=== PATIENT | male | born 1960 | race African-American/Black ===

== ENCOUNTER 2016-08-29 05:52 | Emergency (ER) | payer SELFPAY ==
[2016-08-29] MEDS ORDERED: DUONEB 0.5 MG-3 MG/3 ML SOLN IH ONE ×2 (06:09→06:32)
[2016-08-29] MEDS ORDERED: DELTASONE PO ONE (07:04)
--- NOTE | 2016-08-29 07:49 | Emergency Department Report ---
HPI - General Chief Complaint: Adult Asthma Time Seen by Provider: 08/29/16 07:49 - HPI HPI: Patient here reported that he had wheezing and coughing for one day. He said he took [id number] Primatene that did not work. Denies any chest pain or shortness of breath. Denies any upper respiratory tract infection. Patient does not have a primary care physician. Pain scale is 0 out of 10. ED Past Medical Hx - Past Medical History Previous Medical History?: Yes Hx Heart Attack/AMI: No Hx Congestive Heart Failure: No Hx Diabetes: No Hx Sickle Cell Disease: No Hx Asthma: Yes Hx COPD: No Hx HIV: No - Surgical History Past Surgical History?: No - Family History Family history: no significant - Social History Smoking Status: Current Every Day Smoker Substance Use Type: None - Medications Home Medications: Home Medications Medication Instructions Recorded Confirmed Last Taken Type Albuterol *Only Ed* [Proventil 2.5 mg IH Q3H PRN #30 nebu 09/27/14 Unknown Rx 0.5% NEBS] Azithromycin [Zithromax TAB] 500 mg PO QDAY 5 Days 09/27/14 Unknown Rx Ipratropium/Albuterol Sulfate 1 ampul IH Q6HRT #16 ampul.neb 09/27/14 Unknown Rx [Duoneb 0.5 mg-3 mg/3 ml Soln] Montelukast [Singulair] 10 mg PO QHS #30 tablet 09/27/14 Unknown Rx Prednisone [Prednisone 10 mg 10 mg PO .TAPER #1 tab.ds.pk 09/27/14 Unknown Rx (6-Day Pack, 21 Tabs)] guaiFENesin ER [Mucinex ER] 600 mg PO BID #20 tablet 09/27/14 Unknown Rx Albuterol Sulfate [Ventolin HFA] 2 puff IH Q4H PRN #1 hfa.aer.ad 08/29/16 Unknown Rx predniSONE [Deltasone] 20 mg PO QDAY #5 tab 08/29/16 Unknown Rx ED Review of Systems ROS: Stated complaint: VERENA Other details as noted in HPI Comment: All other systems reviewed and negative Constitutional: denies: chills, fever ENT: denies: ear pain, throat pain, congestion Respiratory: cough, wheezing. denies: shortness of breath, SOB with exertion, SOB at rest, stridor Cardiovascular: denies: chest pain, palpitations, edema, syncope Gastrointestinal: denies: abdominal pain, nausea, vomiting Musculoskeletal: denies: back pain, joint swelling, arthralgia Skin: denies: rash Neurological: denies: headache, weakness, numbness, paresthesias, confusion, abnormal gait, vertigo Physical Exam - Physical Exam Vital Signs: Vital Signs 08/29/16 06:22 Temperature 98.7 F Pulse Rate 93 H Respiratory 24 Rate Blood Pressure 151/94 Blood Pressure 151/94 [Left] O2 Sat by Pulse 97 Oximetry General: 56-year-old male well-nourished well-developed in no acute distress. Physical Exam: Head: Normocephalic atraumatic Mouth: Moist, no pharyngeal exudate or erythema. Uvula is midline and oral airway is patent. No facial swelling. No peritonsillar abscesses. Nose: Normal mucosa. . Maxillary and frontal sinuses nontender to palpate Neck: Supple, no C-spine tenderness, no tracheal deviation. Nontender to palpate. no adenopathy Ears: Bilateral TMs congested without erythema. Bilateral EAC without any redness swelling or drainage. Bilateral otitis nontender to palpate Abdomen: Soft, nontender to palpate in all quadrants, normal bowel sounds in all quadrant and negative CVA tenderness bilaterally. Eyes: Bilateral pupils equal and reactive to light, bilateral EOM intact. Bilateral sclera and conjunctiva without injection. Normal accommodation. No Lungs: Clear to auscultate bilaterally no rhonchi wheezes or rales. Normal work of breathing extremity; No CCE. +2 pulses. No neurovascular compromise Cardiovascular: S1-S2, regular rate rhythm. No murmurs. Skin: clean Dry and intact no rash no lesions Psych: Normal mood and behavior ED Course Vital Signs 08/29/16 06:22 Temperature 98.7 F Pulse Rate 93 H Respiratory 24 Rate Blood Pressure 151/94 Blood Pressure 151/94 [Left] O2 Sat by Pulse 97 Oximetry - Reevaluation(s) Reevaluation #1: 08/29/16 08:52 She received DuoNeb nebulizer and Deltasone in triage area. Up evaluating patient, his lung sounds is clear after treatment. ED Medical Decision Making - Medical Decision Making ED course: Acute asthma exacerbation, minor. He is taking [id number] Advil his medication because he does not have a primary care physician. Patient discharged home in stable condition with prescription for Ventolin HFA and prednisone. Smoking cessation encouraged. Critical care attestation.: If time is entered above; I have spent that time in minutes in the direct care of this critically ill patient, excluding procedure time. ED Disposition Clinical Impression: Encounter for smoking cessation counseling Acute asthma exacerbation Qualifiers: Asthma severity: mild intermittent Qualified Code(s): J45.21 - Mild intermittent asthma with (acute) exacerbation Disposition: DISCHARGED TO HOME OR SELFCARE Is pt being admited?: No Does the pt Need Aspirin: No Condition: Stable Instructions: Asthma (ED), How to Stop Smoking (ED) Additional Instructions: Please stop smoking Take medication as prescribed Followup [facility]. Please call tomorrow to schedule an appointment Prescriptions: Albuterol Sulfate [Ventolin HFA] 2 puff IH Q4H PRN #1 hfa.aer.ad PRN Reason: COUGH AND WHEEZING predniSONE [Deltasone] 20 mg PO QDAY #5 tab Referrals: [facility] [Outside] - 3-5 Days Forms: Accompanied Note, Work/School Release Form(ED)
[2016-08-29 07:59] VITALS: BP 138/78
== END 2016-08-29 09:02 | disposition home or self-care (01) ==
LOC: ED 05:52
DX: J45.21 Mild intermittent asthma with (acute) exacerbation (principal); F17.200 Nicotine dependence, unspecified, uncomplicated
CPT/HCPCS: 99283; J7512

== ENCOUNTER 2016-10-19 06:47 | Inpatient (IN) | payer SELFPAY ==
[2016-10-19] MEDS ORDERED: PROVENTIL IH ONE (07:31)
[2016-10-19] MEDS ORDERED: MAGNESIUM SULFATE 2GM/50ML 2 GM/50 ML BAG IV ONE (07:50)
--- NOTE | 2016-10-19 07:57 | Emergency Department Report ---
HPI - General Chief Complaint: Dyspnea/Respdistress Time Seen by Provider: 10/19/16 07:45 - HPI HPI: This is a 56-year-old male who presents to the emergency department by EMS from home with complaint of shortness of breath, wheezing and some chest tightness. He says it has been going on for the past month but worsened this morning. He is a tobacco smoker. He has a history of asthma. He says he has been out of his albuterol inhaler and other asthma medications. He denies any history of MN, CVA, PE/DVT. He does not have a primary care doctor. No recent travel or sick contacts at home. He has not oxygen dependent but was placed on 2 L nasal cannula through triage. ED Past Medical Hx - Past Medical History Previous Medical History?: Yes Hx Heart Attack/AMI: No Hx Congestive Heart Failure: No Hx Diabetes: No Hx Sickle Cell Disease: No Hx Asthma: Yes Hx COPD: No Hx HIV: No - Surgical History Past Surgical History?: No - Social History Smoking Status: Current Every Day Smoker Substance Use Type: None - Medications Home Medications: Home Medications Medication Instructions Recorded Confirmed Last Taken Type Albuterol *Only Ed* [Proventil 2.5 mg IH Q3H PRN #30 nebu 09/27/14 Unknown Rx 0.5% NEBS] Azithromycin [Zithromax TAB] 500 mg PO QDAY 5 Days 09/27/14 Unknown Rx Ipratropium/Albuterol Sulfate 1 ampul IH Q6HRT #16 ampul.neb 09/27/14 Unknown Rx [Duoneb 0.5 mg-3 mg/3 ml Soln] Montelukast [Singulair] 10 mg PO QHS #30 tablet 09/27/14 Unknown Rx Prednisone [Prednisone 10 mg 10 mg PO .TAPER #1 tab.ds.pk 09/27/14 Unknown Rx (6-Day Pack, 21 Tabs)] guaiFENesin ER [Mucinex ER] 600 mg PO BID #20 tablet 09/27/14 Unknown Rx Albuterol Sulfate [Ventolin HFA] 2 puff IH Q4H PRN #1 hfa.aer.ad 08/29/16 Unknown Rx predniSONE [Deltasone] 20 mg PO QDAY #5 tab 08/29/16 Unknown Rx ED Review of Systems ROS: Stated complaint: SOB/CHEST PAIN Other details as noted in HPI Comment: All other systems reviewed and negative Constitutional: denies: chills, fever Eyes: denies: eye pain, eye discharge, vision change ENT: denies: ear pain, throat pain Respiratory: cough, shortness of breath, wheezing Cardiovascular: chest pain. denies: palpitations Gastrointestinal: denies: abdominal pain, nausea, diarrhea Genitourinary: denies: urgency, dysuria Musculoskeletal: denies: back pain, joint swelling, arthralgia Skin: denies: rash, lesions Neurological: denies: headache, weakness, paresthesias Physical Exam - Physical Exam Vital Signs: Vital Signs 10/19/16 07:03 Temperature 97.7 F Pulse Rate 86 Respiratory 26 H Rate Blood Pressure 160/106 O2 Sat by Pulse 88 Oximetry Physical Exam: GENERAL: The patient is well-developed well-nourished. HEENT: Normocephalic. Atraumatic. Extraocular motions are intact. Patient has moist mucous membranes. Pupils equal reactive to light bilaterally. NECK: Supple. Trachea is midline. CHEST/LUNGS: Moderate wheezing throughout the chest. A dry cough heard during examination. There is some tachypnea but no accessory muscle use. There is no respiratory distress noted. HEART/CARDIOVASCULAR: Regular. There is no tachycardia. There is no gallop rub or murmur. ABDOMEN: Abdomen is soft, nontender. Patient has normal bowel sounds. There is no abdominal distention. SKIN: Skin is warm and dry. NEURO: The patient is awake, alert, and oriented. The patient is cooperative. The patient has no focal neurologic deficits. The patient has normal speech. MUSCULOSKELETAL: There is no tenderness or deformity. There is no limitation range of motion. There is no evidence of acute injury. ED Course Vital Signs 10/19/16 07:03 Temperature 97.7 F Pulse Rate 86 Respiratory 26 H Rate Blood Pressure 160/106 O2 Sat by Pulse 88 Oximetry ED Medical Decision Making - Lab Data Result diagrams: 10/19/16 07:57 10/19/16 07:57 - EKG Data -: EKG Interpreted by Me EKG shows normal: sinus rhythm, axis (right axis deviation), intervals, QRS complexes, ST-T waves Rate: normal - EKG Data When compared to previous EKG there are: previous EKG unavailable Interpretation: normal EKG (with right axis deviation) - Radiology Data Radiology results: image reviewed interpreted by me: Chest x-ray did not show any acute process. Heart is normal shape and size. No effusions. No pneumothorax. No signs of pneumonia seen. - Medical Decision Making 56-year-old male presents with shortness of breath, wheezing, cough and a history of asthma. He also has a history of diabetes presents with hyperglycemia. He does not appear to be in diabetic acidosis as there is no elevated anion gap or venous acidosis seen. He was given 8 units of IV insulin. He was given repeated treatments, magnesium and Solu-Medrol. Upon reevaluation he is slightly improved but he is still having moderate bronchospasm and had some hypoxia upon first presentation. For this reason he' ll be admitted to the hospital further evaluation and has been accepted by the hospitalist doctor Frannie. - Differential Diagnosis asthma, CHF, pneumonia, MN Critical Care Time: No Critical care attestation.: If time is entered above; I have spent that time in minutes in the direct care of this critically ill patient, excluding procedure time. ED Disposition Clinical Impression: Tobacco abuse, Shortness of breath, Bronchospasm, Hyperglycemia Acute asthma exacerbation Qualifiers: Asthma severity: unspecified severity Qualified Code(s): J45.901 - Unspecified asthma with (acute) exacerbation Disposition: 09 OP ADMIT IP TO THIS HOSP Is pt being admited?: Yes Condition: Stable Time of Disposition: 12:40
[2016-10-19 08:09] LABS: Basophils % (Auto) 1.4 % (0.0-1.8); Eosinophils % (Auto) 11.6 % (0.0-4.3); Hemoglobin 15.8 gm/dl (11.8-15.2); Mean Corpuscular HGB Conc 33 % (32-34); Mean Corpuscular Hemoglobin 29 pg (28-32); Mean Corpuscular Volume 88 fl (84-94); Platelet Count 176 K/mm3 (140-440); Red Blood Count 5.48 M/mm3 (3.65-5.03); Red Cell Distribution Width 13.8 % (13.2-15.2); White Blood Count 7.3 K/mm3 (4.5-11.0)
[2016-10-19 08:32] LABS: Creatine Kinase MB 3.2 ng/mL (0.0-4.0)
[2016-10-19 08:35] LABS: Alanine Aminotransferase 17 units/L (7-56); Albumin 3.8 g/dL (3.9-5); Albumin/Globulin Ratio 1.6 %; Alkaline Phosphatase 158 units/L (35-129); Anion Gap 16 mmol/L; BUN/Creatinine Ratio 21.42; Blood Urea Nitrogen 15 mg/dL (9-20); Calcium 8.8 mg/dL (8.4-10.2); Carbon Dioxide 25 mmol/L (22-30); Chloride 100.7 mmol/L (98-107); Creatine Kinase 85 units/L (55-170); Glucose 461 mg/dL (75-100); Potassium 4.7 mmol/L (3.6-5.0); Sodium 137 mmol/L (137-145); Total Protein 6.2 g/dL (6.3-8.2)
--- NOTE | 2016-10-19 08:57 | Admit Criteria Form ---
Admission Criteria Documentation: ASTHMA Clinical Indications for Admission to Inpatient Care (Place 'X' for any and all applicable criteria): Admission is indicated for ANY ONE of the following (1)(2)(3)(4)(5): [ ]I. Absent or markedly diminished breath sounds (silent chest) [ ]II. Oxygen saturation < 92% [ ]III. PaCO2 = / > 42 mm Hg (5.6 kPa) [ ]IV. Peak expiratory flow rate < 40% of predicted or personal best after treatment. [ ]V. Peak expiratory flow rate < 33% of predicted or personal before after treatment [ ]. Change in mental status [ ]VII. Ventilatory support required [ ]VIII. PaO2 < 60 mm Hg (8.0 kPa) [ ]IX. Cyanosis [ ]X. Cardiac dysrhythmia (e.g., bradycardia) [ ]XI. Hemodynamic instability [ ]XII. Radiographic evidence of complication requiring inpatient treatment (e.g., pneumonia, pneumothorax) [X]XIII. Inpatient admission required rather than observation care (also use Asthma: Observation Care guideline as appropriate) because of ANY ONE of the following: [ ]a) Respiratory finding that is severe or persistent (eg, dyspnea, tachypnea, accessory muscle use) [ ]b) Airflow measurements less than 60% of predicted or personal best that persist (e.g., over 24 hours) or worsen despite treatments [X ]c) Supplemental oxygen or respiratory treatments for over 24 hours that are performable only in acute inpatient setting [ ]d) Other condition, treatment or monitoring requiring inpatient admission. Extended stay beyond goal length of stay may be needed for (26)(27)(28): [ ]a) Severe respiratory failure (23) (29) (30) [ ]b) Secondary causes and complications (25) [ ]c) Status asthmaticus [ ]d) Chronic obstructive asthma [ ]e) Older patients (29) [ ]f) Slow resolution [ ]g) Clinically significant exacerbation of comorbidities (eg, all. heart failure, atrial fibrillation) The original [employer] content created by [employer] has been revised. The portions of the content which have been revised are identified through the use of italic text or in bold, and [employer] has neither reviewed nor approved the modified material. All other unmodified content is copyright [employer] Please see references footnoted in the original [facility] edition 2016 Admission Criteria Met: Yes
--- NOTE | 2016-10-19 10:06 | XRay Report ---
Single view chest: Compared to 09/24/14. History: Chest pain. Findings: Normal cardiomediastinal silhouette. Trachea is midline. No consolidation, pneumothorax or pleural effusion. Impression: No acute cardiopulmonary findings.
[2016-10-19] MEDS ORDERED: ZOFRAN IV PRN (10:18)
[2016-10-19] MEDS ORDERED: MILK OF MAGNESIA PO PRN (10:18)
[2016-10-19] MEDS ORDERED: TYLENOL PO PRN (10:18)
[2016-10-19] MEDS ORDERED: DULCOLAX PR PRN (10:18)
[2016-10-19] MEDS ORDERED: D50W (25GM) IV PRN (10:27)
--- NOTE | 2016-10-19 10:43 | History and Physical Report ---
History of Present Illness Date of examination: 10/19/16 Date of admission: 10/19/2016 Chief complaint: shortness of breath cough History of present illness: Patient is a 56 year old male with a history of mild COPD who complains of cough , shortness of breath, fatigue.The patient believes the fatigue and dry cough began just over two month ago.Shortly thereafter the cough became productive of yellowish/green sputum and he denies fever and chills. He has been using his albuterol inhaler two to three times daily but it is helping only minimally.significant shortness of breath with minor exertion from simply walking around the house he decided it was time to come to the hospital. In ED, blood glucse was 461, was given Insulin 8 Units subcut. he is diagnosed with new onset diabetes and acute resp failure due to asthma excerbation Past History Past Medical History: COPD Past Surgical History: No surgical history Social history: no significant social history, , smoking Family history: no significant family history Medications and Allergies Allergies Allergy/AdvReac Type Severity Reaction Status Date / Time No Known Allergies Allergy Verified 10/19/16 07:06 Home Medications Medication Instructions Recorded Confirmed Last Taken Type Albuterol *Only Ed* [Proventil 2.5 mg IH Q3H PRN #30 nebu 09/27/14 Unknown Rx 0.5% NEBS] Azithromycin [Zithromax TAB] 500 mg PO QDAY 5 Days 09/27/14 Unknown Rx Ipratropium/Albuterol Sulfate 1 ampul IH Q6HRT #16 ampul.neb 09/27/14 Unknown Rx [Duoneb 0.5 mg-3 mg/3 ml Soln] Montelukast [Singulair] 10 mg PO QHS #30 tablet 09/27/14 Unknown Rx Prednisone [Prednisone 10 mg 10 mg PO .TAPER #1 tab.ds.pk 09/27/14 Unknown Rx (6-Day Pack, 21 Tabs)] guaiFENesin ER [Mucinex ER] 600 mg PO BID #20 tablet 09/27/14 Unknown Rx Albuterol Sulfate [Ventolin HFA] 2 puff IH Q4H PRN #1 hfa.aer.ad 08/29/16 Unknown Rx predniSONE [Deltasone] 20 mg PO QDAY #5 tab 08/29/16 Unknown Rx Active Meds: Active Medications Acetaminophen (Tylenol) 650 mg PO Q4H PRN PRN Reason: Pain MILD(1-3)/Fever >100.5/WAGNER Albuterol/Ipratropium (Duoneb 0.5 Mg-3 Mg/3 Ml Soln) 1 ampul IH Q6HRT RUBI Bisacodyl (Dulcolax) 10 mg MT QDAY PRN PRN Reason: Constipation unrelieved by [facility] [place] Dextrose (D50w (25gm)) 50 ml IV PRN PRN PRN Reason: Hypoglycemia Enoxaparin Sodium (Lovenox) 40 mg SUB-Q QDAY RUBI Insulin Aspart (Novolog) 0 units SUB-Q AC RUBI PRN Reason: Protocol Insulin Aspart (Novolog) 0 units SUB-Q QHS RUBI PRN Reason: Protocol Magnesium Hydroxide (Milk Of Magnesia) 30 ml PO Q4H PRN PRN Reason: Constipation Methylprednisolone Sodium Succinate (Solu-Medrol) 40 mg IV QDAY RUBI Ondansetron HCl (Zofran) 4 mg IV Q8H PRN PRN Reason: N/V unrelieved by Reglan Review of Systems Constitutional: no weight loss, no weight gain, no fever, no chills, no sweats Ears, nose, mouth and throat: no deferred, no ear pain, no ear discharge, no tinnitis Cardiovascular: no chest pain, no orthopnea, no palpitations Respiratory: cough, cough with sputum (yellow ), shortness of breath, dyspnea on exertion, wheezing Gastrointestinal: no nausea, no vomiting, no diarrhea Genitourinary Male: no dysuria, no hematuria, no flank pain Musculoskeletal: no neck pain, no shooting arm pain Integumentary: no rash, no pruritis, no redness, no sores Neurological: no head injury, no transient paralysis, no paralysis, no weakness Psychiatric: no anxiety, no memory loss, no change in sleep habits Endocrine: no cold intolerance, no heat intolerance, no polyphagia Hematologic/Lymphatic: no easy bruising, no easy bleeding Allergic/Immunologic: no urticaria Exam - Constitutional Vitals: Temp Pulse Resp BP Pulse Ox 98 F 93 H 18 123/96 100 10/19/16 09:17 10/19/16 09:17 10/19/16 09:17 10/19/16 09:17 10/19/16 09:17 General appearance: Present: mild distress - EENT Eyes: Present: PERRL, EOM intact ENT: hearing intact, clear oral mucosa, dentition normal - Neck Neck: Present: supple, normal ROM - Respiratory Respiratory: bilateral: wheezing - Cardiovascular Heart Sounds: Present: S1 & S2 - Extremities Extremities: no ischemia Peripheral Pulses: within normal limits - Abdominal General gastrointestinal: Present: soft, non-tender Male genitourinary: Present: deferred - Rectal Rectal Exam: deferred - Integumentary Integumentary: Present: clear, warm, dry - Musculoskeletal Musculoskeletal: gait normal, strength equal bilaterally - Psychiatric Psychiatric: appropriate mood/affect, intact judgment & insight - Neurologic Neurologic: CNII-XII intact, moves all extremities Results - Labs CBC & Chem 7: 10/19/16 07:57 10/19/16 07:57 Labs: Laboratory Last Values WBC 7.3 K/mm3 (4.5-11.0) 10/19/16 07:57 RBC 5.48 M/mm3 (3.65-5.03) H 10/19/16 07:57 Hgb 15.8 gm/dl (11.8-15.2) H 10/19/16 07:57 Hct 48.0 % (35.5-45.6) H 10/19/16 07:57 MCV 88 fl (84-94) 10/19/16 07:57 MCH 29 pg (28-32) 10/19/16 07:57 MCHC 33 % (32-34) 10/19/16 07:57 RDW 13.8 % (13.2-15.2) 10/19/16 07:57 Plt Count 176 K/mm3 (140-440) 10/19/16 07:57 Lymph % (Auto) 28.7 % (13.4-35.0) 10/19/16 07:57 Motley % (Auto) 8.3 % (0.0-7.3) H 10/19/16 07:57 Eos % (Auto) 11.6 % (0.0-4.3) H 10/19/16 07:57 Baso % (Auto) 1.4 % (0.0-1.8) 10/19/16 07:57 Lymph # 2.1 K/mm3 (1.2-5.4) 10/19/16 07:57 Motley # 0.6 K/mm3 (0.0-0.8) 10/19/16 07:57 Eos # 0.9 K/mm3 (0.0-0.4) H 10/19/16 07:57 Baso # 0.1 K/mm3 (0.0-0.1) 10/19/16 07:57 Seg Neutrophils % 50.0 % (40.0-70.0) 10/19/16 07:57 Seg Neutrophils # 3.7 K/mm3 (1.8-7.7) 10/19/16 07:57 VBG pH 7.320 (7.320-7.420) 10/19/16 09:09 Sodium 137 mmol/L (137-145) 10/19/16 07:57 Potassium 4.7 mmol/L (3.6-5.0) 10/19/16 07:57 Chloride 100.7 mmol/L (98-107) 10/19/16 07:57 Carbon Dioxide 25 mmol/L (22-30) 10/19/16 07:57 Anion Gap 16 mmol/L 10/19/16 07:57 BUN 15 mg/dL (9-20) 10/19/16 07:57 Creatinine 0.7 mg/dL (0.8-1.5) L 10/19/16 07:57 Estimated GFR > 60 ml/min 10/19/16 07:57 BUN/Creatinine Ratio 21.42 % 10/19/16 07:57 Glucose 461 mg/dL (75-100) H 10/19/16 07:57 Calcium 8.8 mg/dL (8.4-10.2) 10/19/16 07:57 Total Bilirubin 0.50 mg/dL (0.1-1.2) 10/19/16 07:57 AST 14 units/L (5-40) 10/19/16 07:57 ALT 17 units/L (7-56) 10/19/16 07:57 Alkaline Phosphatase 158 units/L (35-129) H 10/19/16 07:57 Total Creatine Kinase 85 units/L (55-170) 10/19/16 07:57 CK-MB (CK-2) 3.2 ng/mL (0.0-4.0) 10/19/16 07:57 CK-MB (CK-2) Rel Index 3.7 (0-4) 10/19/16 07:57 Troponin T < 0.010 ng/mL (0.00-0.029) 10/19/16 07:57 NT-Pro-B Natriuret Pep 19.53 pg/mL (0-900) 10/19/16 07:57 Total Protein 6.2 g/dL (6.3-8.2) L 10/19/16 07:57 Albumin 3.8 g/dL (3.9-5) L 10/19/16 07:57 Albumin/Globulin Ratio 1.6 % 10/19/16 07:57 - Imaging and Cardiology Chest x-ray: pending (No acute Cardio Pulmonary) Assessment and Plan Assessment and plan: ASSESSMENT/PLAN 1. Acute Respiratory Failure due to asthma exacerbation Patient will admit to MED/SURG floor Close respiratory monitoring overnight. On 2 LNC Oxygen will obtain ABG as needed continuous pulse ox Frequent resp checks 2. Asthma Exacerbation worsening shortness of breath, fatigue,and wheezing. we will start Solumedrol TID 40mg IV we will start Ipratropium/Albuterol 3. New onset Diabetes Mellitus BG 461 Patient given 8 units of Regular insulin we will start on Sliding scale insulin/ Novolog Accu chek AC/HS we will obtain AC1 level start ivf with NS 4.Current Smoker Smoking cessation counseling given
[2016-10-19 13:03] LABS: Creatine Kinase MB 3.3 ng/mL (0.0-4.0)
[2016-10-19 13:04] LABS: Creatine Kinase 80 units/L (55-170)
[2016-10-19] MEDS: NOVOLOG SUB-Q SCH ×3 (13:19→22:42)
[2016-10-19] MEDS: NACL 0.9% 1000 ML 1,000 ML IV SCH (13:33)
[2016-10-19] MEDS: DUONEB 0.5 MG-3 MG/3 ML SOLN IH SCH ×3 (13:34→19:10)
[2016-10-19] MEDS ORDERED: NOVOLOG SUB-Q SCH (22:00)
[2016-10-20] MEDS: DUONEB 0.5 MG-3 MG/3 ML SOLN IH SCH ×3 (01:35→14:28)
[2016-10-20] MEDS: NACL 0.9% 1000 ML 1,000 ML IV SCH (03:34)
[2016-10-20 07:05] LABS: Hematocrit 44.1 % (35.5-45.6); Hemoglobin 14.7 gm/dl (11.8-15.2); Mean Corpuscular HGB Conc 33 % (32-34); Mean Corpuscular Hemoglobin 29 pg (28-32); Mean Corpuscular Volume 87 fl (84-94); Platelet Count 184 K/mm3 (140-440); Red Blood Count 5.08 M/mm3 (3.65-5.03); Red Cell Distribution Width 13.7 % (13.2-15.2); White Blood Count 19.7 K/mm3 (4.5-11.0)
[2016-10-20 07:27] LABS: Anion Gap 17 mmol/L; BUN/Creatinine Ratio 31.66; Blood Urea Nitrogen 19 mg/dL (9-20); Calcium 8.6 mg/dL (8.4-10.2); Carbon Dioxide 22 mmol/L (22-30); Chloride 103.5 mmol/L (98-107); Glucose 254 mg/dL (75-100); Potassium 4.2 mmol/L (3.6-5.0); Sodium 138 mmol/L (137-145)
[2016-10-20] MEDS: NOVOLOG SUB-Q SCH ×2 (07:56→13:07)
[2016-10-20 08:03] LABS: Blastocytes % (Manual) 0 %
[2016-10-20 08:04] LABS: Basophils % (Manual) 0 % (0.0-1.8); Diff Status Complete; Eosinophils % (Manual) 0 % (0.0-4.3); RBC Morphology Normal; Total Cells Counted Percent 0
[2016-10-20 08:18] VITALS: BP 114/63
--- NOTE | 2016-10-20 09:10 | Progress Note ---
Hospitalist Physical - Constitutional Vitals: Temp Pulse Resp BP Pulse Ox 97.9 F 108 H 18 114/63 95 10/20/16 08:00 10/20/16 09:06 10/20/16 09:06 10/20/16 08:00 10/20/16 08:53 General appearance: Present: mild distress Results - Labs CBC & Chem 7: 10/20/16 06:28 10/20/16 06:28 Labs: Laboratory Last Values WBC 19.7 K/mm3 (4.5-11.0) H 10/20/16 06:28 RBC 5.08 M/mm3 (3.65-5.03) H 10/20/16 06:28 Hgb 14.7 gm/dl (11.8-15.2) 10/20/16 06:28 Hct 44.1 % (35.5-45.6) 10/20/16 06:28 MCV 87 fl (84-94) 10/20/16 06:28 MCH 29 pg (28-32) 10/20/16 06:28 MCHC 33 % (32-34) 10/20/16 06:28 RDW 13.7 % (13.2-15.2) 10/20/16 06:28 Plt Count 184 K/mm3 (140-440) 10/20/16 06:28 Lymph % (Auto) 28.7 % (13.4-35.0) 10/19/16 07:57 Perkins % (Auto) 8.3 % (0.0-7.3) H 10/19/16 07:57 Eos % (Auto) 11.6 % (0.0-4.3) H 10/19/16 07:57 Baso % (Auto) 1.4 % (0.0-1.8) 10/19/16 07:57 Lymph # 2.1 K/mm3 (1.2-5.4) 10/19/16 07:57 Perkins # 0.6 K/mm3 (0.0-0.8) 10/19/16 07:57 Eos # 0.9 K/mm3 (0.0-0.4) H 10/19/16 07:57 Baso # 0.1 K/mm3 (0.0-0.1) 10/19/16 07:57 Add Manual Diff Complete 10/20/16 06:28 Total Counted 100 10/20/16 06:28 Seg Neutrophils % [employer] 10/20/16 06:28 Seg Neuts % (Manual) 92.0 % (40.0-70.0) H 10/20/16 06:28 Band Neutrophils % 1.0 % 10/20/16 06:28 Lymphocytes % (Manual) 7.0 % (13.4-35.0) L 10/20/16 06:28 Reactive Lymphs % (Man) 0 % 10/20/16 06:28 Monocytes % (Manual) 0 % (0.0-7.3) 10/20/16 06:28 Eosinophils % (Manual) 0 % (0.0-4.3) 10/20/16 06:28 Basophils % (Manual) 0 % (0.0-1.8) 10/20/16 06:28 Metamyelocytes % 0 % 10/20/16 06:28 Myelocytes % 0 % 10/20/16 06:28 Promyelocytes % 0 % 10/20/16 06:28 Blast Cells % 0 % 10/20/16 06:28 Nucleated RBC % Not Reportable 10/20/16 06:28 Seg Neutrophils # 3.7 K/mm3 (1.8-7.7) 10/19/16 07:57 Seg Neutrophils # Man 18.1 K/mm3 (1.8-7.7) H 10/20/16 06:28 Band Neutrophils # 0.2 K/mm3 10/20/16 06:28 Lymphocytes # (Manual) 1.4 K/mm3 (1.2-5.4) 10/20/16 06:28 Abs React Lymphs (Man) 0.0 K/mm3 10/20/16 06:28 Monocytes # (Manual) 0.0 K/mm3 (0.0-0.8) 10/20/16 06:28 Eosinophils # (Manual) 0.0 K/mm3 (0.0-0.4) 10/20/16 06:28 Basophils # (Manual) 0.0 K/mm3 (0.0-0.1) 10/20/16 06:28 Metamyelocytes # 0.0 K/mm3 10/20/16 06:28 Myelocytes # 0.0 K/mm3 10/20/16 06:28 Promyelocytes # 0.0 K/mm3 10/20/16 06:28 Blast Cells # 0.0 K/mm3 10/20/16 06:28 WBC Morphology Not Reportable 10/20/16 06:28 Hypersegmented Neuts Not Reportable 10/20/16 06:28 Hyposegmented Neuts Not Reportable 10/20/16 06:28 Hypogranular Neuts Not Reportable 10/20/16 06:28 Smudge Cells Not Reportable 10/20/16 06:28 Toxic Granulation Not Reportable 10/20/16 06:28 Toxic Vacuolation Not Reportable 10/20/16 06:28 Dohle Bodies Not Reportable 10/20/16 06:28 Pelger-Huet Anomaly Not Reportable 10/20/16 06:28 Beata Rods Not Reportable 10/20/16 06:28 Platelet Estimate Appears normal 10/20/16 06:28 Clumped Platelets Not Reportable 10/20/16 06:28 Plt Clumps, EDTA Not Reportable 10/20/16 06:28 Large Platelets Not Reportable 10/20/16 06:28 Giant Platelets Not Reportable 10/20/16 06:28 Platelet Satelliting Not Reportable 10/20/16 06:28 Plt Morphology Comment Not Reportable 10/20/16 06:28 RBC Morphology Normal 10/20/16 06:28 Dimorphic RBCs Not Reportable 10/20/16 06:28 Polychromasia Not Reportable 10/20/16 06:28 Hypochromasia Not Reportable 10/20/16 06:28 Poikilocytosis Not Reportable 10/20/16 06:28 Anisocytosis Not Reportable 10/20/16 06:28 Microcytosis Not Reportable 10/20/16 06:28 Macrocytosis Not Reportable 10/20/16 06:28 Spherocytes Not Reportable 10/20/16 06:28 Pappenheimer Bodies Not Reportable 10/20/16 06:28 Sickle Cells Not Reportable 10/20/16 06:28 Target Cells Not Reportable 10/20/16 06:28 Tear Drop Cells Not Reportable 10/20/16 06:28 Ovalocytes Not Reportable 10/20/16 06:28 Helmet Cells Not Reportable 10/20/16 06:28 Beaulieu-Schneider Bodies Not Reportable 10/20/16 06:28 [place] Rings Not Reportable 10/20/16 06:28 Porfirio Cells Not Reportable 10/20/16 06:28 Bite Cells Not Reportable 10/20/16 06:28 Crenated Cell Not Reportable 10/20/16 06:28 Elliptocytes Not Reportable 10/20/16 06:28 Acanthocytes (Spur) Not Reportable 10/20/16 06:28 Rouleaux Not Reportable 10/20/16 06:28 Hemoglobin C Crystals Not Reportable 10/20/16 06:28 Schistocytes Not Reportable 10/20/16 06:28 Malaria parasites Not Reportable 10/20/16 06:28 Alex Bodies Not Reportable 10/20/16 06:28 Hem Pathologist Commnt No 10/20/16 06:28 VBG pH 7.320 (7.320-7.420) 10/19/16 09:09 Sodium 138 mmol/L (137-145) 10/20/16 06:28 Potassium 4.2 mmol/L (3.6-5.0) 10/20/16 06:28 Chloride 103.5 mmol/L (98-107) 10/20/16 06:28 Carbon Dioxide 22 mmol/L (22-30) 10/20/16 06:28 Anion Gap 17 mmol/L 10/20/16 06:28 BUN 19 mg/dL (9-20) 10/20/16 06:28 Creatinine 0.6 mg/dL (0.8-1.5) L 10/20/16 06:28 Estimated GFR > 60 ml/min 10/20/16 06:28 BUN/Creatinine Ratio 31.66 % 10/20/16 06:28 Glucose 254 mg/dL (75-100) H 10/20/16 06:28 POC Glucose 236 (70-105) H 10/20/16 06:26 Hemoglobin A1c 13.0 % (4-6) H 10/19/16 11:00 Calcium 8.6 mg/dL (8.4-10.2) 10/20/16 06:28 Total Bilirubin 0.50 mg/dL (0.1-1.2) 10/19/16 07:57 AST 14 units/L (5-40) 10/19/16 07:57 ALT 17 units/L (7-56) 10/19/16 07:57 Alkaline Phosphatase 158 units/L (35-129) H 10/19/16 07:57 Total Creatine Kinase 80 units/L (55-170) 10/19/16 10:53 CK-MB (CK-2) 3.2 ng/mL (0.0-4.0) 10/19/16 07:57 CK-MB (CK-2) Rel Index 4.1 (0-4) H 10/19/16 10:53 Troponin T < 0.010 ng/mL (0.00-0.029) 10/19/16 10:53 NT-Pro-B Natriuret Pep 19.53 pg/mL (0-900) 10/19/16 07:57 Total Protein 6.2 g/dL (6.3-8.2) L 10/19/16 07:57 Albumin 3.8 g/dL (3.9-5) L 10/19/16 07:57 Albumin/Globulin Ratio 1.6 % 10/19/16 07:57
[2016-10-20] MEDS ORDERED: LOVENOX SUB-Q SCH (10:00)
--- NOTE | 2016-10-20 10:01 | Discharge Summary ---
Providers - Providers Date of Admission: 10/19/16 10:18 Date of discharge: 10/20/16 Attending physician: ADELA FRIEDMAN Primary care physician: SHEKHAR KAMARA MD Hospitalization Condition: Good Disposition: DC-01 TO HOME OR SELFCARE - Discharge Diagnoses (1) Acute respiratory failure with hypoxia Status: Acute (2) Diabetes mellitus type 2 in nonobese Status: Acute (3) Acute asthma exacerbation Status: Acute Qualifiers: Asthma severity: unspecified severity Qualified Code(s): J45.901 - Unspecified asthma with (acute) exacerbation Exam - Constitutional Vitals: Temp Pulse Resp BP Pulse Ox 97.9 F 108 H 18 114/63 95 10/20/16 08:00 10/20/16 09:06 10/20/16 09:06 10/20/16 08:00 10/20/16 08:53 Plan Activity: advance as tolerated Diet: low fat, low cholesterol, low salt, diabetic Additional Instructions: 1.Follow up with PCP in 1 week Follow up with: PRIMARY CARE, [Primary Care Provider] - 7 Days Prescriptions: Insulin NPH/Regular [NovoLIN 70/30] 10 unit SUB-Q BIDDIAB #1 vial Ipratropium/Albuterol Sulfate [Duoneb 0.5 mg-3 mg/3 ml Soln] 1 ampul IH Q6HRT PRN 30 Days PRN Reason: Shortness Of Breath Prednisone [predniSONE 5 mg (6-Day Pack, 21 Tabs)] 5 mg PO .TAPER #1 tab.ds.pk
[2016-10-20] MEDS ORDERED: FLUARIX QUAD 2016-2017(36 MOS+) IM ONE (12:00)
== END 2016-10-20 15:30 | disposition home or self-care (01) | DRG 189 ==
LOC: ED 06:47 → 3A 10:18
PROVIDERS: ADMIT Internal Medicine; ATTEND Internal Medicine
DX: J96.00 Acute respiratory failure, unspecified whether with hypoxia or hypercapnia (principal); J45.901 Unspecified asthma with (acute) exacerbation; J44.9 Chronic obstructive pulmonary disease, unspecified; E11.9 Type 2 diabetes mellitus without complications; F17.200 Nicotine dependence, unspecified, uncomplicated; Z71.6 Tobacco abuse counseling
CPT/HCPCS: 36415; 71010; 80048; 80053; 82550; 82553; 82805; 82962; 83036; 83880; 84484; 85007; 85025; 90686; 93005; 93010; 94640; 94760; 96365; 96375; 99285; 99406; J1650; J1815; J2920; J2930; J3475; J7030

== ENCOUNTER 2017-07-07 12:54 | Emergency (ER) | payer SELFPAY ==
[2017-07-07] MEDS ORDERED: DUONEB *Not for PRN Use IH ONE (13:02)
[2017-07-07] MEDS ORDERED: PROVENTIL IH ONE (13:47)
[2017-07-07] MEDS ORDERED: MAGNESIUM SULFATE 2GM/50ML 2 GM/50 ML BAG IV ONE (13:47)
[2017-07-07] MEDS ORDERED: ATROVENT IH ONE (13:47)
--- NOTE | 2017-07-07 13:47 | Emergency Department Report ---
Blank Doc - Documentation Documentation: Patient is a 57-year-old Urdu gentleman who is presenting with a week of cough, congestion and wheezing. Brief physical exam patient does have wheeze diffusely he'll be moved to a treatment area to undergo a breathing treatment as well as labs
--- NOTE | 2017-07-07 14:15 | XRay Report ---
ROUTINE CHEST, TWO VIEWS: HISTORY: Cough. The trachea, heart, mediastinal contour, lung villar and bony thorax are unremarkable. IMPRESSION: Unremarkable chest x-ray. No significant change since 10/19/16.
--- NOTE | 2017-07-07 14:33 | Emergency Department Report ---
HPI - General Chief Complaint: Dyspnea/Respdistress Time Seen by Provider: 07/07/17 13:29 - HPI HPI: Patient is a 57-year-old [place] gentleman who is presenting with a week of cough, congestion and wheezing. Patient has a history of asthma and he said he is out of his Proventil and albuterol nebulizers. Denies any chest pain. Denies any hemoptysis. Patient has a history of asthma and denies any medical or surgical history. Denies any fever or chills. Denies any recent long distance travel, use of hormone, history of cancer or recent convalescent. Denies any history of blood clots. Patient has a history of diabetes and is taking insulin ED Past Medical Hx - Past Medical History Previous Medical History?: Yes Hx Heart Attack/AMI: No Hx Congestive Heart Failure: No Hx Diabetes: No Hx Sickle Cell Disease: No Hx Asthma: Yes Hx COPD: No Hx HIV: No - Surgical History Past Surgical History?: No - Family History Family history: hypertension - Social History Smoking Status: Never Smoker Substance Use Type: None - Medications Home Medications: Home Medications Medication Instructions Recorded Confirmed Last Taken Type Montelukast [Singulair] 10 mg PO QHS #30 tablet 09/27/14 Unknown Rx guaiFENesin ER [Mucinex ER] 600 mg PO BID #20 tablet 09/27/14 Unknown Rx Insulin NPH/Regular [NovoLIN 70/30] 10 unit SUB-Q BIDDIAB #1 vial 10/20/16 Unknown Rx Ipratropium/Albuterol Sulfate 1 ampul IH Q6HRT PRN 30 Days 10/20/16 Unknown Rx [DUONEB *Not for PRN Use*] ampul.neb Prednisone [predniSONE 5 mg (6-Day 5 mg PO .TAPER #1 tab.ds.pk 10/20/16 Unknown Rx Pack, 21 Tabs)] ALBUTEROL NEB's [Proventil 0.083% 2.5 mg IH Q6H PRN #1 pack 07/07/17 Unknown Rx NEBS] Albuterol Sulfate [Ventolin HFA] 2 puff IH Q4-6H PRN #1 hfa.aer.ad 07/07/17 Unknown Rx Cetirizine HCl [ZyrTEC] 10 mg PO QAM 14 Days #14 capsule 07/07/17 Unknown Rx predniSONE [Deltasone] 40 mg PO QAM 10 Days #5 tab 07/07/17 Unknown Rx ED Review of Systems ROS: Stated complaint: VERENA Other details as noted in HPI Comment: All other systems reviewed and negative Constitutional: no symptoms reported ENT: congestion. denies: ear pain, throat pain Respiratory: cough, wheezing. denies: orthopnea, shortness of breath, SOB with exertion, SOB at rest, stridor, other Cardiovascular: denies: chest pain, palpitations, dyspnea on exertion, edema, syncope, paroxysmal nocturnal dyspnea Gastrointestinal: denies: abdominal pain, nausea, vomiting, diarrhea, constipation Genitourinary: denies: dysuria, hematuria Musculoskeletal: denies: back pain, joint swelling, arthralgia, myalgia Skin: denies: rash Neurological: denies: headache, weakness, numbness, paresthesias, abnormal gait , vertigo Physical Exam - Physical Exam Vital Signs: Vital Signs 07/07/17 13:00 Temperature 97.9 F Pulse Rate 85 Respiratory 16 Rate Blood Pressure 145/83 O2 Sat by Pulse 96 Oximetry Vital Signs 07/07/17 07/07/17 13:00 17:51 Temperature 97.9 F Pulse Rate 85 91 H Respiratory 16 18 Rate Blood Pressure 145/83 Blood Pressure 111/57 [Right] O2 Sat by Pulse 96 95 Oximetry General: This is a 57-year-old male well-nourished well-developed in no acute distress. Physical Exam: Head: Normocephalic atraumatic Ears:BIateral TM congested without erythema and loss of bony landmarks. Valentín EAC with normal exam. No mastoid bone tenderness. Mouth: Moist, no pharyngeal erythema or exudate . No tonsillar erythema or exudate. UVULA midline and oral airways patent. No peritonsillar abscess. Extremity: No clubbing, cyanosis or edema. +2 pulses to all extremities and no neurovascular compromise Abdomen: Soft, nontender to palpate in all quadrants, no guarding or rebound tenderness Neck: Nontender to palpate, supple, normal range of motion. No adenopathy. No c- spine tenderness. Nose: Bilateral nasal mucosa congested with clear drainage. Maxillary and frontal sinuses non-tender to palpate. Eyes: Valentín .Sclerae and conjunctiva without injection. Bilateral pupils equal and reactive to light. Bilateral lids are normal. Normal accommodation.BEOMI Lungs: Wheezing throughout lung villar. Positive cough. Mild increased work of breathing , no chest wall tenderness CV: S1, S2. Regular rate and rhythm negative murmur. Capillary refill is less than 3 seconds Skin: Clean dry and intact, no rashes or lesions Psych: Normal mood and behavior ED Course Vital Signs 07/07/17 13:00 Temperature 97.9 F Pulse Rate 85 Respiratory 16 Rate Blood Pressure 145/83 O2 Sat by Pulse 96 Oximetry Vital Signs 07/07/17 07/07/17 13:00 17:51 Temperature 97.9 F Pulse Rate 85 91 H Respiratory 16 18 Rate Blood Pressure 145/83 Blood Pressure 111/57 [Right] O2 Sat by Pulse 96 95 Oximetry - Reevaluation(s) Reevaluation #1: 07/07/17 13:00 Patient and receive DuoNeb treatment 1 without any clearing of wheezing Reevaluation #2: 07/07/17 17:56 Patient received additional 5 mg of albuterol, 1 mg of Atrovent and 2 mg of magnesium sulfate. Upon reevaluation, lungs sounds with scattered wheeze in the upper lung villar and patient reports he is feeling better. ED Medical Decision Making - Lab Data Result diagrams: 07/07/17 15:13 07/07/17 15:13 Lab Results 07/07/17 07/07/17 Range/Units 15:13 15:13 WBC 8.4 (4.5-11.0) K/mm3 RBC 5.44 H (3.65-5.03) M/mm3 Hgb 16.0 H (11.8-15.2) gm/dl Hct 46.2 H (35.5-45.6) % MCV 85 (84-94) fl MCH 29 (28-32) pg MCHC 35 H (32-34) % RDW 13.5 (13.2-15.2) % Plt Count 207 (140-440) K/mm3 Lymph % (Auto) 20.6 (13.4-35.0) % Coleman % (Auto) 8.0 H (0.0-7.3) % Eos % (Auto) 3.3 (0.0-4.3) % Baso % (Auto) 0.7 (0.0-1.8) % Lymph # 1.7 (1.2-5.4) K/mm3 Coleman # 0.7 (0.0-0.8) K/mm3 Eos # 0.3 (0.0-0.4) K/mm3 Baso # 0.1 (0.0-0.1) K/mm3 Seg Neutrophils % 67.4 (40.0-70.0) % Seg Neutrophils # 5.7 (1.8-7.7) K/mm3 Sodium 139 (137-145) mmol/L Potassium 4.4 (3.6-5.0) mmol/L Chloride 98.7 (98-107) mmol/L Carbon Dioxide 25 (22-30) mmol/L Anion Gap 20 mmol/L BUN 15 (9-20) mg/dL Creatinine 0.6 L (0.8-1.5) mg/dL Estimated GFR > 60 ml/min BUN/Creatinine Ratio 25 % Glucose 223 H (75-100) mg/dL Calcium 9.3 (8.4-10.2) mg/dL Calculated anion gap is 15 - EKG Data -: EKG Interpreted by Me (attending physician) EKG shows normal: sinus rhythm Rate: normal - EKG Data Interpretation: no acute changes (sinus rhythm at 81 bpm), normal EKG - Radiology Data Radiology results: report reviewed Chest x-ray revealed no acute cardiopulmonary processes - Medical Decision Making ED course: Patient here for asthma exacerbation he said he ran out of his asthma medication to include Proventil and albuterol nebulizer. Patient was treated with DuoNeb 1 without any relief he was then given albuterol 10 mg and aspirin 1 mg nebulizer, Solu-Medrol 125 mg IV and magnesium sulfate 2 g IV. Reevaluation of lungs, patient was scattered wheezing to upper lung villar and said that he feels better. Patient denies any shortness of breath or chest pain at present. I discussed diagnosis and treatment plan with him. His x-ray reveals no acute cardiopulmonary findings. Patient does have a primary care physician and they told him he needs to follow up with his primary care physician tomorrow. Discharged home in stable condition with prescription for Proventil inhaler, albuterol nebulizer and prednisone. I discussed patient that his blood glucose was elevated and he will need to take his diabetic medication as prescribed and increase his fluid intake. I discussed with him to keep a record of is blood pressure and blood sugar and take to primary care visit with him. Critical care attestation.: If time is entered above; I have spent that time in minutes in the direct care of this critically ill patient, excluding procedure time. ED Disposition Clinical Impression: Cough in adult, Hyperglycemia due to type 1 diabetes mellitus Asthma exacerbation attacks Qualifiers: Asthma severity: moderate Asthma persistence: unspecified Qualified Code(s): J45.901 - Unspecified asthma with (acute) exacerbation Disposition: DC-20 Is pt being admited?: No Does the pt Need Aspirin: No Condition: Stable Instructions: Asthma (ED), Diabetic Hyperglycemia (ED), Acute Cough (ED) Additional Instructions: Follow-up the primary care physician tomorrow Use your albuterol albuterol nebulizer for the next 2 days every 6 hours and then as needed Please have your primary care physician refer you to pulmonary doctor or you can call pulmonary physician that in your discharge instruction paperwork Take prednisone for asthma exacerbation but he'll need to monitor your blood glucose more frequently Take Blood sugar often than usual until prednisone is completed. This medication can increase your blood sugar Prescriptions: ALBUTEROL NEB's [Proventil 0.083% NEBS] 2.5 mg IH Q6H PRN #1 pack PRN Reason: Wheezing Albuterol Sulfate [Ventolin HFA] 2 puff IH Q4-6H PRN #1 hfa.aer.ad PRN Reason: COUGH AND WHEEZING Cetirizine HCl [ZyrTEC] 10 mg PO QAM 14 Days #14 capsule predniSONE [Deltasone] 40 mg PO QAM 10 Days #5 tab Referrals: BERNY MELGAR MD [Staff Physician] - 07/11/17 PRIMARY CAREMD [Primary Care Provider] - 07/08/17 [facility] [Outside] - 07/08/17 Forms: Work/School Release Form(ED)
[2017-07-07 15:30] LABS: Basophils # (Auto) 0.1 K/mm3 (0.0-0.1); Basophils % (Auto) 0.7 % (0.0-1.8); Eosinophils # (Auto) 0.3 K/mm3 (0.0-0.4); Eosinophils % (Auto) 3.3 % (0.0-4.3); Hematocrit 46.2 % (35.5-45.6); Lymphocytes # (Auto) 1.7 K/mm3 (1.2-5.4); Lymphocytes % (Auto) 20.6 % (13.4-35.0); Mean Corpuscular HGB Conc 35 % (32-34); Mean Corpuscular Hemoglobin 29 pg (28-32); Mean Corpuscular Volume 85 fl (84-94); Monocytes # (Auto) 0.7 K/mm3 (0.0-0.8); Platelet Count 207 K/mm3 (140-440); Red Blood Count 5.44 M/mm3 (3.65-5.03); Red Cell Distribution Width 13.5 % (13.2-15.2)
[2017-07-07 16:07] LABS: BUN/Creatinine Ratio 25; Blood Urea Nitrogen 15 mg/dL (9-20); Calcium 9.3 mg/dL (8.4-10.2); Hemolysis Index 4
[2017-07-07 17:52] VITALS: BP 111/57
== END 2017-07-07 18:39 | disposition home or self-care (01) ==
LOC: ED 12:54
DX: J45.901 Unspecified asthma with (acute) exacerbation (principal); E10.65 Type 1 diabetes mellitus with hyperglycemia; Z79.4 Long term (current) use of insulin
CPT/HCPCS: 36415; 71046; 80048; 85025; 93005; 93010; 94640; 96365; 96375; 99284; J2930; J3475

== ENCOUNTER 2019-04-27 09:33 | Emergency (ER) | payer OTHER ==
[2019-04-27 09:39] VITALS: BP 152/96
[2019-04-27] MEDS ORDERED: DOXYCYCLINE 100 MG CAPSULE PO ONE (10:09)
[2019-04-27] MEDS ORDERED: predniSONE 20 MG TAB PO ONE (10:09)
[2019-04-27] MEDS ORDERED: ALBUTEROL 2.5 MG/3 ML NEBU IH ONE (10:09)
[2019-04-27] MEDS ORDERED: IPRATROPIUM 0.02% NEBU 2.5 ML IH ONE (10:09)
--- NOTE | 2019-04-27 10:17 | Emergency Department Report ---
ED Asthma HPI - General Chief Complaint: Adult Asthma Stated Complaint: DIFFICULTY BREATHING Time Seen by Provider: 04/27/19 10:09 Source: patient Mode of arrival: Ambulatory Limitations: No Limitations - History of Present Illness Initial Comments: Mr. Quan is a very pleasant 59 yo male with hx of asthma and tobacco abuse who presents with productive cough, wheezing and shortness of breath for several days. No fever. Has run out of albuterol nebulizer solution at home. Does not have PCP. Has been admitted to our hospital on previous occasions for asthma exacerbation. During hospital admission in 2017, he was diagnosed with diabetes mellitus. However, he currently denies this diagnosis. MD Complaint: "asthma attack", shortness of breath, wheezing -: Gradual, days(s) (3) Asthma History: history of prior ED visit Severity: moderate Context: recent URI, ran out of meds Associated Symptoms: productive cough Treatments Prior to Arrival: other (none) - Related Data Previous Rx's Medication Instructions Recorded Last Taken Type Montelukast [Singulair] 10 mg PO QHS #30 tablet 09/27/14 Unknown Rx guaiFENesin ER [Mucinex ER] 600 mg PO BID #20 tablet 09/27/14 Unknown Rx Insulin NPH/Regular [NovoLIN 70/30] 10 unit SUB-Q BIDDIAB #1 vial 10/20/16 Unknown Rx Ipratropium/Albuterol Sulfate 1 ampul IH Q6HRT PRN 30 Days 10/20/16 Unknown Rx [DUONEB *Not for PRN Use*] ampul.neb Prednisone [predniSONE 5 mg (6-Day 5 mg PO .TAPER #1 tab.ds.pk 10/20/16 Unknown Rx Pack, 21 Tabs)] ALBUTEROL NEB's [Proventil 0.083% 2.5 mg IH Q6H PRN #1 pack 07/07/17 Unknown Rx NEBS] Albuterol Sulfate [Ventolin HFA] 2 puff IH Q4-6H PRN #1 hfa.aer.ad 07/07/17 Unknown Rx Cetirizine HCl [ZyrTEC] 10 mg PO QAM 14 Days #14 capsule 07/07/17 Unknown Rx predniSONE [Deltasone] 40 mg PO QAM 10 Days #5 tab 07/07/17 Unknown Rx ALBUTEROL Inhaler (OR & NICU) 2 puff IH QID PRN #8.5 gram 04/27/19 Unknown Rx [ProAir HFA Inhaler] ALBUTEROL NEB's [Proventil 0.083% 2.5 mg IH TID PRN #1 box 04/27/19 Unknown Rx NEBS] ALBUTEROL NEB's [Proventil 0.083% 2.5 mg IH TID PRN #2 box 04/27/19 Unknown Rx NEBS] DOXYCYCLINE Hyclate [Vibramycin 100 mg PO Q12HR 7 Days #14 capsule 04/27/19 Unknown Rx CAP] Prednisone [predniSONE 10 mg 10 mg PO .TAPER #1 tab.ds.pk 04/27/19 Unknown Rx (6-Day Pack, 21 Tabs)] Allergies Allergy/AdvReac Type Severity Reaction Status Date / Time No Known Allergies Allergy Verified 10/19/16 07:06 ED Review of Systems ROS: Stated complaint: DIFFICULTY BREATHING Other details as noted in HPI Comment: Unobtainable due to pts medical conditions Constitutional: denies: chills, fever, malaise ENT: congestion Respiratory: cough, shortness of breath, wheezing Cardiovascular: denies: chest pain Gastrointestinal: denies: abdominal pain, nausea, vomiting Genitourinary: denies: urgency, dysuria ED Past Medical Hx - Past Medical History Previous Medical History?: Yes Hx Heart Attack/AMI: No Hx Congestive Heart Failure: No Hx Diabetes: No Hx Sickle Cell Disease: No Hx Asthma: Yes Hx COPD: No Hx HIV: No - Surgical History Past Surgical History?: No - Social History Smoking Status: Current Every Day Smoker Substance Use Type: None - Medications Home Medications: Home Medications Medication Instructions Recorded Confirmed Last Taken Type Montelukast [Singulair] 10 mg PO QHS #30 tablet 09/27/14 Unknown Rx guaiFENesin ER [Mucinex ER] 600 mg PO BID #20 tablet 09/27/14 Unknown Rx Insulin NPH/Regular [NovoLIN 70/30] 10 unit SUB-Q BIDDIAB #1 vial 10/20/16 Unknown Rx Ipratropium/Albuterol Sulfate 1 ampul IH Q6HRT PRN 30 Days 10/20/16 Unknown Rx [DUONEB *Not for PRN Use*] ampul.neb Prednisone [predniSONE 5 mg (6-Day 5 mg PO .TAPER #1 tab.ds.pk 10/20/16 Unknown Rx Pack, 21 Tabs)] ALBUTEROL NEB's [Proventil 0.083% 2.5 mg IH Q6H PRN #1 pack 07/07/17 Unknown Rx NEBS] Albuterol Sulfate [Ventolin HFA] 2 puff IH Q4-6H PRN #1 hfa.aer.ad 07/07/17 Unknown Rx Cetirizine HCl [ZyrTEC] 10 mg PO QAM 14 Days #14 capsule 07/07/17 Unknown Rx predniSONE [Deltasone] 40 mg PO QAM 10 Days #5 tab 07/07/17 Unknown Rx ALBUTEROL Inhaler (OR & NICU) 2 puff IH QID PRN #8.5 gram 04/27/19 Unknown Rx [ProAir HFA Inhaler] ALBUTEROL NEB's [Proventil 0.083% 2.5 mg IH TID PRN #1 box 04/27/19 Unknown Rx NEBS] ALBUTEROL NEB's [Proventil 0.083% 2.5 mg IH TID PRN #2 box 04/27/19 Unknown Rx NEBS] DOXYCYCLINE Hyclate [Vibramycin 100 mg PO Q12HR 7 Days #14 capsule 04/27/19 Unknown Rx CAP] Prednisone [predniSONE 10 mg 10 mg PO .TAPER #1 tab.ds.pk 04/27/19 Unknown Rx (6-Day Pack, 21 Tabs)] ED Physical Exam - General Limitations: No Limitations General appearance: alert, in no apparent distress, other (frequent harsh cough) - Head Head exam: Present: atraumatic, normocephalic - Eye Eye exam: Present: normal appearance - ENT ENT exam: Present: mucous membranes moist - Neck Neck exam: Present: normal inspection, full ROM - Respiratory Respiratory exam: Present: wheezes, prolonged expiratory. Absent: respiratory distress, rales, rhonchi, chest wall tenderness, accessory muscle use, decreased breath sounds - Cardiovascular Cardiovascular Exam: Present: regular rate, normal rhythm, normal heart sounds. Absent: systolic murmur, diastolic murmur, rubs, gallop - GI/Abdominal GI/Abdominal exam: Present: soft, normal bowel sounds. Absent: distended, tenderness, guarding, rebound - Rectal Rectal exam: Present: deferred - Extremities Exam Extremities exam: Present: normal inspection - Neurological Exam Neurological exam: Present: alert, oriented X3 - Psychiatric Psychiatric exam: Present: normal affect, normal mood - Skin Skin exam: Present: warm, dry, intact, normal color. Absent: rash ED Course Vital Signs 04/27/19 04/27/19 09:38 10:44 Temperature 97.6 F Pulse Rate 119 H Pulse Rate [ 96 H Anterior Bilateral Throughout] Respiratory 24 Rate Respiratory 18 Rate [Anterior Bilateral Throughout] Blood Pressure 152/96 O2 Sat by Pulse 96 Oximetry ED Medical Decision Making - Medical Decision Making mild asthma exacerbation, treated with neb, steroids antibiotics in the ED, antibiotics are indicated with hx of tobacco use and likelihood of COPD rx: Albuterol nebulizer solution MDI, prednisone, doxycycline Mr. Quan felt much better after treatment provided here in the emergency department. Discharged home in improved stable condition. Vital Signs - 24 hr 04/27/19 04/27/19 09:38 10:44 Temperature 97.6 F Pulse Rate 119 H Pulse Rate [ 96 H Anterior Bilateral Throughout] Respiratory 24 Rate Respiratory 18 Rate [Anterior Bilateral Throughout] Blood Pressure 152/96 O2 Sat by Pulse 96 Oximetry Critical care attestation.: If time is entered above; I have spent that time in minutes in the direct care of this critically ill patient, excluding procedure time. ED Disposition Clinical Impression: Acute asthma exacerbation Disposition: DC-01 TO HOME OR SELFCARE Is pt being admited?: No Does the pt Need Aspirin: No Condition: Stable Instructions: How to Stop Smoking (ED) Prescriptions: Prednisone [predniSONE 10 mg (6-Day Pack, 21 Tabs)] 10 mg PO .TAPER #1 tab.ds.pk ALBUTEROL Inhaler (OR & NICU) [ProAir HFA Inhaler] 2 puff IH QID PRN #8.5 gram PRN Reason: Shortness Of Breath ALBUTEROL NEB's [Proventil 0.083% NEBS] 2.5 mg IH TID PRN #1 box PRN Reason: Wheezing ALBUTEROL NEB's [Proventil 0.083% NEBS] 2.5 mg IH TID PRN #2 box PRN Reason: Wheezing DOXYCYCLINE Hyclate [Vibramycin CAP] 100 mg PO Q12HR 7 Days #14 capsule Forms: Work/School Release Form(ED)
== END 2019-04-27 13:28 | disposition home or self-care (01) ==
LOC: ED 09:33
DX: J45.901 Unspecified asthma with (acute) exacerbation (principal); F17.200 Nicotine dependence, unspecified, uncomplicated; Z79.899 Other long term (current) drug therapy
CPT/HCPCS: 94640; 99282; J7512; 94644

== ENCOUNTER 2019-11-26 22:34 | Emergency (ER) | payer SELFPAY ==
[2019-11-27] MEDS ORDERED: IPRATROPIUM/ALBUTEROL SULFATE 3 ML AMPUL.NEB IH ONE (03:04)
[2019-11-27] MEDS ORDERED: dexAMETHasone 20 MG/5 ML VIAL IV ONE (03:04)
[2019-11-27] MEDS ORDERED: MAGNESIUM SULFATE 2 GM/50 ML BAG IV ONE (03:06)
[2019-11-27] MEDS ORDERED: LEVALBUTEROL 0.63 MG/3 ML NEBU IH ONE (03:06)
[2019-11-27 03:28] LABS: Basophils # (Auto) 0.1 K/mm3 (0.0-0.1); Basophils % (Auto) 0.8 % (0.0-1.8); Eosinophils # (Auto) 0.6 K/mm3 (0.0-0.4); Eosinophils % (Auto) 6.2 % (0.0-4.3); Hematocrit 50.8 % (35.5-45.6); Lymphocytes # (Auto) 2.4 K/mm3 (1.2-5.4); Mean Corpuscular HGB Conc 34 % (32-34); Mean Corpuscular Volume 87 fl (84-94); Monocytes # (Auto) 0.9 K/mm3 (0.0-0.8); Monocytes % (Auto) 9.5 % (0.0-7.3); Platelet Count 230 K/mm3 (140-440); Red Blood Count 5.84 M/mm3 (3.65-5.03); Red Cell Distribution Width 13.9 % (13.2-15.2)
[2019-11-27 03:56] LABS: Alanine Aminotransferase 12 units/L (7-56); Albumin 4.5 g/dL (3.9-5); BUN/Creatinine Ratio 16; Blood Urea Nitrogen 13 mg/dL (9-20); Calcium 9.3 mg/dL (8.4-10.2); Hemolysis Index 16
--- NOTE | 2019-11-27 04:08 | XRay Report ---
CHEST 1 VIEW 11/27/2019 3:47 AM INDICATION / CLINICAL INFORMATION: dyspnea, asthma. COMPARISON: None available. FINDINGS: SUPPORT DEVICES: None. HEART / MEDIASTINUM: No significant abnormality. LUNGS / PLEURA: No significant pulmonary or pleural abnormality. No pneumothorax. ADDITIONAL FINDINGS: No significant additional findings. IMPRESSION: 1. No acute findings. Signer Name: Dale Fuentes MD Signed: 11/27/2019 4:04 AM Workstation Name: [id number]
--- NOTE | 2019-11-27 05:20 | Emergency Department Report ---
ED Shortness of Breath HPI - General Chief Complaint: Dyspnea/Respdistress Stated Complaint: VERNEA Source: patient Mode of arrival: Ambulatory Limitations: No Limitations - History of Present Illness Initial Comments: Patient is a 59-year-old English male with a history of asthma and chronic heavy tobacco abuse who presents to the ED with complaint of acute onset persistent intermittent shortness of breath, wheezing, nasal and sinus congestion, persistent dry cough for the last 2 days. Patient states that in the last 12 hours the shortness of breath is worsened such that he is unable to take in a deep breath because of chest tightness and shortness of breath. Persi stent wheezing although he admits to continuing to smoke cigarettes heavily. Patient states that he ran out of his albuterol nebulizers 4 months ago. Patient also states that he ran out of his albuterol inhaler 1 week ago. Patient denies fever, chills, chest pain, dizziness, headache, abdominal pain nausea and vomiting, syncope and palpitations. MD Complaint: shortness of breath, cough, "asthma attack" -: Sudden, days(s) (2) Radiation: other (dyspnea; cough; wheezing) Severity: moderate Pain Scale: 6 Quality: dull Consistency: intermittent Improves With: nothing Worsens With: coughing Known History Of: asthma Context: recent URI Associated Symptoms: cough Treatments Prior to Arrival: none - Related Data Home Oxygen Therapy: No Previous Rx's Medication Instructions Recorded Last Taken Type guaiFENesin ER [Mucinex ER] 600 mg PO BID #20 tablet 09/27/14 Unknown Rx Insulin NPH/Regular [NovoLIN 70/30] 10 unit SUB-Q BIDDIAB #1 vial 10/20/16 Unknown Rx Ipratropium/Albuterol Sulfate 1 ampul IH Q6HRT PRN 30 Days 10/20/16 Unknown Rx [DUONEB *Not for PRN Use*] ampul.neb Prednisone [predniSONE 5 mg (6-Day 5 mg PO .TAPER #1 tab.ds.pk 10/20/16 Unknown Rx Pack, 21 Tabs)] ALBUTEROL NEB's [Proventil 0.083% 2.5 mg IH Q6H PRN #1 pack 07/07/17 Unknown Rx NEBS] Albuterol Sulfate [Ventolin HFA] 2 puff IH Q4-6H PRN #1 hfa.aer.ad 07/07/17 Unknown Rx Cetirizine HCl [ZyrTEC] 10 mg PO QAM 14 Days #14 capsule 07/07/17 Unknown Rx predniSONE [Deltasone] 40 mg PO QAM 10 Days #5 tab 07/07/17 Unknown Rx ALBUTEROL NEB's [Proventil 0.083% 2.5 mg IH TID PRN #1 box 04/27/19 Unknown Rx NEBS] DOXYCYCLINE Hyclate [Vibramycin 100 mg PO Q12HR 7 Days #14 capsule 04/27/19 Unknown Rx CAP] ALBUTEROL NEB's [Proventil 0.083% 3 ml IH Q6H PRN #75 ml 11/27/19 Unknown Rx NEBS] Albuterol Mdi (or & Nicu Only) 2 puff IH Q6H PRN #1 inh 11/27/19 Unknown Rx [ProAir HFA Inhaler] Azithromycin [Zithromax Z-ARIN] 250 mg PO DAILY #6 tablet 11/27/19 Unknown Rx Montelukast [Singulair] 10 mg PO QHS #30 tablet 11/27/19 Unknown Rx Prednisone [predniSONE 10 mg 10 mg PO .TAPER #21 tab.ds.pk 11/27/19 Unknown Rx (6-Day Pack, 21 Tabs)] Allergies Allergy/AdvReac Type Severity Reaction Status Date / Time No Known Allergies Allergy Verified 10/19/16 07:06 ED Review of Systems ROS: Stated complaint: VERENA Other details as noted in HPI Constitutional: denies: chills, fever Eyes: denies: eye pain, eye discharge, vision change ENT: congestion. denies: ear pain, throat pain Respiratory: cough, shortness of breath, wheezing Cardiovascular: denies: chest pain, palpitations Endocrine: no symptoms reported Gastrointestinal: denies: abdominal pain, nausea, diarrhea Genitourinary: denies: urgency, dysuria Musculoskeletal: denies: back pain, joint swelling, arthralgia Skin: denies: rash, lesions Neurological: denies: headache, weakness, paresthesias Psychiatric: denies: anxiety, depression Hematological/Lymphatic: denies: easy bleeding, easy bruising ED Past Medical Hx - Past Medical History Previous Medical History?: Yes Hx Heart Attack/AMI: No Hx Congestive Heart Failure: No Hx Diabetes: No Hx Sickle Cell Disease: No Hx Asthma: Yes Hx COPD: No Hx HIV: No - Surgical History Past Surgical History?: No - Social History Smoking Status: Current Every Day Smoker Substance Use Type: None - Medications Home Medications: Home Medications Medication Instructions Recorded Confirmed Last Taken Type guaiFENesin ER [Mucinex ER] 600 mg PO BID #20 tablet 09/27/14 Unknown Rx Insulin NPH/Regular [NovoLIN 70/30] 10 unit SUB-Q BIDDIAB #1 vial 10/20/16 Unknown Rx Ipratropium/Albuterol Sulfate 1 ampul IH Q6HRT PRN 30 Days 10/20/16 Unknown Rx [DUONEB *Not for PRN Use*] ampul.neb Prednisone [predniSONE 5 mg (6-Day 5 mg PO .TAPER #1 tab.ds.pk 10/20/16 Unknown Rx Pack, 21 Tabs)] ALBUTEROL NEB's [Proventil 0.083% 2.5 mg IH Q6H PRN #1 pack 07/07/17 Unknown Rx NEBS] Albuterol Sulfate [Ventolin HFA] 2 puff IH Q4-6H PRN #1 hfa.aer.ad 07/07/17 Un known Rx Cetirizine HCl [ZyrTEC] 10 mg PO QAM 14 Days #14 capsule 07/07/17 Unknown Rx predniSONE [Deltasone] 40 mg PO QAM 10 Days #5 tab 07/07/17 Unknown Rx ALBUTEROL NEB's [Proventil 0.083% 2.5 mg IH TID PRN #1 box 04/27/19 Unknown Rx NEBS] DOXYCYCLINE Hyclate [Vibramycin 100 mg PO Q12HR 7 Days #14 capsule 04/27/19 Unknown Rx CAP] ALBUTEROL NEB's [Proventil 0.083% 3 ml IH Q6H PRN #75 ml 11/27/19 Unknown Rx NEBS] Albuterol Mdi (or & Nicu Only) 2 puff IH Q6H PRN #1 inh 11/27/19 Unknown Rx [ProAir HFA Inhaler] Azithromycin [Zithromax Z-ARIN] 250 mg PO DAILY #6 tablet 11/27/19 Unknown Rx Montelukast [Singulair] 10 mg PO QHS #30 tablet 11/27/19 Unknown Rx Prednisone [predniSONE 10 mg 10 mg PO .TAPER #21 tab.ds.pk 11/27/19 Unknown Rx (6-Day Pack, 21 Tabs)] ED Physical Exam - General Limitations: No Limitations General appearance: alert, in no apparent distress - Head Head exam: Present: atraumatic, normocephalic, normal inspection - Eye Eye exam: Present: normal appearance, PERRL, EOMI Pupils: Present: normal accommodation - ENT ENT exam: Present: normal orophraynx, mucous membranes moist, TM's normal bilaterally, normal external ear exam, other (Grossly congested nasal passages) - Neck Neck exam: Present: normal inspection, full ROM. Absent: tenderness - Respiratory Respiratory exam: Present: wheezes (Diffuse coarse wheezes throughout). Absent: respiratory distress, rales, rhonchi, chest wall tenderness, accessory muscle use, prolonged expiratory - Cardiovascular Cardiovascular Exam: Present: normal rhythm, tachycardia, normal heart sounds. Absent: systolic murmur, diastolic murmur, rubs, gallop - GI/Abdominal GI/Abdominal exam: Present: soft, normal bowel sounds. Absent: tenderness, guarding, hyperactive bowel sounds, hypoactive bowel sounds - Extremities Exam Extremities exam: Present: normal inspection, full ROM, normal capillary refill - Back Exam Back exam: Present: normal inspection, full ROM. Absent: tenderness, CVA tenderness (R), muscle spasm, paraspinal tenderness - Neurological Exam Neurological exam: Present: alert, oriented X3, CN II-XII intact, normal gait, reflexes normal - Psychiatric Psychiatric exam: Present: normal affect, normal mood - Skin Skin exam: Present: warm, dry, intact, normal color. Absent: rash ED Course Vital Signs 11/26/19 11/27/19 23:25 02:53 Temperature 98.3 F Pulse Rate 108 H 86 Respiratory 20 20 Rate Blood Pressure 185/84 178/96 O2 Sat by Pulse 96 98 Oximetry ED Medical Decision Making - Lab Data Result diagrams: 11/27/19 03:17 11/27/19 03:17 - EKG Data EKG shows normal: sinus rhythm Rate: normal - EKG Data Interpretation: normal EKG 11/27/19 05:40 The EKG shows normal sinus rhythm with a ventricular rate of 65 bpm, and no ST or T wave abnormalities. - Radiology Data Radiology results: report reviewed, image reviewed Findings [facility] [address] [place] [address] XRay Report Signed Patient: DEVIN OROZCO MR#: [id number] : 1960 Acct:[id number] Age/Sex: 59 / M ADM Date: 11/26/19 Loc: ED Attending Dr: Ordering Physician: DIEUDONNE DUEÑAS Date of Service: 11/27/19 Procedure(s): XR chest 1V ap Accession Number(s): [id number] cc: DIEUDONNE DUEÑAS Fluoro Time In Minutes: CHEST 1 VIEW 11/27/2019 3:47 AM INDICATION / CLINICAL INFORMATION: dyspnea, asthma. COMPARISON: None available. FINDINGS: SUPPORT DEVICES: None. HEART / MEDIASTINUM: No significant abnormality. LUNGS / PLEURA: No significant pulmonary or pleural abnormality. No pneumothorax. ADDITIONAL FINDINGS: No significant additional findings. IMPRESSION: 1. No acute findings. Signer Name: Dale Fuentes MD Signed: 11/27/2019 4:04 AM Workstation Name: [id number] Transcribed By: TL Dictated By: Dale Fuentes MD Electronically Authenticated By: Dale Fuentes MD Signed Date/Time: 11/27/19403 DD/ 2 TD/TT: - Medical Decision Making This is a 59-year-old English male with a history of asthma and chronic heavy tobacco abuse who presents to the ED with complaint of acute onset persistent intermittent shortness of breath, wheezing, nasal and sinus congestion, persistent dry cough for the last 2 days. Patient states that in the last 12 hours the shortness of breath is worsened such that he is unable to take in a deep breath because of chest tightness and shortness of breath. Persistent wheezing although he admits to continuing to smoke cigarettes heavily. Patient states that he ran out of his albuterol nebulizers 4 months ago. Patient also states that he ran out of his albuterol inhaler 1 week ago. In the ED, patient is alert and oriented x3 and is not in distress but appears to be in distress, wheezing and coughing with each breath and speech. Patient was treated in the ED with DuoNeb and also received magnesium sulfate 2 g IV and steroid. Chest x-ray shows no acute cardiopulmonary abnormalities or pneumonitis. The EKG shows normal sinus rhythm with a ventricular rate of [address] or T wave abnormalities. Lab test results were reviewed and are all nonactionable. On reevaluation, patient's wheezing and shortness of breath resolved patient felt better and was discharged home on medications. Patient's final oxygen saturation level was 97% in room air. Patient was advised to fo llow-up with his primary care physician in 5 to 7 days for reevaluation or return to the ED immediately if symptoms get worse. - Differential Diagnosis Asthma; Pneumonia; Bronchitis; URI; Sinusitis Critical care attestation.: If time is entered above; I have spent that time in minutes in the direct care of this critically ill patient, excluding procedure time. ED Disposition Clinical Impression: Acute bronchitis with asthma with acute exacerbation, Acute upper respiratory infection, Shortness of breath Disposition: TO HOME OR SELFCARE Is pt being admited?: No Does the pt Need Aspirin: No Condition: Stable Instructions: Acute Bronchitis (ED), Asthma (ED), Dyspnea (ED) Additional Instructions: Take medication with food, drink plenty fluids and follow-up with your primary care physician in 3 to 5 days for reevaluation. Return to the ED immediately if symptoms get worse. Consider quitting tobacco abuse as this will worsen your asthma. Prescriptions: Montelukast [Singulair] 10 mg PO QHS #30 tablet Prednisone [predniSONE 10 mg (6-Day Pack, 21 Tabs)] 10 mg PO .TAPER #21 tab.ds.pk Albuterol Mdi (or & Nicu Only) [ProAir HFA Inhaler] 2 puff IH Q6H PRN #1 inh PRN Reason: Shortness Of Breath ALBUTEROL NEB's [Proventil 0.083% NEBS] 3 ml IH Q6H PRN #75 ml PRN Reason: Wheezing Azithromycin [Zithromax Z-ARIN] 250 mg PO DAILY #6 tablet Referrals: [facility] [Outside] - 3-5 Days [facility] [Provider Group] - 3-5 Days Time of Disposition: 05:26 Print Language: INDONESIAN
[2019-11-27 07:54] VITALS: BP 145/89
== END 2019-11-27 05:35 | disposition home or self-care (01) ==
LOC: ED 22:34
DX: J44.1 Chronic obstructive pulmonary disease with (acute) exacerbation (principal); J06.9 Acute upper respiratory infection, unspecified; F17.200 Nicotine dependence, unspecified, uncomplicated; Z79.899 Other long term (current) drug therapy
CPT/HCPCS: 36415; 71045; 80053; 83880; 84484; 85025; 93005; 94640; 96365; 96375; 99284; J1100; J3475

== ENCOUNTER 2020-01-11 05:52 | Emergency (ER) | payer SELFPAY ==
[2020-01-11 06:18] VITALS: BP 130/88
[2020-01-11] MEDS ORDERED: IBUPROFEN 600 MG TAB PO ONE (09:19)
--- NOTE | 2020-01-11 09:19 | Emergency Department Report ---
ED Rash HPI - HPI Chief Complaint: Skin Rash Stated Complaint: RASH STOMACH Time Seen by Provider: 01/11/20 09:13 Duration: 1 week Severity: severe Other History: 59-year-old Chinese male presents to the emergency room complaining of a rash on abdomen x1 week. Patient states rash is painful very irritated. Patient reports a past medical history of asthma not immune compromise. Currently takes no medications on a daily basis has no known drug allergies. ED Review of Systems ROS: Stated complaint: RASH STOMACH Other details as noted in HPI ED Past Medical Hx - Past Medical History Previous Medical History?: Yes Hx Heart Attack/AMI: No Hx Congestive Heart Failure: No Hx Diabetes: No Hx Sickle Cell Disease: No Hx Asthma: Yes Hx COPD: No Hx HIV: No - Social History Smoking Status: Current Every Day Smoker Substance Use Type: None - Medications Home Medications: Home Medications Medication Instructions Recorded Confirmed Last Taken Type guaiFENesin ER [Mucinex ER] 600 mg PO BID #20 tablet 09/27/14 Unknown Rx Insulin NPH/Regular [NovoLIN 70/30] 10 unit SUB-Q BIDDIAB #1 vial 10/20/16 Unknown Rx Ipratropium/Albuterol Sulfate 1 ampul IH Q6HRT PRN 30 Days 10/20/16 Unknown Rx [DUONEB *Not for PRN Use*] ampul.neb Prednisone [predniSONE 5 mg (6-Day 5 mg PO .TAPER #1 tab.ds.pk 10/20/16 Unknown Rx Pack, 21 Tabs)] ALBUTEROL NEB's [Proventil 0.083% 2.5 mg IH Q6H PRN #1 pack 07/07/17 Unknown Rx NEBS] Albuterol Sulfate [Ventolin HFA] 2 puff IH Q4-6H PRN #1 hfa.aer.ad 07/07/17 Unknown Rx Cetirizine HCl [ZyrTEC] 10 mg PO QAM 14 Days #14 capsule 07/07/17 Unknown Rx predniSONE [Deltasone] 40 mg PO QAM 10 Days #5 tab 07/07/17 Unknown Rx ALBUTEROL NEB's [Proventil 0.083% 2.5 mg IH TID PRN #1 box 04/27/19 Unknown Rx NEBS] DOXYCYCLINE Hyclate [Vibramycin 100 mg PO Q12HR 7 Days #14 capsule 04/27/19 Unknown Rx CAP] ALBUTEROL NEB's [Proventil 0.083% 3 ml IH Q6H PRN #75 ml 11/27/19 Unknown Rx NEBS] Albuterol Mdi (or & Nicu Only) 2 puff IH Q6H PRN #1 inh 11/27/19 Unknown Rx [ProAir HFA Inhaler] Azithromycin [Zithromax Z-ARIN] 250 mg PO DAILY #6 tablet 11/27/19 Unknown Rx Montelukast [Singulair] 10 mg PO QHS #30 tablet 11/27/19 Unknown Rx Prednisone [predniSONE 10 mg 10 mg PO .TAPER #21 tab.ds.pk 11/27/19 Unknown Rx (6-Day Pack, 21 Tabs)] Valacyclovir HCl [Valacyclovir] 1,000 mg PO TID 10 Days #30 tablet 01/11/20 Unknown Rx traMADoL [Ultram 50 MG tab] 50 mg PO Q6HR PRN #20 tablet 01/11/20 Unknown Rx Rash Exam - Exam General: Vital signs noted. No distress. Alert and acting appropriately. HEENT: No Periorbital Edema, No Conjuctival Injection, No Chemosis, No Perioral Edema, No Tongue Edema, No Uvular Edema, No Compromised Airway, No Drooling Lungs: Yes Good Air Exchange (Normal Breath Sounds), No Wheezes, No Ronchi, No Stridor, No Cough, No Labored Respirations, No Retractions, No Use of Accessory Muscles, No Other Abnormal Lung Sounds Heart: Yes Regular, No Murmur Skin: Yes Erythema, Yes Other (Blisters vesicular rash left chest to back not over midline) Other: Positive: Abdomen Normal, Neurologic Normal, Musculoskeletal Normal ED Course Vital Signs 01/11/20 06:15 Temperature 98.0 F Pulse Rate 104 H Respiratory 16 Rate Blood Pressure 130/88 O2 Sat by Pulse 97 Oximetry ED Medical Decision Making - Medical Decision Making 59-year-old Chinese male presents to the emergency room complaining of a rash on abdomen x1 week. Patient states rash is painful very irritated. Patient reports a past medical history of asthma not immune compromise. Currently takes no medications on a daily basis has no known drug allergies. Vital signs noted. No distress. Alert and acting appropriately. Patient has herpes zoster/shingles. Will place patient on valacyclovir 1 g p.o. 3 times a day for 10 days. Critical care attestation.: If time is entered above; I have spent that time in minutes in the direct care of this critically ill patient, excluding procedure time. ED Disposition Clinical Impression: Shingles outbreak Disposition: DC-01 TO HOME OR SELFCARE Is pt being admited?: No Does the pt Need Aspirin: No Condition: Stable Instructions: Herpes Zoster (ED) Additional Instructions: Complete antiviral medication as prescribed. Take pain medication as needed. Understand that you are contagious so I recommend keeping it covered when you are around family members. Follow-up with your primary care provider I have listed 1 below for your convenience. Prescriptions: traMADoL [Ultram 50 MG tab] 50 mg PO Q6HR PRN #20 tablet PRN Reason: Pain Valacyclovir HCl [Valacyclovir] 1,000 mg PO TID 10 Days #30 tablet Referrals: PRIMARY MD ANH [Primary Care Provider] - 3-5 Days JUNIE HUSAIN MD [Staff Physician] - 3-5 Days Forms: Work/School Release Form(ED)
== END 2020-01-11 09:27 | disposition home or self-care (01) ==
LOC: ED 05:52
DX: B02.9 Zoster without complications (principal); J45.909 Unspecified asthma, uncomplicated; F17.200 Nicotine dependence, unspecified, uncomplicated; Z79.899 Other long term (current) drug therapy
CPT/HCPCS: 99282

== ENCOUNTER 2020-02-09 04:51 | Emergency (ER) | payer SELFPAY ==
--- NOTE | 2020-02-09 06:05 | XRay Report ---
CHEST 2 VIEWS INDICATION / CLINICAL INFORMATION: left sided chest pain. COMPARISON: Chest x-ray on 11/27/2019 FINDINGS: SUPPORT DEVICES: None. HEART / MEDIASTINUM: No significant abnormality. LUNGS / PLEURA: No significant pulmonary or pleural abnormality. No pneumothorax. ADDITIONAL FINDINGS: No significant additional findings. IMPRESSION: 1. No acute findings. Signer Name: Janes Doty MD Signed: 02/09/2020 6:00 AM Workstation Name: [id number]
[2020-02-09 06:06] LABS: Basophils # (Auto) 0.1 K/mm3 (0.0-0.1); Basophils % (Auto) 0.9 % (0.0-1.8); Eosinophils # (Auto) 0.4 K/mm3 (0.0-0.4); Hemoglobin 15.8 gm/dl (11.8-15.2); Lymphocytes # (Auto) 1.9 K/mm3 (1.2-5.4); Lymphocytes % (Auto) 26.5 % (13.4-35.0); Mean Corpuscular HGB Conc 34 % (32-34); Mean Corpuscular Volume 90 fl (84-94); Monocytes # (Auto) 0.5 K/mm3 (0.0-0.8); Monocytes % (Auto) 7.5 % (0.0-7.3); Platelet Count 192 K/mm3 (140-440); Red Blood Count 5.12 M/mm3 (3.65-5.03); Red Cell Distribution Width 15.8 % (13.2-15.2)
[2020-02-09] MEDS ORDERED: ACETAMINOPHEN 500 MG TAB PO ONE (06:25)
[2020-02-09] MEDS ORDERED: IBUPROFEN 400 MG TAB PO ONE (06:25)
[2020-02-09] MEDS ORDERED: CAPSAICIN 0.075% CREAM 60 GM TP STA (06:25)
[2020-02-09 06:26] LABS: Alanine Aminotransferase 24 units/L (7-56); BUN/Creatinine Ratio 16; Blood Urea Nitrogen 13 mg/dL (9-20); Calcium 9.3 mg/dL (8.4-10.2); Hemolysis Index 13
[2020-02-09] MEDS ORDERED: ALBUTEROL 2.5 MG/3 ML NEBU IH ONE (06:26)
--- NOTE | 2020-02-09 06:26 | Emergency Department Report ---
ED General Adult HPI - General Chief complaint: Pain General Stated complaint: LEFT SIDE PAIN PUI?: No Time Seen by Provider: 02/09/20 06:06 Source: patient, RN notes reviewed, old records reviewed Mode of arrival: Ambulatory Limitations: No Limitations - History of Present Illness Initial comments: The patient was evaluated in the emergency department for symptoms described in the history of present illness. He/she was evaluated in the context of the global COVID-19 pandemic, which necessitated consideration that the patient might be at risk for infection with the virus that causes COVID-19. Institutional protocols and algorithms that pertain to the evaluation of patients at risk for COVID-19 are in a state of rapid change based on information released by regulatory bodies including the CDC and federal and state organizations. These policies and algorithms were followed during the patient's care in the emergency department. Please note that these policies, procedures and recommendations changed on a rapid basis. The patient is a 59-year-old gentleman. He is not known to myself previously. Past medical history includes diabetes, in 2017, had a hemoglobin A1c of 13, was presumptively diagnosed with type 2 diabetes, also reportedly has a history of COPD. Around 6 to 8 weeks ago, he was reportedly diagnosed with zoster in his left hemithorax region. He has been taking Tylenol intermittently for this pain. He complains of persistent burning left-sided thoracic wall pain, in the distribution of his z rashad. He denies headache, neck pain, chest pain, vomiting, diaphoresis, exertional shortness of breath. He has a positive chronic cough. He denies testicular pain, but endorses urinary frequency. His burning thoracic pain is constant, does not radiate anywhere, and he does not endorse exacerbating or relieving factors. He unfortunately does not have a primary care doctor at this time. -: month(s) Consistency: constant Improves with: none Worsens with: none - Related Data Previous Rx's Medication Instructions Recorded Last Taken Type Insulin NPH/Regular [NovoLIN 70/30] 10 unit SUB-Q BIDDIAB #1 vial 10/20/16 Unknown Rx Ipratropium/Albuterol Sulfate 1 ampul IH Q6HRT PRN 30 Days 10/20/16 Unknown Rx [DUONEB *Not for PRN Use*] ampul.neb Prednisone [predniSONE 5 mg (6-Day 5 mg PO .TAPER #1 tab.ds.pk 10/20/16 Unknown Rx Pack, 21 Tabs)] ALBUTEROL NEB's [Proventil 0.083% 2.5 mg IH Q6H PRN #1 pack 07/07/17 Unknown Rx NEBS] Albuterol Sulfate [Ventolin HFA] 2 puff IH Q4-6H PRN #1 hfa.aer.ad 07/07/17 Unknown Rx Cetirizine HCl [ZyrTEC] 10 mg PO QAM 14 Days #14 capsule 07/07/17 Unknown Rx ALBUTEROL NEB's [Proventil 0.083% 2.5 mg IH TID PRN #1 box 04/27/19 Unknown Rx NEBS] ALBUTEROL NEB's [Proventil 0.083% 3 ml IH Q6H PRN #75 ml 11/27/19 Unknown Rx NEBS] Albuterol Mdi (or & Nicu Only) 2 puff IH Q6H PRN #1 inh 11/27/19 Unknown Rx [ProAir HFA Inhaler] Montelukast [Singulair] 10 mg PO QHS #30 tablet 11/27/19 Unknown Rx Prednisone [predniSONE 10 mg 10 mg PO .TAPER #21 tab.ds.pk 11/27/19 Unknown Rx (6-Day Pack, 21 Tabs)] Valacyclovir HCl [Valacyclovir] 1,000 mg PO TID 10 Days #30 tablet 01/11/20 Unknown Rx Acetaminophen [Non-Aspirin Extra 500 mg PO Q6HR PRN #30 tablet 02/09/20 Unknown Rx Strength] Albuterol Sulfate [Proair 90 mcg IH Q4HR PRN #2 aer.pow.ba 02/09/20 Unknown Rx Respiclick] Amlodipine Besylate [Norvasc] 5 mg PO QDAY #30 tablet 02/09/20 Unknown Rx Capsaicin 0.075% [Zostrix Hp 1 applicatio TP TID #1 tube 02/09/20 Unknown Rx 0.075%] Ibuprofen [Motrin] 600 mg PO Q8H PRN #30 tablet 02/09/20 Unknown Rx metFORMIN [Glucophage] 500 mg PO QDAY #30 tab 02/09/20 Unknown Rx Allergies Allergy/AdvReac Type Severity Reaction Status Date / Time No Known Allergies Allergy Verified 10/19/16 07:06 ED Review of Systems ROS: Stated complaint: LEFT SIDE PAIN Other details as noted in HPI Constitutional: denies: fever Eyes: denies: eye discharge ENT: denies: congestion Respiratory: cough (Chronic cough) Cardiovascular: denies: chest pain Gastrointestinal: denies: abdominal pain, nausea, vomiting, hematemesis, melena, hematochezia Genitourinary: frequency Musculoskeletal: denies: myalgia Skin: rash, lesions Neurological: denies: weakness ED Past Medical Hx - Past Medical History Previous Medical History?: Yes Hx Heart Attack/AMI: No Hx Congestive Heart Failure: No Hx Diabetes: No Hx Sickle Cell Disease: No Hx Asthma: Yes Hx COPD: No Hx HIV: No Additional medical history: Shingles - Surgical History Past Surgical History?: No - Social History Smoking Status: Current Every Day Smoker Substance Use Type: Alcohol - Medications Home Medications: Home Medications Medication Instructions Recorded Confirmed Last Taken Type Insulin NPH/Regular [NovoLIN 70/30] 10 unit SUB-Q BIDDIAB #1 vial 10/20/16 Unknown Rx Ipratropium/Albuterol Sulfate 1 ampul IH Q6HRT PRN 30 Days 10/20/16 Unknown Rx [DUONEB *Not for PRN Use*] ampul.neb Prednisone [predniSONE 5 mg (6-Day 5 mg PO .TAPER #1 tab.ds.pk 10/20/16 Unknown Rx Pack, 21 Tabs)] ALBUTEROL NEB's [Proventil 0.083% 2.5 mg IH Q6H PRN #1 pack 07/07/17 Unknown Rx NEBS] Albuterol Sulfate [Ventolin HFA] 2 puff IH Q4-6H PRN #1 hfa.aer.ad 07/07/17 Unknown Rx Cetirizine HCl [ZyrTEC] 10 mg PO QAM 14 Days #14 capsule 07/07/17 Unknown Rx ALBUTEROL NEB's [Proventil 0.083% 2.5 mg IH TID PRN #1 box 04/27/19 Unknown Rx NEBS] ALBUTEROL NEB's [Proventil 0.083% 3 ml IH Q6H PRN #75 ml 11/27/19 Unknown Rx NEBS] Albuterol Mdi (or & Nicu Only) 2 puff IH Q6H PRN #1 inh 11/27/19 Unknown Rx [ProAir HFA Inhaler] Montelukast [Singulair] 10 mg PO QHS #30 tablet 11/27/19 Unknown Rx Prednisone [predniSONE 10 mg 10 mg PO .TAPER #21 tab.ds.pk 11/27/19 Unknown Rx (6-Day Pack, 21 Tabs)] Valacyclovir HCl [Valacyclovir] 1,000 mg PO TID 10 Days #30 tablet 01/11/20 Unknown Rx Acetaminophen [Non-Aspirin Extra 500 mg PO Q6HR PRN #30 tablet 02/09/20 Unknown Rx Strength] Albuterol Sulfate [Proair 90 mcg IH Q4HR PRN #2 aer.pow.ba 02/09/20 Unknown Rx Respiclick] Amlodipine Besylate [Norvasc] 5 mg PO QDAY #30 tablet 02/09/20 Unknown Rx Capsaicin 0.075% [Zostrix Hp 1 applicatio TP TID #1 tube 02/09/20 Unknown Rx 0.075%] Ibuprofen [Motrin] 600 mg PO Q8H PRN #30 tablet 02/09/20 Unknown Rx metFORMIN [Glucophage] 500 mg PO QDAY #30 tab 02/09/20 Unknown Rx ED Physical Exam - General Limitations: No Limitations General appearance: alert, in no apparent distress - Head Head exam: Present: atraumatic, normocephalic - Eye Eye exam: Present: normal appearance, EOMI. Absent: nystagmus - ENT ENT exam: Present: normal exam, normal orophraynx, mucous membranes moist, normal external ear exam - Neck Neck exam: Present: normal inspection, full ROM. Absent: tenderness, meningismus - Respiratory Respiratory exam: Present: rhonchi (Very faint rhonchi noted), other (In the left hemithorax, there is an area of skin hyperpigmentation and discoloration, consistent with zoster distribution. However, there are no vesicles, redness, pus, streaking, and there is no tenderness). Absent: respiratory distress, wheezes, rales, chest wall tenderness, decreased breath sounds - Cardiovascular Cardiovascular Exam: Present: regular rate, normal rhythm, normal heart sounds. Absent: bradycardia, tachycardia, irregular rhythm, systolic murmur, diastolic murmur, rubs, gallop - GI/Abdominal GI/Abdominal exam: Present: soft. Absent: distended, tenderness, guarding, rebound, rigid, pulsatile mass - Rectal Rectal exam: Present: deferred - Extremities Exam Extremities exam: Present: normal inspection, full ROM, other (2+ pulses noted in the bilateral upper and lower extremities. There is no palpable cord. negative Homans sign. Muscular compartments are soft. The pelvis is stable.). Absent: pedal edema, calf tenderness - Back Exam Back exam: Present: normal inspection, full ROM. Absent: tenderness, CVA tenderness (R), CVA tenderness (L), paraspinal tenderness, vertebral tenderness - Neurological Exam Neurological exam: Present: alert, oriented X3, normal gait, other (No facial droop. Tongue midline. Extraocular movements intact bilaterally. Facial sensation intact to light touch in V1, V2, V3 distribution bilaterally. 5 and a 5 strength in 4 extremities. Sensation intact to light touch in 4 extremities.). Absent: motor sensory deficit - Psychiatric Psychiatric exam: Present: normal affect, normal mood, anxious - Skin Skin exam: Present: warm ED Course Vital Signs 02/09/20 02/09/20 04:56 07:01 Temperature 97.6 F Pulse Rate 89 Pulse Rate [ 91 H Bilateral Throughout] Respiratory 18 Rate Respiratory 18 Rate [Bilateral Throughout] Blood Pressure 171/93 O2 Sat by Pulse 99 Oximetry ED Medical Decision Making - Lab Data Result diagrams: 02/09/20 05:44 02/09/20 05:44 Vital Signs 02/09/20 02/09/20 04:56 07:01 Temperature 97.6 F Pulse Rate 89 Pulse Rate [ 91 H Bilateral Throughout] Respiratory 18 Rate Respiratory 18 Rate [Bilateral Throughout] Blood Pressure 171/93 O2 Sat by Pulse 99 Oximetry Lab Results 02/09/20 02/09/20 02/09/20 Range/Units 05:44 05:44 05:44 WBC 7.1 (4.5-11.0) K/mm3 RBC 5.12 H (3.65-5.03) M/mm3 Hgb 15.8 H (11.8-15.2) gm/dl Hct 46.0 H (35.5-45.6) % MCV 90 (84-94) fl MCH 31 (28-32) pg MCHC 34 (32-34) % RDW 15.8 H (13.2-15.2) % Plt Count 192 (140-440) K/mm3 Lymph % (Auto) 26.5 (13.4-35.0) % Bremer % (Auto) 7.5 H (0.0-7.3) % Eos % (Auto) 5.0 H (0.0-4.3) % Baso % (Auto) 0.9 (0.0-1.8) % Lymph # (Auto) 1.9 (1.2-5.4) K/mm3 Bremer # (Auto) 0.5 (0.0-0.8) K/mm3 Eos # (Auto) 0.4 (0.0-0.4) K/mm3 Baso # (Auto) 0.1 (0.0-0.1) K/mm3 Seg Neutrophils % 60.1 (40.0-70.0) % Seg Neutrophils # 4.3 (1.8-7.7) K/mm3 Sodium 135 L (137-145) mmol/L Potassium 3.8 (3.6-5.0) mmol/L Chloride 98.1 (98-107) mmol/L Carbon Dioxide 23 (22-30) mmol/L Anion Gap 18 mmol/L BUN 13 (9-20) mg/dL Creatinine 0.8 (0.8-1.3) mg/dL Estimated GFR > 60 ml/min BUN/Creatinine Ratio 16 % Glucose 463 H (75-100) mg/dL Calcium 9.3 (8.4-10.2) mg/dL Magnesium 2.30 (1.7-2.3) mg/dL Total Bilirubin 0.50 (0.1-1.2) mg/dL AST 12 (5-40) units/L ALT 24 (7-56) units/L Alkaline Phosphatase 160 H (35-129) units/L Total Creatine Kinase 39 L (55-170) units/L Troponin T < 0.010 (0.00-0.029) ng/mL Total Protein 6.6 (6.3-8.2) g/dL Albumin 4.0 (3.9-5) g/dL Albumin/Globulin Ratio 1.5 % Urine Color (Yellow) Urine Turbidity (Clear) Urine pH (5.0-7.0) Ur Specific Madison (1.003-1.030) Urine Protein (Negative) mg/dL Urine Glucose (UA) (Negative) mg/dL Urine Ketones (Negative) mg/dL Urine Blood (Negative) Urine Nitrite (Negative) Urine Bilirubin (Negative) Urine Urobilinogen (<2.0) mg/dL Ur Leukocyte Esterase (Negative) Urine WBC (Auto) (0.0-6.0) /HPF Urine RBC (Auto) (0.0-6.0) /HPF U Epithel Cells (Auto) (0-13.0) /HPF 02/09/20 Range/Units 06:37 WBC (4.5-11.0) K/mm3 RBC (3.65-5.03) M/mm3 Hgb (11.8-15.2) gm/dl Hct (35.5-45.6) % MCV (84-94) fl MCH (28-32) pg MCHC (32-34) % RDW (13.2-15.2) % Plt Count (140-440) K/mm3 Lymph % (Auto) (13.4-35.0) % Bremer % (Auto) (0.0-7.3) % Eos % (Auto) (0.0-4.3) % Baso % (Auto) (0.0-1.8) % Lymph # (Auto) (1.2-5.4) K/mm3 Bremer # (Auto) (0.0-0.8) K/mm3 Eos # (Auto) (0.0-0.4) K/mm3 Baso # (Auto) (0.0-0.1) K/mm3 Seg Neutrophils % (40.0-70.0) % Seg Neutrophils # (1.8-7.7) K/mm3 Sodium (137-145) mmol/L Potassium (3.6-5.0) mmol/L Chloride (98-107) mmol/L Carbon Dioxide (22-30) mmol/L Anion Gap mmol/L BUN (9-20) mg/dL Creatinine (0.8-1.3) mg/dL Estimated GFR ml/min BUN/Creatinine Ratio % Glucose (75-100) mg/dL Calcium (8.4-10.2) mg/dL Magnesium (1.7-2.3) mg/dL Total Bilirubin (0.1-1.2) mg/dL AST (5-40) units/L ALT (7-56) units/L Alkaline Phosphatase (35-129) units/L Total Creatine Kinase (55-170) units/L Troponin T (0.00-0.029) ng/mL Total Protein (6.3-8.2) g/dL Albumin (3.9-5) g/dL Albumin/Globulin Ratio % Urine Color Straw (Yellow) Urine Turbidity Clear (Clear) Urine pH 6.0 (5.0-7.0) Ur Specific [place] 1.024 (1.003-1.030) Urine Protein <15 mg/dl (Negative) mg/dL Urine Glucose (UA) >=500 (Negative) mg/dL Urine Ketones Neg (Negative) mg/dL Urine Blood Neg (Negative) Urine Nitrite Neg (Negative) Urine Bilirubin Neg (Negative) Urine Urobilinogen < 2.0 (<2.0) mg/dL Ur Leukocyte Esterase Neg (Negative) Urine WBC (Auto) 1.0 (0.0-6.0) /HPF Urine RBC (Auto) 2.0 (0.0-6.0) /HPF U Epithel Cells (Auto) < 1.0 (0-13.0) /HPF - EKG Data -: EKG Interpreted by Ut EKG shows normal: sinus rhythm Rate: normal - EKG Data 02/09/20 07:18 The EKG today shows a sinus rhythm, 74 bpm, normal axis, normal intervals, T wave inversions V2, the EKG is abnormal, the EKG is not a STEMI, with the exception of T wave inversions in V2, the EKG appears to be unchanged from prior EKG from November 2019 - Radiology Data Radiology results: report reviewed, image reviewed X-ray of the chest is negative for acute finding - Medical Decision Making Differential diagnosis, including not limited to: Postherpetic neuralgia, urin madalyn tract infection, hyperglycemia, noncompliance Assessment and plan: 59-year-old gentleman with left hemithorax pain over prior zoster distribution, likely experiencing postherpetic neuralgia. He is afebrile with reassuring vital signs, with the exception of chronic hypertension, without DVT, pulmonary embolism risk factors, and low risk by Wells criteria. Pain present for weeks and months, troponin negative x1, EKG not consistent with a STEMI, cardiovascular risk factor profile is reviewed and appreciated, however, given duration of symptoms, and objective testing, patient would not benefit from accelerated cardiac risk ratification. Furthermore, laboratory studies were sent prior to my personal evaluation of this patient. It appears that the patient needs a primary care doctor, and he will need to be compliant with diet and lifestyle. He will be discharged with topical capsaicin, Tylenol, Motrin, as needed albuterol, low-dose metformin, Norvasc, and he will need to follow-up with a primary care doctor for his multiple poorly managed chronic medical conditions which do not appear to be acutely decompensated. Hyperglycemia is reviewed and appreciated, there is no anion gap, this is likely a chronic finding secondary to noncompliance, he will need to closely follow-up for this as an outpatient. Critical care attestation.: If time is entered above; I have spent that time in minutes in the direct care of this critically ill patient, excluding procedure time. ED Disposition Clinical Impression: Hyperglycemia, Elevated blood pressure reading, Bronchospasm, Post herpetic neuralgia Disposition: DC-01 TO HOME OR SELFCARE Is pt being admited?: No Does the pt Need Aspirin: No Condition: Stable Instructions: Herpes Zoster (ED), Hypertension (ED), Diabetic Hyperglycemia (ED) Additional Instructions: As we discussed, patient's left-sided thorax and chest wall pain likely coming from postherpetic neuralgia, inflammation of the nerves in the chest wall. Patient may alternate the ibuprofen and acetaminophen as needed for pain, and use the topical capsaicin as needed for pain. Patient found to have a number of incidental abnormalities today in the emergency room, including hyperglycemia, glucose in the urine, and high blood pressure. We strongly recommend that the patient follows up with an outpatient primary care doctor within the next month. The patient likely has chronic high blood pressure/hypertension, and chronic diabetes/high blood sugar. Patient needs to lose weight, exercise, eat plenty of fiber, vegetables and lean protein, avoid consumption of caffeine, energy drinks and stimulants, and avoid consumption of simple carbohydrates, and foods that are high in sugar. Long-term complications of hypertension and high blood sugar include stroke, heart attack, disability, paralysis, permanent loss of quality of life. Patient will be given albuterol for as needed cough, and presumed COPD/bronchitis. Patient will be given prescription for high blood sugar called metformin, metformin is very effective, but it may cause cramping, nausea, vomiting, and diarrhea. In addition, patient will be given a prescription for high blood pressure with a medication called Norvasc, which is typically well tolerated. Patient will be given an affordable Rx card. Please return to the emergency room right away with new pain, worsened pain, migration of pain, projectile vomiting, change in mental status, confusion, inability to tolerate liquid feeds, new, worsened or different symptoms not present on the initial emergency room evaluation. Dr. Surinder Cardoso is a local primary care doctor. The [facility] is a local medical clinic available for the patient's convenience. Referrals: SURINDER CARDOSO MD [Staff Physician] - 3-5 Days [facility] [Provider Group] - 3-5 Days
[2020-02-09 06:53] LABS: Bilirubin,Urine NEG (Negative); Blood,Urine NEG (Negative); Color,Urine Straw (Yellow); Protein,Urine <15 mg/dL mg/dL (Negative); Urobilinogen,Urine < 2.0 mg/dL (<2.0)
[2020-02-09] MEDS ORDERED: INSULIN REGULAR, HUMAN 100 UNIT/ML 3ML VIAL SUB-Q ONE (07:14)
[2020-02-09 08:10] VITALS: BP 164/90
[2020-02-10] MEDS ORDERED: INSULIN REGULAR, HUMAN 100 UNITS/1 ML ONE (15:30)
== END 2020-02-09 08:10 | disposition home or self-care (01) ==
LOC: ED 04:51
DX: E11.65 Type 2 diabetes mellitus with hyperglycemia (principal); R03.0 Elevated blood-pressure reading, without diagnosis of hypertension; J98.01 Acute bronchospasm; B02.23 Postherpetic polyneuropathy; J44.9 Chronic obstructive pulmonary disease, unspecified; F17.200 Nicotine dependence, unspecified, uncomplicated; Z79.899 Other long term (current) drug therapy
CPT/HCPCS: 36415; 71046; 80053; 81001; 82550; 83735; 84484; 85025; 93005; 94640; 94644; 96372; J1815

== ENCOUNTER 2020-07-09 13:09 | Observation (INO) | payer SELFPAY ==
--- NOTE | 2020-07-09 13:26 | Emergency Department Report ---
Blank Doc - Documentation Documentation: 6-year-old male that presents with weakness, dizziness, left lower leg weakness and abnormal gait. Patient denies any history of stroke. Patient stated symptoms is going on for the past month. Exam: Neuro exam remarkable. No facial drooping. No slurred speech. EOMI. normal strength bilaterally upper and lower extremities. Normal gait. 1- This initial assessment/diagnostic orders/clinical plan/ treatment(s) is/are subject to change based on pt's health status, clinical progression and re- assessment by fellow clinical providers in the ED. Further treatment and workup at subsequent clinical provers discretion. Patient/guardians urged not to elope from ED as their condition may be serious if not clinically assessed and managed. 2-labs/CT/EKG r/o TIA
[2020-07-09 13:52] LABS: Basophils # (Auto) 0.1 K/mm3 (0.0-0.1); Basophils % (Auto) 0.9 % (0.0-1.8); Eosinophils # (Auto) 0.5 K/mm3 (0.0-0.4); Eosinophils % (Auto) 5.6 % (0.0-4.3); Hematocrit 46.4 % (35.5-45.6); Hemoglobin 16.5 gm/dl (11.8-15.2); Lymphocytes # (Auto) 1.7 K/mm3 (1.2-5.4); Lymphocytes % (Auto) 20.4 % (13.4-35.0); Mean Corpuscular HGB Conc 35 % (32-34); Mean Corpuscular Volume 85 fl (84-94); Monocytes # (Auto) 0.6 K/mm3 (0.0-0.8); Monocytes % (Auto) 7.1 % (0.0-7.3); Platelet Count 209 K/mm3 (140-440); Red Blood Count 5.45 M/mm3 (3.65-5.03); Red Cell Distribution Width 13.7 % (13.2-15.2)
[2020-07-09 14:05] LABS: INR 0.91 (0.87-1.13); Partial Thromboplastin Time 33.9 Sec. (24.2-36.6); Thrombin Time 15.7 Sec. (15.1-19.6)
--- NOTE | 2020-07-09 14:32 | Cat Scan Report ---
CT head/brain wo con INDICATION / CLINICAL INFORMATION: 60 years Male; dizziness. TECHNIQUE: Routine CT head without contrast. All CT scans at this location are performed using CT dos e reduction for ALARA by means of automated exposure control. COMPARISON: None. 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 There otherwise appears be mild cerebral white m atter disease indicative of microvascular angiopathy. There are scattered foci of calcification within the cerebral hemispheres bilaterally, particularly a long the subcortical regions which are nonspecific. Scattered calcification may be related to chronic inflammatory process or exposure to previous infection such as cysticercosis if the patient patient has traveled to endemic regions. However, there no clear evidence of surrounding edema or mass effect to indicate acute process. There is no clear CT evidence of acute intracranial hemorrhage. ORBITS: No significant abnormality of visualized orbits. SINUSES / MASTOIDS: No significant abnormality in the visualized paranasal sinuses or mastoid air urvashi ls. CRANIOCERVICAL JUNCTION: No significant abnormality. ADDITIONAL FINDINGS: None. IMPRESSION: 1. There is encephalomalacia involving the posterior cerebral hemispheres as detailed above indicativ e of old infarcts. 2. There are scattered foci of calcification involving the cerebral hemispheres, also described above . 3. There is no clear CT evidence of acute intracranial hemorrhage. Signer Name: Kody Nixon MD Signed: 07/09/2020 2:28 PM Workstation Name: [id number]
[2020-07-09 14:53] LABS: Creatine Kinase MB 1.7 ng/mL (0.0-4.0)
[2020-07-09 14:54] LABS: Alanine Aminotransferase 14 units/L (7-56); Albumin 4.4 g/dL (3.9-5); BUN/Creatinine Ratio 19; Blood Urea Nitrogen 17 mg/dL (9-20); Calcium 9.2 mg/dL (8.4-10.2); Hemolysis Index 10
--- NOTE | 2020-07-09 16:50 | Emergency Department Report ---
ED General Adult HPI - General Chief complaint: High BP Stated complaint: HIGH BLOOD PRESSURE PUI?: No Time Seen by Provider: 07/09/20 13:23 Source: patient, RN notes reviewed, old records reviewed Mode of arrival: Stretcher Limitations: Language Barrier, Physical Limitation - History of Present Illness Initial comments: The patient was evaluated in the emergency department for symptoms described in the history of present illness. He/she was evaluated in the context of the global COVID-19 pandemic, which necessitated consideration that the patient might be at risk for infection with the virus that causes COVID-19. Instit utional protocols and algorithms that pertain to the evaluation of patients at risk for COVID-19 are in a state of rapid change based on information released by regulatory bodies including the CDC and federal and state organizations. These policies and algorithms were followed during the patient's care in the emergency department. Please note that these policies, procedures and recommendations changed on a rapid basis. 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 I have evaluated him in the past. He has a history of diabetes and hypertension. He does not have a local primary care doctor. The patient presents to the ER with a complaint of feeling unsteady and off-balance, feeling like he is having "memory issues", and generalized weakness. His symptoms have been present for 2 months. He denies headache. He endorses nonspecific binocular blurry vision for 2 months. He is not having chest pain. He denies cough and shortness of breath. He denies abdominal pain. He denies urinary symptoms. He endorsed nonspecific bilateral upper extremity weakness and numbness for about 2 months. He also endorsed nonspecific left lower extremity numbness, for 2 months. He denies bladder or bowel retention/incontinence Symptoms basically constant for the past 2 months, he does not describe exacerbating or relieving factors. The patient states he is not had loss of taste or smell. Patient states he does not have a primary care doctor. Patient states he is not taking his diabetic medication, or blood pressure medication. -: Gradual, week(s), month(s) Location: left, lower extremity Consistency: intermittent Improves with: rest Worsens with: movement - Related Data Previous Rx's Medication Instructions Recorded Last Taken Type Insulin NPH/Regular [NovoLIN 70/30] 10 unit SUB-Q BIDDIAB #1 vial 10/20/16 Unknown Rx Ipratropium/Albuterol Sulfate 1 ampul IH Q6HRT PRN 30 Days 10/20/16 Unknown Rx [DUONEB *Not for PRN Use*] ampul.neb Prednisone [predniSONE 5 mg (6-Day 5 mg PO .TAPER #1 tab.ds.pk 10/20/16 Unknown Rx Pack, 21 Tabs)] ALBUTEROL NEB's [Proventil 0.083% 2.5 mg IH Q6H PRN #1 pack 07/07/17 Unknown Rx NEBS] Albuterol Sulfate [Ventolin HFA] 2 puff IH Q4-6H PRN #1 hfa.aer.ad 07/07/17 Unknown Rx Cetirizine HCl [ZyrTEC] 10 mg PO QAM 14 Days #14 capsule 07/07/17 Unknown Rx ALBUTEROL NEB's [Proventil 0.083% 2.5 mg IH TID PRN #1 box 04/27/19 Unknown Rx NEBS] ALBUTEROL NEB's [Proventil 0.083% 3 ml IH Q6H PRN #75 ml 11/27/19 Unknown Rx NEBS] Albuterol Mdi (or & Nicu Only) 2 puff IH Q6H PRN #1 inh 11/27/19 Unknown Rx [ProAir HFA Inhaler] Montelukast [Singulair] 10 mg PO QHS #30 tablet 11/27/19 Unknown Rx Prednisone [predniSONE 10 mg 10 mg PO .TAPER #21 tab.ds.pk 11/27/19 Unknown Rx (6-Day Pack, 21 Tabs)] Valacyclovir HCl [Valacyclovir] 1,000 mg PO TID 10 Days #30 tablet 01/11/20 Unknown Rx Acetaminophen [Non-Aspirin Extra 500 mg PO Q6HR PRN #30 tablet 02/09/20 Unknown Rx Strength] Albuterol Sulfate [Proair 90 mcg IH Q4HR PRN #2 aer.pow.ba 02/09/20 Unknown Rx Respiclick] Amlodipine Besylate [Norvasc] 5 mg PO QDAY #30 tablet 02/09/20 Unknown Rx Capsaicin 0.075% [Zostrix Hp 1 applicatio TP TID #1 tube 02/09/20 Unknown Rx 0.075%] Ibuprofen [Motrin] 600 mg PO Q8H PRN #30 tablet 02/09/20 Unknown Rx metFORMIN [Glucophage] 500 mg PO QDAY #30 tab 02/09/20 Unknown Rx Allergies Allergy/AdvReac Type Severity Reaction Status Date / Time No Known Allergies Allergy Verified 07/09/20 13:23 ED Review of Systems ROS: Stated complaint: HIGH BLOOD PRESSURE Other details as noted in HPI Constitutional: denies: fever Eyes: other (Blurry vision for 2 months). denies: eye pain, eye discharge ENT: denies: congestion Respiratory: denies: see HPI Cardiovascular: denies: chest pain Gastrointestinal: denies: abdominal pain Genitourinary: denies: dysuria Musculoskeletal: myalgia Neurological: weakness, abnormal gait Hematological/Lymphatic: denies: easy bleeding ED Past Medical Hx - Past Medical History Hx Heart Attack/AMI: No Hx Congestive Heart Failure: No Hx Diabetes: No Hx Sickle Cell Disease: No Hx Asthma: Yes Hx COPD: No Hx HIV: No Additional medical history: Shingles - Social History Smoking Status: Current Every Day Smoker Substance Use Type: None - Medications Home Medications: Home Medications Medication Instructions Recorded Confirmed Last Taken Type Insulin NPH/Regular [NovoLIN 70/30] 10 unit SUB-Q BIDDIAB #1 vial 10/20/16 Unknown Rx Ipratropium/Albuterol Sulfate 1 ampul IH Q6HRT PRN 30 Days 10/20/16 Unknown Rx [DUONEB *Not for PRN Use*] ampul.neb Prednisone [predniSONE 5 mg (6-Day 5 mg PO .TAPER #1 tab.ds.pk 10/20/16 Unknown Rx Pack, 21 Tabs)] ALBUTEROL NEB's [Proventil 0.083% 2.5 mg IH Q6H PRN #1 pack 07/07/17 Unknown Rx NEBS] Albuterol Sulfate [Ventolin HFA] 2 puff IH Q4-6H PRN #1 hfa.aer.ad 07/07/17 Unknown Rx Cetirizine HCl [ZyrTEC] 10 mg PO QAM 14 Days #14 capsule 07/07/17 Unknown Rx ALBUTEROL NEB's [Proventil 0.083% 2.5 mg IH TID PRN #1 box 04/27/19 Unknown Rx NEBS] ALBUTEROL NEB's [Proventil 0.083% 3 ml IH Q6H PRN #75 ml 11/27/19 Unknown Rx NEBS] Albuterol Mdi (or & Nicu Only) 2 puff IH Q6H PRN #1 inh 11/27/19 Unknown Rx [ProAir HFA Inhaler] Montelukast [Singulair] 10 mg PO QHS #30 tablet 11/27/19 Unknown Rx Prednisone [predniSONE 10 mg 10 mg PO .TAPER #21 tab.ds.pk 11/27/19 Unknown Rx (6-Day Pack, 21 Tabs)] Valacyclovir HCl [Valacyclovir] 1,000 mg PO TID 10 Days #30 tablet 01/11/20 Unknown Rx Acetaminophen [Non-Aspirin Extra 500 mg PO Q6HR PRN #30 tablet 02/09/20 Unknown Rx Strength] Albuterol Sulfate [Proair 90 mcg IH Q4HR PRN #2 aer.pow.ba 02/09/20 Unknown Rx Respiclick] Amlodipine Besylate [Norvasc] 5 mg PO QDAY #30 tablet 02/09/20 Unknown Rx Capsaicin 0.075% [Zostrix Hp 1 applicatio TP TID #1 tube 02/09/20 Unknown Rx 0.075%] Ibuprofen [Motrin] 600 mg PO Q8H PRN #30 tablet 02/09/20 Unknown Rx metFORMIN [Glucophage] 500 mg PO QDAY #30 tab 02/09/20 Unknown Rx ED Physical Exam - General Limitations: Physical Limitation General appearance: alert, in no apparent distress - Head Head exam: Present: atraumatic, normocephalic - Eye Eye exam: Present: normal appearance, PERRL, EOMI, other (Visual acuity intact to finger counting, color perception, reading at a close distance). Absent: nystagmus - ENT ENT exam: Present: normal exam, normal orophraynx, mucous membranes moist, normal external ear exam - Neck Neck exam: Present: normal inspection, full ROM. Absent: tenderness, meningismus - Respiratory Respiratory exam: Present: normal lung sounds bilaterally. Absent: respiratory distress, wheezes, rales, rhonchi, stridor, decreased breath sounds - Cardiovascular Cardiovascular Exam: Present: regular rate, normal rhythm, normal heart sounds. Absent: bradycardia, tachycardia, irregular rhythm, systolic murmur, diastolic murmur, rubs, gallop - GI/Abdominal GI/Abdominal exam: Present: soft. Absent: distended, tenderness, guarding, rebound, rigid, pulsatile mass - Rectal Rectal exam: Present: deferred - Extremities Exam Extremities exam: Present: normal inspection, full ROM, other (2+ pulses noted in the bilateral upper and lower extremities. There is no palpable cord. negative Homans sign. Muscular compartments are soft. The pelvis is stable.). Absent: pedal edema, calf tenderness - Back Exam Back exam: Present: normal inspection, full ROM. Absent: tenderness, CVA tenderness (R), CVA tenderness (L), paraspinal tenderness, vertebral tenderness - Neurological Exam Neurological exam: Present: alert, abnormal gait (The patient is very unsteady unassisted. He is also on study with a two-person assist. He has a positive Romberg examination. He is not able to perform tandem gait), reflexes normal (2+ biceps, triceps, quadriceps reflexes bilaterally. Downgoing plantar reflexes bilaterally), other (No facial droop. Tongue midline. Extraocular movements intact bilaterally. Facial sensation intact to light touch in V1, V2, V3 distribution bilaterally. 5 and a 5 strength in 4 extremities. Sensation intact to light touch in 4 extremities.). Absent: motor sensory deficit (There is no past-pointing. There is normal [id number]. There is no pronator drift.) - Psychiatric Psychiatric exam: Present: flat affect - Skin Skin exam: Present: warm, dry, intact, normal color. Absent: rash ED Course Vital Signs 07/09/20 07/09/20 16:55 17:53 Temperature 98.3 F Pulse Rate 78 9 L Respiratory 18 Rate Blood Pressure 171/78 Blood Pressure 186/81 [Left] O2 Sat by Pulse 98 Oximetry - Reevaluation(s) Reevaluation #1: 07/09/20 18:05 Differential diagnosis, including but not limited to: Subacute stroke, diabetic neuropathy, diabetic retinopathy, hypertensive retinopathy, noncompliance, pos terior column abnormality Assessment and plan: 60-year-old gentleman, with a complaint of unsteady gait and memory issues for about 2 months. Symptoms present for greater than 4.5 hours, therefore, he is not a TPA candidate. His examination is nonlateralizing, not suggestive of a large vessel occlusion. In addition, his symptoms have been present for greater than 24 hours, so emergent CT angiogram head and neck not indicated. Suspect that patient is experiencing natural history of poorly controlled chronic medical comorbidities, including diabetes and hypertension. He has appropriate reflexes, strength and sensation, with no obvious visual field cuts on direct confrontation, and visual acuity is intact to finger counting, color perception, and reading at a close distance. However, this patient is not safe for discharge as he is very unsteady, not able to ambulate. He therefore re quires further work-up and evaluation. Neurology consultation is requested, we are currently awaiting their recommendations. We anticipate admission to the medical service for further diagnostic work-up, treatment and evaluation. I discussed this plan of care with the patient, who verbalized understanding, and is amenable to this plan of care. We will administer aspirin, Norvasc, insulin, and we await neurology's recommendations at this time. Reevaluation #2: 07/09/20 19:05 Patient seen and evaluated by stroke neurologist, Dr. Jono Mcdowell. He agrees with plan for admission, and stroke work-up. He is also in agreement that patient is not a TPA candidate, and presentation history are not suggestive of large vessel occlusion, therefore, emergent CT angiographic imaging not indicated. Is in agreement with aspirin, glycemic control, and antihypertensive therapy. Please note that at this time, Dr. Mcdowell does not have access to this medical record system. He informed me that he sent his note and recommendations via fax, which as of now, I do not have access to. I have escalated this to my administrative team, and I am waiting for the administrative team to provide him with Dr. Mcdowell is a written recommendation in note. Nevertheless, hospital ph ysician, Dr. Kelton Cleveland to admit ED Medical Decision Making - Lab Data Result diagrams: 07/09/20 13:30 07/09/20 13:30 Lab Results 07/09/20 07/09/20 07/09/20 Range/Units 13:30 13:30 13:30 WBC 8.3 (4.5-11.0) K/mm3 RBC 5.45 H (3.65-5.03) M/mm3 Hgb 16.5 H (11.8-15.2) gm/dl Hct 46.4 H (35.5-45.6) % MCV 85 (84-94) fl MCH 30 (28-32) pg MCHC 35 H (32-34) % RDW 13.7 (13.2-15.2) % Plt Count 209 (140-440) K/mm3 Lymph % (Auto) 20.4 (13.4-35.0) % Creek % (Auto) 7.1 (0.0-7.3) % Eos % (Auto) 5.6 H (0.0-4.3) % Baso % (Auto) 0.9 (0.0-1.8) % Lymph # (Auto) 1.7 (1.2-5.4) K/mm3 Creek # (Auto) 0.6 (0.0-0.8) K/mm3 Eos # (Auto) 0.5 H (0.0-0.4) K/mm3 Baso # (Auto) 0.1 (0.0-0.1) K/mm3 Seg Neutrophils % 66.0 (40.0-70.0) % Seg Neutrophils # 5.5 (1.8-7.7) K/mm3 PT 12.1 L (12.2-14.9) Sec. INR 0.91 (0.87-1.13) APTT 33.9 (24.2-36.6) Sec. Thrombin Time 15.7 (15.1-19.6) Sec. Sodium 143 (137-145) mmol/L Potassium 4.4 (3.6-5.0) mmol/L Chloride 105.4 (98-107) mmol/L Carbon Dioxide 23 (22-30) mmol/L Anion Gap 19 mmol/L BUN 17 (9-20) mg/dL Creatinine 0.9 (0.8-1.3) mg/dL Estimated GFR > 60 ml/min BUN/Creatinine Ratio 19 % Glucose 350 H (75-100) mg/dL Calcium 9.2 (8.4-10.2) mg/dL Total Bilirubin 0.50 (0.1-1.2) mg/dL AST 12 (5-40) units/L ALT 14 (7-56) units/L Alkaline Phosphatase 128 (35-129) units/L Total Creatine Kinase 46 L (55-170) units/L CK-MB (CK-2) 1.7 (0.0-4.0) ng/mL CK-MB (CK-2) Rel Index 3.6 (0-4) Troponin T < 0.010 (0.00-0.029) ng/mL Total Protein 6.7 (6.3-8.2) g/dL Albumin 4.4 (3.9-5) g/dL Albumin/Globulin Ratio 1.9 % Plasma/Serum Alcohol (0-0.07) % 07/09/20 Range/Units 13:30 WBC (4.5-11.0) K/mm3 RBC (3.65-5.03) M/mm3 Hgb (11.8-15.2) gm/dl Hct (35.5-45.6) % MCV (84-94) fl MCH (28-32) pg MCHC (32-34) % RDW (13.2-15.2) % Plt Count (140-440) K/mm3 Lymph % (Auto) (13.4-35.0) % Creek % (Auto) (0.0-7.3) % Eos % (Auto) (0.0-4.3) % Baso % (Auto) (0.0-1.8) % Lymph # (Auto) (1.2-5.4) K/mm3 Creek # (Auto) (0.0-0.8) K/mm3 Eos # (Auto) (0.0-0.4) K/mm3 Baso # (Auto) (0.0-0.1) K/mm3 Seg Neutrophils % (40.0-70.0) % Seg Neutrophils # (1.8-7.7) K/mm3 PT (12.2-14.9) Sec. INR (0.87-1.13) APTT (24.2-36.6) Sec. Thrombin Time (15.1-19.6) Sec. Sodium (137-145) mmol/L Potassium (3.6-5.0) mmol/L Chloride (98-107) mmol/L Carbon Dioxide (22-30) mmol/L Anion Gap mmol/L BUN (9-20) mg/dL Creatinine (0.8-1.3) mg/dL Estimated GFR ml/min BUN/Creatinine Ratio % Glucose (75-100) mg/dL Calcium (8.4-10.2) mg/dL Total Bilirubin (0.1-1.2) mg/dL AST (5-40) units/L ALT (7-56) units/L Alkaline Phosphatase (35-129) units/L Total Creatine Kinase (55-170) units/L CK-MB (CK-2) (0.0-4.0) ng/mL CK-MB (CK-2) Rel Index (0-4) Troponin T (0.00-0.029) ng/mL Total Protein (6.3-8.2) g/dL Albumin (3.9-5) g/dL Albumin/Globulin Ratio % Plasma/Serum Alcohol < 0.01 (0-0.07) % - EKG Data -: EKG Interpreted by [place] EKG shows normal: sinus rhythm Rate: normal - EKG Data 07/09/20 18:04 This EKG is unchanged from prior EKG. Sinus rhythm, tachycardia, borderline ri ghtward axis deviation, Q waves in aVL, left ventricular hypertrophy, QTC within normal limits. This is an abnormal EKG. The patient denies chest pain. This EKG is not a STEMI the EKG is unchanged from prior EKG from January 2020 - Radiology Data Radiology results: report reviewed, image reviewed CT head/brain wo con INDICATION / CLINICAL INFORMATION: 60 years Male; dizziness. TECHNIQUE: Routine CT head without contrast. All CT scans at this location are performed using CT dose reduction for ALARA by means of automated exposure control. COMPARISON: None. 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 There otherwise appears be mild cerebral white matter disease indicative of microvascular angiopathy. There are scattered foci of calcification within the cerebral hemispheres bilaterally, particularly along the subcortical regions which are nonspecific. Scattered calcification may be related to chronic inflammatory process or exposure to previous infection such as cysticercosis if the patient patient has traveled to endemic regions. However, there no clear evidence of surrounding edema or mass effect to indicate acute process. There is no clear CT evidence of acute intracranial hemorrhage. ORBITS: No significant abnormality of visualized orbits. SINUSES / MASTOIDS: No significant abnormality in the visualized par anasal sinuses or mastoid air cells. CRANIOCERVICAL JUNCTION: No significant abnormality. ADDITIONAL FINDINGS: None. IMPRESSION: 1. There is encephalomalacia involving the posterior cerebral hemispheres as detailed above indicative of old infarcts. 2. There are scattered foci of calcification invo lving the cerebral hemispheres, also described above. 3. There is no clear CT evidence of acute intracranial hemorrhage. Signer Name: Kody Nixon MD Signed: 07/09/2020 1:28 PM Workstation Name: [id number] Critical care attestation.: If time is entered above; I have spent that time in minutes in the direct care of this critically ill patient, excluding procedure time. ED Disposition Clinical Impression: Hyperglycemia, Unsteady gait, Noncompliance Hypertension Qualifiers: Hypertension type: unspecified Qualified Code(s): I10 - Essential (primary) hypertension Disposition: OP ADMIT IP TO THIS HOSP Is pt being admited?: Yes Does the pt Need Aspirin: No Condition: Good Instructions: Hypertension (ED) Referrals: PRIMARY CARE, [Primary Care Provider] - 3-5 Days - Assessment Assessment Interval: Baseline - Level of Consciousness 1a. Level of Consciousness: alert/keenly responsive - LOC Questions 1b. LOC Questions: answers both correctly - LOC Command 1c. LOC Commands: performs tasks correctly - Best Gaze 2. Best Gaze: normal - Visual 3. Visual: no visual loss - Facial Palsy 4. Facial Palsy: normal symmetrical movement - Motor Arm 5a. Motor Arm Left: no drift 5b. Motor Arm Right: no drift - Motor Leg 6a. Motor Leg Left: no drift 6b. Motor Leg Right: no drift - Limb Ataxia 7. Limb Ataxia: absent - Sensory 8. Sensory: normal - Best Language 9. Best Language: no aphasia - Dysarthria 10. Dysarthria: normal - Extinction and Inattention 11. Extinction/Inattention: no abnormality - Scoring Total Score: 0 Stroke Severity: No Stroke Symptoms
[2020-07-09] MEDS ORDERED: INSULIN REGULAR, HUMAN 100 UNITS/1 ML SUB-Q ONE (16:57)
[2020-07-09] MEDS ORDERED: amLODIPine 5 MG TAB PO ONE (17:17)
[2020-07-09] MEDS ORDERED: ASPIRIN 81 MG TAB CHEW PO ONE (17:17)
[2020-07-09 18:58] LABS: Bilirubin,Urine NEG (Negative); Blood,Urine NEG (Negative); Color,Urine Yellow (Yellow); Protein,Urine <15 mg/dL mg/dL (Negative); Urobilinogen,Urine < 2.0 mg/dL (<2.0); WBC,Urine < 1.0 /HPF (0.0-6.0)
[2020-07-09 19:30] LABS: RBC,Urine < 1.0 /HPF (0.0-6.0)
[2020-07-09] MEDS ORDERED: ALBUTEROL 8.5 GM MDI INHALATION IH PRN ×2 (20:52)
[2020-07-09] MEDS ORDERED: IPRATROPIUM/ALBUTEROL SULFATE 3 ML AMPUL.NEB IH PRN (20:52)
[2020-07-09] MEDS ORDERED: ACETAMINOPHEN 500 MG TAB PO PRN (20:52)
[2020-07-09] MEDS ORDERED: IBUPROFEN 600 MG TAB PO PRN (20:52)
[2020-07-09] MEDS ORDERED: ALBUTEROL 2.5 MG/3 ML NEBU IH PRN (20:52)
--- NOTE | 2020-07-09 20:59 | Event Note ---
Date: 07/09/20 Patient seen and evaluated Patient had a high blood pressure which was controlled in the emergency room Patient has a history of hypertension and diabetes Patient was presumed to have a subacute stroke On my physical exam patient had normal power in all 4 extremities and patient was walking around without any ataxia. No neurologic deficits. Discharge diagnosis uncontrolled hypertension Valsartan added to her medication regimen Patient to continue all other home medications including insulin and aspirin and antihypertensives. Talked with family.
[2020-07-09] MEDS ORDERED: metFORMIN 500 MG TAB PO SCH (21:00)
[2020-07-09] MEDS ORDERED: MONTELUKAST 10 MG TAB PO SCH (22:00)
[2020-07-09 22:02] VITALS: BP 121/55
[2020-07-10] MEDS ORDERED: INSULIN NPH/REGULAR 70/30 INJ SUB-Q SCH (08:00)
[2020-07-10] MEDS ORDERED: CAPSAICIN 0.075% CREAM 60 GM TP SCH (08:00)
[2020-07-10] MEDS ORDERED: amLODIPine 5 MG TAB PO SCH (10:00)
[2020-07-10] MEDS ORDERED: CETIRIZINE 10 MG TAB PO SCH (10:00)
[2020-07-10] MEDS ORDERED: NON-FORMULARY EACH (Cetirizine Hcl [Zyrtec 10mg Cap] 10 MG Capsule) PO SCH (10:00)
--- NOTE | 2020-07-10 10:32 | Consultation ---
History of Present Illness Consult date: 07/09/20 Medications and Allergies Allergies Allergy/AdvReac Type Severity Reaction Status Date / Time No Known Allergies Allergy Verified 07/09/20 13:23 Home Medications Medication Instructions Recorded Confirmed Last Taken Type Insulin NPH/Regular [NovoLIN 70/30] 10 unit SUB-Q BIDDIAB #1 vial 10/20/16 Unknown Rx Ipratropium/Albuterol Sulfate 1 ampul IH Q6HRT PRN 30 Days 10/20/16 Unknown Rx [DUONEB *Not for PRN Use*] ampul.neb Prednisone [predniSONE 5 mg (6-Day 5 mg PO .TAPER #1 tab.ds.pk 10/20/16 Unknown Rx Pack, 21 Tabs)] ALBUTEROL NEB's [Proventil 0.083% 2.5 mg IH Q6H PRN #1 pack 07/07/17 Unknown Rx NEBS] Albuterol Sulfate [Ventolin HFA] 2 puff IH Q4-6H PRN #1 hfa.aer.ad 07/07/17 Unknown Rx Cetirizine HCl [ZyrTEC] 10 mg PO QAM 14 Days #14 capsule 07/07/17 Unknown Rx ALBUTEROL NEB's [Proventil 0.083% 2.5 mg IH TID PRN #1 box 04/27/19 Unknown Rx NEBS] ALBUTEROL NEB's [Proventil 0.083% 3 ml IH Q6H PRN #75 ml 11/27/19 Unknown Rx NEBS] Albuterol Mdi (or & Nicu Only) 2 puff IH Q6H PRN #1 inh 11/27/19 Unknown Rx [ProAir HFA Inhaler] Montelukast [Singulair] 10 mg PO QHS #30 tablet 11/27/19 Unknown Rx Prednisone [predniSONE 10 mg 10 mg PO .TAPER #21 tab.ds.pk 11/27/19 Unknown Rx (6-Day Pack, 21 Tabs)] Valacyclovir HCl [Valacyclovir] 1,000 mg PO TID 10 Days #30 tablet 01/11/20 Unknown Rx Acetaminophen [Non-Aspirin Extra 500 mg PO Q6HR PRN #30 tablet 02/09/20 Unknown Rx Strength] Albuterol Sulfate [Proair 90 mcg IH Q4HR PRN #2 aer.pow.ba 02/09/20 Unknown Rx Respiclick] Amlodipine Besylate [Norvasc] 5 mg PO QDAY #30 tablet 02/09/20 Unknown Rx Capsaicin 0.075% [Zostrix Hp 1 applicatio TP TID #1 tube 02/09/20 Unknown Rx 0.075%] Ibuprofen [Motrin] 600 mg PO Q8H PRN #30 tablet 02/09/20 Unknown Rx metFORMIN [Glucophage] 500 mg PO QDAY #30 tab 02/09/20 Unknown Rx Valsartan 80 mg PO QDAY #30 tablet 07/09/20 Unknown Rx Physical Examination - Vital Signs Vital Signs: Vital Signs Temp Pulse Resp BP Pulse Ox 98.3 F 78 18 186/81 98 07/09/20 16:55 07/09/20 16:55 07/09/20 16:55 07/09/20 16:55 07/09/20 16:55 Results - Laboratory Findings CBC and BMP: 07/09/20 13:30 07/09/20 13:30 Abnormal Lab Findings: Abnormal Labs 07/09/20 07/09/20 07/09/20 13:30 13:30 13:30 RBC 5.45 H Hgb 16.5 H Hct 46.4 H MCHC 35 H Eos % (Auto) 5.6 H Eos # (Auto) 0.5 H PT 12.1 L Glucose 350 H Total Creatine Kinase 46 L Assessment and Plan [facility] Consult Note # Demographics Consult Type: ED Teleneuro First Name: Paul Last Name: Avelina Date of : 1960 Age: 60 Gender: female Time of initial page ([place] Time): 07-09-2020, 15:42 Time of return call ([place] Time): 07-09-2020, 15:42 # HPI Additional History: 60M reports 2 weeks of symptoms, balance trouble. Feels his memory is abnormal. No COVID. Recent hypertension, says it makes his vision poor and weak legs. # Scores Time of exam and NIHSS ([place] Time): 07-09-2020, 16:07 Level of Consciousness 1a: [0] = Alert; keenly responsive LOC Questions 1b: [0] = Answers both questions correctly LOC Commands 1c: [0] = Performs both tasks correctly Best Gaze 2: [0] = Normal Visual 3: [0] = No visual loss Facial Palsy 4: [0] = Normal symmetrical movements Motor Arm Left 5a: [0] = No drift Motor Arm Right 5b: [0] = No drift Motor Leg Left 6a: [0] = No drift Motor Leg Right 6b: [0] = No drift Limb Ataxia 7: [2] = Present in two limbs Sensory 8: [0] = Normal Best Language 9: [0] = No aphasia Dysarthria 10: [0] = Normal Extinction and Inattention 11: [0] = No abnormality NIHSS Total: 2 # PMH-FH-SH Past Medical History: hypertension # Data Head CT: per radiologist read, no bleed # Assessment Impression: Other, Diffuse neurologic symptoms, systemic illness including vitamin deficiency, hypertensive encephalopathy are considerations. Also co nsider demyelinating disease, other. # Plan Thrombolytic/Intervention: NOT IV Alteplase or IA Intervention Alteplase Exclusion (<3 hour window): time of onset unclear Alteplase Exclusion: > 4.5 hours Intraarterial Exclusion: clinically not consistent with stroke Blood Pressure Target: SBP < 160 Labs: B12, thiamine, TSH Imaging: (urgency: routine admission): MRI Brain with AND without contrast Therapy/Evaluation: PT/OT evaluation Other: I have discussed my recommendations with the referring provider Additional Recommendations: Empiric MVI, thiamine recommended pending above studies. Disposition: admit # Logistics Telemedicine: Interactive 2 way audio and visual telecommunication technology was utilized during this visit Electronically signed at 07/09/2020 - 16:12 [place] time by Hosea Mcdowell MD
== END 2020-07-09 22:00 | disposition home or self-care (01) ==
LOC: ED 13:09 → 4A 19:07
PROVIDERS: ADMIT Internal Medicine; ATTEND Internal Medicine
DX: I10 Essential (primary) hypertension (principal); E11.65 Type 2 diabetes mellitus with hyperglycemia; J45.909 Unspecified asthma, uncomplicated; F17.210 Nicotine dependence, cigarettes, uncomplicated; R26.81 Unsteadiness on feet; Z91.19 Patient's noncompliance with other medical treatment and regimen; Z79.4 Long term (current) use of insulin; Z79.899 Other long term (current) drug therapy
CPT/HCPCS: 36415; 70450; 80053; 81001; 82550; 82553; 84484; 85025; 85610; 85670; 85730; 93005; 96372; 99285; G0378; 80320; G0480; J1815

== ENCOUNTER 2020-07-30 18:26 | Emergency (ER) | payer SELFPAY ==
[2020-07-30 18:35] VITALS: BP 132/75
--- NOTE | 2020-07-30 18:37 | Event Note ---
ED Screening Note Date of service: 07/30/20 Time: 18:36 ED Screening Note: Patient complains of shortness of breath and wheezing Has history of asthma and states this feels like his asthma Wet cough noted on exam + Wheezing Denies chest pain History of diabetes hypertension This initial assessment/diagnostic orders/clinical plan/treatment(s) is/are subject to change based on patients health status, clinical progression and re- assessment by fellow clinical providers in the ED. Further treatment and workup at subsequent clinical providers discretion. Patient/guardian urged not to elope from the ED as their condition may be serious if not clinically assessed and managed. Initial orders include: Labs Chest x-ray
[2020-07-30 18:47] LABS: Basophils # (Auto) 0.1 K/mm3 (0.0-0.1); Basophils % (Auto) 1.1 % (0.0-1.8); Eosinophils # (Auto) 0.6 K/mm3 (0.0-0.4); Eosinophils % (Auto) 8.3 % (0.0-4.3); Hematocrit 46.1 % (35.5-45.6); Hemoglobin 16.2 gm/dl (11.8-15.2); Lymphocytes % (Auto) 25.9 % (13.4-35.0); Mean Corpuscular HGB Conc 35 % (32-34); Mean Corpuscular Volume 86 fl (84-94); Monocytes # (Auto) 0.6 K/mm3 (0.0-0.8); Monocytes % (Auto) 8.1 % (0.0-7.3); Platelet Count 237 K/mm3 (140-440); Red Blood Count 5.37 M/mm3 (3.65-5.03); Red Cell Distribution Width 13.6 % (13.2-15.2)
[2020-07-30 19:13] LABS: Alanine Aminotransferase 16 units/L (7-56); Albumin 4.6 g/dL (3.9-5); BUN/Creatinine Ratio 23; Blood Urea Nitrogen 21 mg/dL (9-20); Calcium 9.8 mg/dL (8.4-10.2); Hemolysis Index 10
[2020-07-30] MEDS ORDERED: dexAMETHasone 4 MG/ML VIAL IM ONE (19:49)
[2020-07-30] MEDS ORDERED: ALBUTEROL 2.5 MG/3 ML NEBU IH ONE (19:49)
--- NOTE | 2020-07-30 20:11 | Emergency Department Report ---
ED Asthma HPI - General Chief Complaint: Adult Asthma Stated Complaint: ASTHMA Time Seen by Provider: 07/30/20 19:48 Source: patient Mode of arrival: Ambulatory Limitations: No Limitations - History of Present Illness Initial Comments: 60-year-old smoker chronic smoker presents emerged department complaining of a 1 day history of cough associated with wheezing and shortness of breath. Reports no palliative or provocative factors, no fever, chills, sweats. No hemoptysis, hematemesis hematochezia. MD Complaint: "asthma attack", shortness of breath, wheezing - Related Data Previous Rx's Medication Instructions Recorded Last Taken Type Insulin NPH/Regular [NovoLIN 70/30] 10 unit SUB-Q BIDDIAB #1 vial 10/20/16 Unknown Rx Ipratropium/Albuterol Sulfate 1 ampul IH Q6HRT PRN 30 Days 10/20/16 Unknown Rx [DUONEB *Not for PRN Use*] ampul.neb Prednisone [predniSONE 5 mg (6-Day 5 mg PO .TAPER #1 tab.ds.pk 10/20/16 Unknown Rx Pack, 21 Tabs)] ALBUTEROL NEB's [Proventil 0.083% 2.5 mg IH Q6H PRN #1 pack 07/07/17 Unknown Rx NEBS] Albuterol Sulfate [Ventolin HFA] 2 puff IH Q4-6H PRN #1 hfa.aer.ad 07/07/17 Unknown Rx Cetirizine HCl [ZyrTEC] 10 mg PO QAM 14 Days #14 capsule 07/07/17 Unknown Rx ALBUTEROL NEB's [Proventil 0.083% 2.5 mg IH TID PRN #1 box 04/27/19 Unknown Rx NEBS] ALBUTEROL NEB's [Proventil 0.083% 3 ml IH Q6H PRN #75 ml 11/27/19 Unknown Rx NEBS] Albuterol Mdi (or & Nicu Only) 2 puff IH Q6H PRN #1 inh 11/27/19 Unknown Rx [ProAir HFA Inhaler] Montelukast [Singulair] 10 mg PO QHS #30 tablet 11/27/19 Unknown Rx Prednisone [predniSONE 10 mg 10 mg PO .TAPER #21 tab.ds.pk 11/27/19 Unknown Rx (6-Day Pack, 21 Tabs)] Valacyclovir HCl [Valacyclovir] 1,000 mg PO TID 10 Days #30 tablet 01/11/20 Unknown Rx Acetaminophen [Non-Aspirin Extra 500 mg PO Q6HR PRN #30 tablet 02/09/20 Unknown Rx Strength] Albuterol Sulfate [Proair 90 mcg IH Q4HR PRN #2 aer.pow.ba 02/09/20 Unknown Rx Respiclick] Amlodipine Besylate [Norvasc] 5 mg PO QDAY #30 tablet 02/09/20 Unknown Rx Capsaicin 0.075% [Zostrix Hp 1 applicatio TP TID #1 tube 02/09/20 Unknown Rx 0.075%] Ibuprofen [Motrin] 600 mg PO Q8H PRN #30 tablet 02/09/20 Unknown Rx metFORMIN [Glucophage] 500 mg PO QDAY #30 tab 02/09/20 Unknown Rx Valsartan 80 mg PO QDAY #30 tablet 07/09/20 Unknown Rx Albuterol Mdi (or & Nicu Only) 2 puff IH QID PRN #1 inhalation 07/30/20 Unknown Rx [ProAir HFA Inhaler] Benzonatate [Tessalon Perles] 100 mg PO Q8HR #20 capsule 07/30/20 Unknown Rx predniSONE [Deltasone] 50 mg PO QDAY #5 tab 07/30/20 Unknown Rx Allergies Allergy/AdvReac Type Severity Reaction Status Date / Time No Known Allergies Allergy Verified 07/30/20 18:31 ED Review of Systems ROS: Stated complaint: ASTHMA Other details as noted in HPI Comment: All other systems reviewed and negative ED Past Medical Hx - Past Medical History Hx Hypertension: Yes Hx Heart Attack/AMI: No Hx Congestive Heart Failure: No Hx Diabetes: No Hx Sickle Cell Disease: No Hx Asthma: Yes Hx COPD: No Hx HIV: No Additional medical history: Shingles - Social History Smoking Status: Current Every Day Smoker Substance Use Type: None - Medications Home Medications: Home Medications Medication Instructions Recorded Confirmed Last Taken Type Insulin NPH/Regular [NovoLIN 70/30] 10 unit SUB-Q BIDDIAB #1 vial 10/20/16 Unknown Rx Ipratropium/Albuterol Sulfate 1 ampul IH Q6HRT PRN 30 Days 10/20/16 Unknown Rx [DUONEB *Not for PRN Use*] ampul.neb Prednisone [predniSONE 5 mg (6-Day 5 mg PO .TAPER #1 tab.ds.pk 10/20/16 Unknown Rx Pack, 21 Tabs)] ALBUTEROL NEB's [Proventil 0.083% 2.5 mg IH Q6H PRN #1 pack 07/07/17 Unknown Rx NEBS] Albuterol Sulfate [Ventolin HFA] 2 puff IH Q4-6H PRN #1 hfa.aer.ad 07/07/17 Unknown Rx Cetirizine HCl [ZyrTEC] 10 mg PO QAM 14 Days #14 capsule 07/07/17 Unknown Rx ALBUTEROL NEB's [Proventil 0.083% 2.5 mg IH TID PRN #1 box 04/27/19 Unknown Rx NEBS] ALBUTEROL NEB's [Proventil 0.083% 3 ml IH Q6H PRN #75 ml 11/27/19 Unknown Rx NEBS] Albuterol Mdi (or & Nicu Only) 2 puff IH Q6H PRN #1 inh 11/27/19 Unknown Rx [ProAir HFA Inhaler] Montelukast [Singulair] 10 mg PO QHS #30 tablet 11/27/19 Unknown Rx Prednisone [predniSONE 10 mg 10 mg PO .TAPER #21 tab.ds.pk 11/27/19 Unknown Rx (6-Day Pack, 21 Tabs)] Valacyclovir HCl [Valacyclovir] 1,000 mg PO TID 10 Days #30 tablet 01/11/20 Unknown Rx Acetaminophen [Non-Aspirin Extra 500 mg PO Q6HR PRN #30 tablet 02/09/20 Unknown Rx Strength] Albuterol Sulfate [Proair 90 mcg IH Q4HR PRN #2 aer.pow.ba 02/09/20 Unknown Rx Respiclick] Amlodipine Besylate [Norvasc] 5 mg PO QDAY #30 tablet 02/09/20 Unknown Rx Capsaicin 0.075% [Zostrix Hp 1 applicatio TP TID #1 tube 02/09/20 Unknown Rx 0.075%] Ibuprofen [Motrin] 600 mg PO Q8H PRN #30 tablet 02/09/20 Unknown Rx metFORMIN [Glucophage] 500 mg PO QDAY #30 tab 02/09/20 Unknown Rx Valsartan 80 mg PO QDAY #30 tablet 07/09/20 Unknown Rx Albuterol Mdi (or & Nicu Only) 2 puff IH QID PRN #1 inhalation 07/30/20 Unknown Rx [ProAir HFA Inhaler] Benzonatate [Tessalon Perles] 100 mg PO Q8HR #20 capsule 07/30/20 Unknown Rx predniSONE [Deltasone] 50 mg PO QDAY #5 tab 07/30/20 Unknown Rx ED Physical Exam - General Limitations: No Limitations General appearance: alert, in no apparent distress - Head Head exam: Present: atraumatic, normocephalic - Eye Eye exam: Present: normal appearance - ENT ENT exam: Present: mucous membranes moist - Neck Neck exam: Present: normal inspection, full ROM - Respiratory Respiratory exam: Present: normal lung sounds bilaterally, wheezes, rhonchi. Absent: respiratory distress - Cardiovascular Cardiovascular Exam: Present: regular rate, normal rhythm. Absent: systolic mu rmur, diastolic murmur, rubs, gallop - GI/Abdominal GI/Abdominal exam: Present: soft, normal bowel sounds - Rectal Rectal exam: Present: deferred - Extremities Exam Extremities exam: Present: normal inspection - Back Exam Back exam: Present: normal inspection - Neurological Exam Neurological exam: Present: alert, oriented X3 - Psychiatric Psychiatric exam: Present: normal affect, normal mood - Skin Skin exam: Present: warm, dry, intact, normal color. Absent: rash ED Course Vital Signs 07/30/20 18:31 Temperature 98.9 F Pulse Rate 90 Respiratory 24 Rate Blood Pressure 132/75 O2 Sat by Pulse 95 Oximetry ED Medical Decision Making - Lab Data Result diagrams: 07/30/20 18:38 07/30/20 18:38 - Radiology Data Radiology results: report reviewed [address] [place] [id number] XRay Report Signed Patient: DEVIN OROZCO MR#: [id number] : 1960 Acct:[id number] Age/Sex: 60 / M ADM Date: 07/30/20 Loc: ED Attending Dr: Ordering Physician: HALI LAW Date of Service: 07/30/20 Procedure(s): XR chest routine 2V Accession Number(s): [id number] cc: HALI LAW Fluoro Time In Minutes: CHEST 2 VIEWS INDICATION / CLINICAL INFORMATION: shortness of breath, wheezing. COMPARISON: Chest x-ray on 02/09/2020 FINDINGS: SUPPORT DEVICES: None. HEART / MEDIASTINUM: No significant abnormality. LUNGS / PLEURA: No significant pulmonary or pleural abnormality. No pneumothorax. ADDITIONAL FINDINGS: No significant additional findings. IMPRESSION: 1. No acute findings. Signer Name: Janes Doty MD Signed: 07/30/2020 8:13 PM Workstation Name: [id number] Transcribed By: TODD Dictated By: Janes Doty MD Electronically Authenticated By: Janes Doty MD Signed Date/Time: 07/30/202012 DD/ 12 TD/TT: - Medical Decision Making No altered mental status, saddle respirations, belly breathing or other signs of impending ventilatory failure. No intubations or recent admissions to the hospital for asthma. Unlikely pneumonia, CHF, COPD, GERD Workup Review include a chest x-ray which was normal she also received steroids and albuterol Therapies: Prednisone 50 mg PO. Albuterol nebulizer Reassessment: Patient improved with albuterol and ipratropium in less than 3 hours. Disposition: Discharge home with return precautions. Advised to follow up with primary care physician within next 24-48 hours. Aside from this acute exacerbation patient has been well controlled on baseline home regimen. Rx short steroid course, albuterol, Singulair, Flovent Critical care attestation.: If time is entered above; I have spent that time in minutes in the direct care of this critically ill patient, excluding procedure time. ED Disposition Clinical Impression: Asthma, Cough Disposition: -01 TO HOME OR SELFCARE Is pt being admited?: No Does the pt Need Aspirin: No Condition: Stable Instructions: Asthma (ED), Asthma, Adult, Cool Mist Vaporizer, Cough, Adult, [id number], Peak Flow Meter Referrals: DEANNA CALLES MD [Staff Physician] - 3-5 Days
--- NOTE | 2020-07-30 20:17 | XRay Report ---
CHEST 2 VIEWS INDICATION / CLINICAL INFORMATION: shortness of breath, wheezing. COMPARISON: Chest x-ray on 02/09/2020 FINDINGS: SUPPORT DEVICES: None. HEART / MEDIASTINUM: No significant abnormality. LUNGS / PLEURA: No significant pulmonary or pleural abnormality. No pneumothorax. ADDITIONAL FINDINGS: No significant additional findings. IMPRESSION: 1. No acute findings. Signer Name: Janes Doty MD Signed: 07/30/2020 8:13 PM Workstation Name: [id number]
== END 2020-07-30 21:35 | disposition home or self-care (01) ==
LOC: ED 18:26
DX: J45.909 Unspecified asthma, uncomplicated (principal); R05 Cough; F17.200 Nicotine dependence, unspecified, uncomplicated; I10 Essential (primary) hypertension; Z79.899 Other long term (current) drug therapy
CPT/HCPCS: 36415; 71046; 80053; 83880; 84484; 85025; 94640; 96372; 99284; J1100

== ENCOUNTER 2020-07-31 16:06 | Inpatient (IN) | payer OTHER ==
--- NOTE | 2020-07-31 16:53 | Cat Scan Report ---
CT BRAIN: 07/31/2020 INDICATION / CLINICAL INFORMATION: Leg weakness. COMPARISON: None available. FINDINGS: BRAIN/INTRACRANIAL STRUCTURES: Unenhanced CT images of the brain were obtained and compared to the re cent prior exam from 07/09/2020. CT images demonstrate no evidence of acute intracranial abnormality. Again seen are areas of cortical encephalomalacia in the high left frontoparietal cortex and right pa rietal occipital cortex. There is no CT evidence of acute ischemic injury, hemorrhage, or mass. There are no abnormal extra-ax ial fluid collections. EXTRACRANIAL STRUCTURES: Unremarkable. IMPRESSION: No acute abnormality. Chronic ischemic change, unchanged when compared to 07/09/2020. All CT scans at this location are performed using dose reduction to ALARA by means of automated expos ure control. Signer Name: Lasha Bhatt MD Signed: 07/31/2020 4:48 PM Workstation Name: [id number]
[2020-07-31 16:59] LABS: Basophils % (Auto) 0.2 % (0.0-1.8); Hemoglobin 14.1 gm/dl (11.8-15.2); Lymphocytes # (Auto) 1.3 K/mm3 (1.2-5.4); Lymphocytes % (Auto) 11.8 % (13.4-35.0); Mean Corpuscular HGB Conc 35 % (32-34); Mean Corpuscular Volume 88 fl (84-94); Monocytes # (Auto) 0.7 K/mm3 (0.0-0.8); Monocytes % (Auto) 6.7 % (0.0-7.3); Platelet Count 216 K/mm3 (140-440); Red Blood Count 4.65 M/mm3 (3.65-5.03); Red Cell Distribution Width 14.1 % (13.2-15.2)
[2020-07-31 17:09] LABS: INR 1.04 (0.87-1.13); Thrombin Time 17.7 Sec. (15.1-19.6)
[2020-07-31 17:10] LABS: Partial Thromboplastin Time 29.7 Sec. (24.2-36.6)
--- NOTE | 2020-07-31 17:12 | Cat Scan Report ---
CTA NECK WITH CONTRAST 07/31/2020 INDICATION / CLINICAL INFORMATION: Leg weakness. COMPARISON: None. TECHNIQUE: Routine CTA of the neck is performed. 3-D/MIP reformats were postprocessed. Percentage st enosis is determined by direct quantitative measurements of diseased internal carotid artery diameter compared with normal distal internal carotid artery reference segments or by criteria similar to AMBAR CET where applicable. All CT scans at this location are performed using CT dose reduction for ALARA b y means of automated exposure control. CONTRAST: 100 ml of Omnipaque 350 FINDINGS: Carotid bifurcations: No evidence of carotid bifurcation stenosis. Carotid arteries: No significant abnormality. Cervical vertebral arteries: No significant abnormality. Aortic arch: No significant abnormality. None. IMPRESSION: No significant abnormality. Signer Name: Lasha Bhatt MD Signed: 07/31/2020 5:08 PM Workstation Name: [id number]
[2020-07-31 17:15] LABS: Creatine Kinase MB 3.5 ng/mL (0.0-4.0)
--- NOTE | 2020-07-31 17:15 | Cat Scan Report ---
CTA HEAD WITH CONTRAST HISTORY: Leg weakness COMPARISON: None. TECHNIQUE: All CT scans at this location are performed using CT dose reduction for ALARA by means of automated exposure control.. 3-D/MIP reformats postprocessed. Percentage stenosis is determined by d irect quantitative measurements of diseased internal carotid artery diameter compared with normal dis jolene internal carotid artery reference segments or by criteria similar to NASCET where applicable. CONTRAST: 100 ml of Omnipaque 350 FINDINGS: CTA HEAD: Intracranial vertebral arteries: No significant abnormality. Basilar artery: No significant abnormality. Posterior cerebral arteries: No significant abnormality. Intracranial internal carotid arteries: No significant abnormality. Anterior cerebral arteries: No significant abnormality. Middle cerebral arteries: No significant abnormality. Dural venous sinuses:Not optimally opacified. No significant abnormality. Additional findings: None. IMPRESSION: 1. No significant abnormality. Signer Name: Lasha Bhatt MD Signed: 07/31/2020 5:11 PM Workstation Name: [id number]
--- NOTE | 2020-07-31 18:21 | XRay Report ---
CHEST 1 VIEW INDICATION: rales cough COMPARISON: 07/30/2020 FINDINGS: SUPPORT DEVICES: None. HEART / MEDIASTINUM: No significant abnormality. LUNGS / PLEURA: No significant pulmonary or pleural abnormality. No pneumothorax. ADDITIONAL FINDINGS: IMPRESSION: 1. No acute cardiopulmonary disease Signer Name: Toni Lee MD Signed: 07/31/2020 6:17 PM Workstation Name: [id number]
--- NOTE | 2020-07-31 18:52 | Emergency Department Report ---
ED Neuro Deficit HPI - General Chief Complaint: Neuro Symptoms/Deficit Stated Complaint: PATIENT STS POSS ATROKE Time Seen by Provider: 07/31/20 16:25 Source: patient Mode of arrival: Ambulatory Limitations: Physical Limitation - History of Present Illness Initial Comments: Chief complaint: "I think I may have had a stroke." HPI: This is a 60-year-old male with history of hypertension, diabetes mellitus, tobacco dependence, asthma/COPD who presents with left leg weakness which began suddenly at 5:30 PM on yesterday. Patient also for the past month has had memory loss and difficulty getting his thoughts out. He states that his mind does not work as fast as it used to. Patient walks with a limp due to the left leg weakness. He does have left-sided back pain. No history of injury. No history of previous back pain. He denies numbness. He does not have a primary care physician. He does not take medications for hypertension or diabetes m ellitus unless he receives them from the emergency department. According to electronic medical record, patient previously was admitted to this hospital for acute respiratory failure -: Sudden, days(s) (5:30 PM) Location: left leg History of same: No Place: home Severity: mild Quality: weak Improves With: none Worsens With: none On Anticoagulants: No Context: sudden onset Associated Symptoms: other (memory loss, ) - Related Data Home Medications: Previous Rx's Medication Instructions Recorded Last Taken Type Insulin NPH/Regular [NovoLIN 70/30] 10 unit SUB-Q BIDDIAB #1 vial 10/20/16 Unknown Rx Ipratropium/Albuterol Sulfate 1 ampul IH Q6HRT PRN 30 Days 10/20/16 Unknown Rx [DUONEB *Not for PRN Use*] ampul.neb Prednisone [predniSONE 5 mg (6-Day 5 mg PO .TAPER #1 tab.ds.pk 10/20/16 Unknown Rx Pack, 21 Tabs)] ALBUTEROL NEB's [Proventil 0.083% 2.5 mg IH Q6H PRN #1 pack 07/07/17 Unknown Rx NEBS] Albuterol Sulfate [Ventolin HFA] 2 puff IH Q4-6H PRN #1 hfa.aer.ad 07/07/17 Unknown Rx Cetirizine HCl [ZyrTEC] 10 mg PO QAM 14 Days #14 capsule 07/07/17 Unknown Rx ALBUTEROL NEB's [Proventil 0.083% 2.5 mg IH TID PRN #1 box 04/27/19 Unknown Rx NEBS] ALBUTEROL NEB's [Proventil 0.083% 3 ml IH Q6H PRN #75 ml 11/27/19 Unknown Rx NEBS] Albuterol Mdi (or & Nicu Only) 2 puff IH Q6H PRN #1 inh 11/27/19 Unknown Rx [ProAir HFA Inhaler] Montelukast [Singulair] 10 mg PO QHS #30 tablet 11/27/19 Unknown Rx Prednisone [predniSONE 10 mg 10 mg PO .TAPER #21 tab.ds.pk 11/27/19 Unknown Rx (6-Day Pack, 21 Tabs)] Valacyclovir HCl [Valacyclovir] 1,000 mg PO TID 10 Days #30 tablet 01/11/20 Unknown Rx Acetaminophen [Non-Aspirin Extra 500 mg PO Q6HR PRN #30 tablet 02/09/20 Unknown Rx Strength] Albuterol Sulfate [Proair 90 mcg IH Q4HR PRN #2 aer.pow.ba 02/09/20 Unknown Rx Respiclick] Amlodipine Besylate [Norvasc] 5 mg PO QDAY #30 tablet 02/09/20 Unknown Rx Capsaicin 0.075% [Zostrix Hp 1 applicatio TP TID #1 tube 02/09/20 Unknown Rx 0.075%] Ibuprofen [Motrin] 600 mg PO Q8H PRN #30 tablet 02/09/20 Unknown Rx metFORMIN [Glucophage] 500 mg PO QDAY #30 tab 02/09/20 Unknown Rx Valsartan 80 mg PO QDAY #30 tablet 07/09/20 Unknown Rx ALBUTEROL NEB's [Proventil 0.083% 2.5 mg IH TID PRN #30 neb 07/30/20 Unknown Rx NEBS] Albuterol Mdi (or & Nicu Only) 2 puff IH QID PRN #1 inhalation 07/30/20 Unknown Rx [ProAir HFA Inhaler] Benzonatate [Tessalon Perles] 100 mg PO Q8HR #20 capsule 07/30/20 Unknown Rx predniSONE [Deltasone] 50 mg PO QDAY #5 tab 07/30/20 Unknown Rx Allergies/Adverse Reactions: Allergies Allergy/AdvReac Type Severity Reaction Status Date / Time No Known Allergies Allergy Verified 07/31/20 16:10 ED Review of Systems ROS: Stated complaint: PATIENT STS POSS ATROKE Other details as noted in HPI Comment: All other systems reviewed and negative Constitutional: denies: fever, malaise Respiratory: denies: cough, shortness of breath Neurological: weakness, abnormal gait. denies: headache, numbness, confusion ED Past Medical Hx - Past Medical History Previous Medical History?: Yes Hx Hypertension: Yes Hx Heart Attack/AMI: No Hx Congestive Heart Failure: No Hx Diabetes: Yes Hx Sickle Cell Disease: No Hx Asthma: Yes Hx COPD: No Hx HIV: No Additional medical history: Shingles - Surgical History Past Surgical History?: No - Social History Smoking Status: Current Every Day Smoker Substance Use Type: None - Medications Home Medications: Home Medications Medication Instructions Recorded Confirmed Last Taken Type Insulin NPH/Regular [NovoLIN 70/30] 10 unit SUB-Q BIDDIAB #1 vial 10/20/16 Unknown Rx Ipratropium/Albuterol Sulfate 1 ampul IH Q6HRT PRN 30 Days 10/20/16 Unknown Rx [DUONEB *Not for PRN Use*] ampul.neb Prednisone [predniSONE 5 mg (6-Day 5 mg PO .TAPER #1 tab.ds.pk 10/20/16 Unknown Rx Pack, 21 Tabs)] ALBUTEROL NEB's [Proventil 0.083% 2.5 mg IH Q6H PRN #1 pack 07/07/17 Unknown Rx NEBS] Albuterol Sulfate [Ventolin HFA] 2 puff IH Q4-6H PRN #1 hfa.aer.ad 07/07/17 Unknown Rx Cetirizine HCl [ZyrTEC] 10 mg PO QAM 14 Days #14 capsule 07/07/17 Unknown Rx ALBUTEROL NEB's [Proventil 0.083% 2.5 mg IH TID PRN #1 box 04/27/19 Unknown Rx NEBS] ALBUTEROL NEB's [Proventil 0.083% 3 ml IH Q6H PRN #75 ml 11/27/19 Unknown Rx NEBS] Albuterol Mdi (or & Nicu Only) 2 puff IH Q6H PRN #1 inh 11/27/19 Unknown Rx [ProAir HFA Inhaler] Montelukast [Singulair] 10 mg PO QHS #30 tablet 11/27/19 Unknown Rx Prednisone [predniSONE 10 mg 10 mg PO .TAPER #21 tab.ds.pk 11/27/19 Unknown Rx (6-Day Pack, 21 Tabs)] Valacyclovir HCl [Valacyclovir] 1,000 mg PO TID 10 Days #30 tablet 01/11/20 Unknown Rx Acetaminophen [Non-Aspirin Extra 500 mg PO Q6HR PRN #30 tablet 02/09/20 Unknown Rx Strength] Albuterol Sulfate [Proair 90 mcg IH Q4HR PRN #2 aer.pow.ba 02/09/20 Unknown Rx Respiclick] Amlodipine Besylate [Norvasc] 5 mg PO QDAY #30 tablet 02/09/20 Unknown Rx Capsaicin 0.075% [Zostrix Hp 1 applicatio TP TID #1 tube 02/09/20 Unknown Rx 0.075%] Ibuprofen [Motrin] 600 mg PO Q8H PRN #30 tablet 02/09/20 Unknown Rx metFORMIN [Glucophage] 500 mg PO QDAY #30 tab 02/09/20 Unknown Rx Valsartan 80 mg PO QDAY #30 tablet 07/09/20 Unknown Rx ALBUTEROL NEB's [Proventil 0.083% 2.5 mg IH TID PRN #30 neb 07/30/20 Unknown Rx NEBS] Albuterol Mdi (or & Nicu Only) 2 puff IH QID PRN #1 inhalation 07/30/20 Unknown Rx [ProAir HFA Inhaler] Benzonatate [Tessalon Perles] 100 mg PO Q8HR #20 capsule 07/30/20 Unknown Rx predniSONE [Deltasone] 50 mg PO QDAY #5 tab 07/30/20 Unknown Rx ED Neuro Physical Exam - General Limitations: No Limitations General appearance: alert, in no apparent distress Suspected Stroke: Yes - Head Head exam: Present: atraumatic, normocephalic - Eye Eye exam: Present: normal appearance - ENT ENT exam: Present: mucous membranes moist - Neck Neck exam: Present: normal inspection - Respiratory Respiratory exam: Present: normal lung sounds bilaterally. Absent: respiratory distress, wheezes, rales, rhonchi - Cardiovascular Cardiovascular Exam: Present: regular rate, normal rhythm, normal heart sounds. Absent: systolic murmur, diastolic murmur, rubs, gallop - GI/Abdominal GI/Abdominal exam: Present: soft, normal bowel sounds. Absent: distended, tenderness, guarding, rebound - Rectal Rectal exam: Present: deferred - Extremities Exam Extremities exam: Present: normal inspection - Back Exam Back exam: Present: normal inspection - Neurological Exam Neurological exam: Present: alert, oriented X3 - NIHSS Assessment Interval: Baseline 1a. Level of Consciousness: alert/keenly responsive 1b. LOC Questions: answers both correctly 1c. LOC Commands: performs tasks correctly 2. Best Gaze: normal 3. Visual: no visual loss 4. Facial Palsy: normal symmetrical movement 5b. Motor Arm Right: no drift 5a. Motor Arm Left: no drift 6a. Motor Leg Left: some gravity effort 6b. Motor Leg Right: no drift 7. Limb Ataxia: absent 8. Sensory: normal 9. Best Language: mild/moderate aphasia 10. Dysarthria: normal 11. Extinction/Inattention: no abnormality Total Score: 3 Stroke Severity: Minor Stroke - Psychiatric Psychiatric exam: Present: normal affect, normal mood - Skin Skin exam: Present: warm, dry, intact, normal color. Absent: rash ED Course Vital Signs 07/31/20 07/31/20 07/31/20 16:13 16:56 17:01 Temperature 98.8 F Pulse Rate 108 H 109 H 103 H Respiratory 18 21 24 Rate Blood Pressure 114/70 151/89 O2 Sat by Pulse 96 99 99 Oximetry 07/31/20 17:31 Temperature Pulse Rate 101 H Respiratory 24 Rate Blood Pressure 129/70 O2 Sat by Pulse 98 Oximetry - Lab Data Result diagrams: 07/31/20 16:51 Lab Results 07/31/20 07/31/20 07/31/20 Range/Units 16:51 16:51 16:51 WBC 10.7 (4.5-11.0) K/mm3 RBC 4.65 (3.65-5.03) M/mm3 Hgb 14.1 (11.8-15.2) gm/dl Hct 41.0 (35.5-45.6) % MCV 88 (84-94) fl MCH 30 (28-32) pg MCHC 35 H (32-34) % RDW 14.1 (13.2-15.2) % Plt Count 216 (140-440) K/mm3 Lymph % (Auto) 11.8 L (13.4-35.0) % [place] % (Auto) 6.7 (0.0-7.3) % Eos % (Auto) 0.0 (0.0-4.3) % Baso % (Auto) 0.2 (0.0-1.8) % Lymph # (Auto) 1.3 (1.2-5.4) K/mm3 [place] # (Auto) 0.7 (0.0-0.8) K/mm3 Eos # (Auto) 0.0 (0.0-0.4) K/mm3 Baso # (Auto) 0.0 (0.0-0.1) K/mm3 Seg Neutrophils % 81.3 H (40.0-70.0) % Seg Neutrophils # 8.7 H (1.8-7.7) K/mm3 PT 13.4 (12.2-14.9) Sec. INR 1.04 (0.87-1.13) APTT 29.7 (24.2-36.6) Sec. Thrombin Time 17.7 (15.1-19.6) Sec. Total Creatine Kinase 112 (55-170) units/L CK-MB (CK-2) 3.5 (0.0-4.0) ng/mL CK-MB (CK-2) Rel Index 3.1 (0-4) Troponin T < 0.010 (0.00-0.029) ng/mL NT-Pro-B Natriuret Pep (0-900) pg/mL 07/31/20 Range/Units 16:51 WBC (4.5-11.0) K/mm3 RBC (3.65-5.03) M/mm3 Hgb (11.8-15.2) gm/dl Hct (35.5-45.6) % MCV (84-94) fl MCH (28-32) pg MCHC (32-34) % RDW (13.2-15.2) % Plt Count (140-440) K/mm3 Lymph % (Auto) (13.4-35.0) % [place] % (Auto) (0.0-7.3) % Eos % (Auto) (0.0-4.3) % Baso % (Auto) (0.0-1.8) % Lymph # (Auto) (1.2-5.4) K/mm3 [place] # (Auto) (0.0-0.8) K/mm3 Eos # (Auto) (0.0-0.4) K/mm3 Baso # (Auto) (0.0-0.1) K/mm3 Seg Neutrophils % (40.0-70.0) % Seg Neutrophils # (1.8-7.7) K/mm3 PT (12.2-14.9) Sec. INR (0.87-1.13) APTT (24.2-36.6) Sec. Thrombin Time (15.1-19.6) Sec. Total Creatine Kinase (55-170) units/L CK-MB (CK-2) (0.0-4.0) ng/mL CK-MB (CK-2) Rel Index (0-4) Troponin T (0.00-0.029) ng/mL NT-Pro-B Natriuret Pep 102.3 (0-900) pg/mL - Radiology Data Radiology results: report reviewed Findings Reporting MD: Lasha Bhatt Dictation Time: July 31, 2020 16:11 Lathe Operator Contact Lens: Not available Buccaro Date: CTA HEAD WITH CONTRAST HISTORY: Leg weakness COMPARISON: None. TECHNIQUE: All CT scans at this location are performed using CT dose reduction for ALARA by means of automated exposure control.. 3-D/MIP reformats postprocessed. Percentage stenosis is determined by direct quantitative measurements of diseased internal carotid artery diameter compared with normal distal internal carotid artery reference segments or by criteria similar to NASCET where applicable. CONTRAST: 100 ml of Omnipaque 350 FINDINGS: CTA HEAD: Intracranial vertebral arteries: No significant abnormality. Basilar artery: No significant abnormality. Posterior cerebral arteries: No significant abnormality. Intracranial internal carotid arteries: No significant abnormality. Anterior cerebral arteries: No significant abnormality. Middle cerebral arteries: No significant abnormality. Dural venous sinuses:Not optimally opacified. No significant abnormality. Additional findings: None. IMPRESSION: 1. No significant abnormality. Signer Name: Lasha Bhatt MD Signed: 07/31/2020 4:11 PM Workstation Name: [email or web address] Findings Reporting MD: Lasha Bhatt Dictation Time: July 31, 2020 16:08 Lathe Operator Contact Lens: Not available Buccaro Date: CTA NECK WITH CONTRAST 07/31/2020 INDICATION / CLINICAL INFORMATION: Leg weakness. COMPARISON: None. TECHNIQUE: Routine CTA of the neck is performed. 3-D/MIP reformats were pos tprocessed. Percentage stenosis is determined by direct quantitative measurements of diseased internal carotid artery diameter compared with normal distal internal carotid artery reference segments or by criteria similar to NASCET where applicable. All CT scans at this location are performed using CT dose reduction for ALARA by means of automated exposure control. CONTRAST: 100 ml of Omnipaque 350 FINDINGS: Carotid bifurcations: No evidence of carotid bifurcation stenosis. Carotid arteries: No significant abnormality. Cervical vertebral arteries: No significant abnormality. Aortic arch: No significant abnormality. None. IMPRESSION: No significant abnormality. Signer Name: Lasha Bhatt MD Signed: 07/31/2020 4:08 PM Workstation Name: [email or web address] Findings Reporting MD: Lasha Bhatt Dictation Time: July 31, 2020 15:48 Lathe Operator Contact Lens: Not available Buccaro Date: CT BRAIN: 07/31/2020 INDICATION / CLINICAL INFORMATION: Leg weakness. COMPARISON: None available. FINDINGS: BRAIN/INTRACRANIAL STRUCTURES: Unenhanced CT images of the brain were obtained and compared to the recent prior exam from 07/09/2020. CT images demonstrate no evidence of acute intracranial abnormality. Again seen are areas of cortical encephalomalacia in the high left frontoparietal cortex and right parietal occipital cortex. There is no CT evidence of acute ischemic injury, hemorrhage, or mass. There are no abnormal extra-axial fluid collections. EXTRACRANIAL STRUCTURES: Unremarkable. IMPRESSION: No acute abnormality. Chronic ischemic change, unchanged when compared to 07/09/2020. All CT scans at this location are performed using dose reduction to ALARA by means of automated exposure control. Findings Reporting MD: Toni Lee Dictation Time: July 31, 2020 17:17 Lathe Operator Contact Lens: Not available Buccaro Date: CHEST 1 VIEW INDICATION: rales cough COMPARISON: 07/30/2020 FINDINGS: SUPPORT DEVICES: None. HEART / MEDIASTINUM: No significant abnormality. LUNGS / PLEURA: No significant pulmonary or pleural abnormality. No pneumothorax. ADDITIONAL FINDINGS: IMPRESSION: 1. No acute cardiopulmonary disease Signer Name: Toni Lee MD Signed: 07/31/2020 5:17 PM Workstation Name: [email or web address] - Medical Decision Making Acute CVA with left leg weakness, mild expressive aphasia. Patient does have encephalomalacia on CT likely reflective of previous ischemic injury to the brain. Patient given aspirin admitted to the hospital service. Critical care attestation.: If time is entered above; I have spent that time in minutes in the direct care of this critically ill patient, excluding procedure time. ED Disposition Clinical Impression: Acute CVA (cerebrovascular accident) Disposition: DC09 OP ADMIT IP TO THIS HOSP Is pt being admited?: Yes Does the pt Need Aspirin: No Condition: Stable
[2020-07-31] MEDS ORDERED: ASPIRIN 81 MG TAB CHEW PO ONE (19:01)
--- NOTE | 2020-07-31 19:15 | History and Physical Report ---
History of Present Illness Chief complaint: My leg feels weak History of present illness: 60 YO Male with HTN, DM, Nicotine Dependence, Asthma, COPD presents to ED for evaluation. Patient reports "my leg feels weak". Patient states that he experienced sudden onset left leg weakness that began yesterday at 1730 hrs. patient awoke from sleep with persistent symptoms this a.m. Patient transported to [facility] via private vehicle for further care and evaluation of the aforementioned symptoms. The patient was seen and evaluated in the emergency department. All lab and imaging studies reviewed. A code stroke was called in the emergency department. Patient was found to have a neurologic deficit. Patient placed in observation status and initiated on stroke protocol. Patient denies fever, chills, chest pain, palpitation, productive cough, skin rash, recent ill contacts, known exposure to COVID-19. Prior admission on 07/09/2020 reviewed. All medication listed at time of admission has been reconciled. Advanced care planning conducted in ED. Past History Past Medical History: COPD, hypertension Past Surgical History: No surgical history, Other (Reviewed) Social history: single, smoking Family history: hypertension Medications and Allergies Allergies Allergy/AdvReac Type Severity Reaction Status Date / Time No Known Allergies Allergy Verified 07/31/20 16:10 Home Medications Medication Instructions Recorded Confirmed Last Taken Type Insulin NPH/Regular [NovoLIN 70/30] 10 unit SUB-Q BIDDIAB #1 vial 10/20/16 Unknown Rx Ipratropium/Albuterol Sulfate 1 ampul IH Q6HRT PRN 30 Days 10/20/16 Unknown Rx [DUONEB *Not for PRN Use*] ampul.neb Prednisone [predniSONE 5 mg (6-Day 5 mg PO .TAPER #1 tab.ds.pk 10/20/16 Unknown Rx Pack, 21 Tabs)] ALBUTEROL NEB's [Proventil 0.083% 2.5 mg IH Q6H PRN #1 pack 07/07/17 Unknown Rx NEBS] Albuterol Sulfate [Ventolin HFA] 2 puff IH Q4-6H PRN #1 hfa.aer.ad 07/07/17 Unknown Rx Cetirizine HCl [ZyrTEC] 10 mg PO QAM 14 Days #14 capsule 07/07/17 Unknown Rx ALBUTEROL NEB's [Proventil 0.083% 2.5 mg IH TID PRN #1 box 04/27/19 Unknown Rx NEBS] ALBUTEROL NEB's [Proventil 0.083% 3 ml IH Q6H PRN #75 ml 11/27/19 Unknown Rx NEBS] Albuterol Mdi (or & Nicu Only) 2 puff IH Q6H PRN #1 inh 11/27/19 Unknown Rx [ProAir HFA Inhaler] Montelukast [Singulair] 10 mg PO QHS #30 tablet 11/27/19 Unknown Rx Prednisone [predniSONE 10 mg 10 mg PO .TAPER #21 tab.ds.pk 11/27/19 Unknown Rx (6-Day Pack, 21 Tabs)] Valacyclovir HCl [Valacyclovir] 1,000 mg PO TID 10 Days #30 tablet 01/11/20 Unknown Rx Acetaminophen [Non-Aspirin Extra 500 mg PO Q6HR PRN #30 tablet 02/09/20 Unknown Rx Strength] Albuterol Sulfate [Proair 90 mcg IH Q4HR PRN #2 aer.pow.ba 02/09/20 Unknown Rx Respiclick] Amlodipine Besylate [Norvasc] 5 mg PO QDAY #30 tablet 02/09/20 Unknown Rx Capsaicin 0.075% [Zostrix Hp 1 applicatio TP TID #1 tube 02/09/20 Unknown Rx 0.075%] Ibuprofen [Motrin] 600 mg PO Q8H PRN #30 tablet 02/09/20 Unknown Rx metFORMIN [Glucophage] 500 mg PO QDAY #30 tab 02/09/20 Unknown Rx Valsartan 80 mg PO QDAY #30 tablet 07/09/20 Unknown Rx ALBUTEROL NEB's [Proventil 0.083% 2.5 mg IH TID PRN #30 neb 07/30/20 Unknown Rx NEBS] Albuterol Mdi (or & Nicu Only) 2 puff IH QID PRN #1 inhalation 07/30/20 Unknown Rx [ProAir HFA Inhaler] Benzonatate [Tessalon Perles] 100 mg PO Q8HR #20 capsule 07/30/20 Unknown Rx predniSONE [Deltasone] 50 mg PO QDAY #5 tab 07/30/20 Unknown Rx Review of Systems Constitutional: no weight loss, no weight gain, no fever, no chills Ears, nose, mouth and throat: no tinnitis, no nose pain, no nasal discharge, no sinus pressure Cardiovascular: no chest pain, no palpitations, no edema, no syncope, no shortness of breath Respiratory: no cough, no cough with sputum, no excessive sputum Gastrointestinal: no abdominal pain, no nausea, no vomiting, no constipation, no change in bowel habits Genitourinary Male: no hematuria, no flank pain, no discharge, no urinary hesitancy, no nocturia Rectal: no pain, no incontinence, no bleeding Musculoskeletal: no neck stiffness, no shooting arm pain, no low back pain Integumentary: no rash, no pruritis, no wounds, no jaundice Neurological: weakness, numbness, no transient paralysis, no paralysis, no tingling, no seizures, no lack of coordination Psychiatric: no anxiety, no memory loss, no change in sleep habits, no sleep disturbances, no insomnia, no hypersomnia, no change in libido, no suicidal ideation Endocrine: no cold intolerance, no heat intolerance, no polyphagia, no excessive thirst, no nocturia, no excessive sweating Hematologic/Lymphatic: no easy bruising, no easy bleeding Allergic/Immunologic: no urticaria, no allergic rhinitis, no wheezing Exam - Constitutional Vitals: Temp Pulse Resp BP Pulse Ox 98.8 F 101 H 21 120/68 97 07/31/20 16:13 07/31/20 18:45 07/31/20 18:45 07/31/20 18:45 07/31/20 18:45 General appearance: Present: mild distress - EENT Eyes: Present: PERRL ENT: hearing intact, clear oral mucosa - Neck Neck: Present: supple, normal ROM - Respiratory Respiratory effort: normal Respiratory: bilateral: CTA - Cardiovascular Heart Sounds: Present: S1 & S2. Absent: rub, click - Extremities Extremities: pulses symmetrical, No edema Peripheral Pulses: within normal limits - Abdominal General gastrointestinal: Present: soft, non-tender, non-distended, normal bowel sounds Male genitourinary: Present: normal - Integumentary Integumentary: Present: clear, warm, dry - Musculoskeletal Musculoskeletal: left sided weakness - Psychiatric Psychiatric: appropriate mood/affect, intact judgment & insight - Neurologic Neurologic: CNII-XII intact, moves all extremities, no gait normal HEART Score - HEART Score Troponin: Troponin T < 0.010 ng/mL (0.00-0.029) 07/31/20 16:51 Results - Labs CBC & Chem 7: 07/31/20 16:51 Labs: Abnormal lab results 07/31/20 Range/Units 16:51 MCHC 35 H (32-34) % Lymph % (Auto) 11.8 L (13.4-35.0) % Seg Neutrophils % 81.3 H (40.0-70.0) % Seg Neutrophils # 8.7 H (1.8-7.7) K/mm3 Assessment and Plan - Patient Problems (1) Acute CVA (cerebrovascular accident) Current Visit: No Status: Acute Plan to address problem: CVA protocol: CT head, seizure precautions, neuro check, echocardiogram, physical therapy consulted, Occupational Therapy consulted, speech therapy consulted, antiplatelet therapy, lipid panel, statin therapy, carotid Doppler, (2) Hypertension Current Visit: Yes Status: Acute Qualifiers: Hypertension type: essential hypertension Qualified Code(s): I10 - Essential (primary) hypertension Plan to address problem: monitor blood pressure every shift, from permissive hypertension overnight. (3) Diabetes Current Visit: Yes Status: Acute Plan to address problem: Consistent carbohydrate diet, sliding scale insulin therapy, Accu-Chek, hypoglycemia protocol (4) COPD (chronic obstructive pulmonary disease) Current Visit: Yes Status: Acute Plan to address problem: Continue bronchodilator therapy, continue medical management. (5) DVT prophylaxis Current Visit: No Status: Acute Plan to address problem: SCD to bilateral lower extremities while in bed, patient is ambulatory. (6) Advance care planning Current Visit: Yes Status: Acute Plan to address problem: Disease education conducted, care plan discussed, prognosis discussed, patient is full code, patient knowledges understanding and agreement with care plan, +30 minutes.
[2020-07-31] MEDS ORDERED: ONDANSETRON 4 MG/2 ML INJ IV PRN (19:16)
[2020-07-31] MEDS ORDERED: PROMETHAZINE 25 MG RECT SUPP PR PRN (19:16)
[2020-07-31] MEDS ORDERED: METOCLOPRAMIDE 10 MG TAB PO PRN (19:16)
[2020-07-31] MEDS ORDERED: ACETAMINOPHEN 325 MG TAB PO PRN (19:16)
[2020-07-31] MEDS ORDERED: MAGNESIUM HYDROXIDE (MOM) ORAL LIQD UDC PO PRN (19:16)
[2020-07-31] MEDS ORDERED: ACETAMINOPHEN 500 MG TAB PO PRN (19:18)
[2020-07-31] MEDS ORDERED: ALBUTEROL 2.5 MG/3 ML NEBU IH PRN (19:45)
[2020-07-31] MEDS: IPRATROPIUM/ALBUTEROL SULFATE 3 ML AMPUL.NEB IH SCH (20:57)
[2020-07-31] MEDS: MONTELUKAST 10 MG TAB PO SCH (22:58)
[2020-07-31] MEDS: BENZONATATE 100 MG CAP PO SCH (22:58)
[2020-08-01] MEDS: IPRATROPIUM/ALBUTEROL SULFATE 3 ML AMPUL.NEB IH SCH ×4 (03:00→20:12)
[2020-08-01] MEDS: BENZONATATE 100 MG CAP PO SCH ×3 (05:29→21:44)
[2020-08-01 06:02] LABS: Chol/HDL Ratio 3.12 %
[2020-08-01] MEDS: CETIRIZINE 10 MG TAB PO SCH (09:03)
[2020-08-01] MEDS: ASPIRIN 325 MG TAB PO SCH (09:03)
[2020-08-01] MEDS: amLODIPine 5 MG TAB PO SCH (09:03)
[2020-08-01] MEDS: VALSARTAN 40 MG TAB PO SCH (09:03)
[2020-08-01] MEDS: INSULIN LISPRO 100 UNIT/ML SUB-Q SCH ×4 (09:04→21:44)
[2020-08-01] MEDS: INSULIN NPH/REGULAR 70/30 INJ SUB-Q SCH ×2 (09:33→16:44)
--- NOTE | 2020-08-01 09:49 | Electrocardiograph Report ---
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
[2020-08-01] MEDS ORDERED: predniSONE 50 MG TAB PO SCH (10:00)
[2020-08-01] MEDS ORDERED: VALSARTAN 80 MG PO SCH (10:00)
[2020-08-01] MEDS ORDERED: NON-FORMULARY EACH (Cetirizine Hcl [Zyrtec 10mg Cap] 10 MG Capsule) PO SCH (10:00)
--- NOTE | 2020-08-01 12:15 | Consultation ---
History of Present Illness Consult date: 08/01/20 Reason for Consult: Left leg weakness Chief complaint: Left leg weakness History of present illness: 60 yo male with htn, dm, copd, asthma, tobacco abuse, who presents with left leg weakness x 1 month with sudden worsening of the left leg and noted difficult "making the right hand do what I want it to do". Notes that today he is better with the right hand but the let leg is still not back to the normal "weak" basel ine. Past History Past Medical History: COPD, hypertension Past Surgical History: No surgical history, Other (Reviewed) Social history: single, smoking Family history: hypertension Medications and Allergies Allergies Allergy/AdvReac Type Severity Reaction Status Date / Time No Known Allergies Allergy Verified 07/31/20 16:10 Home Medications Medication Instructions Recorded Confirmed Last Taken Type Insulin NPH/Regular [NovoLIN 70/30] 10 unit SUB-Q BIDDIAB #1 vial 10/20/16 Unknown Rx Ipratropium/Albuterol Sulfate 1 ampul IH Q6HRT PRN 30 Days 10/20/16 Unknown Rx [DUONEB *Not for PRN Use*] ampul.neb Prednisone [predniSONE 5 mg (6-Day 5 mg PO .TAPER #1 tab.ds.pk 10/20/16 Unknown Rx Pack, 21 Tabs)] ALBUTEROL NEB's [Proventil 0.083% 2.5 mg IH Q6H PRN #1 pack 07/07/17 Unknown Rx NEBS] Albuterol Sulfate [Ventolin HFA] 2 puff IH Q4-6H PRN #1 hfa.aer.ad 07/07/17 U nknown Rx Cetirizine HCl [ZyrTEC] 10 mg PO QAM 14 Days #14 capsule 07/07/17 Unknown Rx ALBUTEROL NEB's [Proventil 0.083% 2.5 mg IH TID PRN #1 box 04/27/19 Unknown Rx NEBS] ALBUTEROL NEB's [Proventil 0.083% 3 ml IH Q6H PRN #75 ml 11/27/19 Unknown Rx NEBS] Albuterol Mdi (or & Nicu Only) 2 puff IH Q6H PRN #1 inh 11/27/19 Unknown Rx [ProAir HFA Inhaler] Montelukast [Singulair] 10 mg PO QHS #30 tablet 11/27/19 Unknown Rx Prednisone [predniSONE 10 mg 10 mg PO .TAPER #21 tab.ds.pk 11/27/19 Unknown Rx (6-Day Pack, 21 Tabs)] Valacyclovir HCl [Valacyclovir] 1,000 mg PO TID 10 Days #30 tablet 01/11/20 Unknown Rx Acetaminophen [Non-Aspirin Extra 500 mg PO Q6HR PRN #30 tablet 02/09/20 Unknown Rx Strength] Albuterol Sulfate [Proair 90 mcg IH Q4HR PRN #2 aer.pow.ba 02/09/20 Unknown Rx Respiclick] Amlodipine Besylate [Norvasc] 5 mg PO QDAY #30 tablet 02/09/20 Unknown Rx Capsaicin 0.075% [Zostrix Hp 1 applicatio TP TID #1 tube 02/09/20 Unknown Rx 0.075%] Ibuprofen [Motrin] 600 mg PO Q8H PRN #30 tablet 02/09/20 Unknown Rx metFORMIN [Glucophage] 500 mg PO QDAY #30 tab 02/09/20 Unknown Rx Valsartan 80 mg PO QDAY #30 tablet 07/09/20 Unknown Rx ALBUTEROL NEB's [Proventil 0.083% 2.5 mg IH TID PRN #30 neb 07/30/20 Unknown Rx NEBS] Albuterol Mdi (or & Nicu Only) 2 puff IH QID PRN #1 inhalation 07/30/20 Unknown Rx [ProAir HFA Inhaler] Benzonatate [Tessalon Perles] 100 mg PO Q8HR #20 capsule 07/30/20 Unknown Rx predniSONE [Deltasone] 50 mg PO QDAY #5 tab 07/30/20 Unknown Rx Active Meds: Active Medications Acetaminophen (Acetaminophen 325 Mg Tab) 650 mg PO Q4H PRN PRN Reason: Pain, Mild (1-3) Albuterol (Albuterol 2.5 Mg/3 Ml Nebu) 2.5 mg IH Q4H PRN PRN Reason: Shortness Of Breath Albuterol/Ipratropium (Ipratropium/Albuterol Sulfate 3 Ml Ampul.Neb) 1 ampul IH Q6HRT RUBI Last Admin: 08/01/20 09:08 Dose: 1 ampul Documented by: Amlodipine Besylate (Amlodipine 5 Mg Tab) 5 mg PO QDAY [facility] Last Admin: 08/01/20 09:03 Dose: 5 mg Documented by: Aspirin (Aspirin 325 Mg Tab) 325 mg PO QDAY [facility] Last Admin: 08/01/20 09:03 Dose: 325 mg Documented by: Atorvastatin Calcium (Atorvastatin 40 Mg Tab) 40 mg PO QHS [facility] Last Admin: 07/31/20 22:58 Dose: 40 mg Documented by: Benzonatate (Benzonatate 100 Mg Cap) 100 mg PO Q8HR [facility] Last Admin: 08/01/20 05:29 Dose: 100 mg Documented by: Bisacodyl (Bisacodyl 10 Mg Rect Supp) 10 mg IN QDAY PRN PRN Reason: Constipation Capsaicin (Capsaicin 0.075% Cream 60 Gm) 1 applic TP TID [facility] Cetirizine HCl (Cetirizine 10 Mg Tab) 10 mg PO DAILY [facility] Last Admin: 08/01/20 09:03 Dose: 10 mg Documented by: Insulin Human Isoph/Insulin Regular (Insulin Nph/Regular 70/30 Inj) 10 unit SUB-Q BIDDIAB [facility] Last Admin: 08/01/20 09:33 Dose: 10 unit Documented by: Insulin Human Lispro (Insulin Lispro 100 Unit/Ml) 0 unit SUB-Q [facility]; Protocol Last Admin: 08/01/20 12:01 Dose: Not Given Documented by: Magnesium Hydroxide (Magnesium Hydroxide (Mom) Oral Liqd Udc) 30 ml PO Q4H PRN PRN Reason: Constipation Metoclopramide HCl (Metoclopramide 10 Mg Tab) 10 mg PO Q6H PRN PRN Reason: Nausea And Vomiting Montelukast Sodium (Montelukast 10 Mg Tab) 10 mg PO QHS [facility] Last Admin: 07/31/20 22:58 Dose: 10 mg Documented by: Ondansetron HCl (Ondansetron 4 Mg/2 Ml Inj) 4 mg IV Q8H PRN PRN Reason: Nausea And Vomiting Prednisone (Prednisone 50 Mg Tab) 50 mg PO QDAY [facility] Stop: 08/05/20 10:01 Promethazine HCl (Promethazine 25 Mg Rect Supp) 25 mg IN Q6H PRN PRN Reason: Nausea And Vomiting Sodium Chloride (Sodium Chloride 0.9% 10 Ml Flush Syringe) 10 ml IV PRN PRN PRN Reason: LINE FLUSH Valsartan (Valsartan 40 Mg Tab) 80 mg PO QDAY [facility] Last Admin: 08/01/20 09:03 Dose: 80 mg Documented by: Review of Systems All systems: negative (as per HPI;) Physical Examination - Vital Signs Vital Signs: Vital Signs Temp Pulse Resp BP Pulse Ox 98.8 F 108 H 18 114/70 96 07/31/20 16:13 07/31/20 16:13 07/31/20 16:13 07/31/20 16:13 07/31/20 16:13 - Physical Exam Narrative exam: Gen: nad, well-nourished; Head: normocephalic; Eyes: no gaze deviation; no ptosis; ENT: normal vocalization; CVS: warm and well-perfused; Pulm: no respiratory distress; GI: appears non-distended; Ext: no cyanosis at distal extremities; Skin: no acute rash at distal extremities; Heme: no pathologic bruising or ecchymosis at distal extremities; Neuro: alert, oriented to name, age, month, no dysarthria, no aphasia, CN 2 - PERRL, visual villar intact, CN 3, 4, 6 - EOMI, CN 5 - facial sensation symmetric to light touch, CN 7 - facial movement symmetric, CN 8 - hearing grossly intact, CN 9, 10 - uvula midline, CN 11 - shrug symmetric, CN 12 - tongue midline; Motor - at least 4/5 in all exts; Sensory - light touch symmetric, Cerebellar - fnf /hts intact, Gait - deferred secondary to fall risk; Results - Laboratory Findings CBC and BMP: 07/31/20 16:51 Abnormal Lab Findings: Abnormal Labs 07/31/20 08/01/20 08/01/20 16:51 01:44 07:53 MCHC 35 H Lymph % (Auto) 11.8 L Seg Neutrophils % 81.3 H Seg Neutrophils # 8.7 H POC Glucose 218 H 166 H Assessment and Plan 60 yo male with acute on chronic left leg weakness with a transient episode of difficulty controlling the right hand. 1. 1. Acute Ischemic Stroke: ASA 325 mg PO qday, MRI Brain w/ wo contrast, TTEcho, check LDL/HgbA1C/TSH, telemetry, SBP goal 160-200 mmHg and DBP 80-100 mmHg for now. Statin therapy for a goal LDL of 70, when patient passes swallow evaluation. PT/OT evaluation. Long-term risk-factor modification, including a strict diet/exercise regimen for secondary stroke prophylaxis. 2. Hypertension - goal SBP 160-200 mmHg and DBP 80-100 mmHg. 3. Myelitis / Myelopathy - recommend inpatient MRI T/L Spine w/ wo contrast and then outpatient [id number] in 4 weeks with general neurology. 4. Metabolic Weakness - workp per primary team. 5. Left Leg weakness - pt/ot evaluation/monitoring. Florian Thomason MD Neurology
--- NOTE | 2020-08-01 13:41 | Vascular Lab Report ---
. BILATERAL CAROTID DOPPLER ULTRASOUND INDICATION : stroke TECHNIQUE: Grayscale and color Doppler imaging performed through the neck. COMPARISON: None FINDINGS: Right: There is no significant atherosclerotic disease. Peak systolic velocity in the CCA is 66 cm/ s with end-diastolic velocity of 18 cm/s. Peak systolic velocity in the proximal ICA is 53 cm/s with end-diastolic velocity of 19 cm/s. ICA to CCA ratio is less than 2. There is antegrade flow in the E CA and the vertebral artery. Left: There is no significant atherosclerotic disease. Peak systolic velocity in the CCA is 76 cm/s w ith end-diastolic velocity of 22 cm/s. Peak systolic velocity in the proximal ICA is 75 cm/s with end -diastolic velocity of 32 cm/s. ICA to CCA ratio is less than 2. There is antegrade flow in the ECA and the vertebral artery. IMPRESSION: No hemodynamically significant stenosis by NASCET criteria. Doppler velocities indicate l ess than 50% luminal narrowing bilaterally. Signer Name: Mac Kaur Jr, MD Signed: 08/01/2020 1:36 PM Workstation Name: [id number]
--- NOTE | 2020-08-01 16:56 | Progress Note ---
Assessment and Plan - Patient Problems (1) Acute CVA (cerebrovascular accident) Current Visit: Yes Status: Acute Plan to address problem: Patient has ischemic stroke Statins Plavix and aspirin Neurology consult appreciated MRI pending Head CTA neck CTA head CT and carotid duplex scan and echocardiogram are normal (2) Hypertension Current Visit: No Status: Chronic Qualifiers: Hypertension type: essential hypertension Qualified Code(s): I10 - Essential (primary) hypertension Plan to address problem: Continue antihypertensives and adjust medications (3) IDDM (insulin dependent diabetes mellitus) Current Visit: Yes Status: Chronic Plan to address problem: Continue home insulin and coverage Check hemoglobin A1c (4) Hyperlipidemia Current Visit: Yes Status: Chronic Qualifiers: Hyperlipidemia type: mixed hyperlipidemia Qualified Code(s): E78.2 - Mixed hyperlipidemia Plan to address problem: Continue statins (5) DVT prophylaxis Current Visit: No Status: Acute Plan to address problem: On heparin and GI prophylaxis Subjective Date of service: 08/01/20 Principal diagnosis: Acute CVA with left lower extremity weakness Interval history: 60 YO Male with HTN, DM, Nicotine Dependence, Asthma, COPD presents to ED for evaluation. Patient reports "my leg feels weak". Patient states that he experienced sudden onset left leg weakness that began yesterday at 1730 hrs. patient awoke from sleep with persistent symptoms this a.m. Patient transported to [facility] via private vehicle for further care and evaluation of the aforementioned symptoms. The patient was seen and evaluated in the emergency department. All lab and imaging studies reviewed. A code stroke was called in the emergency department. Patient was found to have a neurologic deficit. Patient placed in observation status and initiated on stroke protocol. Patient denies fever, chills, chest pain, palpitation, productive cough, skin rash, recent ill contacts, known exposure to COVID-19. Prior admission on 07/09/2020 reviewed. All medication listed at time of admission has been reconciled. Advanced care planning conducted in ED. Day #2 08/01/2020 Continues to have left lower extremity weakness and unable to walk Objective - Constitutional Vitals: Vital Signs - 12hr 08/01/20 08/01/20 08/01/20 08:08 08:20 09:03 Temperature 97.7 F Pulse Rate 68 85 68 Pulse Rate [ Anterior] Respiratory 18 Rate Respiratory Rate [Anterior] Blood Pressure 127/69 127/69 O2 Sat by Pulse 96 Oximetry 08/01/20 08/01/20 08/01/20 09:36 09:37 11:37 Temperature 97.6 F Pulse Rate 74 Pulse Rate [ 86 Anterior] Respiratory 18 Rate Respiratory 18 Rate [Anterior] Blood Pressure 123/58 O2 Sat by Pulse 97 99 Oximetry 08/01/20 08/01/20 08/01/20 14:00 15:00 16:05 Temperature 98.4 F Pulse Rate 78 Pulse Rate [ 85 Anterior] Respiratory 18 18 Rate Respiratory 18 Rate [Anterior] Blood Pressure 104/59 O2 Sat by Pulse 98 95 Oximetry General appearance: Present: no acute distress, well-nourished - EENT Eyes: PERRL, EOM intact ENT: hearing intact, clear oral mucosa Ears: bilateral: normal - Neck Neck: supple, normal ROM - Respiratory Respiratory effort: normal Respiratory: bilateral: CTA - Breasts Breasts: normal - Cardiovascular Heart rate: 78 Rhythm: regular Heart Sounds: Present: S1 & S2. Absent: gallop, rub Extremities: pulses intact, No edema, normal color, Full ROM - Gastrointestinal General gastrointestinal: Present: soft, non-tender, non-distended, normal bowel sounds - Genitourinary Male genitourinary: normal - Integumentary Integumentary: clear, warm, dry - Musculoskeletal Musculoskeletal: strength equal bilaterally, left sided weakness - Neurologic Neurologic: focal deficits (Left lower extremity weakness power is 3 / 5), moves all extremities - Psychiatric Psychiatric: memory intact, appropriate mood/affect, intact judgment & insight - Labs CBC & Chem 7: 07/31/20 16:51 Labs: Abnormal lab results 07/31/20 08/01/20 08/01/20 Range/Units 16:51 01:44 07:53 MCHC 35 H (32-34) % Lymph % (Auto) 11.8 L (13.4-35.0) % Seg Neutrophils % 81.3 H (40.0-70.0) % Seg Neutrophils # 8.7 H (1.8-7.7) K/mm3 POC Glucose 218 H 166 H (70-105) mg/dL HEART Score - HEART Score Troponin: Troponin T < 0.010 ng/mL (0.00-0.029) 07/31/20 16:51
[2020-08-01] MEDS: MONTELUKAST 10 MG TAB PO SCH (21:43)
[2020-08-01] MEDS ORDERED: ALBUTEROL 2.5 MG/3 ML NEBU IH PRN (22:00)
[2020-08-01] MEDS: CAPSAICIN 0.075% CREAM 60 GM TP SCH (22:16)
[2020-08-02] MEDS: IPRATROPIUM/ALBUTEROL SULFATE 3 ML AMPUL.NEB IH SCH ×4 (04:11→20:52)
[2020-08-02] MEDS: BENZONATATE 100 MG CAP PO SCH ×3 (05:38→21:20)
[2020-08-02] MEDS: INSULIN LISPRO 100 UNIT/ML SUB-Q SCH ×4 (08:33→21:21)
[2020-08-02] MEDS: INSULIN NPH/REGULAR 70/30 INJ SUB-Q SCH ×2 (08:34→16:41)
[2020-08-02] MEDS: CAPSAICIN 0.075% CREAM 60 GM TP SCH ×4 (08:34→21:26)
[2020-08-02] MEDS: amLODIPine 5 MG TAB PO SCH (09:07)
[2020-08-02] MEDS: ASPIRIN 325 MG TAB PO SCH (09:07)
[2020-08-02] MEDS: predniSONE 50 MG TAB PO SCH (09:08)
[2020-08-02] MEDS: VALSARTAN 40 MG TAB PO SCH (09:08)
[2020-08-02] MEDS: CETIRIZINE 10 MG TAB PO SCH (09:08)
--- NOTE | 2020-08-02 19:08 | Progress Note ---
Assessment and Plan - Patient Problems (1) Acute CVA (cerebrovascular accident) Current Visit: Yes Status: Acute Plan to address problem: Patient has ischemic stroke Statins Plavix and aspirin Neurology consult appreciated MRI pending Head CTA neck CTA head CT and carotid duplex scan and echocardiogram are normal (2) COPD (chronic obstructive pulmonary disease) Current Visit: Yes Status: Chronic Qualifiers: Chronic bronchitis type: unspecified Plan to address problem: DuoNebs as needed (3) Hypertension Current Visit: Yes Status: Chronic Qualifiers: Hypertension type: essential hypertension Qualified Code(s): I10 - Essential (primary) hypertension Plan to address problem: Continue antihypertensives and adjust as necessary (4) Hyperlipidemia Current Visit: Yes Status: Chronic Qualifiers: Hyperlipidemia type: mixed hyperlipidemia Qualified Code(s): E78.2 - Mixed hyperlipidemia Plan to address problem: Continue statins (5) IDDM (insulin dependent diabetes mellitus) Current Visit: Yes Status: Chronic Plan to address problem: Continue home insulin and coverage Check hemoglobin A1c (6) DVT prophylaxis Current Visit: No Status: Acute Plan to address problem: On heparin and GI prophylaxis Subjective Date of service: 08/02/20 Principal diagnosis: Acute CVA with left-sided paralysis Interval history: 60 YO Male with HTN, DM, Nicotine Dependence, Asthma, COPD presents to ED for evaluation. Patient reports "my leg feels weak". Patient states that he experienced sudden onset left leg weakness that began yesterday at 1730 hrs. patient awoke from sleep with persistent symptoms this a.m. Patient transported to [facility] via private vehicle for further care and evaluation of the aforementioned symptoms. The patient was seen and evaluated in the emergency department. All lab and imaging studies reviewed. A code stroke was called in the emergency department. Patient was found to have a neurologic deficit. Patient placed in observation status and initiated on stroke protocol. Patient denies fever, chills, chest pain, palpitation, productive cough, skin rash, recent ill contacts, known exposure to COVID-19. Prior admission on 07/09/2020 reviewed. All medication listed at time of admission has been reconciled. Advanced care planning conducted in ED. Day #2 08/01/2020 Continues to have left lower extremity weakness and unable to walk Day #3 08/02/2020 Patient continues to have weakness in the left lower extremity and unable to walk Objective - Constitutional Vitals: Vital Signs - 12hr 08/02/20 08/02/20 08/02/20 07:15 07:42 08:50 Temperature 97.9 F Pulse Rate 83 66 Pulse Rate [ 84 Anterior] Pulse Rate [ From Monitor] Respiratory 16 Rate Respiratory 18 Rate [Anterior] Blood Pressure 121/68 O2 Sat by Pulse 95 Oximetry 08/02/20 08/02/20 08/02/20 09:07 09:08 11:38 Temperature 98.3 F Pulse Rate 66 66 Pulse Rate [ Anterior] Pulse Rate [ From Monitor] Respiratory 18 Rate Respiratory Rate [Anterior] Blood Pressure 121/68 121/68 119/64 O2 Sat by Pulse Oximetry 08/02/20 08/02/20 08/02/20 14:00 15:25 16:05 Temperature 98.7 F Pulse Rate 88 Pulse Rate [ 90 Anterior] Pulse Rate [ 83 From Monitor] Respiratory 18 18 Rate Respiratory 18 Rate [Anterior] Blood Pressure 122/67 O2 Sat by Pulse 98 96 Oximetry General appearance: Present: no acute distress, well-nourished - EENT Eyes: PERRL, EOM intact ENT: hearing intact, clear oral mucosa Ears: bilateral: normal - Neck Neck: supple, normal ROM - Respiratory Respiratory effort: normal Respiratory: bilateral: CTA - Breasts Breasts: normal - Cardiovascular Heart rate: 78 Rhythm: regular Heart Sounds: Present: S1 & S2. Absent: gallop, rub Extremities: pulses intact, No edema, normal color, Full ROM - Gastrointestinal General gastrointestinal: Present: soft, non-tender, non-distended, normal bowel sounds - Genitourinary Male genitourinary: normal - Integumentary Integumentary: clear, warm, dry - Musculoskeletal Musculoskeletal: strength equal bilaterally, left sided weakness - Neurologic Neurologic: focal deficits (Left lower extremity weakness) - Psychiatric Psychiatric: memory intact, appropriate mood/affect, intact judgment & insight - Labs CBC & Chem 7: 07/31/20 16:51 Labs: Abnormal lab results 08/01/20 08/02/20 08/02/20 Range/Units 20:56 07:56 10:58 POC Glucose 382 H 151 H 334 H (70-105) mg/dL Echocardiogram Left-ventricular systolic function is normal Left ventricular ejection fraction is within the normal range Gait is normal left ventricular wall thickness There is normal LV segmental wall motion Mild diastolic dysfunction is present Carotid duplex scan No hemodynamically significant stenosis by NASCET criteria Doppler velocities indicate less than 50% luminal narrowing bilaterally - Imaging and cardiology EKG: report reviewed HEART Score - HEART Score Troponin: Troponin T < 0.010 ng/mL (0.00-0.029) 07/31/20 16:51
[2020-08-02] MEDS ORDERED: ALBUTEROL 2.5 MG/3 ML NEBU IH PRN (19:24)
[2020-08-02] MEDS ORDERED: ALBUTEROL 8.5 GM MDI INHALATION IH PRN (19:24)
[2020-08-02] MEDS: MONTELUKAST 10 MG TAB PO SCH (21:20)
[2020-08-03] MEDS: BENZONATATE 100 MG CAP PO SCH ×3 (06:51→21:55)
[2020-08-03] MEDS: INSULIN LISPRO 100 UNIT/ML SUB-Q SCH ×4 (07:30→21:55)
[2020-08-03] MEDS: IPRATROPIUM/ALBUTEROL SULFATE 3 ML AMPUL.NEB IH SCH ×3 (08:45→20:23)
[2020-08-03] MEDS: amLODIPine 5 MG TAB PO SCH (11:49)
[2020-08-03] MEDS: ASPIRIN 325 MG TAB PO SCH (11:57)
[2020-08-03] MEDS: VALSARTAN 40 MG TAB PO SCH (11:57)
[2020-08-03] MEDS: CETIRIZINE 10 MG TAB PO SCH (11:59)
[2020-08-03] MEDS: metFORMIN 500 MG TAB PO SCH (12:00)
[2020-08-03] MEDS: CAPSAICIN 0.075% CREAM 60 GM TP SCH ×3 (12:01→15:38)
[2020-08-03] MEDS: INSULIN NPH/REGULAR 70/30 INJ SUB-Q SCH ×2 (12:02→19:34)
[2020-08-03] MEDS: predniSONE 50 MG TAB PO SCH (12:03)
--- NOTE | 2020-08-03 13:27 | Progress Note ---
Assessment and Plan - Patient Problems (1) Acute CVA (cerebrovascular accident) Current Visit: Yes Status: Acute Plan to address problem: Patient has ischemic stroke Statins Plavix and aspirin Neurology consult appreciated MRI pending Head CTA neck CTA head CT and carotid duplex scan and echocardiogram are normal Patient has left lower extremity weakness is improved Patient has 3/5 power Patient is able to walk with the help of minimal support Should improve to normal over the next 4 to 8 weeks We will arrange for home physical therapy (2) COPD (chronic obstructive pulmonary disease) Current Visit: Yes Status: Chronic Qualifiers: Chronic bronchitis type: unspecified Plan to address problem: DuoNebs as needed (3) Hypertension Current Visit: Yes Status: Chronic Qualifiers: Hypertension type: essential hypertension Qualified Code(s): I10 - Essential (primary) hypertension Plan to address problem: Continue antihypertensives and adjust as necessary (4) Hyperlipidemia Current Visit: Yes Status: Chronic Qualifiers: Hyperlipidemia type: mixed hyperlipidemia Qualified Code(s): E78.2 - Mixed hyperlipidemia Plan to address problem: Continue statins (5) IDDM (insulin dependent diabetes mellitus) Current Visit: Yes Status: Chronic Plan to address problem: Continue home insulin and coverage Check hemoglobin A1c (6) DVT prophylaxis Current Visit: No Status: Acute Plan to address problem: On heparin and GI prophylaxis Subjective Date of service: 08/03/20 Principal diagnosis: Acute CVA with left-sided paralysis Interval history: 60 YO Male with HTN, DM, Nicotine Dependence, Asthma, COPD presents to ED for evaluation. Patient reports "my leg feels weak". Patient states that he experienced sudden onset left leg weakness that began yesterday at 1730 hrs. patient awoke from sleep with persistent symptoms this a.m. Patient transported to [facility] via private vehicle for further care and evaluation of the aforementioned symptoms. The patient was seen and evaluated in the emergency department. All lab and imaging studies reviewed. A code stroke was called in the emergency department. Patient was found to have a neurologic deficit. Patient placed in observation status and initiated on stroke protocol. Patient denies fever, chills, chest pain, palpitation, productive cough, skin rash, recent ill contacts, known exposure to COVID-19. Prior admission on 07/09/2020 reviewed. All medication listed at time of admission has been reconciled. Advanced care planning conducted in ED. Day #2 08/01/2020 Continues to have left lower extremity weakness and unable to walk Day #3 08/02/2020 Patient continues to have weakness in the left lower extremity and unable to walk Day #4 08/03/2020 Improvements in the left lower extremity improved Patient is able to walk with support Possible discharge home with home physical therapy tomorrow We will discuss with case management Objective - Constitutional Vitals: Vital Signs - 12hr 08/03/20 08/03/20 08/03/20 03:53 04:00 08:01 Temperature 98.5 F 97.9 F Pulse Rate 82 82 82 Respiratory 18 16 Rate Blood Pressure 134/68 132/85 Blood Pressure [Right] O2 Sat by Pulse 97 96 Oximetry 08/03/20 08/03/20 08/03/20 11:49 11:57 12:11 Temperature 97.9 F Pulse Rate 89 89 68 Respiratory Rate Blood Pressure 116/47 Blood Pressure 110/76 [Right] O2 Sat by Pulse Oximetry General appearance: Present: no acute distress, well-nourished - EENT Eyes: PERRL, EOM intact ENT: hearing intact, clear oral mucosa Ears: bilateral: normal - Neck Neck: supple, normal ROM - Respiratory Respiratory effort: normal Respiratory: bilateral: CTA - Breasts Breasts: normal - Cardiovascular Heart rate: 78 Rhythm: regular Heart Sounds: Present: S1 & S2. Absent: gallop, rub Extremities: pulses intact, No edema, normal color, Full ROM - Gastrointestinal General gastrointestinal: Present: soft, non-tender, non-distended, normal bowel sounds - Genitourinary Male genitourinary: normal - Integumentary Integumentary: clear, warm, dry - Musculoskeletal Musculoskeletal: strength equal bilaterally, left sided weakness - Neurologic Neurologic: focal deficits - Psychiatric Psychiatric: memory intact, appropriate mood/affect, intact judgment & insight - Allied health notes Allied health notes reviewed: nursing, case management (Left lower extremity weakness 3/ 5 power) - Labs CBC & Chem 7: 07/31/20 16:51 Labs: Abnormal lab results 08/02/20 08/02/20 08/03/20 Range/Units 15:37 21:18 11:05 POC Glucose 312 H 226 H 259 H (70-105) mg/dL HEART Score - HEART Score Troponin: Troponin T < 0.010 ng/mL (0.00-0.029) 07/31/20 16:51
--- NOTE | 2020-08-03 17:57 | Magnetic Resonance Report ---
MRI BRAIN WITHOUT CONTRAST INDICATION / CLINICAL INFORMATION: Acute CVA. TECHNIQUE: Multiplanar, multisequence MR images of the brain were obtained. COMPARISON: Head CT 07/31/2020 and 07/09/2020 FINDINGS: BRAIN / INTRACRANIAL CONTENTS: Evaluation of diffusion-weighted scans is remarkable for the presence of multiple areas restricted di ffusion in a variety of vascular distributions. Evidence of acute infarction is seen near the left fr ontoparietal vertex, in the superior frontal gyrus of the left frontal lobe and in the precentral gyr us on the right frontal lobe. Presence of infarctions in multiple vascular distributions suggests the possibility of an embolic etiology. On gradient echo T2*weighted sequences findings suggest the pres ence of petechial hemorrhage in association with the new areas of left parietal infarction. There is no evidence of parenchymal hematoma. Areas of encephalomalacia seen along the posterior lateral aspect of the right occipital lobe and in the left parietal lobe secondary to remote infarction in the regions. These are stable findings. Punctate brain parenchymal calcifications are observed in a variety of locations. Possibility of cyst icercosis could be considered. Ventricles and cortical sulci are normal in size and configuration. There is no mass effect. No evide nce of intracranial hemorrhage or extra-axial fluid collection is seen. The brainstem and cerebellum have an unremarkable appearance. MIDLINE STRUCTURES:No abnormalities are seen to involve the pituitary gland. Pineal region has an unr emarkable appearance. CRANIOCERVICAL JUNCTION: No abnormalities are identified at the craniocervical junction. VASCULAR FLOW-VOIDS: Normal flow-voids are present within the major intracranial vessels. ORBITS: The orbits have an unremarkable appearance. SINUSES / MASTOIDS: There is no indication of inflammatory disease in the paranasal sinuses or mastoi d air cells. IMPRESSION: 1. Multiple regions of restricted diffusions in different vascular distributions suggests the possibi lity of embolic etiology for the patient's acute infarctions. Findings suggest possible petechial hem orrhage in areas of recent infarction in the left parietal cortex. 2. Septal malacia secondary to remote infarction posterior lateral aspect of the right occipital lobe and left parietal lobe. 3. Multifocal intercranial calcifications as described above. Similar findings were present on previo us CT examinations. Signer Name: Tate Mosher MD Signed: 08/03/2020 5:53 PM Workstation Name: [id number]
[2020-08-03] MEDS: MONTELUKAST 10 MG TAB PO SCH (21:55)
[2020-08-04] MEDS: BENZONATATE 100 MG CAP PO SCH ×2 (07:10→13:14)
[2020-08-04] MEDS: CAPSAICIN 0.075% CREAM 60 GM TP SCH ×3 (07:30→13:15)
[2020-08-04] MEDS: INSULIN LISPRO 100 UNIT/ML SUB-Q SCH ×2 (08:25→12:24)
[2020-08-04] MEDS: INSULIN NPH/REGULAR 70/30 INJ SUB-Q SCH (08:39)
[2020-08-04] MEDS: metFORMIN 500 MG TAB PO SCH (08:39)
[2020-08-04] MEDS: VALSARTAN 40 MG TAB PO SCH (09:00)
[2020-08-04] MEDS: amLODIPine 5 MG TAB PO SCH (09:00)
[2020-08-04] MEDS: ASPIRIN 325 MG TAB PO SCH (09:01)
[2020-08-04] MEDS: CETIRIZINE 10 MG TAB PO SCH (09:01)
[2020-08-04] MEDS: predniSONE 50 MG TAB PO SCH (09:01)
[2020-08-04] MEDS: IPRATROPIUM/ALBUTEROL SULFATE 3 ML AMPUL.NEB IH SCH ×2 (09:06→13:17)
[2020-08-04 12:56] VITALS: BP 128/65
--- NOTE | 2020-08-04 12:56 | Discharge Summary ---
Providers - Providers Date of Admission: 07/31/20 19:16 Date of discharge: 08/04/20 Attending physician: STARLA BISWAS 07/31/20 19:16 Occupational Therapy Evaluate and Treat [CONS] Routine Comment: Reason For Exam: Neuro deficits Physical Therapy Evaluation and Treat [CONS] Routine Comment: Reason For Exam: Neuro deficits 07/31/20 19:17 Speech Therapy Evaluation and Treat [CONS] Routine Reason For Exam: swallow eval 08/01/20 09:30 Consult to Physician [CONS] Routine Comment: Consulting Provider: MELODIE BEARDEN Physician Instructions: Reason For Exam: acute CVA Primary care physician: INVESTIGATION OFFICER Hospitalization Condition: Stable Hospital course: Subjective Date of service: 08/04/20 Principal diagnosis: Acute CVA with left-sided paralysis Interval history: 60 YO Male with HTN, DM, Nicotine Dependence, Asthma, COPD presents to ED for evaluation. Patient reports "my leg feels weak". Patient states that he experienced sudden onset left leg weakness that began yesterday at 1730 hrs. patient awoke from sleep with persistent symptoms this a.m. Patient transported to [facility] via private vehicle for further care and evaluation of the aforementioned symptoms. The patient was seen and evaluated in the emergency department. All lab and imaging studies reviewed. A code stroke was called in the emergency department. Patient was found to have a neurologic deficit. Patient placed in observation status and initiated on stroke protocol. Patient denies fever, chills, chest pain, palpitation, productive cough, skin rash, recent ill contacts, known exposure to COVID-19. Prior admission on 07/09/2020 reviewed. All medication listed at time of admission has been reconciled. Advanced care planning conducted in ED. Day #2 08/01/2020 Continues to have left lower extremity weakness and unable to walk Day #3 08/02/2020 Patient continues to have weakness in the left lower extremity and unable to walk Day #4 08/03/2020 Improvements in the left lower extremity improved Patient is able to walk with support Possible discharge home with home physical therapy tomorrow We will discuss with case management Day #5 08/04/2020 Patient much improved since yesterday Able to walk without support Walking with slight limp Prognosis will return to normal by 4 weeks time around September 03, 2020 Discussed with HR at [phone] Patient to be discharged on Plavix and aspirin with home health physical therapy and Occupational Therapy Assessment and Plan - Patient Problems (1) Acute CVA (cerebrovascular accident) Current Visit: Yes Status: Acute Plan to address problem: Patient has ischemic stroke Statins Plavix and aspirin Neurology consult appreciated MRI pending Head CTA neck CTA head CT and carotid duplex scan and echocardiogram are normal Patient has left lower extremity weakness is improved Patient has 4/5 power Patient is able to walk with the help of minimal support Should improve to normal over the next 4 4 weeks and return to work on 09/04/2020 We will arrange for home physical therapy and Occupational Therapy Discussed with HR at his work [employer] [phone] (2) COPD (chronic obstructive pulmonary disease) Current Visit: Yes Status: Chronic Qualifiers: Chronic bronchitis type: unspecified Plan to address problem: DuoNebs as needed (3) Hypertension Current Visit: Yes Status: Chronic Qualifiers: Hypertension type: essential hypertension Qualified Code(s): I10 - Essential (primary) hypertension Plan to address problem: Continue antihypertensives and adjust as necessary (4) Hyperlipidemia Current Visit: Yes Status: Chronic Qualifiers: Hyperlipidemia type: mixed hyperlipidemia Qualified Code(s): E78.2 - Mixed hyperlipidemia Plan to address problem: Continue statins (5) IDDM (insulin dependent diabetes mellitus) Current Visit: Yes Status: Chronic Plan to address problem: Continue home insulin and coverage Check hemoglobin A1c Return to work by 09/04/2020 Follow-up with PCP Follow-up with neurology Dr. MORGAN Damon MD Disposition: [id number] TO HOME OR SELFCARE Final Discharge Diagnosis (Prints w/discharge instructions): Acute CVA. Hypertension Time spent for discharge: 35 minutes - Discharge Diagnoses (1) Acute CVA (cerebrovascular accident) Status: Acute Comment: 35 minutes (2) COPD (chronic obstructive pulmonary disease) Status: Chronic Qualifiers: Chronic bronchitis type: unspecified (3) Hypertension Status: Chronic Qualifiers: Hypertension type: essential hypertension Qualified Code(s): I10 - Essential (primary) hypertension (4) Hyperlipidemia Status: Chronic Qualifiers: Hyperlipidemia type: mixed hyperlipidemia Qualified Code(s): E78.2 - Mixed hyperlipidemia (5) IDDM (insulin dependent diabetes mellitus) Status: Chronic (6) DVT prophylaxis Status: Acute Core Measure Documentation - Palliative Care Palliative Care/ Comfort Measures: Not Applicable - Core Measures Any of the following diagnoses?: stroke - Stroke Discharge Requirements Statin for LDL = or >70 mg/dl on DC: Yes Anticoag for atrial fib/atrial flutter: Not Applicable Antithrombotic for ischemic stroke: Yes Exam - Constitutional Vitals: Temp Pulse Resp BP Pulse Ox 97.9 F 77 20 118/76 99 08/04/20 07:57 08/04/20 09:06 08/04/20 09:06 08/04/20 09:00 08/04/20 08:00 General appearance: Present: no acute distress, well-nourished - EENT Eyes: Present: PERRL ENT: hearing intact, clear oral mucosa - Neck Neck: Present: supple, normal ROM - Respiratory Respiratory effort: normal Respiratory: bilateral: CTA - Cardiovascular Heart rate: 76 Rhythm: regular Heart Sounds: Present: S1 & S2. Absent: rub, click - Extremities Extremities: no ischemia, pulses symmetrical, No edema Peripheral Pulses: within normal limits - Abdominal General gastrointestinal: Present: soft, non-tender, non-distended, normal bowel sounds Male genitourinary: Present: normal - Rectal Rectal Exam: deferred - Integumentary Integumentary: Present: clear, warm, dry - Musculoskeletal Musculoskeletal: right sided weakness (Left lower extremity weakness 4/5 power) - Psychiatric Psychiatric: appropriate mood/affect, intact judgment & insight - Neurologic Neurologic: CNII-XII intact, moves all extremities - Allied Health Allied health notes reviewed: nursing, case management Plan Activity: no restrictions Diet: low salt Special Instructions: home health RN, other (Home health physical therapy and Occupational Therapy) Follow up with: SHEKHAR KAMARA MD [Primary Care Provider] - 7 Days CHATO MORA MD [Staff Physician] - 7 Days
== END 2020-08-04 14:00 | disposition home health service (06) | DRG 64 ==
LOC: ED 16:06 → 4A 19:16 → OBSVTOIN 19:16
PROVIDERS: ADMIT Internal Medicine; ATTEND Internal Medicine
DX: I63.9 Cerebral infarction, unspecified (principal); G04.91 Myelitis, unspecified; G81.94 Hemiplegia, unspecified affecting left nondominant side; G95.9 Disease of spinal cord, unspecified; I10 Essential (primary) hypertension; F17.200 Nicotine dependence, unspecified, uncomplicated; E78.2 Mixed hyperlipidemia; R29.703 NIHSS score 3; J44.9 Chronic obstructive pulmonary disease, unspecified; E11.9 Type 2 diabetes mellitus without complications; Z79.4 Long term (current) use of insulin; Z82.49 Family history of ischemic heart disease and other diseases of the circulatory system; Z79.899 Other long term (current) drug therapy
CPT/HCPCS: 36415; 70450; 70496; 70498; 70551; 71045; 80061; 82550; 82553; 82962; 83880; 84484; 85025; 85610; 85670; 85730; 93005; 93306; 93880; 94640; 94644; 96374; 96375; G0378; A9270-GY; J1815; J7512; Q9967

== ENCOUNTER 2020-10-19 14:21 | Emergency (ER) | payer BC, SELFPAY ==
[2020-10-19 18:00] LABS: Basophils % (Auto) 0.7 % (0.0-1.8); Eosinophils # (Auto) 0.3 K/mm3 (0.0-0.4); Eosinophils % (Auto) 5.6 % (0.0-4.3); Hematocrit 46.6 % (35.5-45.6); Hemoglobin 15.6 gm/dl (11.8-15.2); Lymphocytes # (Auto) 1.9 K/mm3 (1.2-5.4); Lymphocytes % (Auto) 31.4 % (13.4-35.0); Mean Corpuscular HGB Conc 34 % (32-34); Mean Corpuscular Volume 91 fl (84-94); Monocytes # (Auto) 0.6 K/mm3 (0.0-0.8); Platelet Count 192 K/mm3 (140-440); Red Blood Count 5.15 M/mm3 (3.65-5.03); Red Cell Distribution Width 14.3 % (13.2-15.2)
[2020-10-19 18:43] LABS: Alanine Aminotransferase 14 units/L (7-56); Albumin 4.1 g/dL (3.9-5); Blood Urea Nitrogen 15 mg/dL (9-20); Calcium 8.4 mg/dL (8.4-10.2); Hemolysis Index 38
[2020-10-19 18:54] LABS: BUN/Creatinine Ratio 25
[2020-10-19] MEDS ORDERED: SODIUM CHLORIDE 0.9% 1000 ML 1,000 ML IV ONE (20:11)
[2020-10-19 22:05] LABS: Bilirubin,Urine NEG (Negative); Blood,Urine NEG (Negative); Color,Urine Colorless (Yellow); Protein,Urine <15 mg/dL mg/dL (Negative); Urobilinogen,Urine < 2.0 mg/dL (<2.0)
[2020-10-19 22:09] LABS: RBC,Urine < 1.0 /HPF (0.0-6.0); WBC,Urine < 1.0 /HPF (0.0-6.0)
[2020-10-20 04:46] VITALS: BP 122/74
== END 2020-10-20 03:00 | disposition home or self-care (01) ==
LOC: ED 14:21
DX: E11.65 Type 2 diabetes mellitus with hyperglycemia (principal); E86.0 Dehydration; R42 Dizziness and giddiness; R53.1 Weakness; I10 Essential (primary) hypertension; J45.909 Unspecified asthma, uncomplicated; Z79.84 Long term (current) use of oral hypoglycemic drugs; Z79.1 Long term (current) use of non-steroidal anti-inflammatories (NSAID); Z79.899 Other long term (current) drug therapy
CPT/HCPCS: 36415; 70450; 80053; 81001; 82805; 83735; 85025; 96360; 96361; 99284; J7030

== ENCOUNTER 2020-11-20 03:27 | Observation (INO) | payer BC ==
[2020-11-20 05:51] LABS: Basophils # (Auto) 0.1 K/mm3 (0.0-0.1); Basophils % (Auto) 0.6 % (0.0-1.8); Eosinophils # (Auto) 0.3 K/mm3 (0.0-0.4); Eosinophils % (Auto) 2.8 % (0.0-4.3); Hematocrit 47.4 % (35.5-45.6); Hemoglobin 16.1 gm/dl (11.8-15.2); Lymphocytes % (Auto) 22.1 % (13.4-35.0); Mean Corpuscular HGB Conc 34 % (32-34); Mean Corpuscular Volume 90 fl (84-94); Monocytes # (Auto) 0.6 K/mm3 (0.0-0.8); Monocytes % (Auto) 6.9 % (0.0-7.3); Platelet Count 222 K/mm3 (140-440); Red Blood Count 5.27 M/mm3 (3.65-5.03); Red Cell Distribution Width 13.9 % (13.2-15.2)
[2020-11-20 06:05] LABS: Alanine Aminotransferase 14 units/L (7-56); Albumin 4.7 g/dL (3.9-5); BUN/Creatinine Ratio 28; Blood Urea Nitrogen 22 mg/dL (9-20); Calcium 9.6 mg/dL (8.4-10.2); Hemolysis Index 4
--- NOTE | 2020-11-20 07:44 | Emergency Department Report ---
HPI - General Chief Complaint: Weakness Time Seen by Provider: 11/20/20 07:34 - HPI HPI: This is a 60-year-old male presents to the emergency department with a complaint of having a fall yesterday and since that time having generalized weakness to the point where he is having difficulty standing or walking. However, the story appears different than the one provided by EMS. Per EMS, the patient was found on the street. He had told them that he was unable to eat for 2 days as he has had no money and that he has been walking a lot. He did tell them, however, that he has been falling a lot due to his legs feeling weak. Patient has a history of hypertension, diabetes, and the patient says that he has a history of CVA with residual dizziness. He has not taken anything, no received anything, for his symptoms prior to presentation today. He is a tobacco smoker. Patient was here about 1 month ago for similar symptoms and was just found to have some dehydration and hyperglycemia at that time. ED Past Medical Hx - Past Medical History Previous Medical History?: Yes Hx Hypertension: Yes Hx Heart Attack/AMI: No Hx Congestive Heart Failure: No Hx Diabetes: Yes Hx Sickle Cell Disease: No Hx Asthma: Yes Hx COPD: No Hx HIV: No Additional medical history: Shingles - Surgical History Past Surgical History?: No - Social History Smoking Status: Never Smoker Substance Use Type: None - Medications Home Medications: Home Medications Medication Instructions Recorded Confirmed Last Taken Type ALBUTEROL NEB's [Proventil 0.083% 2.5 mg IH Q6H PRN #1 pack 07/07/17 Unknown Rx NEBS] Albuterol Sulfate [Ventolin HFA] 2 puff IH Q4-6H PRN #1 hfa.aer.ad 07/07/17 Unknown Rx Cetirizine HCl [ZyrTEC 10mg cap] 10 mg PO QAM 14 Days #14 capsule 07/07/17 Unknown Rx ALBUTEROL NEB's [Proventil 0.083% 2.5 mg IH TID PRN #1 box 04/27/19 Unknown Rx NEBS] ALBUTEROL NEB's [Proventil 0.083% 3 ml IH Q6H PRN #75 ml 11/27/19 Unknown Rx NEBS] Albuterol Mdi (or & Nicu Only) 2 puff IH Q6H PRN #1 inh 11/27/19 Unknown Rx [ProAir HFA Inhaler] Acetaminophen [Non-Aspirin Extra 500 mg PO Q6HR PRN #30 tablet 02/09/20 Unknown Rx Strength] Albuterol Sulfate [Proair 90 mcg IH Q4HR PRN #2 aer.pow.ba 02/09/20 Unknown Rx Respiclick] Capsaicin 0.075% [Zostrix Hp 1 applicatio TP TID #1 tube 02/09/20 Unknown Rx 0.075%] Ibuprofen [Motrin] 600 mg PO Q8H PRN #30 tablet 02/09/20 Unknown Rx ALBUTEROL NEB's [Proventil 0.083% 2.5 mg IH TID PRN #30 neb 07/30/20 Unknown Rx NEBS] Albuterol Mdi (or & Nicu Only) 2 puff IH QID PRN #1 inhalation 07/30/20 Unknown Rx [ProAir HFA Inhaler] Benzonatate [Tessalon Perles] 100 mg PO Q8HR #20 capsule 07/30/20 Unknown Rx predniSONE [Deltasone] 50 mg PO QDAY #5 tab 07/30/20 Unknown Rx Aspirin 325 mg PO QDAY #30 tablet 08/04/20 Unknown Rx Aspirin EC [Halfprin EC] 81 mg PO QDAY #100 tablet. 08/04/20 Unknown Rx Clopidogrel [Plavix] 75 mg PO QDAY #30 tablet 08/04/20 Unknown Rx Insulin NPH/Regular [NovoLIN 70/30] 10 unit SUB-Q BIDDIAB #1 vial 08/04/20 Unknown Rx Ipratropium/Albuterol Sulfate 1 ampul IH TIDRT #50 ampul.neb 08/04/20 Unknown Rx [DUONEB *Not for PRN Use*] Montelukast [Singulair] 10 mg PO QHS #30 tablet 08/04/20 Unknown Rx Valsartan 80 mg PO QDAY #30 tablet 08/04/20 Unknown Rx amLODIPine 5 mg PO QDAY #30 tablet 08/04/20 Unknown Rx metFORMIN [Glucophage] 500 mg PO QDDIAB #30 tablet 08/04/20 Unknown Rx ED Review of Systems ROS: Stated complaint: WEAKNESS Other details as noted in HPI Comment: All other systems reviewed and negative Constitutional: weakness. denies: chills, fever Eyes: denies: eye pain, vision change ENT: denies: ear pain, throat pain Respiratory: denies: cough, shortness of breath Cardiovascular: denies: chest pain, palpitations Gastrointestinal: denies: abdominal pain, vomiting Genitourinary: denies: dysuria, discharge Musculoskeletal: myalgia. denies: joint swelling Skin: denies: rash, lesions Neurological: weakness. denies: headache, numbness Physical Exam - Physical Exam Vital Signs: Vital Signs 11/20/20 03:38 Temperature 98 F Pulse Rate 83 Respiratory 16 Rate Blood Pressure 145/79 [Left] O2 Sat by Pulse 99 Oximetry Physical Exam: GENERAL: The patient is well-developed well-nourished. HENT: Normocephalic. Atraumatic. Patient has moist mucous membranes. EYES: Extraocular motions are intact. No nystagmus. NECK: Supple. Trachea is midline. CHEST/LUNGS: Clear to auscultation. There is no respiratory distress noted. HEART/CARDIOVASCULAR: Regular. There is no tachycardia. There is no murmur. ABDOMEN: Abdomen is soft, nontender. Patient has normal bowel sounds. There is no abdominal distention. SKIN: Skin is warm and dry. NEURO: The patient is awake, alert, and oriented. The patient is cooperative. Cranial nerves II through XII grossly intact. There is a mild drift to all 4 extremities. Normal speech. No facial asymmetry. Patient has some gait instability. MUSCULOSKELETAL: There is tenderness to palpation along the left lower extremity, but no obvious deformity. ED Course Vital Signs 11/20/20 03:38 Temperature 98 F Pulse Rate 83 Respiratory 16 Rate Blood Pressure 145/79 [Left] O2 Sat by Pulse 99 Oximetry ED Medical Decision Making - Lab Data Result diagrams: 11/20/20 05:15 11/20/20 05:15 Lab Results 11/20/20 11/20/20 11/20/20 Range/Units 05:15 05:15 07:55 WBC 9.2 (4.5-11.0) K/mm3 RBC 5.27 H (3.65-5.03) M/mm3 Hgb 16.1 H (11.8-15.2) gm/dl Hct 47.4 H (35.5-45.6) % MCV 90 (84-94) fl MCH 30 (28-32) pg MCHC 34 (32-34) % RDW 13.9 (13.2-15.2) % Plt Count 222 (140-440) K/mm3 Lymph % (Auto) 22.1 (13.4-35.0) % [place] % (Auto) 6.9 (0.0-7.3) % Eos % (Auto) 2.8 (0.0-4.3) % Baso % (Auto) 0.6 (0.0-1.8) % Lymph # (Auto) 2.0 (1.2-5.4) K/mm3 [place] # (Auto) 0.6 (0.0-0.8) K/mm3 Eos # (Auto) 0.3 (0.0-0.4) K/mm3 Baso # (Auto) 0.1 (0.0-0.1) K/mm3 Seg Neutrophils % 67.6 (40.0-70.0) % Seg Neutrophils # 6.2 (1.8-7.7) K/mm3 Sodium 142 (137-145) mmol/L Potassium 4.0 (3.6-5.0) mmol/L Chloride 104.2 (98-107) mmol/L Carbon Dioxide 25 (22-30) mmol/L Anion Gap 17 mmol/L BUN 22 H (9-20) mg/dL Creatinine 0.8 (0.8-1.3) mg/dL Estimated GFR > 60 ml/min BUN/Creatinine Ratio 28 % Glucose 197 H (75-100) mg/dL Calcium 9.6 (8.4-10.2) mg/dL Total Bilirubin 0.90 (0.1-1.2) mg/dL AST 22 (5-40) units/L ALT 14 (7-56) units/L Alkaline Phosphatase 101 (35-129) units/L Total Creatine Kinase 198 H (55-170) units/L Troponin T < 0.010 (0.00-0.029) ng/mL Total Protein 6.6 (6.3-8.2) g/dL Albumin 4.7 (3.9-5) g/dL Albumin/Globulin Ratio 2.5 % TSH (0.270-4.200) mlU/mL Urine Color (Yellow) Urine Turbidity (Clear) Urine pH (5.0-7.0) Ur Specific [place] (1.003-1.030) Urine Protein (Negative) mg/dL Urine Glucose (UA) (Negative) mg/dL Urine Ketones (Negative) mg/dL Urine Blood (Negative) Urine Nitrite (Negative) Urine Bilirubin (Negative) Urine Urobilinogen (<2.0) mg/dL Ur Leukocyte Esterase (Negative) Urine WBC (Auto) (0.0-6.0) /HPF Urine RBC (Auto) (0.0-6.0) /HPF Urine Mucus /HPF Plasma/Serum Alcohol (0-0.07) % 11/20/20 11/20/20 11/20/20 Range/Units 07:55 07:55 11:24 WBC (4.5-11.0) K/mm3 RBC (3.65-5.03) M/mm3 Hgb (11.8-15.2) gm/dl Hct (35.5-45.6) % MCV (84-94) fl MCH (28-32) pg MCHC (32-34) % RDW (13.2-15.2) % Plt Count (140-440) K/mm3 Lymph % (Auto) (13.4-35.0) % [place] % (Auto) (0.0-7.3) % Eos % (Auto) (0.0-4.3) % Baso % (Auto) (0.0-1.8) % Lymph # (Auto) (1.2-5.4) K/mm3 [place] # (Auto) (0.0-0.8) K/mm3 Eos # (Auto) (0.0-0.4) K/mm3 Baso # (Auto) (0.0-0.1) K/mm3 Seg Neutrophils % (40.0-70.0) % Seg Neutrophils # (1.8-7.7) K/mm3 Sodium (137-145) mmol/L Potassium (3.6-5.0) mmol/L Chloride (98-107) mmol/L Carbon Dioxide (22-30) mmol/L Anion Gap mmol/L BUN (9-20) mg/dL Creatinine (0.8-1.3) mg/dL Estimated GFR ml/min BUN/Creatinine Ratio % Glucose (75-100) mg/dL Calcium (8.4-10.2) mg/dL Total Bilirubin (0.1-1.2) mg/dL AST (5-40) units/L ALT (7-56) units/L Alkaline Phosphatase (35-129) units/L Total Creatine Kinase (55-170) units/L Troponin T (0.00-0.029) ng/mL Total Protein (6.3-8.2) g/dL Albumin (3.9-5) g/dL Albumin/Globulin Ratio % TSH 1.430 (0.270-4.200) mlU/mL Urine Color Yellow (Yellow) Urine Turbidity Clear (Clear) Urine pH 5.0 (5.0-7.0) Ur Specific [place] 1.023 (1.003-1.030) Urine Protein <15 mg/dl (Negative) mg/dL Urine Glucose (UA) >=500 (Negative) mg/dL Urine Ketones Tr (Negative) mg/dL Urine Blood Neg (Negative) Urine Nitrite Neg (Negative) Urine Bilirubin Neg (Negative) Urine Urobilinogen 4.0 (<2.0) mg/dL Ur Leukocyte Esterase Neg (Negative) Urine WBC (Auto) 2.0 (0.0-6.0) /HPF Urine RBC (Auto) 2.0 (0.0-6.0) /HPF Urine Mucus 2+ /HPF Plasma/Serum Alcohol < 0.01 (0-0.07) % - EKG Data -: EKG Interpreted by Me EKG shows normal: sinus rhythm, axis, intervals, QRS complexes, ST-T waves (Nonspecific ST T waves) Rate: normal - EKG Data When compared to previous EKG there are: no significant change Interpretation: unchanged when compared t (07/31/20) - Radiology Data Radiology results: report reviewed, image reviewed interpreted by me: X-ray of the left femur and tib-fib do not show any fracture, dislocation, or any acute process. CT head/brain wo con INDICATION: Weakness. TECHNIQUE: All CT scans at this location are performed using CT dose reduction for ALARA by means of automated exposure control. COMPARISON: 10/19/[address] FINDINGS: There is no evidence of hemorrhage, hydrocephalus, brain edema, or mass effect/mass lesion. There are stable remote infarcts in the right frontal high convexity and bilateral parietal convexities. Multiple small foci of chronic calcification in the cerebral hemispheres are also stable. Overall ventricular size appears normal for age. The included paranasal sinuses and mastoid air cells are clear. The orbits appear unremarkable. IMPRESSION: 1. No acute findings or adverse change from prior exams. - Medical Decision Making This patient presents to the emergency department with a complaint of having 6 different falls yesterday and since that time having difficulty with ambulation. On examination the patient has a mild drift to all extremities. Cranial nerves are intact. No facial asymmetry. Heart and lung sounds are normal to auscultation. CT of the head without contrast does not show any hemorrhage, large vessel occlusion, or any other acute process. Patient's labs have been mostly unremarkable including CBC, metabolic panel, normal thyroid function, negative troponin. Patient was seen by the telemedicine neurologist to give the patient an NIH stroke scale of 4. He recommends admission for MRI and further evaluation. Vital signs have been reassuring throughout his ED course thus far including being afebrile. The patient was accepted for admission by the hospitalist, Dr. Robert. Critical Care Time: No Critical care attestation.: If time is entered above; I have spent that time in minutes in the direct care of this critically ill patient, excluding procedure time. ED Disposition Clinical Impression: Recurrent falls, Stroke-like symptoms, Gait instability Disposition: OP ADMIT IP TO THIS HOSP Is pt being admited?: Yes Condition: Fair Time of Disposition: 16:10
[2020-11-20] MEDS ORDERED: SODIUM CHLORIDE 0.9% 1000 ML 1,000 ML IV ONE (09:03)
--- NOTE | 2020-11-20 09:23 | Cat Scan Report ---
CT head/brain wo con INDICATION: Weakness. TECHNIQUE: All CT scans at this location are performed using CT dose reduction for ALARA by means of automated e xposure control. COMPARISON: 10/19/[address] FINDINGS: There is no evidence of hemorrhage, hydrocephalus, brain edema, or mass effect/mass lesion. There are stable remote infarcts in the right frontal high convexity and bilateral parietal convexities. Multi ple small foci of chronic calcification in the cerebral hemispheres are also stable. Overall ventricu lar size appears normal for age. The included paranasal sinuses and mastoid air cells are clear. The orbits appear unremarkable. IMPRESSION: 1. No acute findings or adverse change from prior exams. Signer Name: Janes Doty MD Signed: 11/20/2020 9:19 AM Workstation Name: [id number]
[2020-11-20 11:48] LABS: Bilirubin,Urine NEG (Negative); Blood,Urine NEG (Negative); Color,Urine Yellow (Yellow); Mucus,Urine 2+ /HPF; Protein,Urine <15 mg/dL mg/dL (Negative)
--- NOTE | 2020-11-20 12:30 | Consultation ---
Medications and Allergies Allergies Allergy/AdvReac Type Severity Reaction Status Date / Time No Known Allergies Allergy Verified 07/31/20 16:10 Home Medications Medication Instructions Recorded Confirmed Last Taken Type ALBUTEROL NEB's [Proventil 0.083% 2.5 mg IH Q6H PRN #1 pack 07/07/17 Unknown Rx NEBS] Albuterol Sulfate [Ventolin HFA] 2 puff IH Q4-6H PRN #1 hfa.aer.ad 07/07/17 Unknown Rx Cetirizine HCl [ZyrTEC 10mg cap] 10 mg PO QAM 14 Days #14 capsule 07/07/17 Unknown Rx ALBUTEROL NEB's [Proventil 0.083% 2.5 mg IH TID PRN #1 box 04/27/19 Unknown Rx NEBS] ALBUTEROL NEB's [Proventil 0.083% 3 ml IH Q6H PRN #75 ml 11/27/19 Unknown Rx NEBS] Albuterol Mdi (or & Nicu Only) 2 puff IH Q6H PRN #1 inh 11/27/19 Unknown Rx [ProAir HFA Inhaler] Acetaminophen [Non-Aspirin Extra 500 mg PO Q6HR PRN #30 tablet 02/09/20 Unknown Rx Strength] Albuterol Sulfate [Proair 90 mcg IH Q4HR PRN #2 aer.pow.ba 02/09/20 Unknown Rx Respiclick] Capsaicin 0.075% [Zostrix Hp 1 applicatio TP TID #1 tube 02/09/20 Unknown Rx 0.075%] Ibuprofen [Motrin] 600 mg PO Q8H PRN #30 tablet 02/09/20 Unknown Rx ALBUTEROL NEB's [Proventil 0.083% 2.5 mg IH TID PRN #30 neb 07/30/20 Unknown Rx NEBS] Albuterol Mdi (or & Nicu Only) 2 puff IH QID PRN #1 inhalation 07/30/20 Unknown Rx [ProAir HFA Inhaler] Benzonatate [Tessalon Perles] 100 mg PO Q8HR #20 capsule 07/30/20 Unknown Rx predniSONE [Deltasone] 50 mg PO QDAY #5 tab 07/30/20 Unknown Rx Aspirin 325 mg PO QDAY #30 tablet 08/04/20 Unknown Rx Aspirin EC [Halfprin EC] 81 mg PO QDAY #100 tablet. 08/04/20 Unknown Rx Clopidogrel [Plavix] 75 mg PO QDAY #30 tablet 08/04/20 Unknown Rx Insulin NPH/Regular [NovoLIN 70/30] 10 unit SUB-Q BIDDIAB #1 vial 08/04/20 Unknown Rx Ipratropium/Albuterol Sulfate 1 ampul IH TIDRT #50 ampul.neb 08/04/20 Unknown Rx [DUONEB *Not for PRN Use*] Montelukast [Singulair] 10 mg PO QHS #30 tablet 08/04/20 Unknown Rx Valsartan 80 mg PO QDAY #30 tablet 08/04/20 Unknown Rx amLODIPine 5 mg PO QDAY #30 tablet 08/04/20 Unknown Rx metFORMIN [Glucophage] 500 mg PO QDDIAB #30 tablet 08/04/20 Unknown Rx Physical Examination - Vital Signs Vital Signs: Vital Signs Temp Pulse Resp BP Pulse Ox 98 F 83 16 145/79 99 11/20/20 03:38 11/20/20 03:38 11/20/20 03:38 11/20/20 03:38 11/20/20 03:38 Results - Laboratory Findings CBC and BMP: 11/20/20 05:15 11/20/20 05:15 Abnormal Lab Findings: Abnormal Labs 11/20/20 11/20/20 11/20/20 05:15 05:15 07:55 RBC 5.27 H Hgb 16.1 H Hct 47.4 H BUN 22 H Glucose 197 H Total Creatine Kinase 198 H Assessment and Plan [facility] Consult Note # Demographics Consult Type: General Neurology Patient Location: Emergency Room First Name: Sasha Last Name: Avelina Date of : 1960 Age: 60 Gender: Male Time of Initial Page (Eastern Time): 11/20/2020, 11:42 Time of Return Call (Eastern Time): 11/20/2020, 11:42 # HPI History: 60 yo man with history of previous stroke in July. He had fall yesterday with subsequent weakness, unsteadiness. According to the patient he was walking and fell and couldn't get up. He feels his left leg has been chronically weak since his previous stroke. He was admitted 07/2020 with left leg weakness and found to have strokes in multiple different vascular distributions suggesting likely cardioembolic cause. CTA head and neck was unremarkable. Echocardiogram was unremarkable with no PFO. LDL 121. He was discharged on ASA, plavix, statin but he has not been able to take any medication due to not being able to afford ay medications. # Scores Time of exam and NIHSS (Eastern Time): 11/20/2020, 12:13 Level of Consciousness 1a: [0] = Alert; keenly responsive LOC Questions 1b: [0] = Answers both questions correctly LOC Commands 1c: [0] = Performs both tasks correctly Best Gaze 2: [0] = Normal Visual 3: [0] = No visual loss Facial Palsy 4: [0] = Normal symmetrical movements Motor Arm Left 5a: [1] = Drift Motor Arm Right 5b: [1] = Drift Motor Leg Left 6a: [1] = Drift Motor Leg Right 6b: [1] = Drift Limb Ataxia 7: [0] = Absent Sensory 8: [0] = Normal Best Language 9: [0] = No aphasia Dysarthria 10: [0] = Normal Extinction and Inattention 11: [0] = No abnormality NIHSS Total: 4 # PMH-FH-SH Past Medical History: COPD Diabetes hypertension Social History: smoker non-drinker Medications: denies Allergies: NKDA # Data Head CT: no bleed # Assessment Impression: Fall and weakness, differential includes new stroke. Due to lack of finances he has not been able to afford his medications. # Plan Imaging: (urgency: routine): MRI Brain without contrast Medication: aspirin 81 mg daily DVT Prophylaxis: SCD chemical DVT prophylaxis Other: telemetry monitoring I have discussed my recommendations with the referring provider Recommendations: MRI brain to evaluate for any new strokes Restart ASA 81 mg daily Statin for goal LDL < 70 BP goals normotensive Given prevous cardioembolic strokes would recommend outpatient 30 day event monitor to further investigate for underlying afib PT/OT evalutate and treat Quit smoking Disposition: admit
--- NOTE | 2020-11-20 12:40 | History and Physical Report ---
History of Present Illness Chief complaint: I feel weak and I cannot walk History of present illness: 60 YO Male with HTN, DM, Nicotine Dependence, Asthma, COPD, CVA presents to ED for evaluation. Patient reports "I feel weak". Pt states that he has experienced generalized weakness and multiple falls which result in the patient having difficulty standing and walking after a prolonged period of walking. EMS was notified and upon arrival the patient was found to be in distress and subsequently transported to [facility] for further care and evaluation of the aforementioned symptoms. The patient was seen and evaluated in the emergency department. All lab and imaging studies reviewed. The patient was found to have debility, as well as weakness out of proportion to exam and interview. Patient placed in observation status and treated with IV fluid resuscitation therapy and supportive care. Patient denies fever, chills, chest pain, palpitation, productive cough, skin rash, recent ill contacts, or known spoke to [facility]-. Prior admission on 07/31/2020 reviewed. All medication listed at time of admission has been reconciled. Advanced care planning conducted in ED. Case management consulted for discharge planning. Past History Past Medical History: COPD, diabetes, hypertension, stroke Past Surgical History: No surgical history, Other (Reviewed) Social history: smoking Family history: diabetes, hypertension Medications and Allergies Allergies Allergy/AdvReac Type Severity Reaction Status Date / Time No Known Allergies Allergy Verified 11/20/20 16:27 Home Medications Medication Instructions Recorded Confirmed Last Taken Type ALBUTEROL NEB's [Proventil 0.083% 2.5 mg IH Q6H PRN #1 pack 07/07/17 Unknown Rx NEBS] Albuterol Sulfate [Ventolin HFA] 2 puff IH Q4-6H PRN #1 hfa.aer.ad 07/07/17 Unknown Rx Cetirizine HCl [ZyrTEC 10mg cap] 10 mg PO QAM 14 Days #14 capsule 07/07/17 Unknown Rx ALBUTEROL NEB's [Proventil 0.083% 2.5 mg IH TID PRN #1 box 04/27/19 Unknown Rx NEBS] ALBUTEROL NEB's [Proventil 0.083% 3 ml IH Q6H PRN #75 ml 11/27/19 Unknown Rx NEBS] Albuterol Mdi (or & Nicu Only) 2 puff IH Q6H PRN #1 inh 11/27/19 Unknown Rx [ProAir HFA Inhaler] Acetaminophen [Non-Aspirin Extra 500 mg PO Q6HR PRN #30 tablet 02/09/20 Unknown Rx Strength] Albuterol Sulfate [Proair 90 mcg IH Q4HR PRN #2 aer.pow.ba 02/09/20 Unknown Rx Respiclick] Capsaicin 0.075% [Zostrix Hp 1 applicatio TP TID #1 tube 02/09/20 Unknown Rx 0.075%] Ibuprofen [Motrin] 600 mg PO Q8H PRN #30 tablet 02/09/20 Unknown Rx ALBUTEROL NEB's [Proventil 0.083% 2.5 mg IH TID PRN #30 neb 07/30/20 Unknown Rx NEBS] Albuterol Mdi (or & Nicu Only) 2 puff IH QID PRN #1 inhalation 07/30/20 Unknown Rx [ProAir HFA Inhaler] Benzonatate [Tessalon Perles] 100 mg PO Q8HR #20 capsule 07/30/20 Unknown Rx predniSONE [Deltasone] 50 mg PO QDAY #5 tab 07/30/20 Unknown Rx Aspirin 325 mg PO QDAY #30 tablet 08/04/20 Unknown Rx Aspirin EC [Halfprin EC] 81 mg PO QDAY #100 tablet. 08/04/20 Unknown Rx Clopidogrel [Plavix] 75 mg PO QDAY #30 tablet 08/04/20 Unknown Rx Insulin NPH/Regular [NovoLIN 70/30] 10 unit SUB-Q BIDDIAB #1 vial 08/04/20 Un known Rx Ipratropium/Albuterol Sulfate 1 ampul IH TIDRT #50 ampul.neb 08/04/20 Unknown Rx [DUONEB *Not for PRN Use*] Montelukast [Singulair] 10 mg PO QHS #30 tablet 08/04/20 Unknown Rx Valsartan 80 mg PO QDAY #30 tablet 08/04/20 Unknown Rx amLODIPine 5 mg PO QDAY #30 tablet 08/04/20 Unknown Rx metFORMIN [Glucophage] 500 mg PO QDDIAB #30 tablet 08/04/20 Unknown Rx Review of Systems Constitutional: weakness, poor appetite, no weight loss, no sweats Ears, nose, mouth and throat: no ear pain, no ear discharge, no tinnitis, no nasal discharge Cardiovascular: no chest pain, no orthopnea, no rapid/irregular heart beat, no edema, no syncope Respiratory: no cough, no cough with sputum, no hemoptysis Gastrointestinal: no abdominal pain, no nausea, no vomiting, no diarrhea, no hematemesis Genitourinary Male: no hematuria, no flank pain, no discharge, no urinary frequency, no urinary hesitancy, no nocturia Rectal: no pain, no incontinence, no bleeding Musculoskeletal: no shooting arm pain, no arm numbness/tingling, no shooting leg pain, no redness of joints Integumentary: no rash, no pruritis, no redness, no sores, no wounds, no j aundice, no blisters Neurological: no head injury, no transient paralysis, no paralysis, no weakness, no numbness, no tingling, no syncope, no tremors, no ataxia Psychiatric: no anxiety, no memory loss, no change in sleep habits, no sleep disturbances, no insomnia, no change in appetite, no suicidal ideation, no disorientation, no hallucinations Endocrine: no cold intolerance, no heat intolerance, no polyphagia, no excessive thirst, no polydipsia, no polyuria, no nocturia, no excessive sweating Hematologic/Lymphatic: no easy bruising, no easy bleeding Allergic/Immunologic: no urticaria, no allergic rhinitis, no wheezing Exam - Constitutional Vitals: Temp Pulse Resp BP Pulse Ox 97.9 F 66 18 134/74 97 11/20/20 09:03 11/20/20 11:16 11/20/20 11:16 11/20/20 11:16 11/20/20 11:16 General appearance: Present: mild distress - EENT Eyes: Present: PERRL ENT: hearing intact, clear oral mucosa - Neck Neck: Present: supple, normal ROM - Respiratory Respiratory effort: normal Respiratory: bilateral: CTA - Cardiovascular Heart Sounds: Present: S1 & S2. Absent: rub, click - Extremities Extremities: pulses symmetrical, No edema Peripheral Pulses: within normal limits - Abdominal General gastrointestinal: Present: soft, non-tender, non-distended, normal bowel sounds Male genitourinary: Present: normal - Integumentary Integumentary: Present: clear, warm, dry - Musculoskeletal Musculoskeletal: gait normal, strength equal bilaterally - Psychiatric Psychiatric: appropriate mood/affect, intact judgment & insight - Neurologic Neurologic: CNII-XII intact, moves all extremities HEART Score - HEART Score Troponin: Troponin T < 0.010 ng/mL (0.00-0.029) 11/20/20 07:55 Results - Labs CBC & Chem 7: 11/20/20 05:15 11/20/20 05:15 Labs: Abnormal lab results 11/20/20 11/20/20 11/20/20 Range/Units 05:15 05:15 07:55 RBC 5.27 H (3.65-5.03) M/mm3 Hgb 16.1 H (11.8-15.2) gm/dl Hct 47.4 H (35.5-45.6) % BUN 22 H (9-20) mg/dL Glucose 197 H (75-100) mg/dL Total Creatine Kinase 198 H (55-170) units/L Assessment and Plan - Patient Problems (1) Debility Current Visit: Yes Status: Acute Plan to address problem: Physical therapy consulted, Occupational Therapy consulted, supportive care. (2) DVT prophylaxis Current Visit: Yes Status: Acute Plan to address problem: SCD to bilateral lower extremities while in bed, patient is ambulatory (3) Advance care planning Current Visit: Yes Status: Acute Plan to address problem: Disease education conducted, care plan discussed, diagnosis discussed, prognosis discussed, patient knowledges homelessness, patient knowledges understanding agree with care plan, +30 minutes.
--- NOTE | 2020-11-20 12:41 | XRay Report ---
LEFT FEMUR 2 VIEWS INDICATION: left leg pain, fall. COMPARISON: None. IMPRESSION: No acute osseous or soft tissue abnormality. Mild osteoarthritic changes are noted at the left knee. LEFT TIBIA AND FIBULA 2 VIEWS INDICATION: left leg pain, fall. COMPARISON: None. IMPRESSION: No acute osseous or soft tissue abnormality. Signer Name: Mac Kaur Jr, MD Signed: 11/20/2020 12:37 PM Workstation Name: [id number]
[2020-11-20] MEDS ORDERED: HYDROmorphone 1 MG/1 ML INJ IV PRN (14:00)
[2020-11-20] MEDS ORDERED: ACETAMINOPHEN 325 MG TAB PO PRN (14:00)
[2020-11-20] MEDS ORDERED: ONDANSETRON 4 MG/2 ML INJ IV PRN (14:00)
[2020-11-20] MEDS ORDERED: oxyCODONE /ACETAMINOPHEN 5-325MG TAB PO PRN (14:00)
[2020-11-20] MEDS: ALBUTEROL 2.5 MG/3 ML NEBU IH PRN (20:12)
[2020-11-20] MEDS: SODIUM CHLORIDE 0.9% 1000 ML 1,000 ML IV SCH (23:00)
[2020-11-21] MEDS: ALBUTEROL 2.5 MG/3 ML NEBU IH PRN (05:33)
[2020-11-21] MEDS: SODIUM CHLORIDE 0.9% 1000 ML 1,000 ML IV SCH ×2 (09:17→23:10)
[2020-11-21] MEDS ORDERED: ACETAMINOPHEN 500 MG TAB PO PRN (09:22)
[2020-11-21] MEDS ORDERED: ALBUTEROL 2.5 MG/3 ML NEBU IH PRN (09:22)
[2020-11-21] MEDS: ASPIRIN 325 MG TAB PO SCH (09:44)
[2020-11-21] MEDS: metFORMIN 500 MG TAB PO SCH (09:44)
[2020-11-21] MEDS: amLODIPine 5 MG TAB PO SCH (09:44)
[2020-11-21] MEDS ORDERED: VALSARTAN 80 MG PO SCH (10:00)
--- NOTE | 2020-11-21 10:35 | Electrocardiograph Report ---
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
--- NOTE | 2020-11-21 12:56 | Discharge Summary ---
Providers - Providers Date of Admission: 11/20/20 13:07 Date of discharge: 11/21/20 Attending physician: DARREN DECKER 11/20/20 13:10 Occupational Therapy Evaluate and Treat [CONS] Routine Comment: Reason For Exam: weak Physical Therapy Evaluation and Treat [CONS] Stat Comment: Reason For Exam: weak 11/20/20 14:27 Consult to Case Management [CONS] Routine Services Needed at Discharge: Other Notified:: in am Additional Physician Instructions: Assisted Living facility placement. Primary care physician: CARE WORKER Hospitalization Condition: Fair Pertinent studies: Head CT, no acute abnormality or change from prior exam tibia-fibula x-ray, femur x-ray: No osseous or soft tissue abnormality Hospital course: 60 YO Male with HTN, DM, Nicotine Dependence, Asthma/COPD, CVA presents to ED for evaluation of pain and weakness. Pt states that he has experienced generalized weakness and multiple falls which result in the patient having difficulty standing and walking after a prolonged period of walking. The patient was seen and evaluated in the emergency department. All lab and imaging studies reviewed. The patient was found to have debility, as well as weakness out of proportion to exam and interview. Prior admission on 07/31/2020 reviewed. All medication listed at time of admission has been reconciled. Patient also reviewed he is homeless and does not have anywhere to stay, case fitter was consulted for placement issue. Patient was evaluated by physical therapy and recommended roller walker. Patient's vitals were monitored and was stable. He was able to tolerate diet and he was ambulatory. Case management and recommended discharge patient to homeless alf. Patient was explained plan of care and he was agreeable with the plan. He was given prescriptions for all medications and recommended to follow-up outpatient with Dr. Cleveland in 1 week. Disposition: - TO HOME OR SELFCARE Final Discharge Diagnosis (Prints w/discharge instructions): Asthma/COPD, diabetes, hypertension, h/o stroke Time spent for discharge: 34 minutes Core Measure Documentation - Palliative Care Palliative Care/ Comfort Measures: Not Applicable - Core Measures Any of the following diagnoses?: history only Exam - Physical Exam Narrative exam: GENERAL: well-developed and well-nourished elderly male sitting in a chair appeared to be in no discomfort. HEENT: Normocephalic. Atraumatic. No conjunctival congestion or icterus. Patie nt has moist mucous membranes. NECK: Supple. Trachea midline. CHEST/LUNGS: Few wheezes auscultated bilaterally, breathing nonlabored. No crackles or rhonchi HEART/CARDIOVASCULAR: Regular in rate and rhythm. S1 and S2 positive. ABDOMEN: Abdomen is soft, nontender. Patient has normal bowel sounds. SKIN: There is no rash. Warm and dry. NEURO: No focal motor deficit. Follows command. MUSCULOSKELETAL: No joint effusion or tenderness. EXTRIMITY: No edema, no cyanosis or clubbing. PSYCH: Cooperative. - Constitutional Vitals: Temp Pulse Resp BP Pulse Ox 98.8 F 77 20 148/81 96 11/21/20 04:46 11/21/20 05:33 11/21/20 05:33 11/21/20 04:46 11/21/20 04:46 Plan Activity: advance as tolerated Weight Bearing Status: Weight Bear as Tolerated Diet: low fat, low salt Follow up with: PRIMARY CARE, [Primary Care Provider] - 3-5 Days Forms: Discharge Signature Page Prescriptions: Pravastatin [Pravachol] 40 mg PO QHS #30 tablet amLODIPine 5 mg PO QDAY #30 tablet Aspirin 325 mg PO QDAY #30 tablet predniSONE [Deltasone] 50 mg PO QDAY #5 tab metFORMIN [Glucophage] 500 mg PO QDDIAB #60 tablet Insulin NPH/Regular [NovoLIN 70/30] 10 unit SUB-Q BIDDIAB #1 vial Albuterol Mdi (or & Nicu Only) [ProAir HFA Inhaler] 2 puff IH Q6H PRN #1 inh PRN Reason: Shortness Of Breath Benzonatate [Tessalon Perles] 100 mg PO Q8HR #20 capsule Ipratropium/Albuterol Sulfate [DUONEB *Not for PRN Use*] 1 ampul IH TIDRT #50 ampul.neb
[2020-11-21] MEDS: IPRATROPIUM/ALBUTEROL SULFATE 3 ML AMPUL.NEB IH SCH ×2 (15:17→21:11)
[2020-11-21] MEDS: INSULIN NPH/REGULAR 70/30 INJ SUB-Q SCH (17:00)
[2020-11-22] MEDS: IPRATROPIUM/ALBUTEROL SULFATE 3 ML AMPUL.NEB IH SCH (08:18)
[2020-11-22] MEDS: ASPIRIN 325 MG TAB PO SCH (10:33)
[2020-11-22] MEDS: amLODIPine 5 MG TAB PO SCH (10:34)
[2020-11-22] MEDS: INSULIN NPH/REGULAR 70/30 INJ SUB-Q SCH (10:35)
[2020-11-22] MEDS: metFORMIN 500 MG TAB PO SCH (10:35)
[2020-11-22 11:42] VITALS: BP 140/69
--- NOTE | 2020-11-22 12:48 | Event Note ---
Date: 11/22/20 Patient was not discharged yesterday due to social issue Patient is homeless and Per CM patient will be going [place] [facility], bus passes been given Patient verbalized understanding and in agreement with the discharge plan
== END 2020-11-22 12:34 | disposition home or self-care (01) ==
LOC: ED 03:27 → 3A 13:07
PROVIDERS: ADMIT Internal Medicine; ATTEND Internal Medicine
DX: R26.81 Unsteadiness on feet (principal); R53.81 Other malaise; E46 Unspecified protein-calorie malnutrition; I10 Essential (primary) hypertension; J44.9 Chronic obstructive pulmonary disease, unspecified; E11.9 Type 2 diabetes mellitus without complications; F17.210 Nicotine dependence, cigarettes, uncomplicated; R26.9 Unspecified abnormalities of gait and mobility; Z79.4 Long term (current) use of insulin; Z79.82 Long term (current) use of aspirin; W19.XXXA Unspecified fall, initial encounter; Y92.89 Other specified places as the place of occurrence of the external cause; Y93.89 Activity, other specified; Y99.8 Other external cause status
CPT/HCPCS: 36415; 70450; 73552; 73590; 80053; 81001; 82550; 82962; 84443; 84484; 85025; 93005; 94640; 96360; 96361; 96372; 97116; 97162; 97165; 99285; G0378; J7030; 80320; G0480; J1815

== ENCOUNTER 2020-11-28 23:43 | Emergency (ER) | payer BC ==
[2020-11-29 02:00] LABS: Basophils # (Auto) 0.1 K/mm3 (0.0-0.1); Basophils % (Auto) 0.7 % (0.0-1.8); Eosinophils # (Auto) 0.3 K/mm3 (0.0-0.4); Eosinophils % (Auto) 3.5 % (0.0-4.3); Hematocrit 47.9 % (35.5-45.6); Lymphocytes # (Auto) 2.5 K/mm3 (1.2-5.4); Lymphocytes % (Auto) 27.2 % (13.4-35.0); Mean Corpuscular HGB Conc 33 % (32-34); Mean Corpuscular Volume 90 fl (84-94); Monocytes # (Auto) 0.8 K/mm3 (0.0-0.8); Monocytes % (Auto) 8.2 % (0.0-7.3); Platelet Count 283 K/mm3 (140-440); Red Blood Count 5.33 M/mm3 (3.65-5.03); Red Cell Distribution Width 14.1 % (13.2-15.2)
[2020-11-29 02:22] LABS: Alanine Aminotransferase 14 units/L (7-56); Albumin 4.8 g/dL (3.9-5); BUN/Creatinine Ratio 28; Blood Urea Nitrogen 25 mg/dL (9-20); Calcium 9.7 mg/dL (8.4-10.2); Hemolysis Index 9
--- NOTE | 2020-11-29 03:25 | Emergency Department Report ---
ED Dizziness HPI - General Chief Complaint: Dizziness Stated Complaint: DIZZINESS Time Seen by Provider: 11/29/20 03:12 Source: patient Mode of arrival: Wheelchair Limitations: No Limitations - History of Present Illness Initial Comments: Patient is a 60-year-old male that presents emergency room with complaints of dizziness and difficulty walking. Patient states the symptoms been going on for a year. Patient states HE has been to multiple ERs and has not been able to see improvement. Patient states it is intermittent. Patient states the dizziness is worse over the last 3 days.. Patient states she wants to be seen to see if there is anything that can be done about it. Patient denies chest pain. Patient denies shortness of breath or patient denies other physical complaints. Patient denies blurry vision. Patient denies headache. Patient denies stiff neck. Patient denies fever. Patient denies pain in the neck. Patient denies recent travel. Patient denies recent international travel. Patient denies exposure to the novel coronavirus. Patient denies sick contacts. Patient denies fever and chills. Patient denies cough. Patient denies diarrhea. Patient denies coming in contact with anybody with symptoms of the novel coronavirus. MD Complaint: dizziness, difficulty walking -: Sudden, year(s) Timing: sudden onset History of Same: Yes History of Trauma: No Severity: severe Improves With: remaining still, rest Worsens With: movement, position, exertion Associated Symptoms: denies: ataxia, chest pain, confusion, cough, diaphoresis, fever/chills, loss of appetite, malaise, rash, seizure, shortness of breath, syncope, weakness - Related Data Previous Rx's Medication Instructions Recorded Last Taken Type Montelukast [Singulair] 10 mg PO QHS #30 tablet 08/04/20 Unknown Rx Albuterol Mdi (or & Nicu Only) 2 puff IH Q6H PRN #1 inh 11/21/20 Unknown Rx [ProAir HFA Inhaler] Aspirin 325 mg PO QDAY #30 tablet 11/21/20 Unknown Rx Benzonatate [Tessalon Perles] 100 mg PO Q8HR #20 capsule 11/21/20 Unknown Rx Insulin NPH/Regular [NovoLIN 70/30] 10 unit SUB-Q BIDDIAB #1 vial 11/21/20 Unknown Rx Ipratropium/Albuterol Sulfate 1 ampul IH TIDRT #50 ampul.neb 11/21/20 Unknown Rx [DUONEB *Not for PRN Use*] Pravastatin [Pravachol] 40 mg PO QHS #30 tablet 11/21/20 Unknown Rx amLODIPine 5 mg PO QDAY #30 tablet 11/21/20 Unknown Rx metFORMIN [Glucophage] 500 mg PO QDDIAB #60 tablet 11/21/20 Unknown Rx predniSONE [Deltasone] 50 mg PO QDAY #5 tab 11/21/20 Unknown Rx Meclizine [Antivert] 25 mg PO TID PRN #12 tablet 11/29/20 Unknown Rx Allergies Allergy/AdvReac Type Severity Reaction Status Date / Time No Known Allergies Allergy Verified 11/20/20 16:27 ED Review of Systems ROS: Stated complaint: DIZZINESS Other details as noted in HPI Constitutional: denies: chills, fever Eyes: denies: eye pain, eye discharge, vision change ENT: denies: ear pain, throat pain Respiratory: denies: cough, shortness of breath, wheezing Cardiovascular: denies: chest pain, palpitations Endocrine: no symptoms reported Gastrointestinal: denies: abdominal pain, nausea, diarrhea Genitourinary: denies: urgency, dysuria Musculoskeletal: denies: back pain, joint swelling, arthralgia Skin: denies: rash, lesions Neurological: as per HPI. denies: headache, weakness, paresthesias Psychiatric: denies: anxiety, depression Hematological/Lymphatic: denies: easy bleeding, easy bruising ED Past Medical Hx - Past Medical History Previous Medical History?: Yes Hx Hypertension: Yes Hx CVA: Yes Hx Heart Attack/AMI: No Hx Congestive Heart Failure: No Hx Diabetes: Yes Hx Sickle Cell Disease: No Hx Asthma: Yes Hx COPD: Yes Hx HIV: No Additional medical history: Shingles - Surgical History Past Surgical History?: No - Family History Family history: no significant - Social History Smoking Status: Never Smoker Substance Use Type: None - Medications Home Medications: Home Medications Medication Instructions Recorded Confirmed Last Taken Type Montelukast [Singulair] 10 mg PO QHS #30 tablet 08/04/20 11/21/20 Unknown Rx Albuterol Mdi (or & Nicu Only) 2 puff IH Q6H PRN #1 inh 11/21/20 Unknown Rx [ProAir HFA Inhaler] Aspirin 325 mg PO QDAY #30 tablet 11/21/20 Unknown Rx Benzonatate [Tessalon Perles] 100 mg PO Q8HR #20 capsule 11/21/20 Unknown Rx Insulin NPH/Regular [NovoLIN 70/30] 10 unit SUB-Q BIDDIAB #1 vial 11/21/20 Unknown Rx Ipratropium/Albuterol Sulfate 1 ampul IH TIDRT #50 ampul.neb 11/21/20 Unknown Rx [DUONEB *Not for PRN Use*] Pravastatin [Pravachol] 40 mg PO QHS #30 tablet 11/21/20 Unknown Rx amLODIPine 5 mg PO QDAY #30 tablet 11/21/20 Unknown Rx metFORMIN [Glucophage] 500 mg PO QDDIAB #60 tablet 11/21/20 Unknown Rx predniSONE [Deltasone] 50 mg PO QDAY #5 tab 11/21/20 Unknown Rx Meclizine [Antivert] 25 mg PO TID PRN #12 tablet 11/29/20 Unknown Rx ED Physical Exam - General Limitations: No Limitations General appearance: alert, in no apparent distress - Head Head exam: Present: atraumatic, normocephalic - Eye Eye exam: Present: normal appearance - ENT ENT exam: Present: mucous membranes moist - Neck Neck exam: Present: normal inspection - Respiratory Respiratory exam: Present: normal lung sounds bilaterally. Absent: respiratory distress - Cardiovascular Cardiovascular Exam: Present: regular rate, normal rhythm. Absent: systolic murmur, diastolic murmur, rubs, gallop - GI/Abdominal GI/Abdominal exam: Present: soft, normal bowel sounds - Rectal Rectal exam: Present: deferred - Extremities Exam Extremities exam: Present: normal inspection - Back Exam Back exam: Present: normal inspection - Neurological Exam Neurological exam: Present: alert, oriented X3, CN II-XII intact, normal gait. Absent: abnormal gait - Psychiatric Psychiatric exam: Present: normal affect, normal mood - Skin Skin exam: Present: warm, dry, intact, normal color. Absent: rash ED Course Vital Signs 11/29/20 01:01 Temperature 97.5 F L Pulse Rate 68 Respiratory 16 Rate Blood Pressure 146/76 O2 Sat by Pulse 100 Oximetry - Reevaluation(s) Reevaluation #1: Patient states he needs a breathing treatment. Patient lung sounds are clear. Patient will be given a DuoNeb and then discharged home. I discussed all results and clinical findings with patient. I discussed plan of care with patient. Patient agrees with plan of care. Patient is stable for discharge. Patient will be discharged home. Patient given discharge instructions. Patient voiced understanding of discharge instructions. 11/29/20 05:58 ED Medical Decision Making - Lab Data Result diagrams: 11/29/20 01:21 11/29/20 01:21 - EKG Data -: EKG Interpreted by Me EKG shows normal: sinus rhythm, axis, intervals, QRS complexes, ST-T waves Rate: normal - Radiology Data Radiology results: report reviewed CT HEAD WITHOUT CONTRAST INDICATION / CLINICAL INFORMATION: dizziness. TECHNIQUE: All CT scans at this location are performed using CT dose reduction for ALARA by means of automated exposure control. COMPARISON: 11/20/2020 FINDINGS: HEMORRHAGE: None. EXTRA-AXIAL SPACES: Mildly prominent likely related to cortical atrophy. VENTRICULAR SYSTEM: Normal in size and morphology for the patient's age. CEREBRAL PARENCHYMA: There are remote infarcts in the right frontal high convex ity and bilateral parietal convexities are again noted. Calcifications are unchanged. MIDLINE SHIFT / HERNIATION: None. CEREBELLUM / BRAINSTEM: No significant abnormality. ORBITS: Normal as visualized. SOFT TISSUES: No significant abnormality. SKULL: No significant abnormality. PARANASAL SINUSES / MASTOID AIR CELLS: Normal as visualized. ADDITIONAL FINDINGS: None. IMPRESSION: 1. No acute intracranial abnormality. - Medical Decision Making Patient is a 60-year-old male presents emergency room with complaints of dizziness. Patient states his dizziness. But is worse over the last 3 days. Patient Had an EKG done which was negative for acute findings. Patient had a head CT which was negative for acute findings. Patient had labs done which were essentially unremarkable. Patient is stable for discharge. Patient does not require further emergency medical services. Patient does not require inpatient services. Patient will be discharged home. Patient will be given a prescription for meclizine. Patient instructed to increase water. Patient discharged home. Prior to discharge, the patient stated he needed a breathing treatment and the patient was given DuoNeb. Patient's lung sounds were clear but the patient was still given a DuoNeb and then discharged home. - Differential Diagnosis Dizziness, dehydration, Critical care attestation.: If time is entered above; I have spent that time in minutes in the direct care of this critically ill patient, excluding procedure time. ED Disposition Clinical Impression: Dizziness, Dehydration COPD (chronic obstructive pulmonary disease) Qualifiers: COPD type: unspecified COPD Qualified Code(s): J44.9 - Chronic obstructive pulmonary disease, unspecified Disposition: DC-01 TO HOME OR SELFCARE Is pt being admited?: No Does the pt Need Aspirin: No Condition: Stable Instructions: Dizziness, [id number], Dehydration, Adult, Chronic Obstructive Pulmonary Disease (ED) Additional Instructions: Patient to follow-up with primary care in 2 to 3 days. Patient to follow-up with neurologist in 2 to 3 days. Patient to rest. Patient to increase water. Patient to avoid strenuous exercise or heavy lifting until cleared by neurologist and primary care. Patient to take Tylenol or ibuprofen as needed for pain. Patient to take meds as directed. Patient to return to the ER if c ondition worsens, changes or new symptoms arise. Prescriptions: Meclizine [Antivert] 25 mg PO TID PRN #12 tablet PRN Reason: Vertigo Referrals: PRIMARY CAREMD [Primary Care Provider] - 2-3 Days CHATO MORA MD [Staff Physician] - 2-3 Days Time of Disposition: 06:02
--- NOTE | 2020-11-29 05:43 | Cat Scan Report ---
CT HEAD WITHOUT CONTRAST INDICATION / CLINICAL INFORMATION: dizziness. TECHNIQUE: All CT scans at this location are performed using CT dose reduction for ALARA by means of automated exposure control. COMPARISON: 11/20/2020 FINDINGS: HEMORRHAGE: None. EXTRA-AXIAL SPACES: Mildly prominent likely related to cortical atrophy. VENTRICULAR SYSTEM: Normal in size and morphology for the patient's age. CEREBRAL PARENCHYMA: There are remote infarcts in the right frontal high convexity and bilateral jordan etal convexities are again noted. Calcifications are unchanged. MIDLINE SHIFT / HERNIATION: None. CEREBELLUM / BRAINSTEM: No significant abnormality. ORBITS: Normal as visualized. SOFT TISSUES: No significant abnormality. SKULL: No significant abnormality. PARANASAL SINUSES / MASTOID AIR CELLS: Normal as visualized. ADDITIONAL FINDINGS: None. IMPRESSION: 1. No acute intracranial abnormality. Signer Name: Yobany Jordan MD Signed: 11/29/2020 5:39 AM Workstation Name: [id number]
[2020-11-29] MEDS ORDERED: IPRATROPIUM/ALBUTEROL SULFATE 3 ML AMPUL.NEB IH ONE (06:13)
[2020-11-29 06:44] VITALS: BP 100/67
--- NOTE | 2020-12-02 09:10 | Electrocardiograph Report ---
[facility] Test Date: 2020-11-29 Test Time: 05:32:57 Pat Name: DEVIN OROZCO Department: Room: Gender: M [employer] Maker: SAHIL : 1960 Requested By: JAZMYN GRANADOS III Order Number: [id number] Reading MD: Cj Evans Measurements Intervals [place] Rate: 72 P: 71 [place]: 135 QRS: 85 QRSD: 71 T: 75 QT: 379 QTc: 417 Interpretive Statements Sinus rhythm Compared to ECG 11/20/2020 10:17:10 ST (T wave) deviation no longer present Early repolarization no longer present Electronically Signed On 12-02-2020 9:09:51 EDT by Cj Evans
== END 2020-11-29 06:42 | disposition home or self-care (01) ==
LOC: ED 23:43
DX: J44.9 Chronic obstructive pulmonary disease, unspecified (principal); E86.0 Dehydration; R42 Dizziness and giddiness; I10 Essential (primary) hypertension; E11.9 Type 2 diabetes mellitus without complications; Z79.899 Other long term (current) drug therapy; Z86.73 Personal history of transient ischemic attack (TIA), and cerebral infarction without residual deficits
CPT/HCPCS: 36415; 70450; 80053; 84484; 85025; 93005; 94640; 94644

== ENCOUNTER 2021-02-14 05:57 | Emergency (ER) | payer BC ==
--- NOTE | 2021-02-14 06:12 | Emergency Department Report ---
ED Shortness of Breath HPI - General Stated Complaint: VERENA,DIZZINESS Time Seen by Provider: 02/14/21 06:08 Source: patient Mode of arrival: Ambulatory Limitations: No Limitations - History of Present Illness Initial Comments: Chief complaint: "I have been sick for over a year. I do not have money to fill the prescriptions." HPI: This is a 60-year-old male with history of nicotine dependence, hypertension, diabetes mellitus, asthma/COPD, CVA who presents with shortness of breath and dizziness. Patient arrived via EMS. He has been without albuterol and hypertensive medication due to lack of health insurance. He denies headache, cough, chest pain, abdominal pain, fever. Vital signs were normal according to EMS. Normal oxygen saturation on room air. Patient currently is in no distress.He has mild intermittent shortness of breath. He denies any dizziness or lightheadedness at this time. MD Complaint: shortness of breath -: days(s) (Several days) Severity: mild Consistency: intermittent Worsens With: medication Known History Of: COPD, asthma, other (Hypertension) - Related Data Previous Rx's Medication Instructions Recorded Last Taken Type Montelukast [Singulair] 10 mg PO QHS #30 tablet 08/04/20 Unknown Rx Albuterol Mdi (or & Nicu Only) 2 puff IH Q6H PRN #1 inh 11/21/20 Unknown Rx [ProAir HFA Inhaler] Aspirin 325 mg PO QDAY #30 tablet 11/21/20 Unknown Rx Benzonatate [Tessalon Perles] 100 mg PO Q8HR #20 capsule 11/21/20 Unknown Rx Insulin NPH/Regular [NovoLIN 70/30] 10 unit SUB-Q BIDDIAB #1 vial 11/21/20 Unknown Rx Ipratropium/Albuterol Sulfate 1 ampul IH TIDRT #50 ampul.neb 11/21/20 Unknown Rx [DUONEB *Not for PRN Use*] Pravastatin [Pravachol] 40 mg PO QHS #30 tablet 11/21/20 Unknown Rx amLODIPine 5 mg PO QDAY #30 tablet 11/21/20 Unknown Rx metFORMIN [Glucophage] 500 mg PO QDDIAB #60 tablet 11/21/20 Unknown Rx predniSONE [Deltasone] 50 mg PO QDAY #5 tab 11/21/20 Unknown Rx Meclizine [Antivert] 25 mg PO TID PRN #12 tablet 11/29/20 Unknown Rx Albuterol Mdi (or & Nicu Only) 2 puff IH QID PRN #8.5 gram 02/14/21 Unknown Rx [ProAir HFA Inhaler] amLODIPine 5 mg PO DAILY #30 tab 02/14/21 Unknown Rx Allergies Allergy/AdvReac Type Severity Reaction Status Date / Time No Known Allergies Allergy Verified 02/14/21 06:11 ED Review of Systems ROS: Stated complaint: VERENA,DIZZINESS Other details as noted in HPI Comment: All other systems reviewed and negative Constitutional: denies: chills, fever, malaise Respiratory: shortness of breath, wheezing. denies: cough Cardiovascular: denies: chest pain Gastrointestinal: denies: abdominal pain Neurological: denies: headache ED Past Medical Hx - Past Medical History Previous Medical History?: Yes Hx Hypertension: Yes Hx CVA: Yes Hx Heart Attack/AMI: No Hx Congestive Heart Failure: No Hx Diabetes: Yes Hx Sickle Cell Disease: No Hx Asthma: Yes Hx COPD: Yes Hx HIV: No Additional medical history: Shingles - Social History Smoking Status: Current Every Day Smoker Substance Use Type: None - Medications Home Medications: Home Medications Medication Instructions Recorded Confirmed Last Taken Type Montelukast [Singulair] 10 mg PO QHS #30 tablet 08/04/20 11/21/20 Unknown Rx Albuterol Mdi (or & Nicu Only) 2 puff IH Q6H PRN #1 inh 11/21/20 Unknown Rx [ProAir HFA Inhaler] Aspirin 325 mg PO QDAY #30 tablet 11/21/20 Unknown Rx Benzonatate [Tessalon Perles] 100 mg PO Q8HR #20 capsule 11/21/20 Unknown Rx Insulin NPH/Regular [NovoLIN 70/30] 10 unit SUB-Q BIDDIAB #1 vial 11/21/20 Unknown Rx Ipratropium/Albuterol Sulfate 1 ampul IH TIDRT #50 ampul.neb 11/21/20 Unknown Rx [DUONEB *Not for PRN Use*] Pravastatin [Pravachol] 40 mg PO QHS #30 tablet 11/21/20 Unknown Rx amLODIPine 5 mg PO QDAY #30 tablet 11/21/20 Unknown Rx metFORMIN [Glucophage] 500 mg PO QDDIAB #60 tablet 11/21/20 Unknown Rx predniSONE [Deltasone] 50 mg PO QDAY #5 tab 11/21/20 Unknown Rx Meclizine [Antivert] 25 mg PO TID PRN #12 tablet 11/29/20 Unknown Rx Albuterol Mdi (or & Nicu Only) 2 puff IH QID PRN #8.5 gram 02/14/21 Unknown Rx [ProAir HFA Inhaler] amLODIPine 5 mg PO DAILY #30 tab 02/14/21 Unknown Rx ED Physical Exam - General Limitations: No Limitations General appearance: alert, in no apparent distress - Head Head exam: Present: atraumatic, normocephalic - Eye Eye exam: Present: normal appearance - ENT ENT exam: Present: mucous membranes moist - Neck Neck exam: Present: normal inspection, full ROM - Respiratory Respiratory exam: Present: normal lung sounds bilaterally. Absent: respiratory distress, wheezes, rales, rhonchi - Cardiovascular Cardiovascular Exam: Present: regular rate, normal rhythm, normal heart sounds. Absent: systolic murmur, diastolic murmur, rubs, gallop - GI/Abdominal GI/Abdominal exam: Present: soft, normal bowel sounds. Absent: distended, tenderness, guarding, rebound - Rectal Rectal exam: Present: deferred - Extremities Exam Extremities exam: Present: normal inspection - Neurological Exam Neurological exam: Present: alert, oriented X3 - Psychiatric Psychiatric exam: Present: normal affect, normal mood - Skin Skin exam: Present: warm, dry, intact, normal color. Absent: rash ED Course Vital Signs 02/14/21 02/14/21 02/14/21 06:04 06:11 06:43 Temperature 97.6 F Pulse Rate 75 Pulse Rate [ 72 Bilateral Throughout] Respiratory 18 Rate Respiratory 16 Rate [Bilateral Throughout] Blood Pressure Blood Pressure 149/64 [Left] O2 Sat by Pulse 98 Oximetry 02/14/21 07:01 Temperature Pulse Rate 94 H Pulse Rate [ Bilateral Throughout] Respiratory 18 Rate Respiratory Rate [Bilateral Throughout] Blood Pressure 149/81 Blood Pressure [Left] O2 Sat by Pulse 100 Oximetry ED Medical Decision Making - Lab Data Result diagrams: 02/14/21 06:36 02/14/21 06:36 - Medical Decision Making This is a 60-year-old male with history of tobacco dependence, CVA, diabetes mellitus hypertension who presents with shortness of breath. CBC chemistry unremarkable vital signs unremarkable. Mildly elevated blood pressure. Glucose 170. Patient is resting comfortably supine position. No evidence of acute medical illness. In the emergency department he received DuoNeb treatment. I have prescribed amlodipine albuterol. Discharged to self-care Critical care attestation.: If time is entered above; I have spent that time in minutes in the direct care of this critically ill patient, excluding procedure time. ED Disposition Clinical Impression: Diabetes mellitus type 2 in nonobese, Asthma, Hypertension Disposition: 01 HOME / SELF CARE / HOMELESS Is pt being admited?: No Does the pt Need Aspirin: No Condition: Stable Instructions: Asthma (ED), Diabetes Mellitus Type 2 in Adults (ED), Hypertension (ED) Prescriptions: amLODIPine 5 mg PO DAILY #30 tab Albuterol Mdi (or & Nicu Only) [ProAir HFA Inhaler] 2 puff IH QID PRN #8.5 gram PRN Reason: Shortness Of Breath Referrals: JUNIE HUSAIN MD [Staff Physician] - 3-5 Days
[2021-02-14] MEDS ORDERED: IPRATROPIUM/ALBUTEROL SULFATE 3 ML AMPUL.NEB IH ONE (06:14)
[2021-02-14 06:49] LABS: Basophils # (Auto) 0.1 K/mm3 (0.0-0.1); Basophils % (Auto) 0.8 % (0.0-1.8); Eosinophils # (Auto) 0.4 K/mm3 (0.0-0.4); Eosinophils % (Auto) 6.2 % (0.0-4.3); Hematocrit 45.1 % (35.5-45.6); Hemoglobin 15.6 gm/dl (11.8-15.2); Lymphocytes # (Auto) 2.2 K/mm3 (1.2-5.4); Lymphocytes % (Auto) 30.4 % (13.4-35.0); Mean Corpuscular HGB Conc 35 % (32-34); Mean Corpuscular Volume 89 fl (84-94); Monocytes # (Auto) 0.7 K/mm3 (0.0-0.8); Monocytes % (Auto) 9.7 % (0.0-7.3); Platelet Count 179 K/mm3 (140-440); Red Blood Count 5.07 M/mm3 (3.65-5.03)
[2021-02-14 07:09] LABS: BUN/Creatinine Ratio 21; Blood Urea Nitrogen 19 mg/dL (9-20); Calcium 9.4 mg/dL (8.4-10.2); Hemolysis Index 4
[2021-02-14 07:18] VITALS: BP 149/81
== END 2021-02-14 08:52 | disposition home or self-care (01) ==
LOC: ED 05:57
DX: J44.9 Chronic obstructive pulmonary disease, unspecified (principal); I10 Essential (primary) hypertension; E11.8 Type 2 diabetes mellitus with unspecified complications; Z86.73 Personal history of transient ischemic attack (TIA), and cerebral infarction without residual deficits; B02.9 Zoster without complications; F17.200 Nicotine dependence, unspecified, uncomplicated
CPT/HCPCS: 36415; 80048; 85025; 94640; 94644; 99284

== ENCOUNTER 2021-03-31 17:22 | Emergency (ER) | payer BC ==
[2021-03-31] MEDS ORDERED: ALBUTEROL 2.5 MG/3 ML NEBU IH ONE (17:53)
[2021-03-31] MEDS ORDERED: IPRATROPIUM 0.02% NEBU 2.5 ML IH ONE (17:54)
[2021-03-31] MEDS ORDERED: methylPREDNISolone Sod Succinate 125 MG/2 ML INJ IV ONE (17:54)
--- NOTE | 2021-03-31 18:07 | Emergency Department Report ---
HPI - General Chief Complaint: Adult Asthma Time Seen by Provider: 03/31/21 17:49 - HPI HPI: 61-year-old male presents to the emergency department with complaint of shortness of breath that is worse at night, wheezing, and some dizziness/lightheadedness. The patient denies any current chest pain but says that he gets some intermittently but also that the pain "moves all around." He has a past medical history of asthma, COPD, insulin-dependent diabetes, previous CVA, tobacco abuse/dependence. The patient has not taken anything for symptoms prior to presentation. Overall this has been going on for the past few days. No recent travel or sick contacts at home. He denies any fever, lower extremity swelling, nausea, vomiting, back pain or diaphoresis. ED Past Medical Hx - Past Medical History Hx Hypertension: Yes Hx CVA: Yes Hx Heart Attack/AMI: No Hx Congestive Heart Failure: No Hx Diabetes: Yes Hx Sickle Cell Disease: No Hx Asthma: Yes Hx COPD: Yes Hx HIV: No Additional medical history: Shingles - Social History Smoking Status: Current Every Day Smoker Substance Use Type: None - Medications Home Medications: Home Medications Medication Instructions Recorded Confirmed Last Taken Type Montelukast [Singulair] 10 mg PO QHS #30 tablet 08/04/20 11/21/20 Unknown Rx Albuterol Mdi (or & Nicu Only) 2 puff IH Q6H PRN #1 inh 11/21/20 Unknown Rx [ProAir HFA Inhaler] Aspirin 325 mg PO QDAY #30 tablet 11/21/20 Unknown Rx Benzonatate [Tessalon Perles] 100 mg PO Q8HR #20 capsule 11/21/20 Unknown Rx Insulin NPH/Regular [NovoLIN 70/30] 10 unit SUB-Q BIDDIAB #1 vial 11/21/20 Unknown Rx Ipratropium/Albuterol Sulfate 1 ampul IH TIDRT #50 ampul.neb 11/21/20 Unknown Rx [DUONEB *Not for PRN Use*] Pravastatin [Pravachol] 40 mg PO QHS #30 tablet 11/21/20 Unknown Rx amLODIPine 5 mg PO QDAY #30 tablet 11/21/20 Unknown Rx metFORMIN [Glucophage] 500 mg PO QDDIAB #60 tablet 11/21/20 Unknown Rx predniSONE [Deltasone] 50 mg PO QDAY #5 tab 11/21/20 Unknown Rx Meclizine [Antivert] 25 mg PO TID PRN #12 tablet 11/29/20 Unknown Rx amLODIPine 5 mg PO DAILY #30 tab 02/14/21 Unknown Rx ALBUTEROL NEB's [Proventil 0.083% 2.5 mg IH TID PRN #1 box 03/31/21 Unknown Rx NEBS] Albuterol Mdi (or & Nicu Only) 2 puff IH QID PRN #8.5 gram 03/31/21 Unknown Rx [ProAir HFA Inhaler] predniSONE [Deltasone] 20 mg PO BID #8 tab 03/31/21 Unknown Rx ED Review of Systems ROS: Stated complaint: asthma Other details as noted in HPI Comment: All other systems reviewed and negative Constitutional: denies: chills, fever Eyes: denies: eye pain, vision change ENT: denies: ear pain, throat pain Respiratory: shortness of breath, wheezing Cardiovascular: chest pain (Intermittent). denies: edema Gastrointestinal: denies: abdominal pain, vomiting Genitourinary: denies: dysuria, discharge Musculoskeletal: denies: back pain, joint swelling Skin: denies: rash, lesions Neurological: other (Dizziness/lightheadedness). denies: headache Physical Exam - Physical Exam Vital Signs: Vital Signs 03/31/21 17:37 Temperature 98.1 F Pulse Rate 89 Respiratory 14 Rate Blood Pressure 149/83 [Right] O2 Sat by Pulse 98 Oximetry Physical Exam: GENERAL: The patient is well-developed well-nourished. HENT: Normocephalic. Atraumatic. Patient has moist mucous membranes. EYES: Extraocular motions are intact. NECK: Supple. Trachea is midline. CHEST/LUNGS: Moderate expiratory wheezing. No tachypnea or accessory muscle use. There is no respiratory distress noted. HEART/CARDIOVASCULAR: Regular. There is no tachycardia. There is no murmur. ABDOMEN: Abdomen is soft, nontender. Patient has normal bowel sounds. SKIN: Skin is warm and dry. NEURO: The patient is awake, alert, and oriented. The patient is cooperative. The patient has no focal neurologic deficits. Normal speech. MUSCULOSKELETAL: There is no tenderness or deformity. There is no limitation range of motion. ED Course Vital Signs 03/31/21 17:37 Temperature 98.1 F Pulse Rate 89 Respiratory 14 Rate Blood Pressure 149/83 [Right] O2 Sat by Pulse 98 Oximetry ED Medical Decision Making - Lab Data Result diagrams: 03/31/21 17:58 03/31/21 17:58 Lab Results 03/31/21 03/31/21 03/31/21 Range/Units 17:58 17:58 17:58 WBC 7.7 (4.5-11.0) K/mm3 RBC 5.68 H (3.65-5.03) M/mm3 Hgb 16.4 H (11.8-15.2) gm/dl Hct 50.2 H (35.5-45.6) % MCV 88 (84-94) fl MCH 29 (28-32) pg MCHC 33 (32-34) % RDW 13.9 (13.2-15.2) % Plt Count 204 (140-440) K/mm3 Lymph % (Auto) 27.5 (13.4-35.0) % [place] % (Auto) 8.9 H (0.0-7.3) % Eos % (Auto) 6.5 H (0.0-4.3) % Baso % (Auto) 1.0 (0.0-1.8) % Lymph # (Auto) 2.1 (1.2-5.4) K/mm3 [place] # (Auto) 0.7 (0.0-0.8) K/mm3 Eos # (Auto) 0.5 H (0.0-0.4) K/mm3 Baso # (Auto) 0.1 (0.0-0.1) K/mm3 Seg Neutrophils % 56.1 (40.0-70.0) % Seg Neutrophils # 4.3 (1.8-7.7) K/mm3 Sodium 138 (137-145) mmol/L Potassium 4.4 (3.6-5.0) mmol/L Chloride 104.2 (98-107) mmol/L Carbon Dioxide 22 (22-30) mmol/L Anion Gap 16 mmol/L BUN 14 (9-20) mg/dL Creatinine 0.7 L (0.8-1.3) mg/dL Estimated GFR > 60 ml/min BUN/Creatinine Ratio 20 % Glucose 212 H (75-100) mg/dL Calcium 9.1 (8.4-10.2) mg/dL Troponin T < 0.010 (0.00-0.029) ng/mL NT-Pro-B Natriuret Pep 76.07 (0-900) pg/mL - EKG Data -: EKG Interpreted by Me EKG shows normal: sinus rhythm, axis, intervals, QRS complexes, ST-T waves Rate: tachycardia (103 bpm) - EKG Data When compared to previous EKG there are: no significant change Interpretation: unchanged when compared t (11/29/20) - Radiology Data Radiology results: image reviewed interpreted by me: Chest x-ray does not show any acute process. There are no pleural effusions, obvious pneumonia and there is no pneumothorax. No widened mediastinum. - Medical Decision Making This patient presents to the emergency department with a few days of shortness of breath, wheezing that he says is worse at night. On examination he has moderate expiratory wheezing, but does not appear in any respiratory distress. Chest x-ray does not show any pneumonia, pleural effusions, pneumothorax, widened mediastinum, or any other acute process. EKG does not have any morphology consistent with ST elevation myocardial infarction. Labs are mostly unremarkable including CBC, metabolic panel, negative troponin and normal proBNP. The patient was given IV Solu-Medrol and a extended breathing treatment with both albuterol and Atrovent. Upon evaluation he is greatly improved and a lso feels greatly improved. Vital signs reassuring including being afebrile and no hypoxia. For all these reasons patient appears safe for discharge home at this time. He has been given an albuterol inhaler, refill of his albuterol nebulizer treatments, and a course of steroids. He has been given outpatient referral for primary care. Critical Care Time: No Critical care attestation.: If time is entered above; I have spent that time in minutes in the direct care of this critically ill patient, excluding procedure time. ED Disposition Clinical Impression: Bronchospasm, Tobacco use disorder Asthma exacerbation Qualifiers: Asthma severity: unspecified severity Asthma persistence: unspecified Qualified Code(s): J45.901 - Unspecified asthma with (acute) exacerbation Disposition: HOME / SELF CARE / HOMELESS Is pt being admited?: No Condition: Stable Instructions: Bronchospasm, Adult, Asthma Attack Additional Instructions: Please follow-up with a primary care physician in the next few days. I have given you a referral for a local primary care physician, Dr. Pardo, and a primary care clinic, [facility]. Please try and quit smoking. Take all medications as prescribed. Return to the emergency department with any worsening of your symptoms, new or concerning symptoms not addressed during this current emergency department visit, or with any acute distress. Prescriptions: predniSONE [Deltasone] 20 mg PO BID #8 tab Albuterol Mdi (or & Nicu Only) [ProAir HFA Inhaler] 2 puff IH QID PRN #8.5 gram PRN Reason: Shortness Of Breath ALBUTEROL NEB's [Proventil 0.083% NEBS] 2.5 mg IH TID PRN #1 box PRN Reason: Wheezing Referrals: PRIMARY CAREMD [Primary Care Provider] - 3-5 Days JUNIE PARDO MD [Staff Physician] - 3-5 Days [facility] [Provider Group] - 3-5 Days Time of Disposition: 19:30
[2021-03-31 18:10] LABS: Basophils # (Auto) 0.1 K/mm3 (0.0-0.1); Eosinophils # (Auto) 0.5 K/mm3 (0.0-0.4); Eosinophils % (Auto) 6.5 % (0.0-4.3); Hematocrit 50.2 % (35.5-45.6); Hemoglobin 16.4 gm/dl (11.8-15.2); Lymphocytes # (Auto) 2.1 K/mm3 (1.2-5.4); Lymphocytes % (Auto) 27.5 % (13.4-35.0); Mean Corpuscular HGB Conc 33 % (32-34); Mean Corpuscular Volume 88 fl (84-94); Monocytes # (Auto) 0.7 K/mm3 (0.0-0.8); Monocytes % (Auto) 8.9 % (0.0-7.3); Platelet Count 204 K/mm3 (140-440); Red Blood Count 5.68 M/mm3 (3.65-5.03); Red Cell Distribution Width 13.9 % (13.2-15.2)
--- NOTE | 2021-03-31 18:32 | XRay Report ---
CHEST 2 VIEWS INDICATION / CLINICAL INFORMATION: SOB. COMPARISON: 07/31/2020 FINDINGS: SUPPORT DEVICES: None. HEART / MEDIASTINUM: No significant abnormality. LUNGS / PLEURA: No significant pulmonary or pleural abnormality. No pneumothorax. ADDITIONAL FINDINGS: No significant additional findings. IMPRESSION: 1. No acute findings. Signer Name: Janes Doty MD Signed: 03/31/2021 6:27 PM Workstation Name: [id number]
[2021-03-31 18:36] LABS: Blood Urea Nitrogen 14 mg/dL (9-20); Calcium 9.1 mg/dL (8.4-10.2); Hemolysis Index 10
[2021-03-31 18:42] LABS: BUN/Creatinine Ratio 20
[2021-03-31 21:11] VITALS: BP 138/76
--- NOTE | 2021-04-02 10:37 | Electrocardiograph Report ---
[facility] Test Date: 2021-03-31 Test Time: 19:26:03 Pat Name: DEVIN OROZCO Department: Room: Gender: M [employer]: VAL : 1960 Requested By: TRACEY RUIZ Order Number: [id number] Reading MD: Vinnie Huerta Measurements Intervals [place] Rate: 103 P: 69 VT: 135 QRS: 95 QRSD: 76 T: 44 QT: 336 QTc: 440 Interpretive Statements Sinus tachycardia Right axis deviation Compared to ECG 11/29/2020 05:32:57 Right-axis deviation now present Sinus rhythm no longer present Electronically Signed On 04-02-2021 10:37:29 EST by Vinnie Huerta
== END 2021-03-31 20:00 | disposition home or self-care (01) ==
LOC: ED 17:22
DX: J45.901 Unspecified asthma with (acute) exacerbation (principal); I10 Essential (primary) hypertension; E11.9 Type 2 diabetes mellitus without complications; F17.200 Nicotine dependence, unspecified, uncomplicated
CPT/HCPCS: 36415; 71046; 80048; 83880; 84484; 85025; 93005; 94640; 96374; 99284; J2930

== ENCOUNTER 2021-06-11 16:36 | Emergency (ER) | payer BC ==
--- NOTE | 2021-06-11 18:34 | Emergency Department Report ---
ED General Adult HPI - General Chief complaint: Adult Asthma Stated complaint: ASTHMA/DIZZY PUI?: No Time Seen by Provider: 06/11/21 17:53 Source: patient Mode of arrival: Ambulatory Limitations: No Limitations - History of Present Illness Initial comments: Chief complaint: "I need medication." HPI: This 61-year-old male with history of diabetes mellitus, asthma, COPD, CVA, hypertension who presents with shortness of breath and generalized weakness. he has had difficulty obtaining primary care physician. Consequently he comes emergency department for primary care and medication refills. Well-documented patient's had frequent falls due to deconditioning since November. -: month(s) (Several months of generalized weakness history of frequent falls uses walker) Consistency: constant Improves with: none Worsens with: none Associated Symptoms: denies other symptoms Treatments Prior to Arrival: none - Related Data Previous Rx's Medication Instructions Recorded Last Taken Type Montelukast [Singulair] 10 mg PO QHS #30 tablet 08/04/20 Unknown Rx Albuterol Mdi (or & Nicu Only) 2 puff IH Q6H PRN #1 inh 11/21/20 Unknown Rx [ProAir HFA Inhaler] Aspirin 325 mg PO QDAY #30 tablet 11/21/20 Unknown Rx Benzonatate [Tessalon Perles] 100 mg PO Q8HR #20 capsule 11/21/20 Unknown Rx Insulin NPH/Regular [NovoLIN 70/30] 10 unit SUB-Q BIDDIAB #1 vial 11/21/20 Unknown Rx Ipratropium/Albuterol Sulfate 1 ampul IH TIDRT #50 ampul.neb 11/21/20 Unknown Rx [DUONEB *Not for PRN Use*] Pravastatin [Pravachol] 40 mg PO QHS #30 tablet 11/21/20 Unknown Rx amLODIPine 5 mg PO QDAY #30 tablet 11/21/20 Unknown Rx metFORMIN [Glucophage] 500 mg PO QDDIAB #60 tablet 11/21/20 Unknown Rx predniSONE [Deltasone] 50 mg PO QDAY #5 tab 11/21/20 Unknown Rx Meclizine [Antivert] 25 mg PO TID PRN #12 tablet 11/29/20 Unknown Rx amLODIPine 5 mg PO DAILY #30 tab 02/14/21 Unknown Rx ALBUTEROL NEB's [Proventil 0.083% 2.5 mg IH TID PRN #1 box 03/31/21 Unknown Rx NEBS] Albuterol Mdi (or & Nicu Only) 2 puff IH QID PRN #8.5 gram 03/31/21 Unknown Rx [ProAir HFA Inhaler] predniSONE [Deltasone] 20 mg PO BID #8 tab 03/31/21 Unknown Rx ALBUTEROL NEB's [Proventil 0.083% 2.5 mg IH Q6H PRN #1 box 06/11/21 Unknown Rx NEBS] Albuterol Mdi (or & Nicu Only) 2 puff IH QID PRN #1 device 06/11/21 Unknown Rx [ProAir HFA Inhaler] Allergies Allergy/AdvReac Type Severity Reaction Status Date / Time No Known Allergies Allergy Verified 02/14/21 06:11 ED Review of Systems ROS: Stated complaint: ASTHMA/DIZZY Other details as noted in HPI Comment: All other systems reviewed and negative Constitutional: denies: chills, fever, malaise Respiratory: shortness of breath (Intermittent shortness of breath history of COPD asthma). denies: cough Cardiovascular: denies: chest pain ED Past Medical Hx - Past Medical History Previous Medical History?: Yes Hx Hypertension: Yes Hx CVA: Yes Hx Heart Attack/AMI: No Hx Congestive Heart Failure: No Hx Diabetes: Yes Hx Sickle Cell Disease: No Hx Asthma: Yes Hx COPD: Yes Hx HIV: No Additional medical history: Shingles - Social History Smoking Status: Current Every Day Smoker Substance Use Type: None - Medications Home Medications: Home Medications Medication Instructions Recorded Confirmed Last Taken Type Montelukast [Singulair] 10 mg PO QHS #30 tablet 08/04/20 11/21/20 Unknown Rx Albuterol Mdi (or & Nicu Only) 2 puff IH Q6H PRN #1 inh 11/21/20 Unknown Rx [ProAir HFA Inhaler] Aspirin 325 mg PO QDAY #30 tablet 11/21/20 Unknown Rx Benzonatate [Tessalon Perles] 100 mg PO Q8HR #20 capsule 11/21/20 Unknown Rx Insulin NPH/Regular [NovoLIN 70/30] 10 unit SUB-Q BIDDIAB #1 vial 11/21/20 Unknown Rx Ipratropium/Albuterol Sulfate 1 ampul IH TIDRT #50 ampul.neb 11/21/20 Unknown Rx [DUONEB *Not for PRN Use*] Pravastatin [Pravachol] 40 mg PO QHS #30 tablet 11/21/20 Unknown Rx amLODIPine 5 mg PO QDAY #30 tablet 11/21/20 Unknown Rx metFORMIN [Glucophage] 500 mg PO QDDIAB #60 tablet 11/21/20 Unknown Rx predniSONE [Deltasone] 50 mg PO QDAY #5 tab 11/21/20 Unknown Rx Meclizine [Antivert] 25 mg PO TID PRN #12 tablet 11/29/20 Unknown Rx amLODIPine 5 mg PO DAILY #30 tab 02/14/21 Unknown Rx ALBUTEROL NEB's [Proventil 0.083% 2.5 mg IH TID PRN #1 box 03/31/21 Unknown Rx NEBS] Albuterol Mdi (or & Nicu Only) 2 puff IH QID PRN #8.5 gram 03/31/21 Unknown Rx [ProAir HFA Inhaler] predniSONE [Deltasone] 20 mg PO BID #8 tab 03/31/21 Unknown Rx ALBUTEROL NEB's [Proventil 0.083% 2.5 mg IH Q6H PRN #1 box 06/11/21 Unknown Rx NEBS] Albuterol Mdi (or & Nicu Only) 2 puff IH QID PRN #1 device 06/11/21 Unknown Rx [ProAir HFA Inhaler] ED Physical Exam - General Limitations: No Limitations General appearance: alert, in no apparent distress - Head Head exam: Present: atraumatic, normocephalic - Eye Eye exam: Present: normal appearance - ENT ENT exam: Present: mucous membranes moist - Neck Neck exam: Present: normal inspection, full ROM - Respiratory Respiratory exam: Present: normal lung sounds bilaterally. Absent: respiratory distress, wheezes, rales, rhonchi - Cardiovascular Cardiovascular Exam: Present: regular rate, normal rhythm, normal heart sounds. Absent: systolic murmur, diastolic murmur, rubs, gallop - GI/Abdominal GI/Abdominal exam: Present: soft, normal bowel sounds. Absent: distended, tenderness, guarding, rebound - Rectal Rectal exam: Present: deferred - Extremities Exam Extremities exam: Present: normal inspection - Back Exam Back exam: Present: normal inspection - Neurological Exam Neurological exam: Present: alert, oriented X3 - Psychiatric Psychiatric exam: Present: normal affect, normal mood - Skin Skin exam: Present: warm, dry, intact, normal color. Absent: rash ED Course Vital Signs 06/11/21 17:39 Temperature 98.5 F Pulse Rate 104 H Respiratory 15 Rate Blood Pressure 138/82 O2 Sat by Pulse 97 Oximetry ED Medical Decision Making - Medical Decision Making Mr. Quan presents with request for medication refill and reports generalized weakness which is unchanged since November of last year. He has physical conditioning. Due to lack of resources he is not fully rehabilitated from previous CVA. He appears well today. He ambulates with a walker. Patient received albuterol MDI and albuterol nebulizer solution prescriptions at his request. He is referred to outpatient medicine physician Critical care attestation.: If time is entered above; I have spent that time in minutes in the direct care of this critically ill patient, excluding procedure time. ED Disposition Clinical Impression: Medication refill, COPD (chronic obstructive pulmonary disease) Disposition: HOME / SELF CARE / HOMELESS Is pt being admited?: No Does the pt Need Aspirin: No Condition: Stable Instructions: Chronic Obstructive Pulmonary Disease (ED) Prescriptions: Albuterol Mdi (or & Nicu Only) [ProAir HFA Inhaler] 2 puff IH QID PRN #1 device PRN Reason: Shortness Of Breath ALBUTEROL NEB's [Proventil 0.083% NEBS] 2.5 mg IH Q6H PRN #1 box PRN Reason: Shortness Of Breath Referrals: JUNIE HUSAIN MD [Staff Physician] - 3-5 Days
[2021-06-11 18:46] VITALS: BP 137/76
== END 2021-06-11 18:47 | disposition home or self-care (01) ==
LOC: ED 16:36
DX: J44.9 Chronic obstructive pulmonary disease, unspecified (principal); Z76.0 Encounter for issue of repeat prescription; I10 Essential (primary) hypertension
CPT/HCPCS: 99282

== ENCOUNTER 2021-10-15 19:10 | Emergency (ER) | payer SELFPAY ==
[2021-10-15 19:57] LABS: Basophils # (Auto) 0.1 K/mm3 (0.0-0.1); Eosinophils # (Auto) 0.5 K/mm3 (0.0-0.4); Hematocrit 45.8 % (35.5-45.6); Hemoglobin 16.3 gm/dl (11.8-15.2); Lymphocytes # (Auto) 1.4 K/mm3 (1.2-5.4); Lymphocytes % (Auto) 18.5 % (13.4-35.0); Mean Corpuscular HGB Conc 35 % (32-34); Mean Corpuscular Volume 86 fl (84-94); Monocytes # (Auto) 0.6 K/mm3 (0.0-0.8); Monocytes % (Auto) 7.6 % (0.0-7.3); Platelet Count 199 K/mm3 (140-440); Red Blood Count 5.34 M/mm3 (3.65-5.03); Red Cell Distribution Width 14.4 % (13.2-15.2)
--- NOTE | 2021-10-15 20:09 | XRay Report ---
Chest 2 views INDICATION: Chest pain with dyspnea IMPRESSION: Emphysema noted bilaterally. There is hyperexpansion of the lungs with some ill-defined a irspace pneumonia within the right perihilar region. Signer Name: Alberto Charles MD Signed: 10/15/2021 8:04 PM Workstation Name: [employer] [facility]
[2021-10-15 20:17] LABS: BUN/Creatinine Ratio 24; Blood Urea Nitrogen 19 mg/dL (9-20); Calcium 9.8 mg/dL (8.4-10.2); Hemolysis Index 12
[2021-10-15] MEDS ORDERED: ALBUTEROL 2.5 MG/3 ML NEBU IH ONE (21:42)
[2021-10-15] MEDS ORDERED: methylPREDNISolone Sod Succinate 125 MG/2 ML INJ IV ONE (21:42)
[2021-10-15] MEDS ORDERED: IPRATROPIUM 0.02% NEBU 2.5 ML IH ONE (21:42)
[2021-10-15] MEDS ORDERED: SODIUM CHLORIDE 0.9% 1000 ML 1,000 ML IV ONE (21:42)
[2021-10-15 22:28] LABS: Creatine Kinase MB 2.6 ng/mL (0.0-4.0)
--- NOTE | 2021-10-15 23:36 | Emergency Department Report ---
ED Shortness of Breath HPI - General Chief Complaint: Dyspnea/Respdistress Stated Complaint: VERENA Time Seen by Provider: 10/15/21 21:40 Source: patient Mode of arrival: Ambulatory Limitations: No Limitations - History of Present Illness Initial Comments: Brought in by neighbor who stated that pt had VERENA and cough X 5 days. Was given a breathing treatment by EMS. No improvement. MD Complaint: shortness of breath, cough, "asthma attack" -: days(s) Severity: moderate Improves With: oxygen, bronchodilators Worsens With: exertion Known History Of: asthma Associated Symptoms: denies other symptoms Treatments Prior to Arrival: bronchodilator - Related Data Home Oxygen Therapy: No Previous Rx's Medication Instructions Recorded Last Taken Type Montelukast [Singulair] 10 mg PO QHS #30 tablet 08/04/20 Unknown Rx Albuterol Mdi (or & Nicu Only) 2 puff IH Q6H PRN #1 inh 11/21/20 Unknown Rx [ProAir HFA Inhaler] Aspirin 325 mg PO QDAY #30 tablet 11/21/20 Unknown Rx Benzonatate [Tessalon Perles] 100 mg PO Q8HR #20 capsule 11/21/20 Unknown Rx Insulin NPH/Regular [NovoLIN 70/30] 10 unit SUB-Q BIDDIAB #1 vial 11/21/20 Unknown Rx Ipratropium/Albuterol Sulfate 1 ampul IH TIDRT #50 ampul.neb 11/21/20 Unknown Rx [DUONEB *Not for PRN Use*] Pravastatin [Pravachol] 40 mg PO QHS #30 tablet 11/21/20 Unknown Rx amLODIPine 5 mg PO QDAY #30 tablet 11/21/20 Unknown Rx metFORMIN [Glucophage] 500 mg PO QDDIAB #60 tablet 11/21/20 Unknown Rx predniSONE [Deltasone] 50 mg PO QDAY #5 tab 11/21/20 Unknown Rx Meclizine [Antivert] 25 mg PO TID PRN #12 tablet 11/29/20 Unknown Rx amLODIPine 5 mg PO DAILY #30 tab 02/14/21 Unknown Rx ALBUTEROL NEB's [Proventil 0.083% 2.5 mg IH TID PRN #1 box 03/31/21 Unknown Rx NEBS] Albuterol Mdi (or & Nicu Only) 2 puff IH QID PRN #8.5 gram 11/16/21 Unknown Rx [ProAir HFA Inhaler] predniSONE [Deltasone] 20 mg PO BID #8 tab 03/31/21 Unknown Rx ALBUTEROL NEB's [Proventil 0.083% 2.5 mg IH Q6H PRN #1 box 06/11/21 Unknown Rx NEBS] Albuterol Mdi (or & Nicu Only) 2 puff IH QID PRN #1 device 06/11/21 Unknown Rx [ProAir HFA Inhaler] Albuterol Mdi (or & Nicu Only) 2 puff IH QID PRN #8.5 gram 10/15/21 Unknown Rx [ProAir HFA Inhaler] Albuterol Sulfate [Albuterol 0.63% 0.63 mg IH TID PRN #30 ml 10/15/21 Unknown Rx NEBS] methylPREDNISolone [Medrol 4MG 4 mg PO DAILY #1 10/15/21 Unknown Rx DOSEPAK (21 tabs)] Allergies Allergy/AdvReac Type Severity Reaction Status Date / Time No Known Allergies Allergy Verified 02/14/21 06:11 ED Review of Systems ROS: Stated complaint: VERENA Other details as noted in HPI Constitutional: denies: chills, fever Eyes: denies: eye pain, eye discharge, vision change ENT: denies: ear pain, throat pain Respiratory: denies: cough, shortness of breath, wheezing Cardiovascular: denies: chest pain, palpitations Endocrine: no symptoms reported Gastrointestinal: denies: abdominal pain, nausea, diarrhea Genitourinary: denies: urgency, dysuria Musculoskeletal: denies: back pain, joint swelling, arthralgia Skin: denies: rash, lesions Neurological: denies: headache, weakness, paresthesias Psychiatric: denies: anxiety, depression Hematological/Lymphatic: denies: easy bleeding, easy bruising ED Past Medical Hx - Past Medical History Previous Medical History?: Yes Hx Hypertension: Yes Hx CVA: Yes Hx Heart Attack/AMI: No Hx Congestive Heart Failure: No Hx Diabetes: Yes Hx Sickle Cell Disease: No Hx Asthma: Yes Hx COPD: Yes Hx HIV: No Additional medical history: Shingles - Surgical History Past Surgical History?: No - Social History Smoking Status: Never Smoker Substance Use Type: None - Medications Home Medications: Home Medications Medication Instructions Recorded Confirmed Last Taken Type Montelukast [Singulair] 10 mg PO QHS #30 tablet 08/04/20 11/21/20 Unknown Rx Albuterol Mdi (or & Nicu Only) 2 puff IH Q6H PRN #1 inh 11/21/20 Unknown Rx [ProAir HFA Inhaler] Aspirin 325 mg PO QDAY #30 tablet 11/21/20 Unknown Rx Benzonatate [Tessalon Perles] 100 mg PO Q8HR #20 capsule 11/21/20 Unknown Rx Insulin NPH/Regular [NovoLIN 70/30] 10 unit SUB-Q BIDDIAB #1 vial 11/21/20 Unknown Rx Ipratropium/Albuterol Sulfate 1 ampul IH TIDRT #50 ampul.neb 11/21/20 Unknown Rx [DUONEB *Not for PRN Use*] Pravastatin [Pravachol] 40 mg PO QHS #30 tablet 11/21/20 Unknown Rx amLODIPine 5 mg PO QDAY #30 tablet 11/21/20 Unknown Rx metFORMIN [Glucophage] 500 mg PO QDDIAB #60 tablet 11/21/20 Unknown Rx predniSONE [Deltasone] 50 mg PO QDAY #5 tab 11/21/20 Unknown Rx Meclizine [Antivert] 25 mg PO TID PRN #12 tablet 11/29/20 Unknown Rx amLODIPine 5 mg PO DAILY #30 tab 02/14/21 Unknown Rx ALBUTEROL NEB's [Proventil 0.083% 2.5 mg IH TID PRN #1 box 03/31/21 Unknown Rx NEBS] Albuterol Mdi (or & Nicu Only) 2 puff IH QID PRN #8.5 gram 03/31/21 Unknown Rx [ProAir HFA Inhaler] predniSONE [Deltasone] 20 mg PO BID #8 tab 03/31/21 Unknown Rx ALBUTEROL NEB's [Proventil 0.083% 2.5 mg IH Q6H PRN #1 box 06/11/21 Unknown Rx NEBS] Albuterol Mdi (or & Nicu Only) 2 puff IH QID PRN #1 device 06/11/21 Unknown Rx [ProAir HFA Inhaler] Albuterol Mdi (or & Nicu Only) 2 puff IH QID PRN #8.5 gram 10/15/21 Unknown Rx [ProAir HFA Inhaler] Albuterol Sulfate [Albuterol 0.63% 0.63 mg IH TID PRN #30 ml 10/15/21 Unknown Rx NEBS] methylPREDNISolone [Medrol 4MG 4 mg PO DAILY #1 10/15/21 Unknown Rx DOSEPAK (21 tabs)] ED Physical Exam - General Limitations: No Limitations General appearance: alert, in no apparent distress - Head Head exam: Present: atraumatic, normocephalic - Eye Eye exam: Present: normal appearance - ENT ENT exam: Present: mucous membranes moist - Neck Neck exam: Present: normal inspection - Respiratory Respiratory exam: Present: normal lung sounds bilaterally, wheezes, rhonchi, prolonged expiratory. Absent: respiratory distress - Cardiovascular Cardiovascular Exam: Present: regular rate, normal rhythm. Absent: systolic murmur, diastolic murmur, rubs, gallop - GI/Abdominal GI/Abdominal exam: Present: soft, normal bowel sounds - Rectal Rectal exam: Present: deferred - Extremities Exam Extremities exam: Present: normal inspection - Back Exam Back exam: Present: normal inspection - Neurological Exam Neurological exam: Present: alert, oriented X3 - Psychiatric Psychiatric exam: Present: normal affect, normal mood - Skin Skin exam: Present: warm, dry, intact, normal color. Absent: rash ED Course Vital Signs 10/15/21 10/15/21 10/15/21 19:12 19:21 21:45 Temperature 98.6 F Pulse Rate 115 H 79 Pulse Rate [ Bilateral] Respiratory 18 20 20 Rate Respiratory Rate [Bilateral ] Blood Pressure Blood Pressure 121/84 [Left] O2 Sat by Pulse 96 99 Oximetry 10/15/21 10/15/21 22:00 22:42 Temperature Pulse Rate 76 Pulse Rate [ 96 H Bilateral] Respiratory 12 Rate Respiratory 18 Rate [Bilateral ] Blood Pressure 134/79 Blood Pressure [Left] O2 Sat by Pulse 98 Oximetry ED Medical Decision Making - Lab Data Result diagrams: 10/15/21 19:42 10/15/21 19:42 - EKG Data -: EKG Interpreted by Me EKG shows normal: sinus rhythm Rate: normal - EKG Data Interpretation: no acute changes - Radiology Data Radiology results: report reviewed, image reviewed - Medical Decision Making rt given , steriods , o2 sat 100 RA , imrpoved , vss no distress, will refill his albutero and steriods for 5 days pt to observe his BS Critical care attestation.: If time is entered above; I have spent that time in minutes in the direct care of this critically ill patient, excluding procedure time. ED Disposition Clinical Impression: Asthma, Shortness of breath Disposition: 01 HOME / SELF CARE / HOMELESS Is pt being admited?: No Does the pt Need Aspirin: No Condition: Stable Instructions: Asthma, Adult, Shortness of Breath, Adult, [id number], Asthma (ED) Prescriptions: Albuterol Sulfate [Albuterol 0.63% NEBS] 0.63 mg IH TID PRN #30 ml PRN Reason: Wheezing methylPREDNISolone [Medrol 4MG DOSEPAK (21 tabs)] 4 mg PO DAILY #1 Albuterol Mdi (or & Nicu Only) [ProAir HFA Inhaler] 2 puff IH QID PRN #8.5 gram PRN Reason: Shortness Of Breath Referrals: JUNIE HUSAIN MD [Primary Care Provider] - 3-5 Days
[2021-10-16 00:29] VITALS: BP 137/76
--- NOTE | 2021-10-16 08:57 | Electrocardiograph Report ---
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
== END 2021-10-16 00:18 | disposition home or self-care (01) ==
LOC: ED 19:10
DX: J45.909 Unspecified asthma, uncomplicated (principal); R06.02 Shortness of breath; I10 Essential (primary) hypertension; E11.9 Type 2 diabetes mellitus without complications; Z86.73 Personal history of transient ischemic attack (TIA), and cerebral infarction without residual deficits; Z79.899 Other long term (current) drug therapy
CPT/HCPCS: 36415; 71046; 80048; 82550; 82553; 84484; 85025; 93005; 94640; 96361; 96374; 99284; J2930; J7030; 94644

== ENCOUNTER 2021-11-06 11:55 | Inpatient (IN) | payer SELFPAY ==
[2021-11-06] MEDS ORDERED: IPRATROPIUM 0.02% NEBU 2.5 ML IH ONE (12:15)
[2021-11-06] MEDS ORDERED: ALBUTEROL 2.5 MG/3 ML NEBU IH ONE ×2 (12:15→15:29)
--- NOTE | 2021-11-06 12:33 | XRay Report ---
CHEST 1 VIEW 11/06/2021 11:27 AM INDICATION / CLINICAL INFORMATION: sob, wheeze, cough. COMPARISON: 10/15/2021 FINDINGS: SUPPORT DEVICES: None. HEART / MEDIASTINUM: No significant abnormality. LUNGS / PLEURA: No significant pulmonary or pleural abnormality. No pneumothorax. ADDITIONAL FINDINGS: No significant additional findings. IMPRESSION: 1. No acute findings. Signer Name: Janes Doty MD Signed: 11/06/2021 12:29 PM Workstation Name: [id number]
--- NOTE | 2021-11-06 12:35 | Emergency Department Report ---
ED Shortness of Breath HPI - General Chief Complaint: Dyspnea/Respdistress Stated Complaint: SOB Time Seen by Provider: 11/06/21 12:09 Source: EMS Mode of arrival: Stretcher Limitations: Physical Limitation - History of Present Illness Initial Comments: 61-year-old male with a past medical history of asthma, COPD and diabetes presents to the hospital with complaints of wheezing shortness of breath for the past 3 days. Symptoms not improved with his nebulizers at home. Patient presents with audible wheezing, tachypnea, accessory muscle use. Satting 100% on nonrebreather. Patient received albuterol 5 mg, 125 mg, and magnesium 2 g prior to ED arrival. He does continue to smoke cigarettes. No previous history of intubations. Cough productive of thick sputum reported without fever. - Related Data Previous Rx's Medication Instructions Recorded Last Taken Type Montelukast [Singulair] 10 mg PO QHS #30 tablet 08/04/20 Unknown Rx Albuterol Mdi (or & Nicu Only) 2 puff IH Q6H PRN #1 inh 11/21/20 Unknown Rx [ProAir HFA Inhaler] Aspirin 325 mg PO QDAY #30 tablet 11/21/20 Unknown Rx Benzonatate [Tessalon Perles] 100 mg PO Q8HR #20 capsule 11/21/20 Unknown Rx Insulin NPH/Regular [NovoLIN 70/30] 10 unit SUB-Q BIDDIAB #1 vial 11/21/20 Unknown Rx Ipratropium/Albuterol Sulfate 1 ampul IH TIDRT #50 ampul.neb 11/21/20 Unknown Rx [DUONEB *Not for PRN Use*] Pravastatin [Pravachol] 40 mg PO QHS #30 tablet 11/21/20 Unknown Rx amLODIPine 5 mg PO QDAY #30 tablet 11/21/20 Unknown Rx metFORMIN [Glucophage] 500 mg PO QDDIAB #60 tablet 11/21/20 Unknown Rx predniSONE [Deltasone] 50 mg PO QDAY #5 tab 11/21/20 Unknown Rx Meclizine [Antivert] 25 mg PO TID PRN #12 tablet 11/29/20 Unknown Rx amLODIPine 5 mg PO DAILY #30 tab 02/14/21 Unknown Rx ALBUTEROL NEB's [Proventil 0.083% 2.5 mg IH TID PRN #1 box 03/31/21 Unknown Rx NEBS] Albuterol Mdi (or & Nicu Only) 2 puff IH QID PRN #8.5 gram 03/31/21 Unknown Rx [ProAir HFA Inhaler] predniSONE [Deltasone] 20 mg PO BID #8 tab 03/31/21 Unknown Rx ALBUTEROL NEB's [Proventil 0.083% 2.5 mg IH Q6H PRN #1 box 06/11/21 Unknown Rx NEBS] Albuterol Mdi (or & Nicu Only) 2 puff IH QID PRN #1 device 06/11/21 Unknown Rx [ProAir HFA Inhaler] Albuterol Mdi (or & Nicu Only) 2 puff IH QID PRN #8.5 gram 10/15/21 Unknown Rx [ProAir HFA Inhaler] Albuterol Sulfate [Albuterol 0.63% 0.63 mg IH TID PRN #30 ml 10/15/21 Unknown Rx NEBS] methylPREDNISolone [Medrol 4MG 4 mg PO DAILY #1 10/15/21 Unknown Rx DOSEPAK (21 tabs)] Allergies Allergy/AdvReac Type Severity Reaction Status Date / Time No Known Allergies Allergy Verified 11/06/21 12:06 ED Review of Systems ROS: Stated complaint: SOB Other details as noted in HPI Comment: All other systems reviewed and negative ED Past Medical Hx - Past Medical History Previous Medical History?: Yes Hx Hypertension: Yes Hx CVA: Yes Hx Heart Attack/AMI: No Hx Congestive Heart Failure: No Hx Diabetes: Yes Hx Sickle Cell Disease: No Hx Asthma: Yes Hx COPD: Yes Hx HIV: No Additional medical history: Shingles - Social History Smoking Status: Current Every Day Smoker - Medications Home Medications: Home Medications Medication Instructions Recorded Confirmed Last Taken Type Montelukast [Singulair] 10 mg PO QHS #30 tablet 08/04/20 11/21/20 Unknown Rx Albuterol Mdi (or & Nicu Only) 2 puff IH Q6H PRN #1 inh 11/21/20 Unknown Rx [ProAir HFA Inhaler] Aspirin 325 mg PO QDAY #30 tablet 11/21/20 Unknown Rx Benzonatate [Tessalon Perles] 100 mg PO Q8HR #20 capsule 11/21/20 Unknown Rx Insulin NPH/Regular [NovoLIN 70/30] 10 unit SUB-Q BIDDIAB #1 vial 11/21/20 Unknown Rx Ipratropium/Albuterol Sulfate 1 ampul IH TIDRT #50 ampul.neb 11/21/20 Unknown Rx [DUONEB *Not for PRN Use*] Pravastatin [Pravachol] 40 mg PO QHS #30 tablet 11/21/20 Unknown Rx amLODIPine 5 mg PO QDAY #30 tablet 11/21/20 Unknown Rx metFORMIN [Glucophage] 500 mg PO QDDIAB #60 tablet 11/21/20 Unknown Rx predniSONE [Deltasone] 50 mg PO QDAY #5 tab 11/21/20 Unknown Rx Meclizine [Antivert] 25 mg PO TID PRN #12 tablet 11/29/20 Unknown Rx amLODIPine 5 mg PO DAILY #30 tab 02/14/21 Unknown Rx ALBUTEROL NEB's [Proventil 0.083% 2.5 mg IH TID PRN #1 box 03/31/21 Unknown Rx NEBS] Albuterol Mdi (or & Nicu Only) 2 puff IH QID PRN #8.5 gram 03/31/21 Unknown Rx [ProAir HFA Inhaler] predniSONE [Deltasone] 20 mg PO BID #8 tab 03/31/21 Unknown Rx ALBUTEROL NEB's [Proventil 0.083% 2.5 mg IH Q6H PRN #1 box 06/11/21 Unknown Rx NEBS] Albuterol Mdi (or & Nicu Only) 2 puff IH QID PRN #1 device 06/11/21 Unknown Rx [ProAir HFA Inhaler] Albuterol Mdi (or & Nicu Only) 2 puff IH QID PRN #8.5 gram 10/15/21 Unknown Rx [ProAir HFA Inhaler] Albuterol Sulfate [Albuterol 0.63% 0.63 mg IH TID PRN #30 ml 10/15/21 Unknown Rx NEBS] methylPREDNISolone [Medrol 4MG 4 mg PO DAILY #1 10/15/21 Unknown Rx DOSEPAK (21 tabs)] ED Physical Exam - General Limitations: Physical Limitation - Other Other exam information: General: Mild respiratory distress Head: Atraumatic Eyes: normal appearance ENT: Moist mucous membranes Neck: Normal appearance, no midline tenderness Chest: Tachypnea, medical affairs director muscle 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, bilateral wheezing with fair air movement CV: Tachycardic regular rhythm Abdomen: Soft, normal bowel sounds, nontender, nondistended, no rebound or guarding Back: Normal inspection Extremity:, Trace lower extremity edema, no leg asymmetry or calf tenderness Neuro: Alert O x 3, no facial asymmetry, speech clear, no gross motor sensory deficit Psych: Appropriate behavior Skin: No rash ED Course Vital Signs 11/06/21 11/06/21 11/06/21 12:04 12:21 13:47 Temperature 98.7 F Pulse Rate 133 H Pulse Rate [ 122 H Bilateral] Respiratory 26 H 30 H Rate Respiratory 20 Rate [Bilateral ] Blood Pressure 140/60 [Left] O2 Sat by Pulse 98 97 Oximetry 11/06/21 11/06/21 16:50 17:05 Temperature Pulse Rate Pulse Rate [ 106 H Bilateral] Respiratory Rate Respiratory 20 Rate [Bilateral ] Blood Pressure [Left] O2 Sat by Pulse 96 Oximetry ED Medical Decision Making - Lab Data Result diagrams: 11/06/21 13:49 11/06/21 13:49 Lab Results 11/06/21 11/06/21 11/06/21 Range/Units 13:49 13:49 13:49 WBC 12.6 H (4.5-11.0) K/mm3 RBC 5.35 H (3.65-5.03) M/mm3 Hgb 15.4 H (11.8-15.2) gm/dl Hct 47.1 H (35.5-45.6) % MCV 88 (84-94) fl MCH 29 (28-32) pg MCHC 33 (32-34) % RDW 14.5 (13.2-15.2) % Plt Count 172 (140-440) K/mm3 Add Manual Diff Complete Total Counted 100 Seg Neutrophils % Multimedia Teacher Seg Neuts % (Manual) 92.0 H (40.0-70.0) % Band Neutrophils % 0 % Lymphocytes % (Manual) 3.0 L (13.4-35.0) % Reactive Lymphs % (Man) 0 % Monocytes % (Manual) 3.0 (0.0-7.3) % Eosinophils % (Manual) 0 (0.0-4.3) % Basophils % (Manual) 2.0 H (0.0-1.8) % Metamyelocytes % 0 % Myelocytes % 0 % Promyelocytes % 0 % Blast Cells % 0 % Nucleated RBC % Not Reportable Seg Neutrophils # Man 11.6 H (1.8-7.7) K/mm3 Band Neutrophils # 0.0 K/mm3 Lymphocytes # (Manual) 0.4 L (1.2-5.4) K/mm3 Abs React Lymphs (Man) 0.0 K/mm3 Monocytes # (Manual) 0.4 (0.0-0.8) K/mm3 Eosinophils # (Manual) 0.0 (0.0-0.4) K/mm3 Basophils # (Manual) 0.3 H (0.0-0.1) K/mm3 Metamyelocytes # 0.0 K/mm3 Myelocytes # 0.0 K/mm3 Promyelocytes # 0.0 K/mm3 Blast Cells # 0.0 K/mm3 WBC Morphology Not Reportable Hypersegmented Neuts Not Reportable Hyposegmented Neuts Rare Hypogranular Neuts Not Reportable Smudge Cells Not Reportable Toxic Granulation Not Reportable Toxic Vacuolation Not Reportable Dohle Bodies Not Reportable Pelger-Huet Anomaly Not Reportable Beata Rods Not Reportable Platelet Estimate Consistent w auto Clumped Platelets Not Reportable Plt Clumps, EDTA Not Reportable Large Platelets Rare Giant Platelets Not Reportable Platelet Satelliting Not Reportable Plt Morphology Comment Not Reportable RBC Morphology Not Reportable Dimorphic RBCs Not Reportable Polychromasia Not Reportable Hypochromasia Not Reportable Poikilocytosis Few Anisocytosis Few Microcytosis Few Macrocytosis Not Reportable Spherocytes Few Pappenheimer Bodies Not Reportable Sickle Cells Not Reportable Target Cells Not Reportable Tear Drop Cells Not Reportable Ovalocytes Rare Helmet Cells Not Reportable [place] Bodies Not Reportable [place] Rings Not Reportable [place] Cells Not Reportable Bite Cells Not Reportable Crenated Cell Not Reportable Elliptocytes Not Reportable Acanthocytes (Spur) Not Reportable Rouleaux Not Reportable Hemoglobin C Crystals Not Reportable Schistocytes Not Reportable Malaria parasites Not Reportable Alex Bodies Not Reportable Hem Pathologist Commnt No PT 12.4 (12.2-14.9) Sec. INR 0.84 L (0.87-1.13) ABG pH (7.350-7.450) pH Units ABG pCO2 mm Hg ABG pO2 (80.0-90.0) mm Hg ABG HCO3 (20.0-26.0) mmol/L ABG O2 Saturation (95.0-99.0) % ABG O2 Content (0.0-44) ABG Base Excess (-2.0-3.0) mmol/L ABG Hemoglobin (14.0-18.0) gm/dl ABG Carboxyhemoglobin (0.0-5.0) % ABG Methemoglobin (0.0-1.5) % Oxyhemoglobin (95.0-99.0) % FiO2 % Sodium 141 (137-145) mmol/L Potassium 3.9 (3.6-5.0) mmol/L Chloride 103.3 (98-107) mmol/L Carbon Dioxide 23 (22-30) mmol/L Anion Gap 19 mmol/L BUN 15 (9-20) mg/dL Creatinine 0.9 (0.8-1.3) mg/dL Estimated GFR > 60 ml/min BUN/Creatinine Ratio 17 % Glucose 276 H (75-100) mg/dL Calcium 9.3 (8.4-10.2) mg/dL 11/06/21 Range/Units 15:40 WBC (4.5-11.0) K/mm3 RBC (3.65-5.03) M/mm3 Hgb (11.8-15.2) gm/dl Hct (35.5-45.6) % MCV (84-94) fl MCH (28-32) pg MCHC (32-34) % RDW (13.2-15.2) % Plt Count (140-440) K/mm3 Add Manual Diff Total Counted Seg Neutrophils % Seg Neuts % (Manual) (40.0-70.0) % Band Neutrophils % % Lymphocytes % (Manual) (13.4-35.0) % Reactive Lymphs % (Man) % Monocytes % (Manual) (0.0-7.3) % Eosinophils % (Manual) (0.0-4.3) % Basophils % (Manual) (0.0-1.8) % Metamyelocytes % % Myelocytes % % Promyelocytes % % Blast Cells % % Nucleated RBC % Seg Neutrophils # Man (1.8-7.7) K/mm3 Band Neutrophils # K/mm3 Lymphocytes # (Manual) (1.2-5.4) K/mm3 Abs React Lymphs (Man) K/mm3 Monocytes # (Manual) (0.0-0.8) K/mm3 Eosinophils # (Manual) (0.0-0.4) K/mm3 Basophils # (Manual) (0.0-0.1) K/mm3 Metamyelocytes # K/mm3 Myelocytes # K/mm3 Promyelocytes # K/mm3 Blast Cells # K/mm3 WBC Morphology Hypersegmented Neuts Hyposegmented Neuts Hypogranular Neuts Smudge Cells Toxic Granulation Toxic Vacuolation Dohle Bodies Pelger-Huet Anomaly Beata Rods Platelet Estimate Clumped Platelets Plt Clumps, EDTA Large Platelets Giant Platelets Platelet Satelliting Plt Morphology Comment RBC Morphology Dimorphic RBCs Polychromasia Hypochromasia Poikilocytosis Anisocytosis Microcytosis Macrocytosis Spherocytes Pappenheimer Bodies Sickle Cells Target Cells Tear Drop Cells Ovalocytes Helmet Cells [place] Bodies [place] Rings [place] Cells Bite Cells Crenated Cell Elliptocytes Acanthocytes (Spur) Rouleaux Hemoglobin C Crystals Schistocytes Malaria parasites Alex Bodies Hem Pathologist Commnt PT (12.2-14.9) Sec. INR (0.87-1.13) ABG pH 7.348 L (7.350-7.450) pH Units ABG pCO2 38.5 mm Hg ABG pO2 62.1 L (80.0-90.0) mm Hg ABG HCO3 20.7 (20.0-26.0) mmol/L ABG O2 Saturation 93.3 L (95.0-99.0) % ABG O2 Content 20.2 (0.0-44) ABG Base Excess -4.4 L (-2.0-3.0) mmol/L ABG Hemoglobin 15.8 (14.0-18.0) gm/dl ABG Carboxyhemoglobin 1.5 (0.0-5.0) % ABG Methemoglobin 0.5 (0.0-1.5) % Oxyhemoglobin 91.4 L (95.0-99.0) % FiO2 21 % Sodium (137-145) mmol/L Potassium (3.6-5.0) mmol/L Chloride (98-107) mmol/L Carbon Dioxide (22-30) mmol/L Anion Gap mmol/L BUN (9-20) mg/dL Creatinine (0.8-1.3) mg/dL Estimated GFR ml/min BUN/Creatinine Ratio % Glucose (75-100) mg/dL Calcium (8.4-10.2) mg/dL - EKG Data -: EKG Interpreted by Me EKG shows normal: sinus rhythm, ST-T waves (No STEMI) Rate: tachycardia (119) - Radiology Data Radiology results: report reviewed CHEST 1 VIEW 11/06/2021 11:27 AM INDICATION / CLINICAL INFORMATION: sob, wheeze, cough. COMPARISON: 10/15/2021 FINDINGS: SUPPORT DEVICES: None. HEART / MEDIASTINUM: No significant abnormality. LUNGS / PLEURA: No significant pulmonary or pleural abnormality. No pneumothorax. ADDITIONAL FINDINGS: No significant additional findings. IMPRESSION: 1. No acute findings. - Medical Decision Making 61-year-old male with COPD/asthma presents to the hospital wheezing and shor tness of breath. Patient received multiple rounds of bronchodilators, Solu- Medrol, magnesium and continues to have significant wheezing with mild hypoxia. ABG on room air reveals normal pH with mild hypoxia without CO2 retention. No signs of infiltrate on chest x-ray. Heart rate did decrease to 98 between bronchodilators. Case discussed with hospitalist for admission Critical Care Time: No Critical care attestation.: If time is entered above; I have spent that time in minutes in the direct care of this critically ill patient, excluding procedure time. ED Disposition Clinical Impression: COPD with acute exacerbation, Acute respiratory failure with hypoxia Disposition: ADMITTED INPATIENT Is pt being admited?: No Does the pt Need Aspirin: No Condition: Stable Time of Disposition: 16:31
[2021-11-06 14:26] LABS: Hematocrit 47.1 % (35.5-45.6); Hemoglobin 15.4 gm/dl (11.8-15.2); Mean Corpuscular HGB Conc 33 % (32-34); Mean Corpuscular Volume 88 fl (84-94); Platelet Count 172 K/mm3 (140-440); Red Blood Count 5.35 M/mm3 (3.65-5.03); Red Cell Distribution Width 14.5 % (13.2-15.2)
[2021-11-06 14:29] LABS: BUN/Creatinine Ratio 17; Blood Urea Nitrogen 15 mg/dL (9-20); Calcium 9.3 mg/dL (8.4-10.2); Hemolysis Index 7
[2021-11-06 14:51] LABS: INR 0.84 (0.87-1.13)
[2021-11-06 14:53] LABS: Eosinophils % (Manual) 0 % (0.0-4.3); Total Cells Counted 100
[2021-11-06 14:57] LABS: Anisocytosis Few; Large Platelets Rare; Ovalocytes Rare; Platelet Estimate Consistent w Auto; Poikilocytosis Few; Spherocytes Few
[2021-11-06 16:28] LABS: ABG Base Excess -4.4 mmol/L (-2.0-3.0); ABG HCO3 20.7 mmol/L (20.0-26.0); ABG Methemoglobin 0.5 % (0.0-1.5); ABG Oxygen Saturation 93.3 % (95.0-99.0); ABG PCO2 38.5 mm Hg; ABG PH 7.348 pH Units (7.350-7.450); ABG PO2 62.1 mm Hg (80.0-90.0)
--- NOTE | 2021-11-06 17:01 | History and Physical Report ---
History of Present Illness Chief complaint: I cannot breathe History of present illness: 61 YO Male with HTN, DM, Nicotine Dependence, Mild Intermittent Asthma, COPD, CVA presents to ED for evaluation. Patient reports "I cannot breathe". Pt is in respiratory distress and provides minimal history. Patient states that he has experienced shortness of breath over the past few days with worsening symptoms over the same timeframe. Patient acknowledges increased dry cough, with worsening symptoms without improvement with increased nebulizer therapy. Patient failed outpatient therapy. EMS was notified and upon arrival the patient was found to be in distress and subsequently placed on 100% supplemental oxygen via nonrebreather mask and transported to [facility] for further care and evaluation of the aforementioned symptoms. The patient was seen and evaluated in the emergency department. All lab and imaging studies reviewed. The patient was found to have a pulse oximetry of 85% on room air with respirations in the 30s. Patient was found to be tripoding, using accessory muscles to breathe, unable to speak in complete sentences, anxious, with audible wheezing. Patient placed on supplemental oxygen without improvement in symptoms and was subsequently placed on noninvasive positive pressure ventilation with mild improvement in symptoms. Patient admitted to medical floor due to increased risk of worsening symptoms and medical stabilization. Patient uses head gestures to deny fever, chills, chest pain, palpitation, productive cough, skin rash, recent ill contacts, or known spoke to COVID-19. Prior admission on 11/20/2020 reviewed. All medication listed at time of admission has been reconciled. Advanced care planning conducted in ED. Past History Past Medical History: COPD, diabetes, hypertension, stroke Past Surgical History: No surgical history, Other (Reviewed) Social history: single, smoking Family history: hypertension Medications and Allergies Allergies Allergy/AdvReac Type Severity Reaction Status Date / Time No Known Allergies Allergy Verified 11/06/21 12:06 Home Medications Medication Instructions Recorded Confirmed Last Taken Type Montelukast [Singulair] 10 mg PO QHS #30 tablet 08/04/20 11/21/20 Unknown Rx Albuterol Mdi (or & Nicu Only) 2 puff IH Q6H PRN #1 inh 11/21/20 Unknown Rx [ProAir HFA Inhaler] Aspirin 325 mg PO QDAY #30 tablet 11/21/20 Unknown Rx Benzonatate [Tessalon Perles] 100 mg PO Q8HR #20 capsule 11/21/20 Unknown Rx Insulin NPH/Regular [NovoLIN 70/30] 10 unit SUB-Q BIDDIAB #1 vial 11/21/20 Unknown Rx Ipratropium/Albuterol Sulfate 1 ampul IH TIDRT #50 ampul.neb 11/21/20 Unknown Rx [DUONEB *Not for PRN Use*] Pravastatin [Pravachol] 40 mg PO QHS #30 tablet 11/21/20 Unknown Rx amLODIPine 5 mg PO QDAY #30 tablet 11/21/20 Unknown Rx metFORMIN [Glucophage] 500 mg PO QDDIAB #60 tablet 11/21/20 Unknown Rx predniSONE [Deltasone] 50 mg PO QDAY #5 tab 11/21/20 Unknown Rx Meclizine [Antivert] 25 mg PO TID PRN #12 tablet 11/29/20 Unknown Rx amLODIPine 5 mg PO DAILY #30 tab 02/14/21 Unknown Rx ALBUTEROL NEB's [Proventil 0.083% 2.5 mg IH TID PRN #1 box 03/31/21 Unknown Rx NEBS] Albuterol Mdi (or & Nicu Only) 2 puff IH QID PRN #8.5 gram 03/31/21 Unknown Rx [ProAir HFA Inhaler] predniSONE [Deltasone] 20 mg PO BID #8 tab 03/31/21 Unknown Rx ALBUTEROL NEB's [Proventil 0.083% 2.5 mg IH Q6H PRN #1 box 06/11/21 Unknown Rx NEBS] Albuterol Mdi (or & Nicu Only) 2 puff IH QID PRN #1 device 06/11/21 Unknown Rx [ProAir HFA Inhaler] Albuterol Mdi (or & Nicu Only) 2 puff IH QID PRN #8.5 gram 10/15/21 Unknown Rx [ProAir HFA Inhaler] Albuterol Sulfate [Albuterol 0.63% 0.63 mg IH TID PRN #30 ml 10/15/21 Unknown Rx NEBS] methylPREDNISolone [Medrol 4MG 4 mg PO DAILY #1 10/15/21 Unknown Rx DOSEPAK (21 tabs)] Review of Systems Constitutional: no weight loss, no weight gain, no fever, no chills Ears, nose, mouth and throat: no ear pain, no ear discharge, no tinnitis, no nose pain Cardiovascular: no chest pain, no orthopnea, no palpitations, no rapid/irregular heart beat Respiratory: cough, shortness of breath, wheezing Gastrointestinal: no abdominal pain, no nausea, no vomiting, no diarrhea, no constipation Genitourinary Male: no hematuria, no flank pain, no discharge, no urinary frequency, no urinary hesitancy, no nocturia Rectal: no pain, no incontinence, no bleeding Musculoskeletal: no neck stiffness, no neck pain, no arm numbness/tingling, no low back pain, no shooting leg pain Integumentary: no rash, no pruritis, no redness, no sores, no jaundice, no boils Neurological: no head injury, no transient paralysis, no weakness, no numbness, no seizures, no syncope, no tremors Psychiatric: no anxiety, no memory loss, no sleep disturbances, no insomnia, no change in appetite, no change in libido, no disorientation Endocrine: no cold intolerance, no polyphagia, no excessive thirst, no polydipsia, no nocturia, no excessive sweating Hematologic/Lymphatic: no easy bruising, no easy bleeding, no lymphedema Allergic/Immunologic: no anaphylaxis Exam - Constitutional Vitals: Temp Pulse Resp BP Pulse Ox 98.7 F 122 H 20 140/60 97 11/06/21 12:04 11/06/21 13:47 11/06/21 13:47 11/06/21 12:04 11/06/21 12:21 General appearance: Present: mild distress - EENT Eyes: Present: PERRL ENT: hearing intact, clear oral mucosa - Neck Neck: Present: supple, normal ROM - Respiratory Respiratory effort: labored, accessory muscle use, stridor Respiratory: bilateral: diminished, wheezing - Cardiovascular Heart Sounds: Present: S1 & S2. Absent: rub, click - Extremities Extremities: pulses symmetrical, No edema Peripheral Pulses: within normal limits - Abdominal General gastrointestinal: Present: soft, non-tender, non-distended, normal bowel sounds Male genitourinary: Present: normal - Integumentary Integumentary: Present: clear, warm, dry - Musculoskeletal Musculoskeletal: gait normal, strength equal bilaterally - Psychiatric Psychiatric: appropriate mood/affect, intact judgment & insight - Neurologic Neurologic: CNII-XII intact, moves all extremities Results - Labs CBC & Chem 7: 11/06/21 13:49 11/06/21 13:49 Labs: Abnormal lab results 11/06/21 11/06/21 11/06/21 Range/Units 13:49 13:49 13:49 WBC 12.6 H (4.5-11.0) K/mm3 RBC 5.35 H (3.65-5.03) M/mm3 Hgb 15.4 H (11.8-15.2) gm/dl Hct 47.1 H (35.5-45.6) % Seg Neuts % (Manual) 92.0 H (40.0-70.0) % Lymphocytes % (Manual) 3.0 L (13.4-35.0) % Basophils % (Manual) 2.0 H (0.0-1.8) % Seg Neutrophils # Man 11.6 H (1.8-7.7) K/mm3 Lymphocytes # (Manual) 0.4 L (1.2-5.4) K/mm3 Basophils # (Manual) 0.3 H (0.0-0.1) K/mm3 INR 0.84 L (0.87-1.13) ABG pH (7.350-7.450) pH Units ABG pO2 (80.0-90.0) mm Hg ABG O2 Saturation (95.0-99.0) % ABG Base Excess (-2.0-3.0) mmol/L Oxyhemoglobin (95.0-99.0) % Glucose 276 H (75-100) mg/dL 11/06/21 Range/Units 15:40 WBC (4.5-11.0) K/mm3 RBC (3.65-5.03) M/mm3 Hgb (11.8-15.2) gm/dl Hct (35.5-45.6) % Seg Neuts % (Manual) (40.0-70.0) % Lymphocytes % (Manual) (13.4-35.0) % Basophils % (Manual) (0.0-1.8) % Seg Neutrophils # Man (1.8-7.7) K/mm3 Lymphocytes # (Manual) (1.2-5.4) K/mm3 Basophils # (Manual) (0.0-0.1) K/mm3 INR (0.87-1.13) ABG pH 7.348 L (7.350-7.450) pH Units ABG pO2 62.1 L (80.0-90.0) mm Hg ABG O2 Saturation 93.3 L (95.0-99.0) % ABG Base Excess -4.4 L (-2.0-3.0) mmol/L Oxyhemoglobin 91.4 L (95.0-99.0) % Glucose (75-100) mg/dL Assessment and Plan - Patient Problems (1) Acute respiratory failure with hypoxia Current Visit: Yes Status: Acute Plan to address problem: Chest x-ray, supplemental oxygen, pulse oximetry, nebulizer therapy, pulmonary toilet, noninvasive positive pressure ventilation as clinically indicated. (2) Status asthmaticus Current Visit: Yes Status: Acute Qualifiers: Asthma severity: mild Asthma persistence: intermittent Qualified Code(s): J45.22 - Mild intermittent asthma with status asthmaticus Plan to address problem: Chest x-ray, supplemental oxygen, pulse oximetry, nebulizer therapy, IV magnesium therapy, patient counseled regarding avoidance of asthma triggers. (3) Nicotine dependence Current Visit: Yes Status: Acute Qualifiers: Nicotine product type: cigarettes Substance use status: in withdrawal Qualified Code(s): F17.213 - Nicotine dependence, cigarettes, with withdrawal Plan to address problem: Mobilization counseling, supportive care, behavior change counseling, +15 minutes. (4) COPD with acute exacerbation Current Visit: Yes Status: Acute Plan to address problem: IV steroid therapy, supplemental oxygen, pulse oximetry, nebulizer therapy, supportive care. (5) Hypertension Current Visit: No Status: Chronic Qualifiers: Hypertension type: primary hypertension Qualified Code(s): I10 - Essential (primary) hypertension Plan to address problem: Monitor blood pressure every shift, continue medical management. (6) DVT prophylaxis Current Visit: Yes Status: Acute Plan to address problem: SCD to bilateral lower extremities while in bed (7) Advance care planning Current Visit: Yes Status: Acute Plan to address problem: Disease education done, care plan discussed, diagnoses discussed, prognosis discussed, patient is full code. Patient knowledges understanding and agreement with care plan, +30 minutes. (8) Preventative health care Current Visit: Yes Status: Acute Plan to address problem: Patient counseled regarding avoidance of asthma triggers, medication compliance, outpatient follow-up with primary care physician for all age and risk factor appropriate screening test, +30 minutes.
[2021-11-06] MEDS ORDERED: ALBUTEROL 2.5 MG/3 ML NEBU IH PRN (17:03)
[2021-11-06] MEDS ORDERED: ONDANSETRON 4 MG/2 ML INJ IV PRN (17:03)
[2021-11-06] MEDS ORDERED: HYDROmorphone 0.5 MG/0.5 ML INJ IV PRN (17:03)
[2021-11-06] MEDS ORDERED: ACETAMINOPHEN 325 MG TAB PO PRN (17:03)
[2021-11-06] MEDS ORDERED: oxyCODONE /ACETAMINOPHEN 5-325MG TAB PO PRN (17:03)
[2021-11-06] MEDS ORDERED: methylPREDNISolone Sod Succinate 125 MG/2 ML INJ IV ONE (17:07)
[2021-11-06] MEDS ORDERED: MAGNESIUM SULFATE 1 GM in SODIUM CHLORIDE 0.9% 50 ML IV ONE (17:08)
[2021-11-06] MEDS: FAMOTIDINE 20 MG/2 ML INJ IV SCH (22:57)
[2021-11-06] MEDS: methylPREDNISolone Sod Succinate 40 MG/1 ML INJ IV SCH (22:57)
[2021-11-07 05:18] LABS: Basophils % (Auto) 0.1 % (0.0-1.8); Eosinophils % (Auto) 0.1 % (0.0-4.3); Hematocrit 46.3 % (35.5-45.6); Hemoglobin 15.2 gm/dl (11.8-15.2); Lymphocytes # (Auto) 0.9 K/mm3 (1.2-5.4); Lymphocytes % (Auto) 8.4 % (13.4-35.0); Mean Corpuscular HGB Conc 33 % (32-34); Mean Corpuscular Volume 89 fl (84-94); Monocytes # (Auto) 0.4 K/mm3 (0.0-0.8); Monocytes % (Auto) 3.3 % (0.0-7.3); Platelet Count 169 K/mm3 (140-440); Red Blood Count 5.21 M/mm3 (3.65-5.03); Red Cell Distribution Width 14.5 % (13.2-15.2)
[2021-11-07] MEDS: methylPREDNISolone Sod Succinate 40 MG/1 ML INJ IV SCH (05:24)
[2021-11-07 05:40] LABS: BUN/Creatinine Ratio 27; Blood Urea Nitrogen 24 mg/dL (9-20); Calcium 9.5 mg/dL (8.4-10.2); Hemolysis Index 31
[2021-11-07] MEDS: cefTRIAXone/NS 1 GM/50 ML 1 GM/50 ML BAG IV SCH (09:20)
[2021-11-07] MEDS: AZITHROMYCIN 250 MG TAB PO SCH (09:21)
[2021-11-07] MEDS: FAMOTIDINE 20 MG/2 ML INJ IV SCH ×2 (09:21→22:14)
[2021-11-07] MEDS: guaiFENesin 100 MG/5 ML ORAL LIQD PO PRN ×3 (09:29→22:20)
--- NOTE | 2021-11-07 12:55 | Progress Note ---
Assessment and Plan Assessment and plan: #Status asthmaticusresolved #Acute hypoxic respiratory failureimproving #COPD exacerbation - etiology: Secondary to infection - baseline oxygen requirements: Room air - supplemental oxygen: 2 L nasal cannula - Continue protocol: continue pulse oximetry, wean oxygen as tolerated, ordered incentive spirometry and educated patient on how to use it and its importance. Starting p.o. azithromycin 500 mg daily and Rocephin 1 g daily. Discontinued IV methylprednisone and starting p.o. prednisone 40 mg daily (starts tomorrow) Pending procalcitonin, D-dimer, proBNP, and coronavirus PCR - continue to monitor #Hypertension #Hyperlipidemia - home medications: Amlodipine 5 mg daily, Pravastatin 40 mg nightly - current medications: Pravastatin 40 mg nightly. Holding on antihypertensive as the patient is normotensive. - SBP goal <160 and DBP goal <90 while inpatient - continue to monitor #Non-insulin dependent type II diabetes mellitus - hemoglobin A1c: Unknown - home regimen: Metformin 500 mg daily - current regimen: Metformin 500 mg daily - blood glucose goal 140-180 while inpatient - continue to monitor #Tobacco dependence #Tobacco/Smoking cessation counseling - Counseled patient about the importance of smoking cessation and the possible sequelae as a result of continued tobacco consumption. The patient expresses un derstanding. -Time: +15 mins #Advanced care planning -Disease education conducted, care plan discussed, diagnoses discussed, prognosis discussed, and patient acknowledges understanding with care plan -Time: +30 min Disposition Plan: Continue medical management Total Time Spent with Patient (Minutes): 45 minutes History Interval history: No acute events overnight. Hospitalist Physical - Constitutional Vitals: Temp Pulse Resp BP Pulse Ox 97.3 F L 133 H 24 140/60 98 11/07/21 05:39 11/07/21 05:39 11/07/21 05:39 11/07/21 05:39 11/07/21 08:48 General appearance: Present: no acute distress, well-nourished - EENT Eyes: Present: PERRL, EOM intact ENT: hearing intact, clear oral mucosa - Neck Neck: Present: supple, normal ROM - Respiratory Respiratory effort: normal Respiratory: bilateral: diminished (2 L nasal cannula) - Cardiovascular Rhythm: regular Heart Sounds: Present: S1 & S2 - Extremities Extremities: no ischemia, pulses intact, pulses symmetrical, No edema, normal temperature, normal color, Full ROM Peripheral Pulses: within normal limits - Abdominal General gastrointestinal: soft, non-tender, non-distended, normal bowel sounds - Integumentary Integumentary: Present: clear, warm, dry - Psychiatric Psychiatric: appropriate mood/affect, cooperative - Neurologic Neurologic: CNII-XII intact - Allied Health Allied health notes reviewed: nursing Results - Labs CBC & Chem 7: 11/07/21 04:12 11/07/21 04:12 Labs: Laboratory Last Values WBC 10.9 K/mm3 (4.5-11.0) 11/07/21 04:12 RBC 5.21 M/mm3 (3.65-5.03) H 11/07/21 04:12 Hgb 15.2 gm/dl (11.8-15.2) 11/07/21 04:12 Hct 46.3 % (35.5-45.6) H 11/07/21 04:12 MCV 89 fl (84-94) 11/07/21 04:12 MCH 29 pg (28-32) 11/07/21 04:12 MCHC 33 % (32-34) 11/07/21 04:12 RDW 14.5 % (13.2-15.2) 11/07/21 04:12 Plt Count 169 K/mm3 (140-440) 11/07/21 04:12 Lymph % (Auto) 8.4 % (13.4-35.0) L 11/07/21 04:12 [place] % (Auto) 3.3 % (0.0-7.3) 11/07/21 04:12 Eos % (Auto) 0.1 % (0.0-4.3) 11/07/21 04:12 Baso % (Auto) 0.1 % (0.0-1.8) 11/07/21 04:12 Lymph # (Auto) 0.9 K/mm3 (1.2-5.4) L 11/07/21 04:12 [place] # (Auto) 0.4 K/mm3 (0.0-0.8) 11/07/21 04:12 Eos # (Auto) 0.0 K/mm3 (0.0-0.4) 11/07/21 04:12 Baso # (Auto) 0.0 K/mm3 (0.0-0.1) 11/07/21 04:12 Add Manual Diff Complete 11/06/21 13:49 Total Counted 100 11/06/21 13:49 Seg Neutrophils % 88.1 % (40.0-70.0) H 11/07/21 04:12 Seg Neuts % (Manual) 92.0 % (40.0-70.0) H 11/06/21 13:49 Band Neutrophils % 0 % 11/06/21 13:49 Lymphocytes % (Manual) 3.0 % (13.4-35.0) L 11/06/21 13:49 Reactive Lymphs % (Man) 0 % 11/06/21 13:49 Monocytes % (Manual) 3.0 % (0.0-7.3) 11/06/21 13:49 Eosinophils % (Manual) 0 % (0.0-4.3) 11/06/21 13:49 Basophils % (Manual) 2.0 % (0.0-1.8) H 11/06/21 13:49 Metamyelocytes % 0 % 11/06/21 13:49 Myelocytes % 0 % 11/06/21 13:49 Promyelocytes % 0 % 11/06/21 13:49 Blast Cells % 0 % 11/06/21 13:49 Nucleated RBC % Not Reportable 11/06/21 13:49 Seg Neutrophils # 9.6 K/mm3 (1.8-7.7) H 11/07/21 04:12 Seg Neutrophils # Man 11.6 K/mm3 (1.8-7.7) H 11/06/21 13:49 Band Neutrophils # 0.0 K/mm3 11/06/21 13:49 Lymphocytes # (Manual) 0.4 K/mm3 (1.2-5.4) L 11/06/21 13:49 Abs React Lymphs (Man) 0.0 K/mm3 11/06/21 13:49 Monocytes # (Manual) 0.4 K/mm3 (0.0-0.8) 11/06/21 13:49 Eosinophils # (Manual) 0.0 K/mm3 (0.0-0.4) 11/06/21 13:49 Basophils # (Manual) 0.3 K/mm3 (0.0-0.1) H 11/06/21 13:49 Metamyelocytes # 0.0 K/mm3 11/06/21 13:49 Myelocytes # 0.0 K/mm3 11/06/21 13:49 Promyelocytes # 0.0 K/mm3 11/06/21 13:49 Blast Cells # 0.0 K/mm3 11/06/21 13:49 WBC Morphology Not Reportable 11/06/21 13:49 Hypersegmented Neuts Not Reportable 11/06/21 13:49 Hyposegmented Neuts Rare 11/06/21 13:49 Hypogranular Neuts Not Reportable 11/06/21 13:49 Smudge Cells Not Reportable 11/06/21 13:49 Toxic Granulation Not Reportable 11/06/21 13:49 Toxic Vacuolation Not Reportable 11/06/21 13:49 Dohle Bodies Not Reportable 11/06/21 13:49 Pelger-Huet Anomaly Not Reportable 11/06/21 13:49 Beata Rods Not Reportable 11/06/21 13:49 Platelet Estimate Consistent w auto 11/06/21 13:49 Clumped Platelets Not Reportable 11/06/21 13:49 Plt Clumps, EDTA Not Reportable 11/06/21 13:49 Large Platelets Rare 11/06/21 13:49 Giant Platelets Not Reportable 11/06/21 13:49 Platelet Satelliting Not Reportable 11/06/21 13:49 Plt Morphology Comment Not Reportable 11/06/21 13:49 RBC Morphology Not Reportable 11/06/21 13:49 Dimorphic RBCs Not Reportable 11/06/21 13:49 Polychromasia Not Reportable 11/06/21 13:49 Hypochromasia Not Reportable 11/06/21 13:49 Poikilocytosis Few 11/06/21 13:49 Anisocytosis Few 11/06/21 13:49 Microcytosis Few 11/06/21 13:49 Macrocytosis Not Reportable 11/06/21 13:49 Spherocytes Few 11/06/21 13:49 Pappenheimer Bodies Not Reportable 11/06/21 13:49 Sickle Cells Not Reportable 11/06/21 13:49 Target Cells Not Reportable 11/06/21 13:49 Tear Drop Cells Not Reportable 11/06/21 13:49 Ovalocytes Rare 11/06/21 13:49 Helmet Cells Not Reportable 11/06/21 13:49 [place] Bodies Not Reportable 11/06/21 13:49 [place] Rings Not Reportable 11/06/21 13:49 [place] Cells Not Reportable 11/06/21 13:49 Bite Cells Not Reportable 11/06/21 13:49 Crenated Cell Not Reportable 11/06/21 13:49 Elliptocytes Not Reportable 11/06/21 13:49 Acanthocytes (Spur) Not Reportable 11/06/21 13:49 Rouleaux Not Reportable 11/06/21 13:49 Hemoglobin C Crystals Not Reportable 11/06/21 13:49 Schistocytes Not Reportable 11/06/21 13:49 Malaria parasites Not Reportable 11/06/21 13:49 Alex Bodies Not Reportable 11/06/21 13:49 Hem Pathologist Commnt No 11/06/21 13:49 PT 12.4 Sec. (12.2-14.9) 11/06/21 13:49 INR 0.84 (0.87-1.13) L 11/06/21 13:49 D-Dimer 1507.91 ng/mlDDU (0-234) H 11/07/21 09:05 ABG pH 7.348 pH Units (7.350-7.450) L 11/06/21 15:40 ABG pCO2 38.5 mm Hg 11/06/21 15:40 ABG pO2 62.1 mm Hg (80.0-90.0) L 11/06/21 15:40 ABG HCO3 20.7 mmol/L (20.0-26.0) 11/06/21 15:40 ABG O2 Saturation 93.3 % (95.0-99.0) L 11/06/21 15:40 ABG O2 Content 20.2 (0.0-44) 11/06/21 15:40 ABG Base Excess -4.4 mmol/L (-2.0-3.0) L 11/06/21 15:40 ABG Hemoglobin 15.8 gm/dl (14.0-18.0) 11/06/21 15:40 ABG Carboxyhemoglobin 1.5 % (0.0-5.0) 11/06/21 15:40 ABG Methemoglobin 0.5 % (0.0-1.5) 11/06/21 15:40 Oxyhemoglobin 91.4 % (95.0-99.0) L 11/06/21 15:40 FiO2 21 % 11/06/21 15:40 Sodium 138 mmol/L (137-145) 11/07/21 04:12 Potassium 5.0 mmol/L (3.6-5.0) D 11/07/21 04:12 Chloride 102.5 mmol/L (98-107) 11/07/21 04:12 Carbon Dioxide 18 mmol/L (22-30) L 11/07/21 04:12 Anion Gap 23 mmol/L 11/07/21 04:12 BUN 24 mg/dL (9-20) H 11/07/21 04:12 Creatinine 0.9 mg/dL (0.8-1.3) 11/07/21 04:12 Estimated GFR > 60 ml/min 11/07/21 04:12 BUN/Creatinine Ratio 27 % 11/07/21 04:12 Glucose 398 mg/dL (75-100) H 11/07/21 04:12 Calcium 9.5 mg/dL (8.4-10.2) 11/07/21 04:12 NT-Pro-B Natriuret Pep 959.9 pg/mL (0-900) H 11/07/21 09:05 Active Medications - Current Medications Current Medications: Generic Name Dose Route Start Last Admin Trade Name Freq PRN Reason Stop Dose Admin Acetaminophen 650 mg 11/06/21 17:03 Acetaminophen 325 Mg Tab PO Q4H PRN Pain MILD(1-3)/Fever >100.5/WAGNER Albuterol 2.5 mg 11/06/21 17:03 Albuterol 2.5 Mg/3 Ml Nebu IH Q4HRT PRN Shortness Of Breath Azithromycin 500 mg 11/07/21 10:00 11/07/21 09:21 Azithromycin 250 Mg Tab PO 11/10/21 10:01 500 mg QDAY RUBI Administration Protocol Famotidine 10 mg 11/06/21 22:00 11/07/21 09:21 Famotidine 20 Mg/2 Ml Inj IV 10 mg BID RUBI Administration Guaifenesin 200 mg 11/07/21 08:53 11/07/21 09:29 Guaifenesin 100 Mg/5 Ml Oral Liqd PO 200 mg Q4H PRN Administration Cough Hydromorphone HCl 0.5 mg 11/06/21 17:03 Hydromorphone 0.5 Mg/0.5 Ml Inj IV Q13H PRN Pain , Severe (7-10) Ceftriaxone Sodium 1 gm in 50 mls @ 100 mls/hr 11/07/21 09:00 11/07/21 09:20 Rocephin/Ns 1 Gm/50 Ml IV 11/10/21 09:29 100 mls/hr Q24H RUBI Administration Protocol Ondansetron HCl 4 mg 11/06/21 17:03 Ondansetron 4 Mg/2 Ml Inj IV Q8H PRN Nausea And Vomiting Oxycodone/Acetaminophen 1 tab 11/06/21 17:03 Oxycodone /Acetaminophen 5-325mg Tab PO Q6H PRN Pain, Moderate (4-6) Prednisone 40 mg 11/08/21 08:00 Prednisone 20 Mg Tab PO 11/10/21 08:01 QDAY@0800 RUBI Sodium Chloride 10 ml 11/06/21 22:00 11/07/21 09:21 Sodium Chloride 0.9% 10 Ml Flush Syringe IV 10 ml BID RUBI Administration Sodium Chloride 10 ml 11/06/21 17:03 Sodium Chloride 0.9% 10 Ml Flush Syringe IV PRN PRN LINE FLUSH
[2021-11-07] MEDS ORDERED: NON-FORMULARY EACH (Albuterol Sulfate [Albuterol 0.63% Nebs] 0.63 MG/3 ML Vial.Neb) IH PRN (12:56)
[2021-11-07] MEDS ORDERED: ALBUTEROL 2.5 MG/3 ML NEBU IH PRN (12:56)
[2021-11-07] MEDS ORDERED: ALBUTEROL 8.5 GM MDI INHALATION IH PRN (12:56)
[2021-11-07] MEDS: PRAVASTATIN 40 MG TAB PO SCH (22:14)
[2021-11-07] MEDS: MONTELUKAST 10 MG TAB PO SCH (22:14)
[2021-11-08 05:07] LABS: Basophils # (Auto) 0.1 K/mm3 (0.0-0.1); Basophils % (Auto) 0.4 % (0.0-1.8); Eosinophils # (Auto) 0.1 K/mm3 (0.0-0.4); Eosinophils % (Auto) 0.7 % (0.0-4.3); Hemoglobin 14.2 gm/dl (11.8-15.2); Lymphocytes # (Auto) 2.3 K/mm3 (1.2-5.4); Lymphocytes % (Auto) 16.7 % (13.4-35.0); Mean Corpuscular HGB Conc 34 % (32-34); Mean Corpuscular Volume 87 fl (84-94); Monocytes # (Auto) 0.6 K/mm3 (0.0-0.8); Monocytes % (Auto) 4.3 % (0.0-7.3); Platelet Count 179 K/mm3 (140-440); Red Blood Count 4.82 M/mm3 (3.65-5.03); Red Cell Distribution Width 14.3 % (13.2-15.2)
[2021-11-08 05:24] LABS: BUN/Creatinine Ratio 30; Blood Urea Nitrogen 27 mg/dL (9-20); Hemolysis Index 10
[2021-11-08] MEDS ORDERED: predniSONE 20 MG TAB PO SCH (08:00)
[2021-11-08] MEDS ORDERED: FUROSEMIDE 40 MG/4 ML INJ IV ONE (09:06)
--- NOTE | 2021-11-08 09:06 | Progress Note ---
Assessment and Plan Assessment and plan: #Status asthmaticusresolved #Acute hypoxic respiratory failureimproving #COPD exacerbation - etiology: Secondary to infection - baseline oxygen requirements: Room air - supplemental oxygen: 2 L nasal cannula - Continue protocol: continue pulse oximetry, wean oxygen as tolerated, ordered incentive spirometry and educated patient on how to use it and its importance. Continue p.o. azithromycin 500 mg daily and Rocephin 1 g daily. Transitioning from p.o. prednisone 40 mg daily to IV Methylprednisolone 40 twice daily. Pending procalcitonin and coronavirus PCR., D-dimer 1508 and proBNP 959. Administering IV Lasix 20 mg x 1 to assist with respiratory status. - continue to monitor #Hypertension #Hyperlipidemia - home medications: Amlodipine 5 mg daily, Pravastatin 40 mg nightly - current medications: Pravastatin 40 mg nightly. Holding on antihypertensive as the patient is normotensive. - SBP goal <160 and DBP goal <90 while inpatient - continue to monitor #Non-insulin dependent type II diabetes mellitus - hemoglobin A1c: Unknown - home regimen: Metformin 500 mg daily - current regimen: Metformin 500 mg daily - blood glucose goal 140-180 while inpatient - continue to monitor #Tobacco dependence #Tobacco/Smoking cessation counseling - Counseled patient about the importance of smoking cessation and the possible sequelae as a result of continued tobacco consumption. The patient expresses und erstanding. -Time: +15 mins #Advanced care planning -Disease education conducted, care plan discussed, diagnoses discussed, prognosis discussed, and patient acknowledges understanding with care plan -Time: +30 min #Discharge planning - Patient is pending resolution of respiratory failure. - Case management has been made aware. - Discharge is tentatively 24-48 hours. Disposition Plan: Continue medical management Total Time Spent with Patient (Minutes): 30 min History Interval history: No acute events overnight. Hospitalist Physical - Constitutional Vitals: Temp Pulse Resp BP Pulse Ox 98.0 F 59 L 16 118/66 98 11/08/21 07:16 11/08/21 07:16 11/08/21 07:16 11/08/21 07:16 11/08/21 08:43 General appearance: Present: no acute distress, well-nourished - EENT Eyes: Present: PERRL, EOM intact ENT: hearing intact, clear oral mucosa, dentition normal - Neck Neck: Present: supple, normal ROM - Respiratory Respiratory effort: normal Respiratory: bilateral: wheezing (on 3L NC) - Cardiovascular Rhythm: regular Heart Sounds: Present: S1 & S2 - Extremities Extremities: no ischemia, pulses intact, pulses symmetrical, No edema, normal temperature, normal color, Full ROM Peripheral Pulses: within normal limits - Abdominal General gastrointestinal: soft, non-tender, non-distended, normal bowel sounds - Integumentary Integumentary: Present: clear, warm, dry - Psychiatric Psychiatric: appropriate mood/affect, intact judgment & insight, memory intact, cooperative - Neurologic Neurologic: CNII-XII intact, moves all extremities - Allied Health Allied health notes reviewed: nursing Results - Labs CBC & Chem 7: 11/08/21 04:04 11/08/21 04:04 Labs: Laboratory Last Values WBC 13.5 K/mm3 (4.5-11.0) H 11/08/21 04:04 RBC 4.82 M/mm3 (3.65-5.03) 11/08/21 04:04 Hgb 14.2 gm/dl (11.8-15.2) 11/08/21 04:04 Hct 42.0 % (35.5-45.6) 11/08/21 04:04 MCV 87 fl (84-94) 11/08/21 04:04 MCH 30 pg (28-32) 11/08/21 04:04 MCHC 34 % (32-34) 11/08/21 04:04 RDW 14.3 % (13.2-15.2) 11/08/21 04:04 Plt Count 179 K/mm3 (140-440) 11/08/21 04:04 Lymph % (Auto) 16.7 % (13.4-35.0) 11/08/21 04:04 [place] % (Auto) 4.3 % (0.0-7.3) 11/08/21 04:04 Eos % (Auto) 0.7 % (0.0-4.3) 11/08/21 04:04 Baso % (Auto) 0.4 % (0.0-1.8) 11/08/21 04:04 Lymph # (Auto) 2.3 K/mm3 (1.2-5.4) 11/08/21 04:04 [place] # (Auto) 0.6 K/mm3 (0.0-0.8) 11/08/21 04:04 Eos # (Auto) 0.1 K/mm3 (0.0-0.4) 11/08/21 04:04 Baso # (Auto) 0.1 K/mm3 (0.0-0.1) 11/08/21 04:04 Add Manual Diff Complete 11/06/21 13:49 Total Counted 100 11/06/21 13:49 Seg Neutrophils % 77.9 % (40.0-70.0) H 11/08/21 04:04 Seg Neuts % (Manual) 92.0 % (40.0-70.0) H 11/06/21 13:49 Band Neutrophils % 0 % 11/06/21 13:49 Lymphocytes % (Manual) 3.0 % (13.4-35.0) L 11/06/21 13:49 Reactive Lymphs % (Man) 0 % 11/06/21 13:49 Monocytes % (Manual) 3.0 % (0.0-7.3) 11/06/21 13:49 Eosinophils % (Manual) 0 % (0.0-4.3) 11/06/21 13:49 Basophils % (Manual) 2.0 % (0.0-1.8) H 11/06/21 13:49 Metamyelocytes % 0 % 11/06/21 13:49 Myelocytes % 0 % 11/06/21 13:49 Promyelocytes % 0 % 11/06/21 13:49 Blast Cells % 0 % 11/06/21 13:49 Nucleated RBC % Not Reportable 11/06/21 13:49 Seg Neutrophils # 10.5 K/mm3 (1.8-7.7) H 11/08/21 04:04 Seg Neutrophils # Man 11.6 K/mm3 (1.8-7.7) H 11/06/21 13:49 Band Neutrophils # 0.0 K/mm3 11/06/21 13:49 Lymphocytes # (Manual) 0.4 K/mm3 (1.2-5.4) L 11/06/21 13:49 Abs React Lymphs (Man) 0.0 K/mm3 11/06/21 13:49 Monocytes # (Manual) 0.4 K/mm3 (0.0-0.8) 11/06/21 13:49 Eosinophils # (Manual) 0.0 K/mm3 (0.0-0.4) 11/06/21 13:49 Basophils # (Manual) 0.3 K/mm3 (0.0-0.1) H 11/06/21 13:49 Metamyelocytes # 0.0 K/mm3 11/06/21 13:49 Myelocytes # 0.0 K/mm3 11/06/21 13:49 Promyelocytes # 0.0 K/mm3 11/06/21 13:49 Blast Cells # 0.0 K/mm3 11/06/21 13:49 WBC Morphology Not Reportable 11/06/21 13:49 Hypersegmented Neuts Not Reportable 11/06/21 13:49 Hyposegmented Neuts Rare 11/06/21 13:49 Hypogranular Neuts Not Reportable 11/06/21 13:49 Smudge Cells Not Reportable 11/06/21 13:49 Toxic Granulation Not Reportable 11/06/21 13:49 Toxic Vacuolation Not Reportable 11/06/21 13:49 Dohle Bodies Not Reportable 11/06/21 13:49 Pelger-Huet Anomaly Not Reportable 11/06/21 13:49 Beata Rods Not Reportable 11/06/21 13:49 Platelet Estimate Consistent w auto 11/06/21 13:49 Clumped Platelets Not Reportable 11/06/21 13:49 Plt Clumps, EDTA Not Reportable 11/06/21 13:49 Large Platelets Rare 11/06/21 13:49 Giant Platelets Not Reportable 11/06/21 13:49 Platelet Satelliting Not Reportable 11/06/21 13:49 Plt Morphology Comment Not Reportable 11/06/21 13:49 RBC Morphology Not Reportable 11/06/21 13:49 Dimorphic RBCs Not Reportable 11/06/21 13:49 Polychromasia Not Reportable 11/06/21 13:49 Hypochromasia Not Reportable 11/06/21 13:49 Poikilocytosis Few 11/06/21 13:49 Anisocytosis Few 11/06/21 13:49 Microcytosis Few 11/06/21 13:49 Macrocytosis Not Reportable 11/06/21 13:49 Spherocytes Few 11/06/21 13:49 Pappenheimer Bodies Not Reportable 11/06/21 13:49 Sickle Cells Not Reportable 11/06/21 13:49 Target Cells Not Reportable 11/06/21 13:49 Tear Drop Cells Not Reportable 11/06/21 13:49 Ovalocytes Rare 11/06/21 13:49 Helmet Cells Not Reportable 11/06/21 13:49 [place] Bodies Not Reportable 11/06/21 13:49 [place] Rings Not Reportable 11/06/21 13:49 [place] Cells Not Reportable 11/06/21 13:49 Bite Cells Not Reportable 11/06/21 13:49 Crenated Cell Not Reportable 11/06/21 13:49 Elliptocytes Not Reportable 11/06/21 13:49 Acanthocytes (Spur) Not Reportable 11/06/21 13:49 Rouleaux Not Reportable 11/06/21 13:49 Hemoglobin C Crystals Not Reportable 11/06/21 13:49 Schistocytes Not Reportable 11/06/21 13:49 Malaria parasites Not Reportable 11/06/21 13:49 Alex Bodies Not Reportable 11/06/21 13:49 Hem Pathologist Commnt No 11/06/21 13:49 PT 12.4 Sec. (12.2-14.9) 11/06/21 13:49 INR 0.84 (0.87-1.13) L 11/06/21 13:49 D-Dimer 1507.91 ng/mlDDU (0-234) H 11/07/21 09:05 ABG pH 7.348 pH Units (7.350-7.450) L 11/06/21 15:40 ABG pCO2 38.5 mm Hg 11/06/21 15:40 ABG pO2 62.1 mm Hg (80.0-90.0) L 11/06/21 15:40 ABG HCO3 20.7 mmol/L (20.0-26.0) 11/06/21 15:40 ABG O2 Saturation 93.3 % (95.0-99.0) L 11/06/21 15:40 ABG O2 Content 20.2 (0.0-44) 11/06/21 15:40 ABG Base Excess -4.4 mmol/L (-2.0-3.0) L 11/06/21 15:40 ABG Hemoglobin 15.8 gm/dl (14.0-18.0) 11/06/21 15:40 ABG Carboxyhemoglobin 1.5 % (0.0-5.0) 11/06/21 15:40 ABG Methemoglobin 0.5 % (0.0-1.5) 11/06/21 15:40 Oxyhemoglobin 91.4 % (95.0-99.0) L 11/06/21 15:40 FiO2 21 % 11/06/21 15:40 Sodium 136 mmol/L (137-145) L 11/08/21 04:04 Potassium 4.3 mmol/L (3.6-5.0) 11/08/21 04:04 Chloride 102.8 mmol/L (98-107) 11/08/21 04:04 Carbon Dioxide 23 mmol/L (22-30) 11/08/21 04:04 Anion Gap 15 mmol/L 11/08/21 04:04 BUN 27 mg/dL (9-20) H 11/08/21 04:04 Creatinine 0.9 mg/dL (0.8-1.3) 11/08/21 04:04 Estimated GFR > 60 ml/min 11/08/21 04:04 BUN/Creatinine Ratio 30 % 11/08/21 04:04 Glucose 173 mg/dL (75-100) H 11/08/21 04:04 POC Glucose 144 mg/dL (70-105) H 11/08/21 07:47 Calcium 9.0 mg/dL (8.4-10.2) 11/08/21 04:04 NT-Pro-B Natriuret Pep 959.9 pg/mL (0-900) H 11/07/21 09:05 Ibrahim/IV: Voiding Method Toilet Active Medications - Current Medications Current Medications: Generic Name Dose Route Start Last Admin Trade Name Freq PRN Reason Stop Dose Admin Acetaminophen 650 mg 11/06/21 17:03 Acetaminophen 325 Mg Tab PO Q4H PRN Pain MILD(1-3)/Fever >100.5/WAGNER Albuterol 2.5 mg 11/06/21 17:03 11/07/21 13:09 Albuterol 2.5 Mg/3 Ml Nebu IH 2.5 mg Q4HRT PRN Administration Shortness Of Breath Azithromycin 500 mg 11/07/21 10:00 11/07/21 09:21 Azithromycin 250 Mg Tab PO 11/10/21 10:01 500 mg QDAY RUBI Administration Protocol Famotidine 10 mg 11/06/21 22:00 11/07/21 22:14 Famotidine 20 Mg/2 Ml Inj IV 10 mg BID RUBI Administration Guaifenesin 200 mg 11/07/21 08:53 11/07/21 22:20 Guaifenesin 100 Mg/5 Ml Oral Liqd PO 200 mg Q4H PRN Administration Cough Hydromorphone HCl 0.5 mg 11/06/21 17:03 11/07/21 22:20 Hydromorphone 0.5 Mg/0.5 Ml Inj IV 0.5 mg Q13H PRN Administration Pain , Severe (7-10) Ceftriaxone Sodium 1 gm in 50 mls @ 100 mls/hr 11/07/21 09:00 11/07/21 09:20 Rocephin/Ns 1 Gm/50 Ml IV 11/10/21 09:29 100 mls/hr Q24H RUBI Administration Protocol Metformin HCl 500 mg 11/08/21 08:00 Metformin 500 Mg Tab PO QDDIAB RUBI Montelukast Sodium 10 mg 11/07/21 22:00 11/07/21 22:14 Montelukast 10 Mg Tab PO 10 mg QHS RBUI Administration Ondansetron HCl 4 mg 11/06/21 17:03 11/07/21 22:20 Ondansetron 4 Mg/2 Ml Inj IV 4 mg Q8H PRN Administration Nausea And Vomiting Oxycodone/Acetaminophen 1 tab 11/06/21 17:03 Oxycodone /Acetaminophen 5-325mg Tab PO Q6H PRN Pain, Moderate (4-6) Pravastatin Sodium 40 mg 11/07/21 22:00 11/07/21 22:14 Pravastatin 40 Mg Tab PO 40 mg QHS RUBI Administration Prednisone 40 mg 11/08/21 08:00 Prednisone 20 Mg Tab PO 11/10/21 08:01 QDAY@0800 RUBI Sodium Chloride 10 ml 11/06/21 22:00 11/07/21 22:14 Sodium Chloride 0.9% 10 Ml Flush Syringe IV 10 ml BID RUBI Administration Sodium Chloride 10 ml 11/06/21 17:03 Sodium Chloride 0.9% 10 Ml Flush Syringe IV PRN PRN LINE FLUSH
[2021-11-08] MEDS: cefTRIAXone/NS 1 GM/50 ML 1 GM/50 ML BAG IV SCH (09:49)
[2021-11-08] MEDS: guaiFENesin 100 MG/5 ML ORAL LIQD PO PRN ×2 (09:58→22:54)
[2021-11-08] MEDS: AZITHROMYCIN 250 MG TAB PO SCH (09:59)
[2021-11-08] MEDS: metFORMIN 500 MG TAB PO SCH (09:59)
[2021-11-08] MEDS ORDERED: FUROSEMIDE 20 MG/2 ML INJ IV ONE (10:00)
[2021-11-08] MEDS: FAMOTIDINE 20 MG/2 ML INJ IV SCH ×2 (10:00→22:54)
[2021-11-08] MEDS: IPRATROPIUM/ALBUTEROL SULFATE 3 ML AMPUL.NEB IH SCH ×2 (15:25→20:42)
[2021-11-08] MEDS ORDERED: DEXTROSE 50% IN WATER (25GM) 50 ML SYRINGE IV PRN (16:30)
[2021-11-08] MEDS: INSULIN REGULAR, HUMAN 100 UNITS/1 ML SUB-Q SCH ×2 (16:46→22:57)
[2021-11-08] MEDS ORDERED: INSULIN NPH/REGULAR 70/30 INJ SUB-Q SCH (17:00)
[2021-11-08] MEDS: methylPREDNISolone Sod Succinate 40 MG/1 ML INJ IV SCH (18:35)
[2021-11-08] MEDS: INSULIN NPH/REGULAR 70/30 INJ SUB-Q SCH (18:59)
[2021-11-08] MEDS: PRAVASTATIN 40 MG TAB PO SCH (22:55)
[2021-11-08] MEDS: MONTELUKAST 10 MG TAB PO SCH (22:57)
[2021-11-09] MEDS: methylPREDNISolone Sod Succinate 40 MG/1 ML INJ IV SCH (06:11)
[2021-11-09] MEDS: IPRATROPIUM/ALBUTEROL SULFATE 3 ML AMPUL.NEB IH SCH ×3 (08:17→15:53)
[2021-11-09] MEDS: FAMOTIDINE 20 MG/2 ML INJ IV SCH (09:59)
--- NOTE | 2021-11-09 09:59 | Discharge Summary ---
Providers - Providers Date of Admission: 11/06/21 17:03 Date of discharge: 11/09/21 Attending physician: KILO OJEDA MD Primary care physician: DELICATESSEN DEPARTMENT MANAGER Hospitalization Reason for admission: Status asthmaticus, acute hypoxic respiratory failure, COPD exacerbation Condition: Stable Pertinent studies: Reviewed. Procedures: None. Hospital course: 61 YO Male with HTN, DM, Nicotine Dependence, Mild Intermittent Asthma, COPD, CVA presents to ED for evaluation. Patient reports "I cannot breathe". Pt is in respiratory distress and provides minimal history. Patient states that he has experienced shortness of breath over the past few days with worsening symptoms over the same timeframe. Patient acknowledges increased dry cough, with worsening symptoms without improvement with increased nebulizer therapy. Patient failed outpatient therapy. EMS was notified and upon arrival the patient was found to be in distress and subsequently placed on 100% supplemental oxygen via nonrebreather mask and transported to [facility] for further care and evaluation of the aforementioned symptoms. The patient was seen and evaluated in the emergency department. All lab and imaging studies reviewed. The patient was found to have a pulse oximetry of 85% on room air with respirations in the 30s. Patient was found to be tripoding, using accessory muscles to breathe, unable to speak in complete sentences, anxious, with audible wheezing. Patient placed on supplemental oxygen without improvement in symptoms and was subsequently placed on noninvasive positive pressure ventilation with mild improvement in symptoms. Patient admitted to medical floor due to increased risk of worsening symptoms and medical stabilization. Patient uses head gestures to deny fever, chills, chest pain, palpitation, productive cough, skin rash, recent ill contacts, or known spoke to COVID-19. The patient was started on IV methylprednisolone 40 mg every 8 hours for asthma exacerbation. The patient was later started on antibiotics for COPD exacerbation management with p.o. azithromycin 500 mg daily and Rocephin 1 g daily. Patient was later transitioned to p.o. prednisone 40 mg daily to complete a 5-day course. Patient has since had significant clinical improvement and has been weaned off of supplemental oxygen. It has been explained to the patient in detail that he does not require supplemental oxygen for discharge, and the patient expresses understanding. The patient's asthma exacerbations are likely triggered by temperature changes with the season. Patient is medically clear for discharge. Disposition: 01 HOME / SELF CARE / HOMELESS Final Discharge Diagnosis (Prints w/discharge instructions): Status asthmaticus, acute hypoxic respiratory failure, COPD exacerbation, hypertension, hyperlipidemia, [id number] type 2 diabetes mellitus, tobacco dependence. Time spent for discharge: 45 min Core Measure Documentation - Palliative Care Palliative Care/ Comfort Measures: Not Applicable - Core Measures Any of the following diagnoses?: none Exam - Constitutional Vitals: Temp Pulse Resp BP Pulse Ox 98.5 F 96 H 18 122/72 94 11/09/21 08:13 11/09/21 08:13 11/09/21 08:13 11/09/21 08:13 11/09/21 08:13 General appearance: Present: no acute distress, well-nourished - EENT Eyes: Present: PERRL, EOM intact ENT: hearing intact, clear oral mucosa, dentition normal - Neck Neck: Present: supple, normal ROM - Respiratory Respiratory effort: normal Respiratory: bilateral: diminished - Cardiovascular Rhythm: regular Heart Sounds: Present: S1 & S2 - Extremities Extremities: no ischemia, pulses intact, pulses symmetrical, No edema, normal temperature, normal color, Full ROM Peripheral Pulses: within normal limits - Abdominal General gastrointestinal: Present: soft, non-tender, non-distended, normal bowel sounds Male genitourinary: Present: deferred - Rectal Rectal Exam: deferred - Integumentary Integumentary: Present: clear, warm, dry - Musculoskeletal Musculoskeletal: strength equal bilaterally - Psychiatric Psychiatric: appropriate mood/affect, intact judgment & insight, memory intact, cooperative - Neurologic Neurologic: CNII-XII intact, moves all extremities - Allied Health Allied health notes reviewed: nursing Plan Activity: no restrictions Diet: diabetic Additional Instructions: 61 YO Male with HTN, DM, Nicotine Dependence, Mild Intermittent Asthma, COPD, CVA presents to ED for evaluation. Patient reports "I cannot breathe". Pt is in respiratory distress and provides minimal history. Patient states that he has experienced shortness of breath over the past few days with worsening symptoms over the same timeframe. Patient acknowledges increased dry cough, with worsening symptoms without improvement with increased nebulizer therapy. Patient failed outpatient therapy. EMS was notified and upon arrival the patient was found to be in distress and subsequently placed on 100% supplemental oxygen via nonrebreather mask and transported to [facility] for further care and evaluation of the aforementioned symptoms. The patient was seen and evaluated in the emergency department. All lab and imaging studies reviewed. The patient was found to have a pulse oximetry of 85% on room air with respirations in the 30s. Patient was found to be tripoding, using accessory muscles to breathe, unable to speak in complete sentences, anxious, with audible wheezing. Patient placed on supplemental oxygen without improvement in symptoms and was subsequently placed on noninvasive positive pressure ventilation with mild improvement in symptoms. Patient admitted to medical floor due to increased risk of worsening symptoms and medical stabilization. Patient uses head gestures to deny fever, chills, chest pain, palpitation, productive cough, skin rash, recent ill contacts, or known spoke to COVID-19. The patient was started on IV methylprednisolone 40 mg every 8 hours for asthma exacerbation. The patient was later started on antibiotics for COPD exacerbation management with p.o. azithromycin 500 mg daily and Rocephin 1 g daily. Patient was later transitioned to p.o. prednisone 40 mg daily to complete a 5-day course. Patient has since had significant clinical improvement and has been weaned off of supplemental oxygen. It has been explained to the patient in detail that he does not require supplemental oxygen for discharge, and the patient expresses understanding. The patient's asthma exacerbations are likely triggered by temperature changes with the season. Patient is medically clear for discharge. Care Plan Goals: Patient is medically clear for discharge. Assessment: 61 YO Male with HTN, DM, Nicotine Dependence, Mild Intermittent Asthma, COPD, CVA presents to ED for evaluation. Patient reports "I cannot breathe". Pt is in respiratory distress and provides minimal history. Patient states that he has experienced shortness of breath over the past few days with worsening symptoms over the same timeframe. Patient acknowledges increased dry cough, with worsening symptoms without improvement with increased nebulizer therapy. Patient failed outpatient therapy. EMS was notified and upon arrival the patient was found to be in distress and subsequently placed on 100% supplemental oxygen via nonrebreather mask and transported to [facility] for further care and evaluation of the aforementioned symptoms. The patient was seen and evaluated in the emergency department. All lab and imaging studies reviewed. The patient was found to have a pulse oximetry of 85% on room air with respirations in the 30s. Patient was found to be tripoding, using accessory muscles to breathe, unable to speak in complete sentences, anxious, with audible wheezing. Patient placed on supplemental oxygen without improvement in symptoms and was subsequently placed on noninvasive positive pressure ventilation with mild improvement in symptoms. Patient admitted to medical floor due to increased risk of worsening symptoms and medical stabilization. Patient uses head gestures to deny fever, chills, chest pain, palpitation, productive cough, skin rash, recent ill contacts, or known spoke to COVID-19. The patient was started on IV methylprednisolone 40 mg every 8 hours for asthma exacerbation. The patient was later started on antibiotics for COPD exacerbation management with p.o. azithromycin 500 mg daily and Rocephin 1 g daily. Patient was later transitioned to p.o. prednisone 40 mg daily to complete a 5-day course. Patient has since had significant clinical improvement and has been weaned off of supplemental oxygen. It has been explained to the patient in detail that he does not require supplemental oxygen for discharge, and the patient expresses understanding. The patient's asthma exacerbations are likely triggered by temperature changes with the season. Patient is medically clear for discharge. Follow up with: PRIMARY MD ANH [Primary Care Provider] - 3-5 Days DEANNA CALLES MD [Staff Physician] - 7 Days Prescriptions: Pravastatin [Pravachol] 40 mg PO QHS #30 tablet Montelukast [Singulair] 10 mg PO QHS #30 tablet amLODIPine 5 mg PO QDAY #30 tablet metFORMIN [Glucophage] 500 mg PO QDDIAB #60 tablet levoFLOXacin [Levaquin TAB] 500 mg PO Q24HR #3 tablet Insulin NPH/Regular [NovoLIN 70/30] 10 unit SUB-Q BIDDIAB #1 vial Albuterol Mdi (or & Nicu Only) [ProAir HFA Inhaler] 2 puff IH Q6H PRN #1 inh PRN Reason: Shortness Of Breath ALBUTEROL NEB's [Proventil 0.083% NEBS] 2.5 mg IH Q6H PRN #1 box PRN Reason: Shortness Of Breath
[2021-11-09] MEDS: metFORMIN 500 MG TAB PO SCH (10:00)
[2021-11-09] MEDS ORDERED: levoFLOXacin 500 MG TAB PO SCH (10:00)
[2021-11-09] MEDS: INSULIN NPH/REGULAR 70/30 INJ SUB-Q SCH (10:05)
[2021-11-09] MEDS: INSULIN REGULAR, HUMAN 100 UNITS/1 ML SUB-Q SCH (10:12)
--- NOTE | 2021-11-09 10:22 | Electrocardiograph Report ---
[facility] Test Date: 2021-11-06 Test Time: 13:45:07 Pat Name: DEVIN OROCZO Department: Room: A457 Gender: M Intake Nurse: gp : 1960 Requested By: DAVID HIDALGO Order Number: [id number] Reading MD: Saundra Cowan Measurements Intervals [place] Rate: 119 P: 70 IA: 142 QRS: 92 QRSD: 77 T: 60 QT: 310 QTc: 437 Interpretive Statements Sinus tachycardia Right axis deviation Compared to ECG 10/15/2021 23:38:31 Sinus rate has increased Electronically Signed On 11-09-2021 10:22:14 EDT by Saundra Cowan
[2021-11-09 12:07] VITALS: BP 129/79
--- NOTE | 2021-11-09 14:03 | Vascular Lab Report ---
DUPLEX DOPPLER LOWER EXTREMITY VEINS, BILATERAL INDICATION: Evaluate for possible DVT. TECHNIQUE: Duplex doppler imaging was performed through the veins of both lower extremities using ve nous compression and other maneuvers. COMPARISON: No relevant prior imaging study available. FINDINGS: Right Common femoral vein: Negative. Right Superficial femoral vein: Negative. Right Popliteal vein: Negative. Right Calf veins: Negative. Left Common femoral vein: Negative. Left Superficial femoral vein: Negative. Left Popliteal vein: Negative. Left Calf veins: Negative. Additional findings: None. IMPRESSION: No sonographic evidence for DVT in either lower extremity. Signer Name: Mac Kaur Jr, MD Signed: 11/09/2021 1:59 PM Workstation Name: [id number]
[2021-11-09] MEDS ORDERED: FAMOTIDINE 10 MG TAB PO SCH (22:00)
[2021-11-10] MEDS ORDERED: methylPREDNISolone Sod Succinate 40 MG/1 ML INJ IV SCH (10:00)
== END 2021-11-09 18:00 | disposition home or self-care (01) | DRG 189 ==
LOC: ED 11:55 → 4A 17:03
PROVIDERS: ADMIT Internal Medicine; ATTEND Student in an Organized Health Care Education/Training Program
PROC: 4A033R1 Measurement of Arterial Saturation, Peripheral, Percutaneous Approach (ICD-10-PCS; principal; 2021-11-06)
DX: J96.01 Acute respiratory failure with hypoxia (principal); J44.1 Chronic obstructive pulmonary disease with (acute) exacerbation; J45.22 Mild intermittent asthma with status asthmaticus; Z20.822 Contact with and (suspected) exposure to COVID-19; F17.213 Nicotine dependence, cigarettes, with withdrawal; Z71.6 Tobacco abuse counseling; I10 Essential (primary) hypertension; E11.9 Type 2 diabetes mellitus without complications; E78.5 Hyperlipidemia, unspecified; Z86.73 Personal history of transient ischemic attack (TIA), and cerebral infarction without residual deficits; Z79.82 Long term (current) use of aspirin; Z79.4 Long term (current) use of insulin; Z82.49 Family history of ischemic heart disease and other diseases of the circulatory system
CPT/HCPCS: 36415; 71045; 80048; 82803; 82962; 83036; 83880; 84145; 85007; 85025; 85379; 85610; 93005; 93970; 94640; 94644; 94760; 99406; G0378; J3490; Q0177; Q9967; J0696; J1170; J1815; J1940; J2405; J2920; U0003

== ENCOUNTER 2021-12-29 14:53 | Inpatient (IN) | payer SELFPAY ==
--- NOTE | 2021-12-29 15:58 | Cat Scan Report ---
CT HEAD WITHOUT CONTRAST INDICATION / CLINICAL INFORMATION: vision chnages,left weakness x 2.5 hours ago.hx. TECHNIQUE: Axial imaging performed from the skull apex through the skull base without the use of cont rast. Sagittal and coronal reformatted images. All CT scans at this location are performed using CT dose reduction for ALARA by means of automated exposure control. COMPARISON: None available. FINDINGS: CEREBRAL PARENCHYMA: Mild cortical volume loss and chronic white matter changes are identified. No ac chickaloon parenchymal abnormality is appreciated. 2.7 cm chronic infarct is identified in the right posteri or watershed region. A 2.5 cm chronic infarct is identified in the left parietal cortex. A 1.6 cm cor tical infarct is identified in the right parietal cortex. HEMORRHAGE: None. EXTRA-AXIAL SPACES: Normal in size and morphology for the patient's age. VENTRICULAR SYSTEM: Normal in size and morphology for the patient's age. MIDLINE SHIFT OR HERNIATION: None. CEREBELLUM / BRAINSTEM: No significant abnormality. CALVARIUM: No significant abnormality. ORBITS: Normal as visualized. PARANASAL SINUSES / MASTOID AIR CELLS: Normal as visualized. SOFT TISSUES of HEAD: No significant abnormality. ADDITIONAL FINDINGS: None. IMPRESSION: No acute intracranial abnormality. Chronic infarcts as described. CODE STROKE: Time of Communication (WATER SOFTENER SERVICER AND INSTALLER/CDT): 1453 hours Licensed Practitioner Receiving Report: Dr. Mcdowell Signer Name: Mac Kaur Jr, MD Signed: 12/29/2021 3:54 PM Workstation Name: [id number]
[2021-12-29] MEDS ORDERED: SODIUM CHLORIDE 0.9% 1000 ML 1,000 ML IV ONE ×2 (16:03→17:36)
--- NOTE | 2021-12-29 16:03 | Consultation ---
History of Present Illness Consult date: 12/29/21 History of present illness: [facility] Consult Note # Demographics Consult Type: Acute Stroke Level 1 (0-4.5 hrs) Patient Location: Emergency Room First Name: Paul Last Name: Conner Date of : 1960 Age: 61 Gender: Male Facility: [facility] Time of Initial Page (Eastern Time): 12/29/2021, 15:31 Time of Return Call (Eastern Time): 12/29/2021, 15:31 # HPI Chief Complaint: confusion weakness (focal) History: Per ER staff, patient presented with right-sided weakness & confusion. The patient was found to be confused & could not provide additional history. The patient's friend, who reportedly just met him in June, had limited clinical history. Last Known Normal: I have collected independent history specific to time last normal or last known well. We have collaborated with the provider and at this time, we have the most current timeline with the information that is available. 1:30pm Duration: constant hours Possible Thrombolytic candidate: not on warfarin or NOACs no intracranial hemorrhage history no recent major surgery Per limited available clinical information Context/Pre-existing conditions: pre-existing motor deficit Left-sided weakness # Scores Time of exam and NIHSS ( Time): 12/29/2021, 15:37 Level of Consciousness 1a: [0] = Alert; keenly responsive LOC Questions 1b: [1] = Answers one correctly LOC Commands 1c: [0] = Performs both tasks correctly Best Gaze 2: [0] = Normal Visual 3: [0] = No visual loss Facial Palsy 4: [0] = Normal symmetrical movements Motor Arm Left 5a: [1] = Drift Motor Arm Right 5b: [0] = No drift Motor Leg Left 6a: [1] = Drift Motor Leg Right 6b: [0] = No drift Limb Ataxia 7: [0] = Absent Sensory 8: [1] = Bust-dy-ofruxmyu sensory loss Best Language 9: [1] = Cohw-fy-gujcmldb aphasia Dysarthria 10: [0] = Normal Extinction and Inattention 11: [1] = Visual, tactile, auditory, spatial, or personal inattention NIHSS Total: 6 Modified Jaquelin Scale (mRS) pre-stroke: [2] = Slight disability...unable to carry out all prev activities... Modified Lycoming Scale total: 2 VAN Screening: Positive # Exam SBP: 108 DBP: 68 Mental Status: awake follows commands confused Did not remember month; confusion with touching nose with left hand, unclear if it was apraxia versus neglect (versus functional); tried moving camera from patient's left to right side to see if there was any evidence of neglect Language: normal speech Motor: Left arm initially only with drift, but after asking to touch nose patient's arm dropped Sensory: decreased sensation right face decreased sensation right upper extremity decreased sensation right lower extremity # ROS Unable to obtain ROS: altered mentation # PMH-FH-SH Past Medical History: Diabetes hypertension stroke Medications: antihypertensive diabetic medication lipid lowering agent Per friend's clinical reports as relayed by the Nurse Allergies: NKDA Per friend's clinical reports as relayed by the Nurse # Data Glucose: [address] personally read by me ( Time): 12/29/2021, 15:[address]: no bleed preliminarily reviewed by me, please refer to radiology read for official reading # Assessment Impression: Altered Mental Status Ischemic Stroke (Acute) Stroke Mimic Weakness # Plan Thrombolytic/Intervention: IV thrombolytic and possible IA candidate Thrombolytic Dosing: IV alteplase 0.9 mg/kg, max dose 90 mg; 10% of dose given over 1 minute IVP, remaining 90% given as infusion over 1 hour Possible IA Candidate: signs and symptoms of LVO CTA pending Time IV Thrombolytic Recommended ( Time): 12/29/2021, 15:54 Labs: CBC comprehensive metabolic panel ESR hemoglobin A1c lipid panel troponin TSH urine drug screen ua Infectious work-up Imaging: (urgency: STAT): CT Angiogram Head and CT Angiogram Neck AND call back with results if abnormal Imaging: (urgency: routine): MRI Brain without contrast Diagnostic Test: echo without bubble study EEG Therapy/Evaluation: NPO until swallow evaluation PT/OT evaluation speech/swallow consultation Medication: aspirin 81 mg daily start statin with goal of LDL < 70 DVT Prophylaxis: SCD chemical DVT prophylaxis Thrombolytic Administration Recommendations: Unable to obtain informed consent due to medical condition. No family available. In my opinion, benefits of IV thrombolytic therapy outweigh risks. I have collected independent history specific to time last normal or last known well. We have collaborated with the ED provider and at this time, we have the most current timeline with the information that is available. BP goal< 180/105 for 24hrs post Thrombolytic administration Use Labetolol 10-20mg IV prn or Nicardipine gtt to maintain BP parameters No antiplatelets or anticoagulants for next 24 hrs unless indicated for emergent IA procedure or other life threatening situation Call back if there is any decline in neurological condition Other: LDL < 70 If patient has any neurological deterioration please call me back immediately telemetry monitoring I have discussed my recommendations with the referring provider Disposition: admit # Logistics Telemedicine: Interactive 2 way audio and visual telecommunication technology was utilized during this visit # Demographics First Name: Paul Last Name: [facility] Facility: [facility] Physical Examination - Vital Signs Vital Signs: Vital Signs Temp Pulse Resp BP Pulse Ox 98.9 F 106 H 17 91/67 100 12/29/21 15:30 12/29/21 15:30 12/29/21 15:30 12/29/21 15:30 12/29/21 15:30
--- NOTE | 2021-12-29 16:31 | Cat Scan Report ---
CT angio neck INDICATION / CLINICAL INFORMATION: 61 years Male; eval for acute cva. TECHNIQUE: Thin cut axial images obtained through the head during IV bolus contrast administration. S agittal, coronal, and 3 plane MIP reconstructions performed by the technologist. NASCET type criteria used evaluate stenoses. All CT scans at this location are performed using CT dose reduction for ALAR A by means of automated exposure control. COMPARISON: None available. FINDINGS: CAROTID ARTERIES: There is complete occlusion of the right ICA approximately 0.6 cm distal to the bif urcation. There is no CT evidence of reconstitution of the more distal cervical right ICA. VERTEBRAL ARTERIES: There is no significant stenosis involving the left cervical carotid arteries. Th e left carotid bifurcation is widely patent. There is no significant focal stenosis involving cervica l vertebral arteries at. 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 ARCH: There is no significant stenosis involving origins of the arch vessels. ADDITIONAL FINDINGS: Remainder of the surrounding soft tissues are grossly normal. IMPRESSION: There is occlusion of the proximal right ICA approximately 0.6 cm distal to the bifurcation without r econstitution of the more distal cervical right ICA. Signer Name: Kody Nixon MD Signed: 12/29/2021 4:27 PM Workstation Name: [id number]
--- NOTE | 2021-12-29 16:39 | Cat Scan Report ---
CT angio head INDICATION / CLINICAL INFORMATION: 61 years Male; STROKE. TECHNIQUE: Thin cut axial images obtained through the head during IV bolus contrast administration. S agittal, coronal, and 3 plane MIP reconstructions performed by the technologist. NASCET type criteria used evaluate stenoses. Automated exposure control utilized for radiation reduction purposes. COMPARISON: None available. FINDINGS: INTERNAL CAROTID ARTERIES: There is occlusion of the intracranial ICA. There are foci of calcificatio n more distally without clear evidence of significant collateral or retrograde flow. There is notable irregularity of the intracranial left ICA with foci of calcification most consistent with atherosclerotic disease. There is mild to moderate segmental narrowing particularly involving c avernous and communicating segments at. There is some irregularity of the lateral aspect of the mk nous segments which may reflect ulceration. VERTEBROBASILAR SYSTEM: There is developmental hypoplasia the distal left vertebral artery. There is marked focal stenosis involving proximal left vertebral artery, best delineated on the sagittal recon structed sequence. There is no significant focal stenosis of the basilar artery. CEREBRAL ARTERIES: The findings are compatible with notable developmental hypoplasia of the A1 segmen t of the right HEIKE which limits the collateral flow. The opacification within the proximal right MCA and adjacent segments appear to be primarily via collateral flow from the posterior communicating art victor manuel. However, there is notable decrease density within the right MCA vessels compatible with relative reduced flow. The motion degrades the image quality. However, the proximal left MCA and adjacent segments appear to demonstrate appropriate caliber. The more distal anterior cerebral arteries appear to demonstrate ap propriate caliber. There is milder irregularity of the posterior cerebral arteries without significan t focal stenosis. ANEURYSM: None identified. ADDITIONAL FINDINGS: Remainder of the surrounding soft tissues are grossly normal. 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 However, there is relative decreased density within the right MCA branches compati ble with relative reduced flow. 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 Signer Name: Kody Nixon MD Signed: 12/29/2021 4:35 PM Workstation Name: [id number]
[2021-12-29] MEDS ORDERED: SODIUM CHLORIDE 0.9% 50 ML IVPB IV SCH (16:46)
[2021-12-29] MEDS ORDERED: ALTEPLASE 100 MG INJ KIT IV SCH ×2 (16:46)
--- NOTE | 2021-12-29 16:57 | Emergency Department Report ---
ED Neuro Deficit HPI - General Chief Complaint: Neuro Symptoms/Deficit Stated Complaint: POSSIBLE STROKE Source: family Mode of arrival: Wheelchair Limitations: Altered Mental Status - History of Present Illness Initial Comments: 61-year-old male with multiple medical comorbidities sent in from external triage for evaluation of strokelike symptoms. Patient is intermittently co nfused here and cannot provide specific details but persistently states to this provider that he noticed that his symptoms began "at about 2 PM when I try to call my friend and asked him to bring me a cigarette. I noticed I had problems grabbing the phone with my right arm." Patient reports prior history of stroke but denies any prior deficits. Patient however is companied by his friend who is friend states that the patient at baseline has deficits which consist of weakness, and his left upper and left lower extremity secondary to a stroke approximately 2 to 3 yrs ago." He c/o weakness to his R leg and "problems seeing" in his R eye. The pt's friend states he saw the pt at ~11:30am today and states "he was fine! he was his normal self!" The pt denies any falls, head trauma, chest pain, shortness of breath, difficulty breathing or palpitations. Of note, the pt's name above is spelled incorrectly, per the pt's report. Pt confirms his correct name is: Paul Quan : 1960 [id number] Presenting Symptoms: Present: Weak/Paralyzed One Side, Blurred/Loss of Vision, Altered Mental Status History of same: Yes Place: home Severity: moderate Quality: weak, constant Improves With: none Worsens With: none On Anticoagulants: No Associated Symptoms: denies other symptoms Treatments Prior to Arrival: none - Related Data Allergies/Adverse Reactions: Allergies Allergy/AdvReac Type Severity Reaction Status Date / Time No Known Allergies Allergy Unverified 12/29/21 17:00 ED Review of Systems ROS: Stated complaint: POSSIBLE STROKE Other details as noted in HPI Comment: All other systems reviewed and negative Constitutional: no symptoms reported Eyes: as per HPI, vision change, other (pt reports inability to see in his L eye ) ENT: as per HPI Respiratory: wheezing Endocrine: no symptoms reported Gastrointestinal: denies: abdominal pain, nausea, vomiting, diarrhea, constipation, hematemesis, melena Musculoskeletal: denies: back pain, joint swelling, arthralgia Skin: denies: rash ED Past Medical Hx - Past Medical History Previous Medical History?: Yes Hx Hypertension: Yes Hx CVA: Yes Hx Diabetes: Yes ED Neuro Physical Exam - General Limitations: No Limitations, Altered Mental Status, Other (pt intermittently confused; unablet to recall many details of today, but states his symptoms began ~2pm) General appearance: anxious Suspected Stroke: Yes - Head Head exam: Present: atraumatic, normocephalic - Eye Eye exam: Present: normal appearance, PERRL, EOMI, other (pt has decreased visual acuity in R eye; stating "I can't see out of my right eye!) Pupils: Present: normal accommodation - ENT ENT exam: Present: normal exam, normal orophraynx, mucous membranes moist, normal external ear exam - Neck Neck exam: Present: normal inspection, full ROM - Respiratory Respiratory exam: Present: wheezes - Cardiovascular Cardiovascular Exam: Present: regular rate, normal rhythm, normal heart sounds. Absent: bradycardia, tachycardia, irregular rhythm, systolic murmur, diastolic murmur, rubs, clicks, JVD, S3, S4, other - GI/Abdominal GI/Abdominal exam: Present: soft, normal bowel sounds. Absent: distended, tenderness, guarding, rebound, rigid, diminished bowel sounds - Extremities Exam Extremities exam: Present: normal inspection, full ROM, tenderness, normal capillary refill. Absent: calf tenderness - Back Exam Back exam: Present: normal inspection, full ROM, rash noted (Aox2 (person, place)). Absent: tenderness, CVA tenderness (R), CVA tenderness (L), muscle sp asm, paraspinal tenderness, vertebral tenderness - Neurological Exam Neurological exam: Present: alert, other (intermittently confused ) - NIHSS Assessment Interval: Baseline 1a. Level of Consciousness: alert/keenly responsive 1b. LOC Questions: answers 1 question correctly 1c. LOC Commands: performs tasks correctly 2. Best Gaze: forced deviation 3. Visual: partial hemianopia 4. Facial Palsy: normal symmetrical movement 5b. Motor Arm Right: no drift 5a. Motor Arm Left: drift 6a. Motor Leg Left: no drift 6b. Motor Leg Right: no drift 7. Limb Ataxia: absent 8. Sensory: normal 9. Best Language: no aphasia 10. Dysarthria: normal 11. Extinction/Inattention: visual/tactile inattention Total Score: 6 Stroke Severity: Moderate Stroke - Psychiatric Psychiatric exam: Present: normal affect, normal mood - Skin Skin exam: Present: warm, dry, intact, normal color ED Course Vital Signs 12/29/21 12/29/21 12/29/21 15:30 16:30 16:37 Temperature 98.9 F Pulse Rate 106 H 80 82 Pulse Rate [ Anterior Bilateral Throughout] Pulse Rate [ Right Arm] Respiratory 17 16 Rate Respiratory Rate [Anterior Bilateral Throughout] Respiratory Rate [Right Arm ] Blood Pressure 139/109 Blood Pressure [Right Arm] Blood Pressure 91/67 [Right] O2 Sat by Pulse 100 100 Oximetry O2 Sat by Pulse Oximetry [ Right Arm] 12/29/21 12/29/21 12/29/21 16:46 17:00 17:15 Temperature Pulse Rate 89 81 97 H Pulse Rate [ Anterior Bilateral Throughout] Pulse Rate [ Right Arm] Respiratory 22 16 22 Rate Respiratory Rate [Anterior Bilateral Throughout] Respiratory Rate [Right Arm ] Blood Pressure 121/77 121/77 166/77 Blood Pressure [Right Arm] Blood Pressure [Right] O2 Sat by Pulse 100 99 Oximetry O2 Sat by Pulse Oximetry [ Right Arm] 12/29/21 12/29/21 12/29/21 17:30 17:40 17:44 Temperature Pulse Rate 84 88 Pulse Rate [ Anterior Bilateral Throughout] Pulse Rate [ 76 Right Arm] Respiratory 18 Rate Respiratory Rate [Anterior Bilateral Throughout] Respiratory 20 Rate [Right Arm ] Blood Pressure 166/77 160/78 Blood Pressure 160/88 [Right Arm] Blood Pressure [Right] O2 Sat by Pulse 100 Oximetry O2 Sat by Pulse 100 Oximetry [ Right Arm] 12/29/21 12/29/21 12/29/21 17:45 17:57 18:00 Temperature Pulse Rate 93 H 82 Pulse Rate [ Anterior Bilateral Throughout] Pulse Rate [ 90 Right Arm] Respiratory 19 21 Rate Respiratory Rate [Anterior Bilateral Throughout] Respiratory 18 Rate [Right Arm ] Blood Pressure 134/71 124/75 Blood Pressure 134/70 [Right Arm] Blood Pressure [Right] O2 Sat by Pulse 100 99 Oximetry O2 Sat by Pulse 98 Oximetry [ Right Arm] 12/29/21 12/29/21 12/29/21 18:11 18:16 18:29 Temperature Pulse Rate 80 Pulse Rate [ Anterior Bilateral Throughout] Pulse Rate [ 74 88 Right Arm] Respiratory 24 Rate Respiratory Rate [Anterior Bilateral Throughout] Respiratory 16 18 Rate [Right Arm ] Blood Pressure 125/76 Blood Pressure 124/76 134/74 [Right Arm] Blood Pressure [Right] O2 Sat by Pulse 99 Oximetry O2 Sat by Pulse 100 100 Oximetry [ Right Arm] 12/29/21 12/29/21 12/29/21 18:30 18:45 19:00 Temperature Pulse Rate 88 92 H Pulse Rate [ Anterior Bilateral Throughout] Pulse Rate [ Right Arm] Respiratory 12 12 Rate Respiratory Rate [Anterior Bilateral Throughout] Respiratory Rate [Right Arm ] Blood Pressure 135/76 152/78 133/80 Blood Pressure [Right Arm] Blood Pressure [Right] O2 Sat by Pulse 100 98 98 Oximetry O2 Sat by Pulse Oximetry [ Right Arm] 12/29/21 12/29/21 12/29/21 19:16 19:30 19:46 Temperature Pulse Rate 104 H Pulse Rate [ Anterior Bilateral Throughout] Pulse Rate [ Right Arm] Respiratory 21 Rate Respiratory Rate [Anterior Bilateral Throughout] Respiratory Rate [Right Arm ] Blood Pressure 133/80 133/80 124/81 Blood Pressure [Right Arm] Blood Pressure [Right] O2 Sat by Pulse 96 99 99 Oximetry O2 Sat by Pulse Oximetry [ Right Arm] 12/29/21 12/29/21 12/29/21 20:00 20:16 20:30 Temperature Pulse Rate 113 H 103 H 91 H Pulse Rate [ Anterior Bilateral Throughout] Pulse Rate [ Right Arm] Respiratory 21 27 H 22 Rate Respiratory Rate [Anterior Bilateral Throughout] Respiratory Rate [Right Arm ] Blood Pressure 133/80 127/98 123/75 Blood Pressure [Right Arm] Blood Pressure [Right] O2 Sat by Pulse 99 90 99 Oximetry O2 Sat by Pulse Oximetry [ Right Arm] 12/29/21 12/29/21 12/29/21 20:45 21:00 21:05 Temperature Pulse Rate 90 100 H Pulse Rate [ 79 Anterior Bilateral Throughout] Pulse Rate [ Right Arm] Respiratory 19 14 Rate Respiratory 18 Rate [Anterior Bilateral Throughout] Respiratory Rate [Right Arm ] Blood Pressure 133/64 137/53 Blood Pressure [Right Arm] Blood Pressure [Right] O2 Sat by Pulse 99 98 Oximetry O2 Sat by Pulse Oximetry [ Right Arm] 12/29/21 12/29/21 12/29/21 21:15 21:30 21:46 Temperature Pulse Rate 81 115 H 89 Pulse Rate [ Anterior Bilateral Throughout] Pulse Rate [ Right Arm] Respiratory 18 18 13 Rate Respiratory Rate [Anterior Bilateral Throughout] Respiratory Rate [Right Arm ] Blood Pressure 129/66 129/66 131/70 Blood Pressure [Right Arm] Blood Pressure [Right] O2 Sat by Pulse 100 97 99 Oximetry O2 Sat by Pulse Oximetry [ Right Arm] 12/29/21 12/29/21 12/29/21 21:57 22:00 22:16 Temperature Pulse Rate 86 116 H Pulse Rate [ Anterior Bilateral Throughout] Pulse Rate [ Right Arm] Respiratory 17 31 H Rate Respiratory Rate [Anterior Bilateral Throughout] Respiratory Rate [Right Arm ] Blood Pressure 135/73 171/84 Blood Pressure [Right Arm] Blood Pressure [Right] O2 Sat by Pulse 98 98 98 Oximetry O2 Sat by Pulse Oximetry [ Right Arm] - Reevaluation(s) Reevaluation #1: 12/29/21 17:39 pt is comfortable and well appearing; NIH remains 6; no new/evolving or worsening symptoms; pt is Aox2 (person, place); unchanged from prior baseline; will continue to monitor Reevaluation #2: 12/29/21 1930-19:34: Returned call received from Dr. Aguiar, on-call neurologist at [facility]. He states that both he and Dr. Loja, the warning coordination meteorologist, have reviewed the patient's CT angio imaging. Per his verbal report, the right ICA occlusion is unrelated and is likely not causing the patient's symptoms given that the patient should have acute left-sided deficits. Additionally the area right ICA occlusion has concomitant collateral circulation, suggesting that the patient has had this present chronically. He reports the patient has advanced intracranial atherosclerotic disease and this may have caused the patient's symptoms. He recommends an MRI. States that there is no indication for thrombectomy based on the patient's presentation and clinical exam findings. Therefore there is no indication to have the patient emergently transferred to [facility] 1936: I went to speak to the patient. Patient's nurse reports that she found the patient down on the ground in his examination room and he appears confused. I assessed the patient independently. At the time of my assessment he was back in his stretcher. He appears more confused. Per my assessment, he is following some commands but otherwise attempting repeatedly to pull off his leads and to get out of his stretcher. FSG ordered to verify the patient is not acutely hypo or hyperglycemic. Stat head CT ordered as well to evaluate for onset of acute intracranial hemorrhaging and other pathology Follow-up of report from the reading radiologist demonstrates that the patient has no acute intracranial pathology per head CT report, status post having received tPA. Patient will need an ABG as he is wheezing here and may likely be retaining CO2. However patient unable to receive ABG secondary to it being an invasive procedure and the patient had recently received tPA. Plan will be to now place the patient on end-tidal CO2 monitor to ascertain whether or not he is retaining CO2 and this is causing his changes in mental status here. - Consultations Consultation #1: 12/29/21 16:56 440pm: I spoke to Dr. Mares, telestroke neurologist, concerning the pt's exam findings and confusion. I advised him to provide recommendations concerning TPA administration and to determine if the pt should receive this, given that he is intermittently confused, and reports not being able to see out of his R eye. I also informed him that the pt cannot provide consent and he has no family members present who can provide consent/denial of receiving TPA, on behalf of h te patient. Per is verbal report, although the pt cannot provide consent, "benefits far outweigh risks and the pt should be given TPA." 12/29/21 17:16: I called Dr. Nixon, the reading radiologist. I informed him that the pt has prior imaging in [facility] and he is under a different MR#, secondary to the misspelling of his name via registration. Per his verbal report, the pt's decreased flow in the R cerebral hemisphere "appears possibly acute, when compared to the left. There is an possibility that the pt has had this chronically and is receiving collateral flow to his R cerebral hemisphere." I informed him of my discussion with the stroke neurologist. He agrees that interventional neurology/n eurosurgery should be contacted to determine if the pt is a candidate for thrombectomy. I informed him that perfusion imaging cannot be performed here and that I will call interventional neurologist at one of the larger hospital centers, to obtain further recommendations concerning management. 12/29/21 17:40 Return call received from [facility]. I spoke with Dr. Josue, the information director interventional neurologist at [facility]. Case was also discussed in conjunction with the warning coordination meteorologist, Dr. Loja. They are requesting the images be sent to [facility] and they will review them and provide further recommendations as to whether or not the patient will need emergent thrombectomy Consultation #2: 12/29/21 22:33 Case reviewed with documented on-call warning coordination meteorologist, Dr. Marks. He will see the patient in the intensive care unit tomorrow. - Lab Data Result diagrams: 12/29/21 16:27 12/29/21 16:00 Lab Results 12/29/21 12/29/21 12/29/21 Range/Units 16:00 16:00 16:27 WBC 11.2 H (4.5-11.0) K/mm3 RBC 5.68 H (3.65-5.03) M/mm3 Hgb 16.5 H (11.8-15.2) gm/dl Hct 50.4 H (35.5-45.6) % MCV 89 (84-94) fl MCH 29 (28-32) pg MCHC 33 (32-34) % RDW 14.5 (13.2-15.2) % Plt Count 210 (140-440) K/mm3 Lymph % (Auto) 11.3 L (13.4-35.0) % Wake % (Auto) 3.6 (0.0-7.3) % Eos % (Auto) 0.0 (0.0-4.3) % Baso % (Auto) 0.2 (0.0-1.8) % Lymph # (Auto) 1.3 (1.2-5.4) K/mm3 Wake # (Auto) 0.4 (0.0-0.8) K/mm3 Eos # (Auto) 0.0 (0.0-0.4) K/mm3 Baso # (Auto) 0.0 (0.0-0.1) K/mm3 Seg Neutrophils % 84.9 H (40.0-70.0) % Seg Neutrophils # 9.5 H (1.8-7.7) K/mm3 PT 13.5 (12.2-14.9) Sec. INR 0.93 (0.87-1.13) APTT 31.2 (24.2-36.6) Sec. Sodium 135 L (137-145) mmol/L Potassium 4.8 (3.6-5.0) mmol/L Chloride 99.0 (98-107) mmol/L Carbon Dioxide 21 L (22-30) mmol/L Anion Gap 20 mmol/L BUN 25 H (9-20) mg/dL Creatinine 1.1 (0.8-1.3) mg/dL Estimated GFR > 60 ml/min BUN/Creatinine Ratio 23 % Glucose 349 H (75-100) mg/dL POC Glucose (70-105) mg/dL Calcium 10.0 (8.4-10.2) mg/dL Total Bilirubin 0.60 (0.1-1.2) mg/dL AST 12 (5-40) units/L ALT 16 (7-56) units/L Alkaline Phosphatase 120 (35-129) units/L Troponin T < 0.010 (0.00-0.029) ng/mL Total Protein 6.7 (6.3-8.2) g/dL Albumin 4.8 (3.9-5) g/dL Albumin/Globulin Ratio 2.5 % Urine Color (Yellow) Urine Turbidity (Clear) Specific Gonzales (Man) (1.003-1.030) Ur Protein (Man) (Negative) mg/dL Ur Ketones (Man) (Negative) Urine Bilirubin (Man) (Negative) Urine WBC (Auto) (0.0-6.0) /HPF Urine RBC (Auto) (0.0-6.0) /HPF Urine RBC (Manual) (Negative) Urine Mucus /HPF Urine Opiates Screen Urine Methadone Screen Ur Barbiturates Screen Ur Phencyclidine Scrn Ur Amphetamines Screen U Benzodiazepines Scrn Urine Cocaine Screen U Marijuana (THC) Screen Drugs of Abuse Note 12/29/21 12/29/21 12/29/21 Range/Units 17:23 17:50 18:11 WBC (4.5-11.0) K/mm3 RBC (3.65-5.03) M/mm3 Hgb (11.8-15.2) gm/dl Hct (35.5-45.6) % MCV (84-94) fl MCH (28-32) pg MCHC (32-34) % RDW (13.2-15.2) % Plt Count (140-440) K/mm3 Lymph % (Auto) (13.4-35.0) % Wake % (Auto) (0.0-7.3) % Eos % (Auto) (0.0-4.3) % Baso % (Auto) (0.0-1.8) % Lymph # (Auto) (1.2-5.4) K/mm3 Wake # (Auto) (0.0-0.8) K/mm3 Eos # (Auto) (0.0-0.4) K/mm3 Baso # (Auto) (0.0-0.1) K/mm3 Seg Neutrophils % (40.0-70.0) % Seg Neutrophils # (1.8-7.7) K/mm3 PT 16.0 H (12.2-14.9) Sec. INR 1.15 H (0.87-1.13) APTT 40.0 H (24.2-36.6) Sec. Sodium (137-145) mmol/L Potassium (3.6-5.0) mmol/L Chloride (98-107) mmol/L Carbon Dioxide (22-30) mmol/L Anion Gap mmol/L BUN (9-20) mg/dL Creatinine (0.8-1.3) mg/dL Estimated GFR ml/min BUN/Creatinine Ratio % Glucose (75-100) mg/dL POC Glucose (70-105) mg/dL Calcium (8.4-10.2) mg/dL Total Bilirubin (0.1-1.2) mg/dL AST (5-40) units/L ALT (7-56) units/L Alkaline Phosphatase (35-129) units/L Troponin T (0.00-0.029) ng/mL Total Protein (6.3-8.2) g/dL Albumin (3.9-5) g/dL Albumin/Globulin Ratio % Urine Color Straw (Yellow) Urine Turbidity Clear (Clear) Specific Gonzales (Man) 1.005 (1.003-1.030) Ur Protein (Man) 1+ (Negative) mg/dL Ur Ketones (Man) 15 (Negative) Urine Bilirubin (Man) Negative (Negative) Urine WBC (Auto) < 1.0 (0.0-6.0) /HPF Urine RBC (Auto) 1.0 (0.0-6.0) /HPF Urine RBC (Manual) Negative (Negative) Urine Mucus Few /HPF Urine Opiates Screen Negative Urine Methadone Screen Negative Ur Barbiturates Screen Negative Ur Phencyclidine Scrn Negative Ur Amphetamines Screen Negative U Benzodiazepines Scrn Negative Urine Cocaine Screen Negative U Marijuana (THC) Screen Negative Drugs of Abuse Note Disclamer 12/29/21 Range/Units 19:42 WBC (4.5-11.0) K/mm3 RBC (3.65-5.03) M/mm3 Hgb (11.8-15.2) gm/dl Hct (35.5-45.6) % MCV (84-94) fl MCH (28-32) pg MCHC (32-34) % RDW (13.2-15.2) % Plt Count (140-440) K/mm3 Lymph % (Auto) (13.4-35.0) % Wake % (Auto) (0.0-7.3) % Eos % (Auto) (0.0-4.3) % Baso % (Auto) (0.0-1.8) % Lymph # (Auto) (1.2-5.4) K/mm3 Wake # (Auto) (0.0-0.8) K/mm3 Eos # (Auto) (0.0-0.4) K/mm3 Baso # (Auto) (0.0-0.1) K/mm3 Seg Neutrophils % (40.0-70.0) % Seg Neutrophils # (1.8-7.7) K/mm3 PT (12.2-14.9) Sec. INR (0.87-1.13) APTT (24.2-36.6) Sec. Sodium (137-145) mmol/L Potassium (3.6-5.0) mmol/L Chloride (98-107) mmol/L Carbon Dioxide (22-30) mmol/L Anion Gap mmol/L BUN (9-20) mg/dL Creatinine (0.8-1.3) mg/dL Estimated GFR ml/min BUN/Creatinine Ratio % Glucose (75-100) mg/dL POC Glucose 221 H (70-105) mg/dL Calcium (8.4-10.2) mg/dL Total Bilirubin (0.1-1.2) mg/dL AST (5-40) units/L ALT (7-56) units/L Alkaline Phosphatase (35-129) units/L Troponin T (0.00-0.029) ng/mL Total Protein (6.3-8.2) g/dL Albumin (3.9-5) g/dL Albumin/Globulin Ratio % Urine Color (Yellow) Urine Turbidity (Clear) Specific Gonzales (Man) (1.003-1.030) Ur Protein (Man) (Negative) mg/dL Ur Ketones (Man) (Negative) Urine Bilirubin (Man) (Negative) Urine WBC (Auto) (0.0-6.0) /HPF Urine RBC (Auto) (0.0-6.0) /HPF Urine RBC (Manual) (Negative) Urine Mucus /HPF Urine Opiates Screen Urine Methadone Screen Ur Barbiturates Screen Ur Phencyclidine Scrn Ur Amphetamines Screen U Benzodiazepines Scrn Urine Cocaine Screen U Marijuana (THC) Screen Drugs of Abuse Note - EKG Data -: EKG Interpreted by Me EKG shows normal: sinus rhythm Rate: normal When compared to previous EKG there are: no significant change Interpretation: no acute changes - Radiology Data Radiology results: report reviewed - Medical Decision Making 61-year-old male with multiple medical comorbidities presents from external triage as acute stroke notification. Patient was emergency department course was extensive. Please see patient's electronic health record for the patient's documented emergency department course. 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 ED Disposition Clinical Impression: Altered mental status Disposition: 09 ADMITTED INPATIENT Is pt being admited?: Yes Does the pt Need Aspirin: No Condition: Stable
--- NOTE | 2021-12-29 16:57 | XRay Report ---
CHEST 1 VIEW 12/29/2021 3:49 PM INDICATION / CLINICAL INFORMATION: Weakness and acute stroke. COMPARISON: None available. FINDINGS: SUPPORT DEVICES: None. HEART / MEDIASTINUM: The heart size and pulmonary vasculature are normal. LUNGS / PLEURA: No significant pulmonary or pleural abnormality. No pneumothorax. ADDITIONAL FINDINGS: No significant additional findings. IMPRESSION: No acute findings. Signer Name: Paolo Thomason MD Signed: 12/29/2021 4:53 PM Workstation Name: [email or web address]
[2021-12-29 16:59] LABS: Hematocrit 50.4 % (35.5-45.6); Hemoglobin 16.5 gm/dl (11.8-15.2); Lymphocytes # (Auto) 1.3 K/mm3 (1.2-5.4); Lymphocytes % (Auto) 11.3 % (13.4-35.0); Mean Corpuscular HGB Conc 33 % (32-34); Mean Corpuscular Volume 89 fl (84-94); Monocytes # (Auto) 0.4 K/mm3 (0.0-0.8); Monocytes % (Auto) 3.6 % (0.0-7.3); Platelet Count 210 K/mm3 (140-440); Red Blood Count 5.68 M/mm3 (3.65-5.03); Red Cell Distribution Width 14.5 % (13.2-15.2)
[2021-12-29 17:02] LABS: Alanine Aminotransferase 16 units/L (7-56); Albumin 4.8 g/dL (3.9-5); BUN/Creatinine Ratio 23; Blood Urea Nitrogen 25 mg/dL (9-20); Hemolysis Index 7
[2021-12-29 17:05] LABS: Basophils % (Auto) 0.2 % (0.0-1.8)
[2021-12-29 17:11] LABS: INR 0.93 (0.87-1.13)
[2021-12-29 17:12] LABS: Partial Thromboplastin Time 31.2 Sec. (24.2-36.6)
[2021-12-29 18:16] LABS: INR 1.15 (0.87-1.13)
[2021-12-29 18:34] LABS: Mucus,Urine FEW /HPF; WBC,Urine < 1.0 /HPF (0.0-6.0)
[2021-12-29 18:50] LABS: Color,Urine Straw (Yellow)
--- NOTE | 2021-12-29 20:13 | Cat Scan Report ---
CT BRAIN: 12/29/2021 INDICATION / CLINICAL INFORMATION: s/p tpa; found on ground;. Technologist note:best images possible pt very restless COMPARISON: CT brain 12/29/2021 FINDINGS: BRAIN/INTRACRANIAL STRUCTURES: Unenhanced CT images of the brain were obtained and compared to a prev ious exam from 4 hours earlier. There is been no change. Prominent diffuse cerebral atrophy is again noted. Chronic ischemic changes in the left parietal righ t occipital lobe are again noted. There is no evidence of hemorrhage or mass. There are no abnormal extra-axial fluid collections. EXTRACRANIAL STRUCTURES: Unremarkable. IMPRESSION: No acute abnormality. Stable chronic ischemic and age-related changes. All CT scans at this location are performed using dose reduction to ALARA by means of automated expos ure control. Signer Name: Lasha Bhatt MD Signed: 12/29/2021 8:08 PM Workstation Name: [id number]
[2021-12-29] MEDS ORDERED: IPRATROPIUM/ALBUTEROL SULFATE 3 ML AMPUL.NEB IH ONE (20:59)
[2021-12-29] MEDS ORDERED: ACETAMINOPHEN 650 MG RECT SUPP PR PRN ×2 (21:02→21:53)
[2021-12-29] MEDS ORDERED: MORPHINE 2 MG/1 ML INJ IV PRN ×3 (21:02→21:53)
[2021-12-29 21:24] LABS: Amphetamine Screen,Urine Negative; Benzodiazepines Screen,Urine Negative; Cannabinoid Screen,Urine Negative; Cocaine Screen,Urine Negative; Methadone Screen,Urine Negative; Opiate Screen,Urine Negative
[2021-12-29] MEDS ORDERED: ONDANSETRON 4 MG/2 ML INJ IV PRN ×2 (21:53)
[2021-12-29] MEDS ORDERED: DEXTROSE 50% IN WATER (25GM) 50 ML SYRINGE IV PRN (21:53)
[2021-12-29] MEDS ORDERED: MORPHINE 4 MG/1 ML INJ IV PRN ×2 (21:53)
[2021-12-29] MEDS ORDERED: PROMETHAZINE 25 MG RECT SUPP PR PRN (21:53)
[2021-12-29] MEDS ORDERED: METOCLOPRAMIDE 10 MG TAB PO PRN (21:53)
[2021-12-29] MEDS ORDERED: ACETAMINOPHEN 325 MG TAB PO PRN (21:53)
[2021-12-29] MEDS ORDERED: MAGNESIUM HYDROXIDE (MOM) ORAL LIQD UDC PO PRN ×2 (21:53)
[2021-12-29] MEDS ORDERED: INSULIN LISPRO 100 UNIT/ML SUB-Q SCH (22:00)
--- NOTE | 2021-12-29 22:10 | History and Physical Report ---
History of Present Illness Date of examination: 12/29/21 Date of admission: 12/29/21 21:02 Chief complaint: Altered Mental Status History of present illness: 61-year-old male with known history of hypertension, diabetes mellitus, previous CVA presenting to the emergency room today for evaluation of confusion. Most of the history was gotten from the ER staff as patient is while in the emergency room after the tPA administration. Confused after his tPA administration. And unable to give any history at this time. Symptoms were said to have started about 2 PM yesterday. He had difficulty holding objects with his right hand. He had also complained of weakness on his right lower extremity inability to see from his right eye. Work-up in the emergency room today CT scan of the head reveals chronic infarcts. 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 Patient was evaluated by the neurologist and subsequently had tPA. He was said to have become confused after the tPA administration. A repeat CT of the head was unremarkable. Past History Past Medical History: diabetes, hypertension, stroke Past Surgical History: Other (Unknown) Social history: other (Unknown) Family history: other (Unknown ) Medications and Allergies Allergies Allergy/AdvReac Type Severity Reaction Status Date / Time No Known Allergies Allergy Unverified 12/29/21 17:00 Active Meds: Active Medications Acetaminophen (Acetaminophen 650 Mg Rect Supp) 650 mg W[place] Q6H PRN PRN Reason: Pain MILD(1-3)/Fever >100.5/[place]AGNER Acetaminophen (Acetaminophen 325 Mg Tab) 650 mg PO Q4H PRN PRN Reason: Pain, Mild (1-3) Acetaminophen (Acetaminophen 650 Mg Rect Supp) 650 mg WV Q6H PRN PRN Reason: Pain MILD(1-3)/Fever >100.5/[place] Atorvastatin Calcium (Atorvastatin 40 Mg Tab) 40 mg PO QHS RUBI Bisacodyl (Bisacodyl 10 Mg Rect Supp) 10 mg WV QDAY PRN PRN Reason: Constipation Dextrose (Dextrose 50% In Water (25gm) 50 Ml Syringe) 50 ml IV Q30MIN PRN; Protocol PRN Reason: Hypoglycemia Dextrose (Dextrose 50% In Water (25gm) 50 Ml Syringe) 50 ml IV Q30MIN PRN; Protocol PRN Reason: Hypoglycemia Insulin Human Lispro (Insulin Lispro 100 Unit/Ml) 0 unit SUB-Q ACHS RUBI; Protocol Insulin Human Lispro (Insulin Lispro 100 Unit/Ml) 0 unit SUB-Q ACHS RUBI; Protocol Magnesium Hydroxide (Magnesium Hydroxide (Mom) Oral Liqd Udc) 30 ml PO Q4H PRN PRN Reason: Constipation Magnesium Hydroxide (Magnesium Hydroxide (Mom) Oral Liqd Udc) 30 ml PO Q4H PRN PRN Reason: Constipation Metoclopramide HCl (Metoclopramide 10 Mg Tab) 10 mg PO Q6H PRN PRN Reason: Nausea And Vomiting Morphine Sulfate (Morphine 2 Mg/1 Ml Inj) 2 mg IV Q4H PRN PRN Reason: Pain, Moderate (4-6) Morphine Sulfate (Morphine 2 Mg/1 Ml Inj) 2 mg IV Q4H PRN PRN Reason: Pain, Moderate (4-6) Morphine Sulfate (Morphine 4 Mg/1 Ml Inj) 4 mg IV Q4H PRN PRN Reason: Pain , Severe (7-10) Morphine Sulfate (Morphine 2 Mg/1 Ml Inj) 2 mg IV Q4H PRN PRN Reason: Pain, Moderate (4-6) Morphine Sulfate (Morphine 4 Mg/1 Ml Inj) 4 mg IV Q4H PRN PRN Reason: Pain , Severe (7-10) Ondansetron HCl (Ondansetron 4 Mg/2 Ml Inj) 4 mg IV Q8H PRN PRN Reason: Nausea And Vomiting Ondansetron HCl (Ondansetron 4 Mg/2 Ml Inj) 4 mg IV Q8H PRN PRN Reason: Nausea And Vomiting Promethazine HCl (Promethazine 25 Mg Rect Supp) 25 mg WV Q6H PRN PRN Reason: Nausea And Vomiting Sodium Chloride (Sodium Chloride 0.9% 10 Ml Flush Syringe) 10 ml IV BID RUBI Sodium Chloride (Sodium Chloride 0.9% 10 Ml Flush Syringe) 10 ml IV PRN PRN PRN Reason: LINE FLUSH Sodium Chloride (Sodium Chloride 0.9% 10 Ml Flush Syringe) 10 ml IV BID RUBI Sodium Chloride (Sodium Chloride 0.9% 10 Ml Flush Syringe) 10 ml IV PRN PRN PRN Reason: LINE FLUSH Sodium Chloride (Sodium Chloride 0.9% 10 Ml Flush Syringe) 10 ml INJ PRN PRN PRN Reason: LINE FLUSH Review of Systems ROS unobtainable: due to mental status Exam - Constitutional Vitals: Temp Pulse Resp BP Pulse Ox 98.9 F 79 18 134/74 100 12/29/21 15:30 12/29/21 21:05 12/29/21 21:05 12/29/21 18:29 12/29/21 18:29 General appearance: Present: no acute distress, well-nourished - EENT Eyes: Present: PERRL, EOM intact. Absent: scleral icterus ENT: hearing intact, clear oral mucosa, dentition normal - Neck Neck: Present: supple, normal ROM - Respiratory Respiratory effort: normal Respiratory: bilateral: CTA - Cardiovascular Rhythm: regular Heart Sounds: Present: S1 & S2. Absent: gallop, systolic murmur, diastolic murmur, rub, click - Extremities Extremities: no ischemia, pulses intact, pulses symmetrical, No edema, normal temperature, normal color, Full ROM Peripheral Pulses: within normal limits - Abdominal General gastrointestinal: Present: soft, non-tender, non-distended, normal bowel sounds. Absent: mass - Integumentary Integumentary: Present: clear, warm, dry, normal turgor. Absent: rash - Musculoskeletal Musculoskeletal: strength equal bilaterally - Psychiatric Psychiatric: cooperative, agitated - Neurologic Neurologic: CNII-XII intact, no focal deficits, moves all extremities HEART Score - HEART Score Troponin: Troponin T < 0.010 ng/mL (0.00-0.029) 12/29/21 16:00 Results - Labs CBC & Chem 7: 12/29/21 16:27 12/29/21 16:00 Labs: Abnormal lab results 12/29/21 12/29/21 12/29/21 Range/Units 16:00 16:27 17:23 WBC 11.2 H (4.5-11.0) K/mm3 RBC 5.68 H (3.65-5.03) M/mm3 Hgb 16.5 H (11.8-15.2) gm/dl Hct 50.4 H (35.5-45.6) % Lymph % (Auto) 11.3 L (13.4-35.0) % Seg Neutrophils % 84.9 H (40.0-70.0) % Seg Neutrophils # 9.5 H (1.8-7.7) K/mm3 PT 16.0 H (12.2-14.9) Sec. INR 1.15 H (0.87-1.13) APTT 40.0 H (24.2-36.6) Sec. Sodium 135 L (137-145) mmol/L Carbon Dioxide 21 L (22-30) mmol/L BUN 25 H (9-20) mg/dL Glucose 349 H (75-100) mg/dL POC Glucose (70-105) mg/dL 12/29/21 Range/Units 19:42 WBC (4.5-11.0) K/mm3 RBC (3.65-5.03) M/mm3 Hgb (11.8-15.2) gm/dl Hct (35.5-45.6) % Lymph % (Auto) (13.4-35.0) % Seg Neutrophils % (40.0-70.0) % Seg Neutrophils # (1.8-7.7) K/mm3 PT (12.2-14.9) Sec. INR (0.87-1.13) APTT (24.2-36.6) Sec. Sodium (137-145) mmol/L Carbon Dioxide (22-30) mmol/L BUN (9-20) mg/dL Glucose (75-100) mg/dL POC Glucose 221 H (70-105) mg/dL Assessment and Plan Assessment: 1.Altered mental Status 2.CVA- s/p TPA 3.D/[place] 4.H/O Asthma Plan: 1.Admitted to ICU S/P TPA 2.Will monitor mental status 3.Placed on sliding scale insulin. Monitor accuchecks 4.Resume routine home medications once able to tolerate P.O. intake. DVT Prophylaxis: Sequential compression Device Code Status: Full Code.
[2021-12-29] MEDS: INSULIN LISPRO 100 UNIT/ML SUB-Q SCH (23:00)
[2021-12-30] MEDS ORDERED: LORazepam 2 MG/ML VIAL IV ONE (02:42)
[2021-12-30] MEDS ORDERED: MIDAZOLAM 2 MG/2 ML INJ IV ONE ×2 (02:46→03:42)
[2021-12-30 05:10] LABS: BUN/Creatinine Ratio 24; Blood Urea Nitrogen 19 mg/dL (9-20); Calcium 9.1 mg/dL (8.4-10.2); Hemolysis Index 17
[2021-12-30] MEDS ORDERED: hydrALAZINE 20 MG/1 ML INJ IV PRN (09:31)
[2021-12-30] MEDS ORDERED: HALOPERIDOL LACTATE 5 MG/1 ML INJ IV SCH (09:45)
[2021-12-30] MEDS: INSULIN LISPRO 100 UNIT/ML SUB-Q SCH ×5 (10:43→23:05)
[2021-12-30] MEDS: FAMOTIDINE 20 MG/2 ML INJ IV SCH (10:45)
[2021-12-30 10:51] LABS: INR 0.92 (0.87-1.13); Partial Thromboplastin Time 30.3 Sec. (24.2-36.6)
--- NOTE | 2021-12-30 11:07 | Consultation ---
History of Present Illness Consult date: 12/30/21 Requesting physician: JAIRON ALMANZA Reason for consult: other (CVA s/p tPA; Acute encephalopathy) History of present illness: 61-year-old male with known history of hypertension, diabetes mellitus, previous CVA presenting to the emergency room today for evaluation of confusion. Most of the history was gotten from the ER staff as patient is while in the emergency room after the tPA administration. Confused after his tPA administration. And unable to give any history at this time. Symptoms were said to have started about 2 PM yesterday. He had difficulty holding objects with his right hand. He had also complained of weakness on his right lower extremity inability to see from his right eye. Work-up in the emergency room today CT scan of the head reveals chronic infarcts. 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 Patient was evaluated by the neurologist and subsequently had tPA. He was said to have become confused after the tPA administration. A repeat CT of the head was unremarkable. Admitted to the ICU for closer monitoring Patient with acute encephalopathy, unresponsive but protecting his airway S/p IV Haldol this am due to increase agitation Imaging reviewed, CTA head/neck revealed complete occlusion of the right ICA. Repeat CT head/brain and MRI pending. Surface echo pending. His friend is visiting at this time Past History Past Medical History: diabetes, hypertension, stroke Past Surgical History: Other (Unknown) Social history: other (Unknown) Family history: other (Unknown ) Medications and Allergies Allergies Allergy/AdvReac Type Severity Reaction Status Date / Time No Known Allergies Allergy Verified 12/30/21 13:19 Home Medications Medication Instructions Recorded Confirmed Last Taken Type ALBUTEROL NEB's [Proventil 0.083% 2.5 mg IH Q6H PRN #1 box 11/09/21 Unknown Rx NEBS] Albuterol Mdi (or & Nicu Only) 2 puff IH Q6H PRN #1 inh 11/09/21 Unknown Rx [ProAir HFA Inhaler] Insulin NPH/Regular [NovoLIN 70/30] 10 unit SUB-Q BIDDIAB #1 vial 11/09/21 Unknown Rx Meclizine [Antivert] 12.5 mg PO BID PRN #60 tab 11/09/21 Unknown Rx Montelukast [Singulair] 10 mg PO QHS #30 tablet 11/09/21 Unknown Rx Pravastatin [Pravachol] 40 mg PO QHS #30 tablet 11/09/21 Unknown Rx amLODIPine 5 mg PO QDAY #30 tablet 11/09/21 Unknown Rx levoFLOXacin [Levaquin TAB] 500 mg PO Q24HR #3 tablet 11/09/21 Unknown Rx metFORMIN [Glucophage] 500 mg PO QDDIAB #60 tablet 11/09/21 Unknown Rx predniSONE [Deltasone] 50 mg PO QDAY #3 tab 11/09/21 Unknown Rx Active Meds: Active Medications Acetaminophen (Acetaminophen 325 Mg Tab) 650 mg PO Q4H PRN PRN Reason: Pain, Mild (1-3) Acetaminophen (Acetaminophen 650 Mg Rect Supp) 650 mg [place] Q6H PRN PRN Reason: Pain MILD(1-3)/Fever >100.5/[place] Atorvastatin Calcium (Atorvastatin 40 Mg Tab) 40 mg PO QHS RUBI Last Admin: 12/30/21 00:39 Dose: Not Given Bisacodyl (Bisacodyl 10 Mg Rect Supp) 10 mg TN QDAY PRN PRN Reason: Constipation Dextrose (Dextrose 50% In Water (25gm) 50 Ml Syringe) 50 ml IV Q30MIN PRN; Protocol PRN Reason: Hypoglycemia Famotidine (Famotidine 20 Mg/2 Ml Inj) 20 mg IV QDAY RUBI Last Admin: 12/30/21 10:45 Dose: 20 mg Haloperidol Lactate (Haloperidol Lactate 5 Mg/1 Ml Inj) 5 mg IV ONCE@0945 [facility] Stop: 12/30/21 13:45 Last Admin: 12/30/21 10:45 Dose: 5 mg Hydralazine HCl (Hydralazine 20 Mg/1 Ml Inj) 10 mg IV Q6H PRN PRN Reason: SBP >/=170; DBP >/=100 Insulin Human Lispro (Insulin Lispro 100 Unit/Ml) 0 unit SUB-Q ACHS RUBI; Prot ocol Last Admin: 12/30/21 10:46 Dose: 4 unit Magnesium Hydroxide (Magnesium Hydroxide (Mom) Oral Liqd Udc) 30 ml PO Q4H PRN PRN Reason: Constipation Metoclopramide HCl (Metoclopramide 10 Mg Tab) 10 mg PO Q6H PRN PRN Reason: Nausea And Vomiting Morphine Sulfate (Morphine 2 Mg/1 Ml Inj) 2 mg IV Q4H PRN PRN Reason: Pain, Moderate (4-6) Morphine Sulfate (Morphine 4 Mg/1 Ml Inj) 4 mg IV Q4H PRN PRN Reason: Pain , Severe (7-10) Ondansetron HCl (Ondansetron 4 Mg/2 Ml Inj) 4 mg IV Q8H PRN PRN Reason: Nausea And Vomiting Promethazine HCl (Promethazine 25 Mg Rect Supp) 25 mg [place] Q6H PRN PRN Reason: Nausea And Vomiting Sodium Chloride (Sodium Chloride 0.9% 10 Ml Flush Syringe) 10 ml IV BID RUBI Last Admin: 12/30/21 10:46 Dose: 10 ml Sodium Chloride (Sodium Chloride 0.9% 10 Ml Flush Syringe) 10 ml IV PRN PRN PRN Reason: LINE FLUSH Review of Systems ROS unobtainable: due to mental status Physical Examination Vital signs: Vital Signs Temp Pulse Resp BP Pulse Ox 98.9 F 106 H 17 91/67 100 12/29/21 15:30 12/29/21 15:30 12/29/21 15:30 12/29/21 15:30 12/29/21 15:30 General appearance: no acute distress, lethargic, other (thin, chronically ill looking) Eyes: non-icteric ENT: oropharynx dry Neck: supple Effort: mildly labored Ascultation: Bilateral: clear, diminished breath sounds Cardiovascular: regular rate and rhythm, other (S1,S2) Gastrointestinal: normoactive bowel sounds, soft, non-tender Extremities: no cyanosis, no edema unable to assess Results - Laboratory Findings CBC and BMP: 01/01/22 04:45 01/01/22 04:45 PT/INR, D-dimer PT 13.4 Sec. (12.2-14.9) 12/30/21 10:12 INR 0.92 (0.87-1.13) 12/30/21 10:12 Abnormal lab findings: Abnormal Labs 12/29/21 12/29/21 12/29/21 16:00 16:27 17:23 WBC 11.2 H RBC 5.68 H Hgb 16.5 H Hct 50.4 H Lymph % (Auto) 11.3 L Seg Neutrophils % 84.9 H Seg Neutrophils # 9.5 H PT 16.0 H INR 1.15 H APTT 40.0 H Sodium 135 L Carbon Dioxide 21 L BUN 25 H Glucose 349 H POC Glucose 12/29/21 12/30/21 19:42 04:30 WBC RBC Hgb Hct Lymph % (Auto) Seg Neutrophils % Seg Neutrophils # PT INR APTT Sodium Carbon Dioxide 19 L BUN Glucose 209 H POC Glucose 221 H - Diagnostic Findings Additional studies: CTA Neck/head reveals completed occlusion of the intracranial right ICA required collateral flow from the right posterior communicating artery. Assessment and Plan Acute CVA s/p tPA Acute Encephalopathy S/p Fall H/o Asthma Tobacco use disorder/Nicotine Dependence Hypertension Type 2 Diabetes with Hyperglycemia -Close ICU monitoring post tPA - MRI brain and 2D Echo pending - ASA and prophy AC to start tomorrow, 24hrs post TPA - Continue Neuro check per protocol -Secondary stroke prophylaxis- Aspirin, Statin - PT/OT/Speech consults - Aspiration precautions, keep NPO for now - Fall precautions - PRN Haldol for agitation - Continue PRN bronchodilators therapy - Smoking Cessation education once patient is more coherent and appropriate - Nicotine withdrawal precautions - Accucheck with glycemic control, keep blood glucose 140-190 mg/dL. Avoid hypoglycemia The high probability of a clinically significant, sudden or life threatening deterioration of the [neurology] system(s) required my full and direct attention, intervention and personal management. The aggregate critical care time was [35] minutes. This time is in addition to time spent performing reported procedures but includes the following: [x] Data Review and interpretation [x] Patient assessment and monitoring of vital signs [x] Documentation [x] Medication orders and management
--- NOTE | 2021-12-30 11:49 | Progress Note ---
<AYDEE MABRY - Last Filed: 12/30/21 19:37> Assessment and Plan Assessment and plan: This is a 61-year-old male with known past medical history of HTN, DM, previous stroke, asthma, and Tobacco Dependence admitted for acute CVA s/p tPA Hospital Course to Date: 12/30: Patient with acute encephalopathy, follows commands intermittently. Pupils are round and reactive, with + gag/cough. Mild right-sided facial droop appreciated, patient moves all his extremities. S/p IV Haldol this am due to in crease agitation and is now on wrist restraints from safety. Imaguings reviewed, CTA head/neck revealed complete occlusion of the right ICA. NeuroSurgery consulted. Neurology is also following. Repeat CT head/brain and MRI pending. Will also check alcohol and ammonia level. Continue PRN Haldol for agitation. 2D echo pending. SSI initiated due to hyperglycemia. PT/OT/Speech also consulted. 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 - TeleNeurology saw patient in the ED - Patient received tPA - Patient remains encephalopthic with periods of agitation, moves all extremities with mild right sided facial droop - Per patient's friend at the bedside, patient does not drink alcohol. UDS is negative - Repeat CT head and MRI brain pending - NeuroSurgery was also consulted due to occlusion in the NASIR - MRI brain and 2D Echo pending - Orders placed for Lipid panel and hgbA1c - Statin initiated - ASA and prophy AC to start tomorrow, 24hrs post TPA - Continue Neuro check per protocol - PT/OT/Speech ordered - Neurology also consulted - Aspiration and Fall precautions - PRN Haldol for agitation #H/o Asthma #Tobacco Dependence - Patient is stable on RA, wheezing appreciated - Per patient's close friend at the bedside, patient is a daily cigarettes smo ker - Continue PRN nebx treatment for wheezing - O2 supplementation as needed - Continue SPO2 monitoring for SPO2 goal above 92% - Smoking Cessation education once patient is more coherent and appropriate - Nicotine patch Qday #Hypertension - BP stable - Allow permissive hypertension to promote perfusion - Hold all antihypertensive agents for now - Continue blood pressure monitor per protocol, - maintain SBP less than 180 adn DBP less than 110 #Type 2 Diabetes with Hyperglycemia - BG check and SSI Q6hrs - Lantus qhs - Avoid hypoglycemia - While critically ill target blood glucose of 140-180 #GI/DVT Prophylaxis - PPI- Pepcid - SCDs to bilateral lower extremities while in bed The high probability of a clinically significant, sudden or life threatening deterioration of the [multiple] system(s) required my full and direct attention, intervention and personal management. The aggregate critical care time was [60] minutes. This time is in addition to time spent performing reported procedures but includes the following: [x] Data Review and interpretation [x] Patient assessment and monitoring of vital signs [x] Documentation [x] Medication orders and management Disposition Plan: ICU Total Time Spent with Patient (Minutes): 60 History Interval history: Patient seen and examined at the bedside. Lethargic and confused, but restless. Stable on RA, follows commands intermittently. Pupils are round and reactive, with + gag/cough. mild right-sided facila droop appreciated. Patient moves all his extremities. S/p IV Haldol this am due to increase agitation. Now on bilateral wrist restraints for safety, VSS Hospitalist Physical - Constitutional Vitals: Temp Pulse Resp BP Pulse Ox 97.9 F 125 H 29 H 193/88 97 12/30/21 05:00 12/30/21 09:18 12/30/21 09:00 12/30/21 09:00 12/30/21 09:14 General appearance: Present: no acute distress, well-nourished - EENT Eyes: Present: PERRL ENT: hearing intact - Neck Neck: Present: normal ROM - Respiratory Respiratory effort: normal Respiratory: bilateral: wheezing - Cardiovascular Rhythm: regular Heart Sounds: Present: S1 & S2 - Extremities Extremities: no ischemia, pulses intact, pulses symmetrical Peripheral Pulses: within normal limits - Abdominal General gastrointestinal: soft, non-distended, normal bowel sounds - Integumentary Integumentary: Present: clear, warm, dry - Psychiatric Psychiatric: other (Lethargic, confused, and restless) - Neurologic Neurologic: focal deficits (Right side facial droop), moves all extremities, other (Lethargic, confused, and restless) - Allied Health Allied health notes reviewed: nursing, case management HEART Score - HEART Score Troponin: Troponin T < 0.010 ng/mL (0.00-0.029) 12/29/21 16:00 Results - Labs CBC & Chem 7: 12/29/21 16:12/30/21 04:30 Labs: Laboratory Last Values WBC 11.2 K/mm3 (4.5-11.0) H 12/29/21 16: RBC 5.68 M/mm3 (3.65-5.03) H 12/29/21 16: Hgb 16.5 gm/dl (11.8-15.2) H 12/29/21 16: Hct 50.4 % (35.5-45.6) H 12/29/21: MCV 89 fl (84-94) 12/29/21: MCH 29 pg (28-32) 12/29/21: MCHC 33 % (32-34) 12/29/21: RDW 14.5 % (13.2-15.2) 12/29/21: Plt Count 210 K/mm3 (140-440) 12/29/21: Lymph % (Auto) 11.3 % (13.4-35.0) L 12/29/21: [place] % (Auto) 3.6 % (0.0-7.3) 12/29/21: Eos % (Auto) 0.0 % (0.0-4.3) 12/29/21 Baso % (Auto) 0.2 % (0.0-1.8) 12/29/21 Lymph # (Auto) 1.3 K/mm3 (1.2-5.4) 12/29/21: [place] # (Auto) 0.4 K/mm3 (0.0-0.8) 12/29/21: Eos # (Auto) 0.0 K/mm3 (0.0-0.4) 12/29/21: Baso # (Auto) 0.0 K/mm3 (0.0-0.1) 12/29/21: Seg Neutrophils % 84.9 % (40.0-70.0) H 12/29/21: Seg Neutrophils # 9.5 K/mm3 (1.8-7.7) H 12/29/21 16:27 PT 13.4 Sec. (12.2-14.9) 12/30/21 10:12 INR 0.92 (0.87-1.13) 12/30/21 10:12 APTT 30.3 Sec. (24.2-36.6) 12/30/21 10:12 Sodium 138 mmol/L (137-145) 12/30/21 04:30 Potassium 3.8 mmol/L (3.6-5.0) D 12/30/21 04:30 Chloride 103.9 mmol/L (98-107) 12/30/21 04:30 Carbon Dioxide 19 mmol/L (22-30) L 12/30/21 04:30 Anion Gap 19 mmol/L 12/30/21 04:30 BUN 19 mg/dL (9-20) 12/30/21 04:30 Creatinine 0.8 mg/dL (0.8-1.3) 12/30/21 04:30 Estimated GFR > 60 ml/min 12/30/21 04:30 BUN/Creatinine Ratio 24 % 12/30/21 04:30 Glucose 209 mg/dL (75-100) H 12/30/21 04:30 POC Glucose 221 mg/dL (70-105) H 12/29/21 19:42 Calcium 9.1 mg/dL (8.4-10.2) 12/30/21 04:30 Total Bilirubin 0.60 mg/dL (0.1-1.2) 12/29/21 16:00 AST 12 units/L (5-40) 12/29/21 16:00 ALT 16 units/L (7-56) 12/29/21 16:00 Alkaline Phosphatase 120 units/L (35-129) 12/29/21 16:00 Troponin T < 0.010 ng/mL (0.00-0.029) 12/29/21 16:00 Total Protein 6.7 g/dL (6.3-8.2) 12/29/21 16:00 Albumin 4.8 g/dL (3.9-5) 12/29/21 16:00 Albumin/Globulin Ratio 2.5 % 12/29/21 16:00 Urine Color Straw (Yellow) 12/29/21 17:50 Urine Turbidity Clear (Clear) 12/29/21 17:50 Specific [place] (Man) 1.005 (1.003-1.030) 12/29/21 17:50 Ur Protein (Man) 1+ mg/dL (Negative) 12/29/21 17:50 Ur Ketones (Man) 15 (Negative) 12/29/21 17:50 Urine Bilirubin (Man) Negative (Negative) 12/29/21 17:50 Urine WBC (Auto) < 1.0 /HPF (0.0-6.0) 12/29/21 17:50 Urine RBC (Auto) 1.0 /HPF (0.0-6.0) 12/29/21 17:50 Urine RBC (Manual) Negative (Negative) 12/29/21 17:50 Urine Mucus Few /HPF 12/29/21 17:50 Urine Opiates Screen Negative 12/29/21 18:11 Urine Methadone Screen Negative 12/29/21 18:11 Ur Barbiturates Screen Negative 12/29/21 18:11 Ur Phencyclidine Scrn Negative 12/29/21 18:11 Ur Amphetamines Screen Negative 12/29/21 18:11 U Benzodiazepines Scrn Negative 12/29/21 18:11 Urine Cocaine Screen Negative 12/29/21 18:11 U Marijuana (THC) Screen Negative 12/29/21 18:11 Drugs of Abuse Note Disclamer 12/29/21 18:11 Ibrahim/IV: Voiding Method Condom Catheter Active Medications - Current Medications Current Medications: Generic Name Dose Route Start Last Admin Trade Name Freq PRN Reason Stop Dose Admin Acetaminophen 650 mg 12/29/21 21:53 Acetaminophen 325 Mg Tab PO Q4H PRN Pain, Mild (1-3) Acetaminophen 650 mg 12/29/21 21:53 Acetaminophen 650 Mg Rect Supp ME Q6H PRN Pain MILD(1-3)/Fever >100.5/WAGNER Atorvastatin Calcium 40 mg 12/29/21 22:00 12/30/21 00:39 Atorvastatin 40 Mg Tab PO Not Given QHS RUBI Bisacodyl 10 mg 12/29/21 21:53 Bisacodyl 10 Mg Rect Supp ME QDAY PRN Constipation Dextrose 50 ml 12/29/21 21:53 Dextrose 50% In Water (25gm) 50 Ml Syringe IV Q30MIN PRN Hypoglycemia Protocol Famotidine 20 mg 12/30/21 10:00 12/30/21 10:45 Famotidine 20 Mg/2 Ml Inj IV 20 mg QDAY RUBI Administration Haloperidol Lactate 5 mg 12/30/21 09:45 12/30/21 10:45 Haloperidol Lactate 5 Mg/1 Ml Inj IV 12/30/21 13:45 5 mg ONCE@0945 RUBI Administration Hydralazine HCl 10 mg 12/30/21 09:31 Hydralazine 20 Mg/1 Ml Inj IV Q6H PRN SBP >/=170; DBP >/=100 Insulin Human Lispro 0 unit 12/29/21 22:00 12/30/21 10:46 Insulin Lispro 100 Unit/Ml SUB-Q 4 unit ACHS RUBI Administration Protocol Magnesium Hydroxide 30 ml 12/29/21 21:53 Magnesium Hydroxide (Mom) Oral Liqd Udc PO Q4H PRN Constipation Metoclopramide HCl 10 mg 12/29/21 21:53 Metoclopramide 10 Mg Tab PO Q6H PRN Nausea And Vomiting Morphine Sulfate 2 mg 12/29/21 21:53 Morphine 2 Mg/1 Ml Inj IV Q4H PRN Pain, Moderate (4-6) Morphine Sulfate 4 mg 12/29/21 21:53 Morphine 4 Mg/1 Ml Inj IV Q4H PRN Pain , Severe (7-10) Ondansetron HCl 4 mg 12/29/21 21:53 Ondansetron 4 Mg/2 Ml Inj IV Q8H PRN Nausea And Vomiting Promethazine HCl 25 mg 12/29/21 21:53 Promethazine 25 Mg Rect Supp ME Q6H PRN Nausea And Vomiting Sodium Chloride 10 ml 12/29/21 22:00 12/30/21 10:46 Sodium Chloride 0.9% 10 Ml Flush Syringe IV 10 ml BID RUBI Administration Sodium Chloride 10 ml 12/29/21 21:53 Sodium Chloride 0.9% 10 Ml Flush Syringe IV PRN PRN LINE FLUSH <ESHA MALIK - Last Filed: 12/31/21 07:18> Assessment and Plan Assessment and plan: I saw and evaluated the patient. I agree with the findings and the plan of care as documented in the Nurse Practitioner's~note, with the following corrections and additions. Hospitalist Physical - Constitutional Vitals: Temp Pulse Resp BP Pulse Ox 98 F 91 H 18 129/77 96 12/31/21 00:00 12/31/21 06:30 12/31/21 06:30 12/31/21 06:30 12/31/21 06:30 HEART Score - HEART Score Troponin: Troponin T < 0.010 ng/mL (0.00-0.029) 12/29/21 16:00 Results - Labs CBC & Chem 7: 12/31/21 04:18 12/31/21 04:18 Labs: Laboratory Last Values WBC 14.5 K/mm3 (4.5-11.0) H 12/31/21 04:18 RBC 5.48 M/mm3 (3.65-5.03) H 12/31/21 04:18 Hgb 16.2 gm/dl (11.8-15.2) H 12/31/21 04:18 Hct 48.6 % (35.5-45.6) H 12/31/21 04:18 MCV 89 fl (84-94) 12/31/21 04:18 MCH 30 pg (28-32) 12/31/21 04:18 MCHC 33 % (32-34) 12/31/21 04:18 RDW 14.8 % (13.2-15.2) 12/31/21 04:18 Plt Count 179 K/mm3 (140-440) 12/31/21 04:18 Lymph % (Auto) 11.3 % (13.4-35.0) L 12/29/21 16:27 [place] % (Auto) 3.6 % (0.0-7.3) 12/29/21 16:27 Eos % (Auto) 0.0 % (0.0-4.3) 12/29/21 16:27 Baso % (Auto) 0.2 % (0.0-1.8) 12/29/21 16:27 Lymph # (Auto) 1.3 K/mm3 (1.2-5.4) 12/29/21 16: [place] # (Auto) 0.4 K/mm3 (0.0-0.8) 12/29/21 16:27 Eos # (Auto) 0.0 K/mm3 (0.0-0.4) 12/29/21 16:27 Baso # (Auto) 0.0 K/mm3 (0.0-0.1) 12/29/21 16:27 Seg Neutrophils % 84.9 % (40.0-70.0) H 12/29/21 16:27 Seg Neutrophils # 9.5 K/mm3 (1.8-7.7) H 12/29/21 16:27 PT 13.4 Sec. (12.2-14.9) 12/30/21 10:12 INR 0.92 (0.87-1.13) 12/30/21 10:12 APTT 30.3 Sec. (24.2-36.6) 12/30/21 10:12 Sodium 144 mmol/L (137-145) 12/31/21 04:18 Potassium 3.8 mmol/L (3.6-5.0) 12/31/21 04:18 Chloride 106.2 mmol/L (98-107) 12/31/21 04:18 Carbon Dioxide 26 mmol/L (22-30) D 12/31/21 04:18 Anion Gap 16 mmol/L 12/31/21 04:18 BUN 26 mg/dL (9-20) H 12/31/21 04:18 Creatinine 0.8 mg/dL (0.8-1.3) 12/31/21 04:18 Estimated GFR > 60 ml/min 12/31/21 04:18 BUN/Creatinine Ratio 33 % 12/31/21 04:18 Glucose 84 mg/dL (75-100) 12/31/21 04:18 POC Glucose 83 mg/dL (70-105) 12/30/21 21:35 Hemoglobin A1c 11.0 % (4-6) H 12/30/21 10:12 Calcium 9.4 mg/dL (8.4-10.2) 12/31/21 04:18 Total Bilirubin 0.60 mg/dL (0.1-1.2) 12/29/21 16:00 AST 12 units/L (5-40) 12/29/21 16:00 ALT 16 units/L (7-56) 12/29/21 16:00 Alkaline Phosphatase 120 units/L (35-129) 12/29/21 16:00 Troponin T < 0.010 ng/mL (0.00-0.029) 12/29/21 16:00 Total Protein 6.7 g/dL (6.3-8.2) 12/29/21 16:00 Albumin 4.8 g/dL (3.9-5) 12/29/21 16:00 Albumin/Globulin Ratio 2.5 % 12/29/21 16:00 Triglycerides 139 mg/dL (2-149) 12/30/21 10:12 Cholesterol 243 mg/dL (50-199) H 12/30/21 10:12 LDL Cholesterol Direct 156 mg/dL (50-130) H 12/30/21 10:12 HDL Cholesterol 61 mg/dL (40-59) H 12/30/21 10:12 Cholesterol/HDL Ratio 3.98 % 12/30/21 10:12 Urine Color Straw (Yellow) 12/29/21 17:50 Urine Turbidity Clear (Clear) 12/29/21 17:50 Specific [place] (Man) 1.005 (1.003-1.030) 12/29/21 17:50 Ur Protein (Man) 1+ mg/dL (Negative) 12/29/21 17:50 Ur Ketones (Man) 15 (Negative) 12/29/21 17:50 Urine Bilirubin (Man) Negative (Negative) 12/29/21 17:50 Urine WBC (Auto) < 1.0 /HPF (0.0-6.0) 12/29/21 17:50 Urine RBC (Auto) 1.0 /HPF (0.0-6.0) 12/29/21 17:50 Urine RBC (Manual) Negative (Negative) 12/29/21 17:50 Urine Mucus Few /HPF 12/29/21 17:50 Urine Opiates Screen Negative 12/29/21 18:11 Urine Methadone Screen Negative 12/29/21 18:11 Ur Barbiturates Screen Negative 12/29/21 18:11 Ur Phencyclidine Scrn Negative 12/29/21 18:11 Ur Amphetamines Screen Negative 12/29/21 18:11 U Benzodiazepines Scrn Negative 12/29/21 18:11 Urine Cocaine Screen Negative 12/29/21 18:11 U Marijuana (THC) Screen Negative 12/29/21 18:11 Drugs of Abuse Note Disclamer 12/29/21 18:11 Ibrahim/IV: Voiding Method Indwelling Catheter Active Medications - Current Medications Current Medications: Generic Name Dose Route Start Last Admin Trade Name Freq PRN Reason Stop Dose Admin Acetaminophen 650 mg 12/29/21 21:53 Acetaminophen 325 Mg Tab PO Q4H PRN Pain, Mild (1-3) Acetaminophen 650 mg 12/29/21 21:53 Acetaminophen 650 Mg Rect Supp ME Q6H PRN Pain MILD(1-3)/Fever >100.5/[place] Atorvastatin Calcium 40 mg 12/29/21 22:00 12/30/21 22:00 Atorvastatin 40 Mg Tab PO Not Given QHS [facility] Bisacodyl 10 mg 12/29/21 21:53 Bisacodyl 10 Mg Rect Supp ME QDAY PRN Constipation Dextrose 50 ml 12/29/21 21:53 Dextrose 50% In Water (25gm) 50 Ml Syringe IV Q30MIN PRN Hypoglycemia Protocol Famotidine 20 mg 12/30/21 10:00 12/30/21 10:45 Famotidine 20 Mg/2 Ml Inj IV 20 mg QDAY RUBI Administration Haloperidol Lactate 5 mg 12/30/21 12:09 12/30/21 17:27 Haloperidol Lactate 5 Mg/1 Ml Inj IV 5 mg Q6H PRN Administration Agitation Hydralazine HCl 10 mg 12/30/21 09:31 Hydralazine 20 Mg/1 Ml Inj IV Q6H PRN SBP >/=170; DBP >/=100 Insulin Glargine 5 units 12/30/21 22:00 12/30/21 22:00 Insulin Glargine 100 Units/Ml SUB-Q Not Given QHS [facility] Insulin Human Lispro 0 unit 12/30/21 18:00 12/31/21 07:03 Insulin Lispro 100 Unit/Ml SUB-Q Not Given Q6HR [facility] Protocol Magnesium Hydroxide 30 ml 12/29/21 21:53 Magnesium Hydroxide (Mom) Oral Liqd Udc PO Q4H PRN Constipation Metoclopramide HCl 10 mg 12/29/21 21:53 Metoclopramide 10 Mg Tab PO Q6H PRN Nausea And Vomiting Morphine Sulfate 2 mg 12/29/21 21:53 Morphine 2 Mg/1 Ml Inj IV Q4H PRN Pain, Moderate (4-6) Morphine Sulfate 4 mg 12/29/21 21:53 Morphine 4 Mg/1 Ml Inj IV Q4H PRN Pain , Severe (7-10) Nicotine 14 mg 12/31/21 10:00 Nicotine 14 Mg/24 Hr Patch TD QDAY [facility] Ondansetron HCl 4 mg 12/29/21 21:53 Ondansetron 4 Mg/2 Ml Inj IV Q8H PRN Nausea And Vomiting Promethazine HCl 25 mg 12/29/21 21:53 Promethazine 25 Mg Rect Supp ME Q6H PRN Nausea And Vomiting Sodium Chloride 10 ml 12/29/21 22:00 12/30/21 22:01 Sodium Chloride 0.9% 10 Ml Flush Syringe IV 10 ml BID RUBI Administration Sodium Chloride 10 ml 12/29/21 21:53 Sodium Chloride 0.9% 10 Ml Flush Syringe IV PRN PRN LINE FLUSH Nutrition/Malnutrition Assess - Dietary Evaluation Nutrition/Malnutrition Findings: Nutrition Notes Start: 12/30/21 16:25 Freq: Status: Active Protocol: Document 12/30/21 16:25 RICHIE (Rec: 12/30/21 16:30 RICHIE [id number]) Nutrition Notes Need for Assessment generated from: MD Order,Education Initial or Follow up Brief Note Current Diagnosis Diabetes,Hypertension,Stroke Other Pertinent Diagnosis AMS, Asthma, Acute Encephalopathy. Current Diet NPO (since 12/30 06:18). Height 5 ft 3 in Weight 57 kg [place] Body Weight (kg) 56.36 BMI 22.2 Weight change and time frame None provided at admission. Weight Status Appropriate Subjective/Other Information RD consult for nutrition education assessment. Pt currently on NPO. PRIVATE EQUITY ASSOCIATE note on 12/30/21 11:51: Patient was restless, yet maintained eye closure. Prolonged oral transit time was noted with pureed with subsequent aspiration on thins . Due to the patient's extreme restlessness and maintaining eye closure following a resistance of po, recommend continuing NPO status. Will reassess in 24 hours. - END OF NOTE. Pt is on Room Air, O2 saturation @ 97%, according to Physical Assessment History notes. Pt still in critical condition , not a candidate for Nutrition Education at the time, will assess feasibility on F/U. Percent of energy/protein needs met: Pt currently on NPO. Nutrition Intervention Follow-Up By: 01/01/22 Additional Comments Nutrition education will be provided at F/U, if feasible. Continue monitoring food tolerance, %PO intake of meals , and BM.
--- NOTE | 2021-12-30 11:52 | Vascular Lab Report ---
DUPLEX DOPPLER ULTRASOUND CAROTID, BILATERAL INDICATION / CLINICAL INFORMATION: stroke. COMPARISON: None available. FINDINGS: RIGHT CAROTID: - PLAQUE ESTIMATE (%): Visible; no lumen. - CCA velocity: 62 cm/sec. - ICA peak systolic velocity: 0 cm/sec. - ICA/CCA PSV Ratio: 0 Right Vertebral Artery: Antegrade flow. LEFT CAROTID: - PLAQUE ESTIMATE (%): < 50% - CCA velocity: 86 cm/sec. - ICA peak systolic velocity: 118 cm/sec. - ICA/CCA PSV Ratio: 1.4 Left Vertebral Artery: Antegrade flow. IMPRESSION: 1. Right Internal Carotid Artery: Total occlusion. 2. Left Internal Carotid Artery: Less than 50% diameter stenosis. IMPORTANT FINDING: Time of Communication (EYELET PUNCH OPERATOR/CDT): 02 04 Licensed Practitioner Receiving Report: THEO Cole Velocity criteria are extrapolated from diameter data as defined by the Society of Radiologists in Ul trasound Consensus Conference, Radiology 2003; 229;340-346. NO STENOSIS (NORMAL) - Plaque = none; ICA PSV < 125 cm/sec; ICA/CCA PSV Ratio < 2.0 <50% STENOSIS - Plaque < 50%; ICA PSV < 125 cm/sec; ICA/CCA PSV Ratio < 2.0 50-69% STENOSIS - Plaque > 50%; ICA PSV = 125-230 cm/sec; ICA/CCA PSV Ratio = 2.0-4.0 >70% BUT <100% STENOSIS - Plaque > 50%; ICA PSV > 230 cm/sec; ICA/CCA PSV Ratio > 4.0 NEAR OCCLUSION - Plaque = visible lumen; ICA PSV = high/low/none; ICA/CCA PSV Ratio = variable TOTAL OCCLUSION - Plaque = no lumen; ICA PSV = none; ICA/CCA PSV Ratio = N/A Signer Name: Yobany Jordan MD Signed: 12/30/2021 11:47 AM Workstation Name: [id number]
[2021-12-30] MEDS ORDERED: MIDAZOLAM 2 MG/2 ML INJ IV PRN (13:02)
--- NOTE | 2021-12-30 13:13 | Electrocardiograph Report ---
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
[2021-12-30 13:25] LABS: Chol/HDL Ratio 3.98 %
[2021-12-30] MEDS: HALOPERIDOL LACTATE 5 MG/1 ML INJ IV PRN (17:27)
[2021-12-30] MEDS ORDERED: INSULIN GLARGINE 100 UNITS/ML SUB-Q SCH (22:00)
--- NOTE | 2021-12-30 22:07 | Cat Scan Report ---
CT head/brain wo con INDICATION: follow up 24hrs post tPA. TECHNIQUE: Routine CT head. All CT scans at this location are performed using CT dose reduction for A EVANGELIST by means of automated exposure control. COMPARISON: 12/29/2021 FINDINGS: There is no small area of hypoattenuation and loss of mooney-white differentiation seen within the left middle frontal gyrus. There is linear region of increased attenuation seen within this region which could be minimal petechial hemorrhage or preservation of the cortex surrounded by region of hypoatten uation. The remainder the brain appears unchanged. Multifocal remote infarctions involving the left frontal l obe and right occipital lobe. The lateral recess of the lobe infarctions wedge-shaped at the parieto- occipital junction most consistent with watershed distribution IMPRESSION: 1. Small acute evolving left MCA distribution infarction involving left frontal lobe. Small linear g yriform increased attenuation which could represent petechial hemorrhage. Signer Name: Jose Hare MD Signed: 12/30/2021 10:03 PM Workstation Name: [id number]
[2021-12-31 05:03] LABS: Hematocrit 48.6 % (35.5-45.6); Hemoglobin 16.2 gm/dl (11.8-15.2); Mean Corpuscular HGB Conc 33 % (32-34); Mean Corpuscular Volume 89 fl (84-94); Platelet Count 179 K/mm3 (140-440); Red Blood Count 5.48 M/mm3 (3.65-5.03); Red Cell Distribution Width 14.8 % (13.2-15.2)
[2021-12-31 05:33] LABS: BUN/Creatinine Ratio 33; Blood Urea Nitrogen 26 mg/dL (9-20); Calcium 9.4 mg/dL (8.4-10.2); Hemolysis Index 9
[2021-12-31] MEDS: INSULIN LISPRO 100 UNIT/ML SUB-Q SCH ×2 (07:03→12:05)
[2021-12-31] MEDS: HALOPERIDOL LACTATE 5 MG/1 ML INJ IV PRN (08:21)
[2021-12-31] MEDS ORDERED: D5W/0.45% NACL 1,000 ML IV SCH (09:00)
[2021-12-31] MEDS: NICOTINE 14 MG/24 HR PATCH TD SCH (09:51)
[2021-12-31] MEDS: FAMOTIDINE 20 MG/2 ML INJ IV SCH (09:52)
--- NOTE | 2021-12-31 10:38 | Progress Note ---
<AYDEE MABRY - Last Filed: 12/31/21 17:05> Assessment and Plan Assessment and plan: This is a 61-year-old male with known past medical history of HTN, DM, previous stroke, asthma, and Tobacco Dependence admitted for acute CVA s/p tPA Hospital Course to Date: 12/30: Patient with acute encephalopathy, follows commands intermittently. Pupils are round and reactive, with + gag/cough. Mild right-sided facial droop appreciated, patient moves all his extremities. S/p IV Haldol this am due to in crease agitation and is now on wrist restraints from safety. Imaguings reviewed, CTA head/neck revealed complete occlusion of the right ICA. NeuroSurgery consulted. Neurology is also following. Repeat CT head/brain and MRI pending. Will also check alcohol and ammonia level. Continue PRN Haldol for agitation. 2D echo pending. SSI initiated due to hyperglycemia. PT/OT/Speech also consulted. 12/31: Mentation improved. AAO, following commands. Repeat CT head with small acute evolving left MCA distribution infarction involving left frontal lobe and possible petechial hemorrhage. MRI brain and Neurology consult pending. Will hold ASA and AC until cleared by Neurology. 2D echo reviewed, suggestive of tiny extracardiac shunt, cardiology consulted. Speech cleared patient for pureed diet, IVF d/gibson. Continue PT/OT. D/w CCM, patient is stable for transfer to Telemetry. 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 - TeleNeurology saw patient in the ED - Patient received tPA - Patient remains encephalopthic with periods of agitation, moves all extremities with mild right sided facial droop - Per patient's friend at the bedside, patient does not drink alcohol. UDS is negative - Repeat CT head with small acute evolving left MCA distribution infarction involving left frontal lobe and possible petechial hemorrhage - MRI brain pending - NeuroSurgery was also consulted due to occlusion in the NASIR - 2D Echo reviewed, suggestive of tiny extracardiac shunt, cardiology consulted - Orders placed for Lipid panel - Statin initiated - ASA and prophy AC to start tomorrow, 24hrs post TPA - Continue Neuro check per protocol - PT/OT/Speech ordered - Neurology also consulted - Aspiration and Fall precautions - PRN Haldol for agitation #H/o Asthma #Tobacco Dependence - Patient is stable on RA, wheezing appreciated - Per patient's close friend at the bedside, patient is a daily cigarettes smoker - Continue PRN nebx treatment for wheezing - O2 supplementation as needed - Continue SPO2 monitoring for SPO2 goal above 92% - Smoking Cessation education once patient is more coherent and appropriate - Nicotine patch Qday #Hypertension - BP stable - Allow permissive hypertension to promote perfusion - Hold all antihypertensive agents for now - Continue blood pressure monitor per protocol, - maintain SBP less than 180 adn DBP less than 110 #Type 2 Diabetes with Hyperglycemia - HgbA1c- 11.0 - BG check and SSI Q6hrs - Lantus qhs - Avoid hypoglycemia - While critically ill target blood glucose of 140-180 #GI/DVT Prophylaxis - PPI- Pepcid - SCDs to bilateral lower extremities while in bed The high probability of a clinically significant, sudden or life threatening deterioration of the [multiple] system(s) required my full and direct attention, intervention and personal management. The aggregate critical care time was [60] minutes. This time is in addition to time spent performing reported procedures but includes the following: [x] Data Review and interpretation [x] Patient assessment and monitoring of vital signs [x] Documentation [x] Medication orders and management Disposition Plan: ICU Total Time Spent with Patient (Minutes): 60 History Interval history: Patient seen and examined at the bedside. Mentation improved this am. Patient is AAO X1 to 2, appropriate, and following commands. Stable on RA. VSS. PEREZ overnight Hospitalist Physical - Constitutional Vitals: Temp Pulse Resp BP Pulse Ox 98.5 F 93 H 15 143/75 98 12/31/21 08:09 12/31/21 10:00 12/31/21 10:00 12/31/21 10:00 12/31/21 10:00 General appearance: Present: no acute distress, well-nourished - EENT Eyes: Present: PERRL, EOM intact ENT: hearing intact - Neck Neck: Present: normal ROM - Respiratory Respiratory effort: normal Respiratory: bilateral: CTA - Cardiovascular Rhythm: regular Heart Sounds: Present: S1 & S2 - Extremities Extremities: no ischemia, pulses intact, pulses symmetrical Peripheral Pulses: within normal limits - Abdominal General gastrointestinal: soft, non-distended, normal bowel sounds - Integumentary Integumentary: Present: clear, warm, dry - Psychiatric Psychiatric: appropriate mood/affect, cooperative - Neurologic Neurologic: CNII-XII intact, moves all extremities - Allied Health Allied health notes reviewed: nursing HEART Score - HEART Score Troponin: Troponin T < 0.010 ng/mL (0.00-0.029) 12/29/21 16:00 Results - Labs CBC & Chem 7: 12/31/21 04:18 12/31/21 04:18 Labs: Laboratory Last Values WBC 14.5 K/mm3 (4.5-11.0) H 12/31/21 04:18 RBC 5.48 M/mm3 (3.65-5.03) H 12/31/21 04:18 Hgb 16.2 gm/dl (11.8-15.2) H 12/31/21 04:18 Hct 48.6 % (35.5-45.6) H 12/31/21 04:18 MCV 89 fl (84-94) 12/31/21 04:18 MCH 30 pg (28-32) 12/31/21 04:18 MCHC 33 % (32-34) 12/31/21 04:18 RDW 14.8 % (13.2-15.2) 12/31/21 04:18 Plt Count 179 K/mm3 (140-440) 12/31/21 04:18 Lymph % (Auto) 11.3 % (13.4-35.0) L 12/29/21 16: [place] % (Auto) 3.6 % (0.0-7.3) 12/29/21 16:27 Eos % (Auto) 0.0 % (0.0-4.3) 12/29/21 16:27 Baso % (Auto) 0.2 % (0.0-1.8) 12/29/21 16: Lymph # (Auto) 1.3 K/mm3 (1.2-5.4) 12/29/21 16:27 [place] # (Auto) 0.4 K/mm3 (0.0-0.8) 12/29/21 16: Eos # (Auto) 0.0 K/mm3 (0.0-0.4) 12/29/21 16:27 Baso # (Auto) 0.0 K/mm3 (0.0-0.1) 12/29/21 16:27 Seg Neutrophils % 84.9 % (40.0-70.0) H 12/29/21 16:27 Seg Neutrophils # 9.5 K/mm3 (1.8-7.7) H 12/29/21 16:27 PT 13.4 Sec. (12.2-14.9) 12/30/21 10:12 INR 0.92 (0.87-1.13) 12/30/21 10:12 APTT 30.3 Sec. (24.2-36.6) 12/30/21 10:12 Sodium 144 mmol/L (137-145) 12/31/21 04:18 Potassium 3.8 mmol/L (3.6-5.0) 12/31/21 04:18 Chloride 106.2 mmol/L (98-107) 12/31/21 04:18 Carbon Dioxide 26 mmol/L (22-30) D 12/31/21 04:18 Anion Gap 16 mmol/L 12/31/21 04:18 BUN 26 mg/dL (9-20) H 12/31/21 04:18 Creatinine 0.8 mg/dL (0.8-1.3) 12/31/21 04:18 Estimated GFR > 60 ml/min 12/31/21 04:18 BUN/Creatinine Ratio 33 % 12/31/21 04:18 Glucose 84 mg/dL (75-100) 12/31/21 04:18 POC Glucose 83 mg/dL (70-105) 12/30/21 21:35 Hemoglobin A1c 11.0 % (4-6) H 12/30/21 10:12 Calcium 9.4 mg/dL (8.4-10.2) 12/31/21 04:18 Total Bilirubin 0.60 mg/dL (0.1-1.2) 12/29/21 16:00 AST 12 units/L (5-40) 12/29/21 16:00 ALT 16 units/L (7-56) 12/29/21 16:00 Alkaline Phosphatase 120 units/L (35-129) 12/29/21 16:00 Troponin T < 0.010 ng/mL (0.00-0.029) 12/29/21 16:00 Total Protein 6.7 g/dL (6.3-8.2) 12/29/21 16:00 Albumin 4.8 g/dL (3.9-5) 12/29/21 16:00 Albumin/Globulin Ratio 2.5 % 12/29/21 16:00 Triglycerides 139 mg/dL (2-149) 12/30/21 10:12 Cholesterol 243 mg/dL (50-199) H 12/30/21 10:12 LDL Cholesterol Direct 156 mg/dL (50-130) H 12/30/21 10:12 HDL Cholesterol 61 mg/dL (40-59) H 12/30/21 10:12 Cholesterol/HDL Ratio 3.98 % 12/30/21 10:12 Urine Color Straw (Yellow) 12/29/21 17:50 Urine Turbidity Clear (Clear) 12/29/21 17:50 Specific [place] (Man) 1.005 (1.003-1.030) 12/29/21 17:50 Ur Protein (Man) 1+ mg/dL (Negative) 12/29/21 17:50 Ur Ketones (Man) 15 (Negative) 12/29/21 17:50 Urine Bilirubin (Man) Negative (Negative) 12/29/21 17:50 Urine WBC (Auto) < 1.0 /HPF (0.0-6.0) 12/29/21 17:50 Urine RBC (Auto) 1.0 /HPF (0.0-6.0) 12/29/21 17:50 Urine RBC (Manual) Negative (Negative) 12/29/21 17:50 Urine Mucus Few /HPF 12/29/21 17:50 Urine Opiates Screen Negative 12/29/21 18:11 Urine Methadone Screen Negative 12/29/21 18:11 Ur Barbiturates Screen Negative 12/29/21 18:11 Ur Phencyclidine Scrn Negative 12/29/21 18:11 Ur Amphetamines Screen Negative 12/29/21 18:11 U Benzodiazepines Scrn Negative 12/29/21 18:11 Urine Cocaine Screen Negative 12/29/21 18:11 U Marijuana (THC) Screen Negative 12/29/21 18:11 Drugs of Abuse Note Disclamer 12/29/21 18:11 Ibrahim/IV: Voiding Method Indwelling Catheter Active Medications - Current Medications Current Medications: Generic Name Dose Route Start Last Admin Trade Name Freq PRN Reason Stop Dose Admin Acetaminophen 650 mg 12/29/21 21:53 Acetaminophen 325 Mg Tab PO Q4H PRN Pain, Mild (1-3) Acetaminophen 650 mg 12/29/21 21:53 Acetaminophen 650 Mg Rect Supp ID Q6H PRN Pain MILD(1-3)/Fever >100.5/WAGNER Atorvastatin Calcium 40 mg 12/29/21 22:00 12/30/21 22:00 Atorvastatin 40 Mg Tab PO Not Given QHS RUBI Bisacodyl 10 mg 12/29/21 21:53 Bisacodyl 10 Mg Rect Supp ID QDAY PRN Constipation Dextrose 50 ml 12/29/21 21:53 Dextrose 50% In Water (25gm) 50 Ml Syringe IV Q30MIN PRN Hypoglycemia Protocol Famotidine 20 mg 12/30/21 10:00 12/31/21 09:52 Famotidine 20 Mg/2 Ml Inj IV 20 mg QDAY RUBI Administration Haloperidol Lactate 5 mg 12/30/21 12:09 12/31/21 08:21 Haloperidol Lactate 5 Mg/1 Ml Inj IV 5 mg Q6H PRN Administration Agitation Hydralazine HCl 10 mg 12/30/21 09:31 Hydralazine 20 Mg/1 Ml Inj IV Q6H PRN SBP >/=170; DBP >/=100 Dextrose/Sodium Chloride 1,000 mls @ 75 mls/hr 12/31/21 09:00 12/31/21 09:52 D5/0.45ns IV 75 mls/hr DIRECT RUBI Administration Insulin Human Lispro 0 unit 12/30/21 18:00 12/31/21 07:03 Insulin Lispro 100 Unit/Ml SUB-Q Not Given Q6HR [facility] Protocol Magnesium Hydroxide 30 ml 12/29/21 21:53 Magnesium Hydroxide (Mom) Oral Liqd Udc PO Q4H PRN Constipation Metoclopramide HCl 10 mg 12/29/21 21:53 Metoclopramide 10 Mg Tab PO Q6H PRN Nausea And Vomiting Morphine Sulfate 2 mg 12/29/21 21:53 Morphine 2 Mg/1 Ml Inj IV Q4H PRN Pain, Moderate (4-6) Morphine Sulfate 4 mg 12/29/21 21:53 Morphine 4 Mg/1 Ml Inj IV Q4H PRN Pain , Severe (7-10) Nicotine 14 mg 12/31/21 10:00 12/31/21 09:51 Nicotine 14 Mg/24 Hr Patch TD 14 mg QDAY RUBI Administration Ondansetron HCl 4 mg 12/29/21 21:53 Ondansetron 4 Mg/2 Ml Inj IV Q8H PRN Nausea And Vomiting Promethazine HCl 25 mg 12/29/21 21:53 Promethazine 25 Mg Rect Supp ID Q6H PRN Nausea And Vomiting Sodium Chloride 10 ml 12/29/21 22:00 12/31/21 09:52 Sodium Chloride 0.9% 10 Ml Flush Syringe IV 10 ml BID RUBI Administration Sodium Chloride 10 ml 12/29/21 21:53 Sodium Chloride 0.9% 10 Ml Flush Syringe IV PRN PRN LINE FLUSH Nutrition/Malnutrition Assess - Dietary Evaluation Nutrition/Malnutrition Findings: Nutrition Notes Start: 12/30/21 16:25 Freq: Status: Active Protocol: Document 12/30/21 16:25 RICHIE (Rec: 12/30/21 16:30 RICHIE [id number]) Nutrition Notes Need for Assessment generated from: MD Order,Education Initial or Follow up Brief Note Current Diagnosis Diabetes,Hypertension,Stroke Other Pertinent Diagnosis AMS, Asthma, Acute Encephalopathy. Current Diet NPO (since 12/30 06:18). Height 5 ft 3 in Weight 57 kg [place] Body Weight (kg) 56.36 BMI 22.2 Weight change and time frame None provided at admission. Weight Status Appropriate Subjective/Other Information RD consult for nutrition education assessment. Pt currently on NPO. SOCIAL SECURITY SPECIALIST note on 12/30/21 11:51: Patient was restless, yet maintained eye closure. Prolonged oral transit time was noted with pureed with subsequent aspiration on thins . Due to the patient's extreme restlessness and maintaining eye closure following a resistance of po, recommend continuing NPO status. Will reassess in 24 hours. - END OF NOTE. Pt is on Room Air, O2 saturation @ 97%, according to Physical Assessment History notes. Pt still in critical condition , not a candidate for Nutrition Education at the time, will assess feasibility on F/U. Percent of energy/protein needs met: Pt currently on NPO. Nutrition Intervention Follow-Up By: 01/01/22 Additional Comments Nutrition education will be provided at F/U, if feasible. Continue monitoring food tolerance, %PO intake of meals , and BM. <OKEH,ESHA E - Last Filed: 12/31/21 20:13> Assessment and Plan Assessment and plan: I saw and evaluated the patient. I agree with the findings and the plan of care as documented in the Nurse Practitioner's~note, with the following corrections and additions. Hospitalist Physical - Constitutional Vitals: Temp Pulse Resp BP Pulse Ox 97.9 F 80 17 135/85 95 12/31/21 12:00 12/31/21 15:30 12/31/21 15:30 12/31/21 15:30 12/31/21 20:05 HEART Score - HEART Score Troponin: Troponin T < 0.010 ng/mL (0.00-0.029) 12/29/21 16:00 Results - Labs CBC & Chem 7: 12/31/21 04:18 12/31/21 04:18 Labs: Laboratory Last Values WBC 14.5 K/mm3 (4.5-11.0) H 12/31/21 04:18 RBC 5.48 M/mm3 (3.65-5.03) H 12/31/21 04:18 Hgb 16.2 gm/dl (11.8-15.2) H 12/31/21 04:18 Hct 48.6 % (35.5-45.6) H 12/31/21 04:18 MCV 89 fl (84-94) 12/31/21 04:18 MCH 30 pg (28-32) 12/31/21 04:18 MCHC 33 % (32-34) 12/31/21 04:18 RDW 14.8 % (13.2-15.2) 12/31/21 04:18 Plt Count 179 K/mm3 (140-440) 12/31/21 04:18 Lymph % (Auto) 11.3 % (13.4-35.0) L 12/29/21 16:27 [place] % (Auto) 3.6 % (0.0-7.3) 12/29/21 16:27 Eos % (Auto) 0.0 % (0.0-4.3) 12/29/21 16:27 Baso % (Auto) 0.2 % (0.0-1.8) 12/29/21 16:27 Lymph # (Auto) 1.3 K/mm3 (1.2-5.4) 12/29/21 16:27 [place] # (Auto) 0.4 K/mm3 (0.0-0.8) 12/29/21 16:27 Eos # (Auto) 0.0 K/mm3 (0.0-0.4) 12/29/21 16:27 Baso # (Auto) 0.0 K/mm3 (0.0-0.1) 12/29/21 16:27 Seg Neutrophils % 84.9 % (40.0-70.0) H 12/29/21 16:27 Seg Neutrophils # 9.5 K/mm3 (1.8-7.7) H 12/29/21 16:27 PT 13.4 Sec. (12.2-14.9) 12/30/21 10:12 INR 0.92 (0.87-1.13) 12/30/21 10:12 APTT 30.3 Sec. (24.2-36.6) 12/30/21 10:12 Sodium 144 mmol/L (137-145) 12/31/21 04:18 Potassium 3.8 mmol/L (3.6-5.0) 12/31/21 04:18 Chloride 106.2 mmol/L (98-107) 12/31/21 04:18 Carbon Dioxide 26 mmol/L (22-30) D 12/31/21 04:18 Anion Gap 16 mmol/L 12/31/21 04:18 BUN 26 mg/dL (9-20) H 12/31/21 04:18 Creatinine 0.8 mg/dL (0.8-1.3) 12/31/21 04:18 Estimated GFR > 60 ml/min 12/31/21 04:18 BUN/Creatinine Ratio 33 % 12/31/21 04:18 Glucose 84 mg/dL (75-100) 12/31/21 04:18 POC Glucose 184 mg/dL (70-105) H 12/31/21 11:49 Hemoglobin A1c 11.0 % (4-6) H 12/30/21 10:12 Calcium 9.4 mg/dL (8.4-10.2) 12/31/21 04:18 Total Bilirubin 0.60 mg/dL (0.1-1.2) 12/29/21 16:00 AST 12 units/L (5-40) 12/29/21 16:00 ALT 16 units/L (7-56) 12/29/21 16:00 Alkaline Phosphatase 120 units/L (35-129) 12/29/21 16:00 Troponin T < 0.010 ng/mL (0.00-0.029) 12/29/21 16:00 Total Protein 6.7 g/dL (6.3-8.2) 12/29/21 16:00 Albumin 4.8 g/dL (3.9-5) 12/29/21 16:00 Albumin/Globulin Ratio 2.5 % 12/29/21 16:00 Triglycerides 139 mg/dL (2-149) 12/30/21 10:12 Cholesterol 243 mg/dL (50-199) H 12/30/21 10:12 LDL Cholesterol Direct 156 mg/dL (50-130) H 12/30/21 10:12 HDL Cholesterol 61 mg/dL (40-59) H 12/30/21 10:12 Cholesterol/HDL Ratio 3.98 % 12/30/21 10:12 Urine Color Straw (Yellow) 12/29/21 17:50 Urine Turbidity Clear (Clear) 12/29/21 17:50 Specific [place] (Man) 1.005 (1.003-1.030) 12/29/21 17:50 Ur Protein (Man) 1+ mg/dL (Negative) 12/29/21 17:50 Ur Ketones (Man) 15 (Negative) 12/29/21 17:50 Urine Bilirubin (Man) Negative (Negative) 12/29/21 17:50 Urine WBC (Auto) < 1.0 /HPF (0.0-6.0) 12/29/21 17:50 Urine RBC (Auto) 1.0 /HPF (0.0-6.0) 12/29/21 17:50 Urine RBC (Manual) Negative (Negative) 12/29/21 17:50 Urine Mucus Few /HPF 12/29/21 17:50 Urine Opiates Screen Negative 12/29/21 18:11 Urine Methadone Screen Negative 12/29/21 18:11 Ur Barbiturates Screen Negative 12/29/21 18:11 Ur Phencyclidine Scrn Negative 12/29/21 18:11 Ur Amphetamines Screen Negative 12/29/21 18:11 U Benzodiazepines Scrn Negative 12/29/21 18:11 Urine Cocaine Screen Negative 12/29/21 18:11 U Marijuana (THC) Screen Negative 12/29/21 18:11 Drugs of Abuse Note Disclamer 12/29/21 18:11 Ibrahim/IV: Voiding Method Indwelling Catheter Active Medications - Current Medications Current Medications: Generic Name Dose Route Start Last Admin Trade Name Freq PRN Reason Stop Dose Admin Acetaminophen 650 mg 12/29/21 21:53 Acetaminophen 325 Mg Tab PO Q4H PRN Pain, Mild (1-3) Acetaminophen 650 mg 12/29/21 21:53 Acetaminophen 650 Mg Rect Supp ID Q6H PRN Pain MILD(1-3)/Fever >100.5/[place]AG[place] Atorvastatin Calcium 40 mg 12/29/21 22:00 12/30/21 22:00 Atorvastatin 40 Mg Tab PO Not Given QHS [facility] Bisacodyl 10 mg 12/29/21 21:53 Bisacodyl 10 Mg Rect Supp ID QDAY PRN Constipation Dextrose 50 ml 12/29/21 21:53 Dextrose 50% In Water (25gm) 50 Ml Syringe IV Q30MIN PRN Hypoglycemia Protocol Famotidine 20 mg 01/01/22 10:00 Famotidine 20 Mg Tab PO QDAY [facility] Haloperidol Lactate 5 mg 12/30/21 12:09 12/31/21 08:21 Haloperidol Lactate 5 Mg/1 Ml Inj IV 5 mg Q6H PRN Administration Agitation Hydralazine HCl 10 mg 12/30/21 09:31 Hydralazine 20 Mg/1 Ml Inj IV Q6H PRN SBP >/=170; DBP >/=100 Insulin Human Lispro 0 unit 12/30/21 18:00 12/31/21 12:05 Insulin Lispro 100 Unit/Ml SUB-Q Not Given Q6HR [facility] Protocol Magnesium Hydroxide 30 ml 12/29/21 21:53 Magnesium Hydroxide (Mom) Oral Liqd Udc PO Q4H PRN Constipation Metoclopramide HCl 10 mg 12/29/21 21:53 Metoclopramide 10 Mg Tab PO Q6H PRN Nausea And Vomiting Nicotine 14 mg 12/31/21 10:00 12/31/21 09:51 Nicotine 14 Mg/24 Hr Patch TD 14 mg QDAY RUBI Administration Ondansetron HCl 4 mg 12/29/21 21:53 Ondansetron 4 Mg/2 Ml Inj IV Q8H PRN Nausea And Vomiting Sodium Chloride 10 ml 12/29/21 22:00 12/31/21 09:52 Sodium Chloride 0.9% 10 Ml Flush Syringe IV 10 ml BID RUBI Administration Sodium Chloride 10 ml 12/29/21 21:53 Sodium Chloride 0.9% 10 Ml Flush Syringe IV PRN PRN LINE FLUSH Nutrition/Malnutrition Assess - Dietary Evaluation Nutrition/Malnutrition Findings: Nutrition Notes Start: 12/30/21 16:25 Freq: Status: Active Protocol: Document 12/31/21 14:42 RICHIE (Rec: 12/31/21 15:10 RICHIE [id number]) Nutrition Notes Need for 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 Current Diet Pureed Diet (since L 12/31). Labs/Tests 12/31: BUN 26. Pertinent Medications 12/31: Nutritionally unremarkable. 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 No body weight change reported in 1 day. Weight Status Appropriate Subjective/Other Information RD consult for difficulty chewing, skin risk and risk of malnutrition assessments. Diet advanced to PO as per SOCIAL SECURITY SPECIALIST recommendation, No reports available on Pt's PO intake of meals at the time, will assess at F/U. I will prescribe dietary supplements to compensate for possible or insufficient PO intake of meals during LOS. SOCIAL SECURITY SPECIALIST note on 12/31/21 10:46: Reassessment of the patient's swallowing function was addressed. Patient is safe for a pureed diet with thins. Will continue to follow to ensure continued safety. Informed the patient's nurse of diet recommendations. - END OF NOTE. Pt is on Room Air, O2 saturation @ 99%, according to Physical Assessment History notes. Pt has missing teeth, according to Physical Assessment History notes. Pt shows no signs of concern for skin risk at the time, according to Physical Assessment History notes. Pt shows no signs of concern for risk of malnutrition at the time, according to Physical Assessment History notes. Difficulty chewing has been addressed by SOCIAL SECURITY SPECIALIST recommendation, I will disregard this concern at this time. Pt still in critical condition , not a candidate for Nutrition Education at the time, will assess feasibility on F/U. Percent of energy/protein needs met: Prescribed Pureed Diet provides for energy/protein needs (1,804 Kcal/77 g) during LOS; additionally, Dietary Supplements will compensate for possible poor or insufficient PO intake of meals with 440 Kcal and 20 g of protein. Burn Absent Trauma Absent GI Symptoms None Difficulty In Swallowing,Chewing Food Allergy No Skin Integrity/Comment Assessment WNL. Minimum of two criteria No Fluid Accumulation N/A Reduced Rotary Cutter Strength N/A (non-severe) Protein-Calorie Malnutrition N\A #2 Nutrition Diagnosis Predicted suboptimal energy intake Etiology Possibly secondary to CVA. As Evidenced by Signs and Symptoms No reports available on Pt's PO intake of meals at the time , will assess at F/U. #1 Nutrition Diagnosis Swallowing difficulty,Biting/ Chewing (masticatory) difficulty Etiology Possibly secondary to CVA. As Evidenced by Signs and Symptoms SOCIAL SECURITY SPECIALIST note on 12/31/21 10:46: Reassessment of the patient's swallowing function was addressed. Patient is safe for a pureed diet with thins. Will continue to follow to ensure continued safety. Informed the patient's nurse of diet recommendations. - END OF NOTE. Is patient on ventilator? No Is Patient Ambulatory and/or Out of Bed Yes REE-([facility]-ambulatory/OOB) [ [id number] [id number]] Kcal/Kg value to use for calculation 24 Approximate Energy Requirements Using 1368 kcal/Kg Calculation Used for Recommendations Kcal/kg Additional Notes Protein: 0.8-1 g/Kg ABW; 46-57 g/day. Fluids: 1 ml/Kcal, or as per MD. Nutrition Intervention Change Diet Order: Continue Pureed Diet as tolerated. Add Supplement/Snack (indicate name/kcal Start 8 fl oz Glucerna; BID. /protein ) Provides kCal: 440 Provides Protein (gm) 20 Goal #1 Compensate, through dietary supplementation, for possible poor or insufficient PO intake of meals during LOS. Goal #2 Facilitate PO intake of meals with elemental, textural, or mechanical modification during LOS. Follow-Up By: 01/07/22 Additional Comments Continue monitoring food tolerance, %PO intake of meals , dietary supplements, and BM.
--- NOTE | 2021-12-31 12:13 | Progress Note ---
Assessment and Plan Acute CVA s/p rpA Acute encephalopathy Altered mental Status HTN DM II Leucocytosis Hyperlipidemia H/O Asthma - RESEARCH AND EVALUATION ANALYST evaluation and advance diet per recommendations - follow MRI - increase ambulation; PT/OT/ROM exercises - secondary prevention - continue BP control and statin therapy re: CVA - neurology evaluation ongoing (follow MRI) - continue accuchecks with glycemic control per SSI for target blood glucose < 180 mg/dL - prn supplemental oxygen for target O2 sat's > 90% acutely - aspiration precautions - prn bronchodilators with pulmonary hygiene per RT - avoid nephrotoxins, renally dose all medications - void benzodiazepine's, reduce the possibility of delirium - AB's per ID rec's - prn analgesia per pain score - Maintenance of sleep-wake cycle, avoid delirium - fall precautions - G.I. & VTE prophylaxis - mobility protocols for pressure ulcer prophylaxis - Monitor hemodynamics closely - continue other care per attending / other consultants - discharge planning ongoing concurrently .... Re-evaluate in am & prn ... transfer to medical floor ok Subjective Date of service: 12/31/21 Principal diagnosis: Acute CVA s/p tpA; AMS; HTN; DM II; Leucocytosis; Hyperlipidemia; Asthma Interval history: Patient is seen today for: Acute CVA s/p tpA; Acute encephalopathy; HTN; DM II; Leucocytosis; Hyperlipidemia; H/O Asthma Seen and examined at bedside; 24hour events reviewed; nursing and respiratory care staff consulted; no adverse overnight events reported to me; resting in bed; more alert today; participated in PT/OT; no N/V/F/C; neurology evaluation ongoing; awaiting MRI brain but repeat CT head shows evolving small L.MCA infarct Objective Vital Signs - 12hr 12/31/21 12/31/21 12/31/21 00:30 01:00 01:30 Temperature Pulse Rate 98 H 98 H 95 H Pulse Rate [ From Monitor] Respiratory 15 16 15 Rate Blood Pressure 128/80 132/78 132/78 O2 Sat by Pulse 98 97 97 Oximetry 12/31/21 12/31/21 12/31/21 02:00 02:30 03:00 Temperature Pulse Rate 74 78 74 Pulse Rate [ From Monitor] Respiratory 15 16 15 Rate Blood Pressure 140/72 140/72 124/71 O2 Sat by Pulse 97 98 98 Oximetry 12/31/21 12/31/21 12/31/21 03:30 04:00 04:30 Temperature Pulse Rate 92 H 74 70 Pulse Rate [ 99 H From Monitor] Respiratory 17 16 15 Rate Blood Pressure 124/71 133/72 133/72 O2 Sat by Pulse 95 97 96 Oximetry 12/31/21 12/31/21 12/31/21 05:00 05:30 06:00 Temperature Pulse Rate 90 73 87 Pulse Rate [ From Monitor] Respiratory 19 15 17 Rate Blood Pressure 129/77 133/72 148/79 O2 Sat by Pulse 99 96 96 Oximetry 12/31/21 12/31/21 12/31/21 06:30 07:00 07:30 Temperature Pulse Rate 91 H 93 H 96 H Pulse Rate [ From Monitor] Respiratory 18 18 19 Rate Blood Pressure 129/77 132/73 132/73 O2 Sat by Pulse 96 95 98 Oximetry 12/31/21 12/31/21 12/31/21 07:38 07:55 08:00 Temperature Pulse Rate 96 H Pulse Rate [ 96 H From Monitor] Respiratory 17 16 Rate Blood Pressure 132/73 O2 Sat by Pulse 96 97 96 Oximetry 12/31/21 12/31/21 12/31/21 08:03 08:09 09:34 Temperature 98.5 F Pulse Rate 96 H 80 Pulse Rate [ From Monitor] Respiratory 15 Rate Blood Pressure 143/75 O2 Sat by Pulse 95 Oximetry 12/31/21 12/31/21 12/31/21 10:00 10:30 11:00 Temperature Pulse Rate 93 H 72 83 Pulse Rate [ From Monitor] Respiratory 15 14 18 Rate Blood Pressure 143/75 135/73 135/80 O2 Sat by Pulse 98 97 96 Oximetry 12/31/21 12/31/21 12/31/21 11:29 11:30 12:00 Temperature 97.9 F Pulse Rate 89 88 Pulse Rate [ 86 From Monitor] Respiratory 17 15 17 Rate Blood Pressure 135/80 151/79 O2 Sat by Pulse 99 Oximetry Constitutional: no acute distress Eyes: non-icteric ENT: oropharynx moist Neck: supple, no lymphadenopathy, no JVD Effort: normal Ascultation: Bilateral: clear Percussion: Bilateral: not dull Cardiovascular: regular rate and rhythm Gastrointestinal: normoactive bowel sounds, soft, non-tender, non-distended Integumentary: normal Extremities: no cyanosis, no edema, pink and warm, pulses normal Neurologic: non-focal exam (grossly), pupils equal and round, unable to assess Psychiatric: other (flat affect) CBC and BMP: 12/31/21 04:18 12/31/21 04:18 ABG, PT/INR, D-dimer: PT/INR, D-dimer PT 13.4 Sec. (12.2-14.9) 12/30/21 10:12 INR 0.92 (0.87-1.13) 12/30/21 10:12 Abnormal lab findings: Abnormal Labs 12/29/21 12/29/21 12/29/21 16:00 16:27 17:23 WBC 11.2 H RBC 5.68 H Hgb 16.5 H Hct 50.4 H Lymph % (Auto) 11.3 L Seg Neutrophils % 84.9 H Seg Neutrophils # 9.5 H PT 16.0 H INR 1.15 H APTT 40.0 H Sodium 135 L Carbon Dioxide 21 L BUN 25 H Glucose 349 H POC Glucose Hemoglobin A1c Cholesterol LDL Cholesterol Direct HDL Cholesterol 12/29/21 12/30/21 12/30/21 19:42 04:30 08:37 WBC RBC Hgb Hct Lymph % (Auto) Seg Neutrophils % Seg Neutrophils # PT INR APTT Sodium Carbon Dioxide 19 L BUN Glucose 209 H POC Glucose 221 H 259 H Hemoglobin A1c Cholesterol LDL Cholesterol Direct HDL Cholesterol 12/30/21 12/30/21 12/30/21 10:12 10:12 10:46 WBC RBC Hgb Hct Lymph % (Auto) Seg Neutrophils % Seg Neutrophils # PT INR APTT Sodium Carbon Dioxide BUN Glucose POC Glucose 220 H Hemoglobin A1c 11.0 H Cholesterol 243 H LDL Cholesterol Direct 156 H HDL Cholesterol 61 H 12/30/21 12/31/21 12/31/21 17:37 04:18 04:18 WBC 14.5 H RBC 5.48 H Hgb 16.2 H Hct 48.6 H Lymph % (Auto) Seg Neutrophils % Seg Neutrophils # PT INR APTT Sodium Carbon Dioxide BUN 26 H Glucose POC Glucose 198 H Hemoglobin A1c Cholesterol LDL Cholesterol Direct HDL Cholesterol Allied health notes reviewed: nursing
--- NOTE | 2021-12-31 14:26 | Magnetic Resonance Report ---
MR brain wo con INDICATION / CLINICAL INFORMATION: 61 years Male; stroke. TECHNIQUE: Multiplanar, multisequence MR images of the brain were obtained. COMPARISON: None available. FINDINGS: BRAIN / INTRACRANIAL CONTENTS: The motion significantly degrades the image quality despite repeat roni ging. However, there are notable a scattered areas of acute infarction involving the left cerebral he misphere particularly along the border zone vascular distributions with a focus along the left fronta l cortex measuring approximately 4 cm in greatest AP dimension at. There is also notable involvement of the left or parietal cortex and left frontoparietal junction as well as the medial left parietal l obe at. Patchy areas of acute infarction are also seen along the left parieto-occipital junction. Add itionally at, there are smaller scattered foci of acute infarction along the right frontal and pariet al subcortical regions at. A linear focus is also seen within the right centrum semiovale. There is n o evidence of acute infarction within the posterior fossa. There is encephalomalacia with old infarct involving right occipital lobe at. There is otherwise mode rate to microvascular angiopathy. Additionally, there is mild cerebral atrophy with associated mild p rominence of the ventricular system. On the susceptibility weighted imaging, there appears be some co mponent of evolving blood products within the ischemic areas. There is also notable scattered foci of calcification on the earlier CT CRANIOCERVICAL JUNCTION: No significant abnormality. VASCULAR FLOW-VOIDS: No significant abnormality. ORBITS: No significant abnormality of visualized orbits. SINUSES / MASTOIDS: No significant abnormality in the visualized paranasal sinuses or mastoid air urvashi ls. ADDITIONAL FINDINGS: None. IMPRESSION: 1. The study is limited by motion. However, there are extensive patchy areas of acute infarction invo lving the left cerebral hemisphere, particularly along the border zone vascular distributions as deta iled above. Milder scattered of foci are seen within the right cerebral hemisphere. 2. There are not old infarcts involving left or parietal and right occipital lobes. There is otherwis e moderate to chronic microvascular angiopathy and mild cerebral atrophy. Signer Name: Kody Nixon MD Signed: 12/31/2021 2:21 PM Workstation Name: [id number]
--- NOTE | 2022-01-01 00:41 | Consultation ---
History of Present Illness Consult date: 12/30/21 Reason for Consult: CVA Chief complaint: Difficulty with speech History of present illness: 61 yo male with htn, dm, stroke (affected the left extremities w/ recovery), tobacco abuse, who presented with acute onset of right arm weakness and some difficulty with his speech. He received IV-tPA in the ED and a discussion was held in the ED regarding the need for any acute intervention (YOGI). Patient is noted with difficulty expressing the clinical history Past History Past Medical History: diabetes, hypertension, stroke Past Surgical History: Other (Unknown) Social history: other (Unknown) Family history: other (Unknown ) Medications and Allergies Allergies Allergy/AdvReac Type Severity Reaction Status Date / Time No Known Allergies Allergy Verified 12/30/21 13:19 Home Medications Medication Instructions Recorded Confirmed Last Taken Type ALBUTEROL NEB's [Proventil 0.083% 2.5 mg IH Q6H PRN #1 box 11/09/21 Unknown Rx NEBS] Albuterol Mdi (or & Nicu Only) 2 puff IH Q6H PRN #1 inh 11/09/21 Unknown Rx [ProAir HFA Inhaler] Insulin NPH/Regular [NovoLIN 70/30] 10 unit SUB-Q BIDDIAB #1 vial 11/09/21 Unknown Rx Meclizine [Antivert] 12.5 mg PO BID PRN #60 tab 11/09/21 Unknown Rx Montelukast [Singulair] 10 mg PO QHS #30 tablet 11/09/21 Unknown Rx Pravastatin [Pravachol] 40 mg PO QHS #30 tablet 11/09/21 Unknown Rx amLODIPine 5 mg PO QDAY #30 tablet 11/09/21 Unknown Rx levoFLOXacin [Levaquin TAB] 500 mg PO Q24HR #3 tablet 11/09/21 Unknown Rx metFORMIN [Glucophage] 500 mg PO QDDIAB #60 tablet 11/09/21 Unknown Rx predniSONE [Deltasone] 50 mg PO QDAY #3 tab 11/09/21 Unknown Rx Active Meds: Active Medications Acetaminophen (Acetaminophen 325 Mg Tab) 650 mg PO Q4H PRN PRN Reason: Pain, Mild (1-3) Acetaminophen (Acetaminophen 650 Mg Rect Supp) 650 mg [place] Q6H PRN PRN Reason: Pain MILD(1-3)/Fever >100.5/[facility] Atorvastatin Calcium (Atorvastatin 40 Mg Tab) 40 mg PO QHS [facility] Last Admin: 12/31/21 22:12 Dose: 40 mg Bisacodyl (Bisacodyl 10 Mg Rect Supp) 10 mg [place] QDAY PRN PRN Reason: Constipation Dextrose (Dextrose 50% In Water (25gm) 50 Ml Syringe) 50 ml IV Q30MIN PRN; Protocol PRN Reason: Hypoglycemia Famotidine (Famotidine 20 Mg Tab) 20 mg PO QDAY [facility] Haloperidol Lactate (Haloperidol Lactate 5 Mg/1 Ml Inj) 5 mg IV Q6H PRN PRN Reason: Agitation Last Admin: 12/31/21 08:21 Dose: 5 mg Hydralazine HCl (Hydralazine 20 Mg/1 Ml Inj) 10 mg IV Q6H PRN PRN Reason: SBP >/=170; DBP >/=100 Insulin Human Lispro (Insulin Lispro 100 Unit/Ml) 0 unit SUB-Q Q6HR [facility]; Protocol Last Admin: 12/31/21 12:05 Dose: Not Given Magnesium Hydroxide (Magnesium Hydroxide (Mom) Oral Liqd Udc) 30 ml PO Q4H PRN PRN Reason: Constipation Metoclopramide HCl (Metoclopramide 10 Mg Tab) 10 mg PO Q6H PRN PRN Reason: Nausea And Vomiting Nicotine (Nicotine 14 Mg/24 Hr Patch) 14 mg TD QDAY [facility] Last Admin: 12/31/21 09:51 Dose: 14 mg Ondansetron HCl (Ondansetron 4 Mg/2 Ml Inj) 4 mg IV Q8H PRN PRN Reason: Nausea And Vomiting Sodium Chloride (Sodium Chloride 0.9% 10 Ml Flush Syringe) 10 ml IV BID [facility] Last Admin: 12/31/21 22:16 Dose: 10 ml Sodium Chloride (Sodium Chloride 0.9% 10 Ml Flush Syringe) 10 ml IV PRN PRN PRN Reason: LINE FLUSH Review of Systems All systems: negative (as per hpi;) Physical Examination - Vital Signs Vital Signs: Vital Signs Temp Pulse Resp BP Pulse Ox 98.9 F 106 H 17 91/67 100 12/29/21 15:30 12/29/21 15:30 12/29/21 15:30 12/29/21 15:30 12/29/21 15:30 - Physical Exam Narrative exam: Gen: nad; Head: normocephalic; Eyes: no gaze deviation; no ptosis; ENT: normal vocalization; CVS: warm and well-perfused; Pulm: no respiratory distress; GI: appears non-distended; Ext: no cyanosis appreciated at distal extremities; Skin: no acute rash at distal extremities; Heme: no pathologic ecchymosis appreciated at distal extremities; Neuro: alert, oriented to name, age, month; mild dysarthria, mixed dysphasia, CN 2 - PERRL, visual villar grossly intact, CN 3, 4, 6 - EOMI, CN 5 - facial sensation symmetric to light touch, CN 7 - facial movement with mild right facial droop, CN 8 - hearing grossly intact, CN 9, 10 - spontaneous swallow noted, CN 11 symmetric shoulder movement, CN 12 - tongue midline; Motor - at least 4+/5 at left exts; at least 4/5 at right arm; at least 4+/5 at right leg; Sensory - slight decrease at right arm to light touch, Cerebellar - fnf /hts intact with mild difficulty on the right due to weakness Gait - deferred secondary to fall risk; NIHSS (1a.) Level of Consciousness:0 (1b.) LOC Questions:0 (1c.) LOC Commands:0 (2.) Best Gaze:0 (3.) Visual:0 (4.) Facial Palsy: (5a.) Motor Arm, Left:0 (5b.) Motor Arm, Right:1 (6a.) Motor Leg, Left:0 (6b.) Motor Leg, Right:0 (7.) Limb Ataxia:0 (8.) Sensory:1 (9.) Best Language:1 (10.) Dysarthria: 1 (11.) Extinction and Inattention:0 NIHSS Total Score: 4 Results - Laboratory Findings CBC and BMP: 12/31/21 04:18 12/31/21 04:18 Abnormal Lab Findings: Abnormal Labs 12/29/21 12/29/21 12/29/21 16:00 16:27 17:23 WBC 11.2 H RBC 5.68 H Hgb 16.5 H Hct 50.4 H Lymph % (Auto) 11.3 L Seg Neutrophils % 84.9 H Seg Neutrophils # 9.5 H PT 16.0 H INR 1.15 H APTT 40.0 H Sodium 135 L Carbon Dioxide 21 L BUN 25 H Glucose 349 H POC Glucose Hemoglobin A1c Cholesterol LDL Cholesterol Direct HDL Cholesterol 12/29/21 12/30/21 12/30/21 19:42 04:30 08:37 WBC RBC Hgb Hct Lymph % (Auto) Seg Neutrophils % Seg Neutrophils # PT INR APTT Sodium Carbon Dioxide 19 L BUN Glucose 209 H POC Glucose 221 H 259 H Hemoglobin A1c Cholesterol LDL Cholesterol Direct HDL Cholesterol 12/30/21 12/30/21 12/30/21 10:12 10:12 10:46 WBC RBC Hgb Hct Lymph % (Auto) Seg Neutrophils % Seg Neutrophils # PT INR APTT Sodium Carbon Dioxide BUN Glucose POC Glucose 220 H Hemoglobin A1c 11.0 H Cholesterol 243 H LDL Cholesterol Direct 156 H HDL Cholesterol 61 H 12/30/21 12/31/21 12/31/21 17:37 04:18 04:18 WBC 14.5 H RBC 5.48 H Hgb 16.2 H Hct 48.6 H Lymph % (Auto) Seg Neutrophils % Seg Neutrophils # PT INR APTT Sodium Carbon Dioxide BUN 26 H Glucose POC Glucose 198 H Hemoglobin A1c Cholesterol LDL Cholesterol Direct HDL Cholesterol 12/31/21 11:49 WBC RBC Hgb Hct Lymph % (Auto) Seg Neutrophils % Seg Neutrophils # PT INR APTT Sodium Carbon Dioxide BUN Glucose POC Glucose 184 H Hemoglobin A1c Cholesterol LDL Cholesterol Direct HDL Cholesterol Assessment and Plan 61 yo male with htn, dm, stroke (affected the left extremities w/ recovery), tobacco abuse, who presented with acute onset of right arm weakness and some difficulty with his speech. He received IV-tPA in the ED and a discussion was held in the ED regarding the need for any acute intervention (YOGI). Patient is noted with difficulty expressing the clinical history 1. Acute Ischemic Stroke (cardioembolic; post-tPA) w/ right facial droop w/ right arm weakness - if repeat nchct reveals no acute ich, may initiate aspirin 325 mg po qday; statin therapy for a goal ldl of 70; pt/ot/st/swallow evaluation/monitoring; nihss q4 hours; telemetry; may aim for normotension after 48 hours; recommend tte / jairo / loop recorder; confirm tsh, lipid painel; stroke education upon discharge; f/u stroke neurology in 4 weeks. 2. Hypertension - sbp 160-200 mmHg / dbp 80-100 mmHg x 48 hours and then aim for normotension. 3. DM - aim for euglcemia. 4. Hx of completed stroke - antiplatelet/stain therapy. 5. Cerebrovascular Disease - antiplatelet/statin therapy. 6. Tobacco abuse - outpatient smoking cessation via pcp. Florian Thomason MD Neurology [id number]
[2022-01-01 05:22] LABS: Hematocrit 48.8 % (35.5-45.6); Hemoglobin 16.5 gm/dl (11.8-15.2); Mean Corpuscular HGB Conc 34 % (32-34); Mean Corpuscular Volume 88 fl (84-94); Platelet Count 156 K/mm3 (140-440); Red Blood Count 5.53 M/mm3 (3.65-5.03); Red Cell Distribution Width 14.6 % (13.2-15.2)
[2022-01-01 05:41] LABS: BUN/Creatinine Ratio 42; Blood Urea Nitrogen 25 mg/dL (9-20); Calcium 8.9 mg/dL (8.4-10.2); Hemolysis Index 15
[2022-01-01] MEDS: INSULIN LISPRO 100 UNIT/ML SUB-Q SCH ×5 (07:52→18:53)
--- NOTE | 2022-01-01 09:09 | Consultation ---
History of Present Illness Requesting physician: ESHA MALIK Consult reason: other (Stroke rule out cardiac etiology) History of present illness: 61-year-old male with known history of hypertension, diabetes mellitus, previous CVA presenting to the emergency room today for evaluation of confusion and difficulty speech. He received IV-tPA in the ED and a discussion was held in the ED regarding the need for any acute intervention (YOGI). Patient is noted with difficulty expressing the clinical history. Work-up showed he had an acute stroke with MRI suggestive of multiple focal areas involved surgery of a cardioembolic etiology. He has been improving clinically. He denies any active chest pain shortness of breath orthopnea PND leg swelling. Telemetry did not reveal any obvious A. fib. Past History Past Medical History: diabetes, hypertension, stroke Past Surgical History: Other (Unknown) Social history: other (Unknown) Family history: other (Unknown ) Medications and Allergies Allergies Allergy/AdvReac Type Severity Reaction Status Date / Time No Known Allergies Allergy Verified 12/30/21 13:19 Home Medications Medication Instructions Recorded Confirmed Last Taken Type ALBUTEROL NEB's [Proventil 0.083% 2.5 mg IH Q6H PRN #1 box 11/09/21 Unknown Rx NEBS] Albuterol Mdi (or & Nicu Only) 2 puff IH Q6H PRN #1 inh 11/09/21 Unknown Rx [ProAir HFA Inhaler] Insulin NPH/Regular [NovoLIN 70/30] 10 unit SUB-Q BIDDIAB #1 vial 11/09/21 Unknown Rx Meclizine [Antivert] 12.5 mg PO BID PRN #60 tab 11/09/21 Unknown Rx Montelukast [Singulair] 10 mg PO QHS #30 tablet 11/09/21 Unknown Rx Pravastatin [Pravachol] 40 mg PO QHS #30 tablet 11/09/21 Unknown Rx amLODIPine 5 mg PO QDAY #30 tablet 11/09/21 Unknown Rx levoFLOXacin [Levaquin TAB] 500 mg PO Q24HR #3 tablet 11/09/21 Unknown Rx metFORMIN [Glucophage] 500 mg PO QDDIAB #60 tablet 11/09/21 Unknown Rx predniSONE [Deltasone] 50 mg PO QDAY #3 tab 11/09/21 Unknown Rx Active Meds: Active Medications Acetaminophen (Acetaminophen 325 Mg Tab) 650 mg PO Q4H PRN PRN Reason: Pain, Mild (1-3) Acetaminophen (Acetaminophen 650 Mg Rect Supp) 650 mg [place] Q6H PRN PRN Reason: Pain MILD(1-3)/Fever >100.5/[facility] Aspirin (Aspirin Ec 81 Mg Tab) 81 mg PO QDAY [facility] Atorvastatin Calcium (Atorvastatin 40 Mg Tab) 40 mg PO QHS [facility] Last Admin: 12/31/21 22:12 Dose: 40 mg Bisacodyl (Bisacodyl 10 Mg Rect Supp) 10 mg [place] QDAY PRN PRN Reason: Constipation Dextrose (Dextrose 50% In Water (25gm) 50 Ml Syringe) 50 ml IV Q30MIN PRN; Protocol PRN Reason: Hypoglycemia Famotidine (Famotidine 20 Mg Tab) 20 mg PO QDAY [facility] Haloperidol Lactate (Haloperidol Lactate 5 Mg/1 Ml Inj) 5 mg IV Q6H PRN PRN Reason: Agitation Last Admin: 12/31/21 08:21 Dose: 5 mg Hydralazine HCl (Hydralazine 20 Mg/1 Ml Inj) 10 mg IV Q6H PRN PRN Reason: SBP >/=170; DBP >/=100 Insulin Human Lispro (Insulin Lispro 100 Unit/Ml) 0 unit SUB-Q Q6HR [facility]; Protocol Last Admin: 01/01/22 00:00 Dose: Not Given Magnesium Hydroxide (Magnesium Hydroxide (Mom) Oral Liqd Udc) 30 ml PO Q4H PRN PRN Reason: Constipation Metoclopramide HCl (Metoclopramide 10 Mg Tab) 10 mg PO Q6H PRN PRN Reason: Nausea And Vomiting Nicotine (Nicotine 14 Mg/24 Hr Patch) 14 mg TD QDAY [facility] Last Admin: 12/31/21 09:51 Dose: 14 mg Ondansetron HCl (Ondansetron 4 Mg/2 Ml Inj) 4 mg IV Q8H PRN PRN Reason: Nausea And Vomiting Sodium Chloride (Sodium Chloride 0.9% 10 Ml Flush Syringe) 10 ml IV BID [facility] Last Admin: 12/31/21 22:16 Dose: 10 ml Sodium Chloride (Sodium Chloride 0.9% 10 Ml Flush Syringe) 10 ml IV PRN PRN PRN Reason: LINE FLUSH Review of Systems Constitutional: no weight loss Cardiovascular: no chest pain, no orthopnea, no palpitations, no shortness of breath Respiratory: no cough Gastrointestinal: no abdominal pain, no nausea, no vomiting Genitourinary Male: no dysuria Musculoskeletal: no frequent falls Integumentary: no rash Neurological: other (Admitted with stroke.) Psychiatric: no anxiety Hematologic/Lymphatic: no easy bruising Physical Examination Vital Signs Temp Pulse Resp BP Pulse Ox 98.9 F 106 H 17 91/67 100 12/29/21 15:30 12/29/21 15:30 12/29/21 15:30 12/29/21 15:30 12/29/21 15:30 General appearance: no acute distress HEENT: Positive: PERRL Neck: Positive: neck supple. Negative: JVD/HJR Cardiac: Positive: Reg Rate and Rhythm, S1/S2 Lungs: Positive: clear to auscultation. Negative: No Wheeze, Rales, Rhonchi Neuro: Positive: Grossly Intact, Other (See neurology note) Abdomen: Positive: Soft Skin: Negative: Rash Extremities: Absent: edema Results 01/01/22 04:45 01/01/22 04:45 CBC 01/01/22 Range/Units 04:45 WBC 10.3 (4.5-11.0) K/mm3 RBC 5.53 H (3.65-5.03) M/mm3 Hgb 16.5 H (11.8-15.2) gm/dl Hct 48.8 H (35.5-45.6) % Plt Count 156 (140-440) K/mm3 Comprehensive Metabolic Panel 01/01/22 Range/Units 04:45 Sodium 141 (137-145) mmol/L Potassium 3.9 (3.6-5.0) mmol/L Chloride 105.8 (98-107) mmol/L Carbon Dioxide 22 (22-30) mmol/L BUN 25 H (9-20) mg/dL Creatinine 0.6 L (0.8-1.3) mg/dL Glucose 129 H (75-100) mg/dL Calcium 8.9 (8.4-10.2) mg/dL - Imaging and Cardiology Echo: report reviewed (Normal EF possible possible extracardiac shunt) EKG interpretations - Telemetry EKG Rhythm: Sinus Rhythm Chamber hypertrophy or enlargement: left atrial enlargement (Positive) Repolarization changes or abnormalities: early repolarization (normal variant) Assessment and Plan Patient echocardiogram shows 1 l bubble after 7th cardiac cycle suggestive of extra cardiac shunt. However TTE is less sensitive to detect intracardiac shunt. Given the patient MRI findings of possible multiple strokes we need to rule out cardiac etiology. SOTO has better sensitivity and specificity than TTE to detect intracardiac shunt. We will plan for SOTO on Tuesday. - Patient Problems (1) Cardioembolic stroke Current Visit: Yes Status: Suspected (2) Stroke-like symptoms Current Visit: No Status: Acute
[2022-01-01] MEDS: FAMOTIDINE 20 MG TAB PO SCH (11:49)
[2022-01-01] MEDS: ASPIRIN EC 81 MG TAB PO SCH ×2 (11:49→18:49)
[2022-01-01] MEDS: NICOTINE 14 MG/24 HR PATCH TD SCH (11:50)
--- NOTE | 2022-01-01 12:11 | Progress Note ---
Assessment and Plan Assessment and plan: This is a 61-year-old male with known past medical history of HTN, DM, previous stroke, asthma, and Tobacco Dependence admitted for acute CVA s/p tPA Hospital Course to Date: 12/30: Patient with acute encephalopathy, follows commands intermittently. Pupils are round and reactive, with + gag/cough. Mild right-sided facial droop appreciated, patient moves all his extremities. S/p IV Haldol this am due to increase agitation and is now on wrist restraints from safety. Imaguings reviewed, CTA head/neck revealed complete occlusion of the right ICA. NeuroSurgery consulted. Neurology is also following. Repeat CT head/brain and MRI pending. Will also check alcohol and ammonia level. Continue PRN Haldol for agitation. 2D echo pending. SSI initiated due to hyperglycemia. PT/OT/Speech also consulted. 12/31: Mentation improved. AAO, following commands. Repeat CT head with small acute evolving left MCA distribution infarction involving left frontal lobe and possible petechial hemorrhage. MRI brain and Neurology consult pending. Will hold ASA and AC until cleared by Neurology. 2D echo reviewed, suggestive of tiny extracardiac shunt, cardiology consulted. Speech cleared patient for pureed diet, IVF d/gibson. Continue PT/OT. D/w CCM, patient is stable for transfer to Telemetry. 01/01: Patient seen and examined clinically improving speech is improved. Tolerating diet. Cardiology was consulted as is considered that this is likely cardioembolic stroke given the findings on MRI. A SOTO is planned as TTE did detect some intracardiac shunt. As a result patient will remain in-house continue aggressive PT OT. Discharge planning is also continued based on what finding one half. Will defer anticoagulation to cardiology. As for now continue aspirin and statin therapy. 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 - TeleNeurology saw patient in the ED - Patient received tPA - Patient remains encephalopthic with periods of agitation, moves all extremities with mild right sided facial droop - Per patient's friend at the bedside, patient does not drink alcohol. UDS is negative - Repeat CT head with small acute evolving left MCA distribution infarction inv olving left frontal lobe and possible petechial hemorrhage - MRI brain pending - NeuroSurgery was also consulted due to occlusion in the NASIR - 2D Echo reviewed, suggestive of tiny extracardiac shunt, cardiology consulted - Orders placed for Lipid panel - Statin initiated - ASA and prophy AC to start tomorrow, 24hrs post TPA - Continue Neuro check per protocol - PT/OT/Speech ordered - Neurology also consulted - Aspiration and Fall precautions - PRN Haldol for agitation #H/o Asthma #Tobacco Dependence - Patient is stable on RA, wheezing appreciated - Per patient's close friend at the bedside, patient is a daily cigarettes smoker - Continue PRN nebx treatment for wheezing - O2 supplementation as needed - Continue SPO2 monitoring for SPO2 goal above 92% - Smoking Cessation education once patient is more coherent and appropriate - Nicotine patch Qday #Hypertension - BP stable - Allow permissive hypertension to promote perfusion - Hold all antihypertensive agents for now - Continue blood pressure monitor per protocol, - maintain SBP less than 180 adn DBP less than 110 #Type 2 Diabetes with Hyperglycemia - HgbA1c- 11.0 - BG check and SSI Q6hrs - Lantus qhs - Avoid hypoglycemia - While critically ill target blood glucose of 140-180 #GI/DVT Prophylaxis - PPI- Pepcid - SCDs to bilateral lower extremities while in bed History Interval history: Patient seen and examined showing remarkable improvement. Still with some lethargy. Hospitalist Physical - Physical exam Narrative exam: General appearance: Present: no acute distress, well-nourished - EENT Eyes: Present: PERRL, EOM intact ENT: hearing intact - Neck Neck: Present: normal ROM - Respiratory Respiratory effort: normal Respiratory: bilateral: CTA - Cardiovascular Rhythm: regular Heart Sounds: Present: S1 & S2 - Extremities Extremities: no ischemia, pulses intact, pulses symmetrical Peripheral Pulses: within normal limits - Abdominal General gastrointestinal: soft, non-distended, normal bowel sounds - Integumentary Integumentary: Present: clear, warm, dry - Psychiatric Psychiatric: appropriate mood/affect, cooperative - Neurologic Neurologic: CNII-XII intact, moves all extremities - Allied Health Allied health notes reviewed: nursing - Constitutional Vitals: Temp Pulse Resp BP Pulse Ox 97.6 F 88 16 144/89 98 12/31/21 23:53 12/31/21 23:53 12/31/21 23:53 12/31/21 23:53 12/31/21 23:53 General appearance: Present: no acute distress HEART Score - HEART Score Troponin: Troponin T < 0.010 ng/mL (0.00-0.029) 12/29/21 16:00 Results - Labs CBC & Chem 7: 01/01/22 04:45 01/01/22 04:45 Labs: Laboratory Last Values WBC 10.3 K/mm3 (4.5-11.0) 01/01/22 04:45 RBC 5.53 M/mm3 (3.65-5.03) H 01/01/22 04:45 Hgb 16.5 gm/dl (11.8-15.2) H 01/01/22 04:45 Hct 48.8 % (35.5-45.6) H 01/01/22 04:45 MCV 88 fl (84-94) 01/01/22 04:45 MCH 30 pg (28-32) 01/01/22 04:45 MCHC 34 % (32-34) 01/01/22 04:45 RDW 14.6 % (13.2-15.2) 01/01/22 04:45 Plt Count 156 K/mm3 (140-440) 01/01/22 04:45 Lymph % (Auto) 11.3 % (13.4-35.0) L 12/29/21 16:27 [place] % (Auto) 3.6 % (0.0-7.3) 12/29/21 16:27 Eos % (Auto) 0.0 % (0.0-4.3) 12/29/21 16: Baso % (Auto) 0.2 % (0.0-1.8) 12/29/21 16:27 Lymph # (Auto) 1.3 K/mm3 (1.2-5.4) 12/29/21 16: [place] # (Auto) 0.4 K/mm3 (0.0-0.8) 12/29/21 16:27 Eos # (Auto) 0.0 K/mm3 (0.0-0.4) 12/29/21 16:27 Baso # (Auto) 0.0 K/mm3 (0.0-0.1) 12/29/21 16:27 Seg Neutrophils % 84.9 % (40.0-70.0) H 12/29/21 16:27 Seg Neutrophils # 9.5 K/mm3 (1.8-7.7) H 12/29/21 16:27 PT 13.4 Sec. (12.2-14.9) 12/30/21 10:12 INR 0.92 (0.87-1.13) 12/30/21 10:12 APTT 30.3 Sec. (24.2-36.6) 12/30/21 10:12 Sodium 141 mmol/L (137-145) 01/01/22 04:45 Potassium 3.9 mmol/L (3.6-5.0) 01/01/22 04:45 Chloride 105.8 mmol/L (98-107) 01/01/22 04:45 Carbon Dioxide 22 mmol/L (22-30) 01/01/22 04:45 Anion Gap 17 mmol/L 01/01/22 04:45 BUN 25 mg/dL (9-20) H 01/01/22 04:45 Creatinine 0.6 mg/dL (0.8-1.3) L 01/01/22 04:45 Estimated GFR > 60 ml/min 01/01/22 04:45 BUN/Creatinine Ratio 42 % 01/01/22 04:45 Glucose 129 mg/dL (75-100) H 01/01/22 04:45 POC Glucose 118 mg/dL (70-105) H 01/01/22 06:06 Hemoglobin A1c 11.0 % (4-6) H 12/30/21 10:12 Calcium 8.9 mg/dL (8.4-10.2) 01/01/22 04:45 Total Bilirubin 0.60 mg/dL (0.1-1.2) 12/29/21 16:00 AST 12 units/L (5-40) 12/29/21 16:00 ALT 16 units/L (7-56) 12/29/21 16:00 Alkaline Phosphatase 120 units/L (35-129) 12/29/21 16:00 Troponin T < 0.010 ng/mL (0.00-0.029) 12/29/21 16:00 Total Protein 6.7 g/dL (6.3-8.2) 12/29/21 16:00 Albumin 4.8 g/dL (3.9-5) 12/29/21 16:00 Albumin/Globulin Ratio 2.5 % 12/29/21 16:00 Triglycerides 139 mg/dL (2-149) 12/30/21 10:12 Cholesterol 243 mg/dL (50-199) H 12/30/21 10:12 LDL Cholesterol Direct 156 mg/dL (50-130) H 12/30/21 10:12 HDL Cholesterol 61 mg/dL (40-59) H 12/30/21 10:12 Cholesterol/HDL Ratio 3.98 % 12/30/21 10:12 Urine Color Straw (Yellow) 12/29/21 17:50 Urine Turbidity Clear (Clear) 12/29/21 17:50 Specific [place] (Man) 1.005 (1.003-1.030) 12/29/21 17:50 Ur Protein (Man) 1+ mg/dL (Negative) 12/29/21 17:50 Ur Ketones (Man) 15 (Negative) 12/29/21 17:50 Urine Bilirubin (Man) Negative (Negative) 12/29/21 17:50 Urine WBC (Auto) < 1.0 /HPF (0.0-6.0) 12/29/21 17:50 Urine RBC (Auto) 1.0 /HPF (0.0-6.0) 12/29/21 17:50 Urine RBC (Manual) Negative (Negative) 12/29/21 17:50 Urine Mucus Few /HPF 12/29/21 17:50 Urine Opiates Screen Negative 12/29/21 18:11 Urine Methadone Screen Negative 12/29/21 18:11 Ur Barbiturates Screen Negative 12/29/21 18:11 Ur Phencyclidine Scrn Negative 12/29/21 18:11 Ur Amphetamines Screen Negative 12/29/21 18:11 U Benzodiazepines Scrn Negative 12/29/21 18:11 Urine Cocaine Screen Negative 12/29/21 18:11 U Marijuana (THC) Screen Negative 12/29/21 18:11 Drugs of Abuse Note Disclamer 12/29/21 18:11 Ibrahim/IV: Voiding Method Indwelling Catheter Active Medications - Current Medications Current Medications: Generic Name Dose Route Start Last Admin Trade Name Freq PRN Reason Stop Dose Admin Acetaminophen 650 mg 12/29/21 21:53 Acetaminophen 325 Mg Tab PO Q4H PRN Pain, Mild (1-3) Acetaminophen 650 mg 12/29/21 21:53 Acetaminophen 650 Mg Rect Supp DE Q6H PRN Pain MILD(1-3)/Fever >100.5/WAGNER Aspirin 81 mg 01/01/22 09:00 Aspirin Ec 81 Mg Tab PO QDAY RUBI Atorvastatin Calcium 40 mg 12/29/21 22:00 12/31/21 22:12 Atorvastatin 40 Mg Tab PO 40 mg QHS RUBI Administration Bisacodyl 10 mg 12/29/21 21:53 Bisacodyl 10 Mg Rect Supp DE QDAY PRN Constipation Dextrose 50 ml 12/29/21 21:53 Dextrose 50% In Water (25gm) 50 Ml Syringe IV Q30MIN PRN Hypoglycemia Protocol Famotidine 20 mg 01/01/22 10:00 Famotidine 20 Mg Tab PO QDAY [facility] Haloperidol Lactate 5 mg 12/30/21 12:09 12/31/21 08:21 Haloperidol Lactate 5 Mg/1 Ml Inj IV 5 mg Q6H PRN Administration Agitation Hydralazine HCl 10 mg 12/30/21 09:31 Hydralazine 20 Mg/1 Ml Inj IV Q6H PRN SBP >/=170; DBP >/=100 Insulin Human Lispro 0 unit 12/30/21 18:00 01/01/22 00:00 Insulin Lispro 100 Unit/Ml SUB-Q Not Given Q6HR [facility] Protocol Magnesium Hydroxide 30 ml 12/29/21 21:53 Magnesium Hydroxide (Mom) Oral Liqd Udc PO Q4H PRN Constipation Metoclopramide HCl 10 mg 12/29/21 21:53 Metoclopramide 10 Mg Tab PO Q6H PRN Nausea And Vomiting Nicotine 14 mg 12/31/21 10:00 12/31/21 09:51 Nicotine 14 Mg/24 Hr Patch TD 14 mg QDAY [facility] Administration Ondansetron HCl 4 mg 12/29/21 21:53 Ondansetron 4 Mg/2 Ml Inj IV Q8H PRN Nausea And Vomiting Sodium Chloride 10 ml 12/29/21 22:00 12/31/21 22:16 Sodium Chloride 0.9% 10 Ml Flush Syringe IV 10 ml BID RUBI Administration Sodium Chloride 10 ml 12/29/21 21:53 Sodium Chloride 0.9% 10 Ml Flush Syringe IV PRN PRN LINE FLUSH Nutrition/Malnutrition Assess - Dietary Evaluation Nutrition/Malnutrition Findings: Nutrition Notes Start: 12/30/21 16 :25 Freq: Status: Active Protocol: Document 12/31/21 14:42 RICHIE (Rec: 12/31/21 15:10 RICHIE [id number]) Nutrition Notes Need for Assessment 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 Current Diet Pureed Diet (since L 12/31). Labs/Tests 12/31: BUN 26. Pertinent Medications 12/31: Nutritionally unremarkable. 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 No body weight change reported in 1 day. Weight Status Appropriate Subjective/Other Information RD consult for difficulty chewing, skin risk and risk of malnutrition assessments. Diet advanced to PO as per INSTRUMENT REPAIR TECHNICIAN recommendation, No reports available on Pt's PO intake of meals at the time, will assess at F/U. I will prescribe dietary supplements to compensate for possible or insufficient PO intake of meals during LOS. INSTRUMENT REPAIR TECHNICIAN note on 12/31/21 10:46: Reassessment of the patient's swallowing function was addressed. Patient is safe for a pureed diet with thins. Will continue to follow to ensure continued safety. Informed the patient's nurse of diet recommendations. - END OF NOTE. Pt is on Room Air, O2 saturation @ 99%, according to Physical Assessment History notes. Pt has missing teeth, according to Physical Assessment History notes. Pt shows no signs of concern for skin risk at the time, according to Physical Assessment History notes. Pt shows no signs of concern for risk of malnutrition at the time, according to Physical Assessment History notes. Difficulty chewing has been addressed by INSTRUMENT REPAIR TECHNICIAN recommendation, I will disregard this concern at this time. Pt still in critical condition , not a candidate for Nutrition Education at the time, will assess feasibility on F/U. Percent of energy/protein needs met: Prescribed Pureed Diet provides for energy/protein needs (1,804 Kcal/77 g) during LOS; additionally, Dietary Supplements will compensate for possible poor or insufficient PO intake of meals with 440 Kcal and 20 g of protein. Burn Absent Trauma Absent GI Symptoms None Difficulty In Swallowing,Chewing Food Allergy No Skin Integrity/Comment Assessment WNL. Minimum of two criteria No Fluid Accumulation N/A Reduced Information Officer Strength N/A (non-severe) Protein-Calorie Malnutrition N\A #2 Nutrition Diagnosis Predicted suboptimal energy intake Etiology Possibly secondary to CVA. As Evidenced by Signs and Symptoms No reports available on Pt's PO intake of meals at the time , will assess at F/U. #1 Nutrition Diagnosis Swallowing difficulty,Biting/ Chewing (masticatory) difficulty Etiology Possibly secondary to CVA. As Evidenced by Signs and Symptoms INSTRUMENT REPAIR TECHNICIAN note on 12/31/21 10:46: Reassessment of the patient's swallowing function was addressed. Patient is safe for a pureed diet with thins. Will continue to follow to ensure continued safety. Informed the patient's nurse of diet recommendations. - END OF NOTE. Is patient on ventilator? No Is Patient Ambulatory and/or Out of Bed Yes REE-([place]-St. Jeor-ambulatory/OOB) [ 1651.169 [id number]] Kcal/Kg value to use for calculation 24 Approximate Energy Requirements Using 1368 kcal/Kg Calculation Used for Recommendations Kcal/kg Additional Notes Protein: 0.8-1 g/Kg ABW; 46-57 g/day. Fluids: 1 ml/Kcal, or as per MD. Nutrition Intervention Change Diet Order: Continue Pureed Diet as tolerated. Add Supplement/Snack (indicate name/kcal Start 8 fl oz Glucerna; BID. /protein ) Provides kCal: 440 Provides Protein (gm) 20 Goal #1 Compensate, through dietary supplementation, for possible poor or insufficient PO intake of meals during LOS. Goal #2 Facilitate PO intake of meals with elemental, textural, or mechanical modification during LOS. Follow-Up By: 01/07/22 Additional Comments Continue monitoring food tolerance, %PO intake of meals , dietary supplements, and BM.
--- NOTE | 2022-01-01 13:30 | Progress Note ---
Assessment and Plan 61-year-old male with known history of hypertension, diabetes mellitus, previous CVA presenting to the emergency room today for evaluation of confusion. Most of the history was obtained from the ER staff as patient is while in the emergency room after the tPA administration. Confused after his tPA administration. Symptoms were said to have started about 2 PM yesterday. He had difficulty holding objects with his right hand. He had also complained of weakness on his right lower extremity and inability to see from his right eye. Work-up in the emergency room, CT scan of the head reveals chronic infarcts. 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 Patient was evaluated by the neurologist and subsequently had tPA. He was said to have become confused after the tPA administration. A repeat CT of the head was unremarkable. Patient has history of smoking 1 pack x 30 years. Counseled to stop smoking. Denies alcohol or drug abuse. 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 No children. No known drug allergies. Patient awake. Following simple commands. Patient is on room air. O2 saturation 96%. Denies chest pain, shortness of breath or cough at this time. Patient afebrile, No leukocytosis, Blood pressure 146/80 , Pulse 89 , resp irations 16. Chest xray 12/29/21 reported no acute findings. Patient is on Famotidine, Habitrol patch. Recommend DVT prophylaxis Recommend albuterol inhaler PRN for shortness of breath. - Patient Problems (1) Altered mental status Current Visit: Yes Status: Acute Plan to address problem: Management as per primary care and neurology. (2) Cardioembolic stroke Current Visit: Yes Status: Suspected Plan to address problem: Management as per primary care and neurology. (3) COPD with acute exacerbation Current Visit: No Status: Acute (4) Diabetes mellitus type 2 in nonobese Current Visit: No Status: Acute Plan to address problem: Management as per primary care. (5) Hypertension Current Visit: No Status: Chronic Plan to address problem: Management as per primary care. (6) Nicotine dependence Current Visit: No Status: Acute Qualifiers: Nicotine product type: cigarettes Substance use status: in withdrawal Qualified Code(s): F17.213 - Nicotine dependence, cigarettes, with withdrawal Plan to address problem: Patient is on Habitrol patch. Counseled to stop smoking. Albuterol inhaler 2 puffs po q 6 hours prn for shortness of breath. PFTs as out patient. ABGs on room air. Subjective Date of service: 01/01/22 Principal diagnosis: Acute CVA s/p tpA; AMS; HTN; DM II; Leucocytosis; Hyperlipidemia; Asthma Interval history: 61-year-old male with known history of hypertension, diabetes mellitus, previous CVA presenting to the emergency room today for evaluation of confusion. Most of the history was obtained from the ER staff as patient is while in the emergency room after the tPA administration. Confused after his tPA administration. Symptoms were said to have started about 2 PM yesterday. He had difficulty holding objects with his right hand. He had also complained of weakness on his right lower extremity and inability to see from his right eye. Work-up in the emergency room, CT scan of the head reveals chronic infarcts. 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 Patient was evaluated by the neurologist and subsequently had tPA. He was said to have become confused after the tPA administration. A repeat CT of the head was unremarkable. Patient has history of smoking 1 pack x 30 years. Counseled to stop smoking. Denies alcohol or drug abuse. 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 No children. No known drug allergies. Patient awake. Following simple commands. Patient is on room air. O2 saturation 96%. Denies chest pain, shortness of breath or cough at this time. Patient afebrile, No leukocytosis, Blood pressure 146/80 , Pulse 89 , respirations 16. Chest xray 12/29/21 reported no acute findings. Patient is on Famotidine, Habitrol patch. Recommend DVT prophylaxis Recommend albuterol inhaler PRN for shortness of breath. Objective Vital Signs - 12hr 01/01/22 01/01/22 01/01/22 08:50 08:51 11:46 Temperature 98.0 F 97.9 F Pulse Rate 116 H 114 H 89 Respiratory 18 16 Rate Blood Pressure 147/83 146/80 O2 Sat by Pulse 97 96 96 Oximetry Constitutional: no acute distress, alert Eyes: non-icteric ENT: oropharynx moist Neck: supple, no lymphadenopathy, no JVD Effort: normal Ascultation: Bilateral: clear Percussion: Bilateral: not dull Cardiovascular: regular rate and rhythm Gastrointestinal: normoactive bowel sounds, soft, non-tender, non-distended Integumentary: normal Extremities: no cyanosis, no edema, pink and warm, pulses normal Neurologic: pupils equal and round, unable to assess Psychiatric: other (flat affect) CBC and BMP: 01/01/22 04:45 01/01/22 04:45 ABG, PT/INR, D-dimer: PT/INR, D-dimer PT 13.4 Sec. (12.2-14.9) 12/30/21 10:12 INR 0.92 (0.87-1.13) 12/30/21 10:12 Abnormal lab findings: Abnormal Labs 12/29/21 12/29/21 12/29/21 16:00 16:27 17:23 WBC 11.2 H RBC 5.68 H Hgb 16.5 H Hct 50.4 H Lymph % (Auto) 11.3 L Seg Neutrophils % 84.9 H Seg Neutrophils # 9.5 H PT 16.0 H INR 1.15 H APTT 40.0 H Sodium 135 L Carbon Dioxide 21 L BUN 25 H Creatinine Glucose 349 H POC Glucose Hemoglobin A1c Cholesterol LDL Cholesterol Direct HDL Cholesterol 12/29/21 12/30/21 12/30/21 19:42 04:30 08:37 WBC RBC Hgb Hct Lymph % (Auto) Seg Neutrophils % Seg Neutrophils # PT INR APTT Sodium Carbon Dioxide 19 L BUN Creatinine Glucose 209 H POC Glucose 221 H 259 H Hemoglobin A1c Cholesterol LDL Cholesterol Direct HDL Cholesterol 12/30/21 12/30/21 12/30/21 10:12 10:12 10:46 WBC RBC Hgb Hct Lymph % (Auto) Seg Neutrophils % Seg Neutrophils # PT INR APTT Sodium Carbon Dioxide BUN Creatinine Glucose POC Glucose 220 H Hemoglobin A1c 11.0 H Cholesterol 243 H LDL Cholesterol Direct 156 H HDL Cholesterol 61 H 12/30/21 12/31/21 12/31/21 17:37 04:18 04:18 WBC 14.5 H RBC 5.48 H Hgb 16.2 H Hct 48.6 H Lymph % (Auto) Seg Neutrophils % Seg Neutrophils # PT INR APTT Sodium Carbon Dioxide BUN 26 H Creatinine Glucose POC Glucose 198 H Hemoglobin A1c Cholesterol LDL Cholesterol Direct HDL Cholesterol 12/31/21 01/01/22 01/01/22 11:49 04:45 04:45 WBC RBC 5.53 H Hgb 16.5 H Hct 48.8 H Lymph % (Auto) Seg Neutrophils % Seg Neutrophils # PT INR APTT Sodium Carbon Dioxide BUN 25 H Creatinine 0.6 L Glucose 129 H POC Glucose 184 H Hemoglobin A1c Cholesterol LDL Cholesterol Direct HDL Cholesterol 01/01/22 06:06 WBC RBC Hgb Hct Lymph % (Auto) Seg Neutrophils % Seg Neutrophils # PT INR APTT Sodium Carbon Dioxide BUN Creatinine Glucose POC Glucose 118 H Hemoglobin A1c Cholesterol LDL Cholesterol Direct HDL Cholesterol Chest x-ray: report reviewed, image reviewed Additional Studies: CHEST 1 VIEW 12/29/2021 3:49 PM INDICATION / CLINICAL INFORMATION: Weakness and acute stroke. COMPARISON: None available. FINDINGS: SUPPORT DEVICES: None. HEART / MEDIASTINUM: The heart size and pulmonary vasculature are normal. LUNGS / PLEURA: No significant pulmonary or pleural abnormality. No pneumothorax. ADDITIONAL FINDINGS: No significant additional findings. IMPRESSION: No acute findings. Allied health notes reviewed: nursing
[2022-01-01] MEDS ORDERED: ALBUTEROL 2.5 MG/3 ML NEBU IH PRN (17:02)
[2022-01-01 19:16] LABS: ABG HCO3 22.3 mmol/L (20.0-26.0); ABG Methemoglobin 0.5 % (0.0-1.5); ABG Oxygen Saturation 95.6 % (95.0-99.0); ABG PCO2 33.8 mm Hg; ABG PH 7.437 pH Units (7.350-7.450); ABG PO2 69.6 mm Hg (80.0-90.0)
[2022-01-02] MEDS: INSULIN LISPRO 100 UNIT/ML SUB-Q SCH ×5 (01:17→21:59)
--- NOTE | 2022-01-02 08:09 | Progress Note ---
Assessment and Plan Assessment and plan: This is a 61-year-old male with known past medical history of HTN, DM, previous stroke, asthma, and Tobacco Dependence admitted for acute CVA s/p tPA Hospital Course to Date: 12/30: Patient with acute encephalopathy, follows commands intermittently. Pupils are round and reactive, with + gag/cough. Mild right-sided facial droop appreciated, patient moves all his extremities. S/p IV Haldol this am due to increase agitation and is now on wrist restraints from safety. Imaguings reviewed, CTA head/neck revealed complete occlusion of the right ICA. NeuroSurgery consulted. Neurology is also following. Repeat CT head/brain and MRI pending. Will also check alcohol and ammonia level. Continue PRN Haldol for agitation. 2D echo pending. SSI initiated due to hyperglycemia. PT/OT/Speech also consulted. 12/31: Mentation improved. AAO, following commands. Repeat CT head with small acute evolving left MCA distribution infarction involving left frontal lobe and possible petechial hemorrhage. MRI brain and Neurology consult pending. Will hold ASA and AC until cleared by Neurology. 2D echo reviewed, suggestive of tiny extracardiac shunt, cardiology consulted. Speech cleared patient for pureed diet, IVF d/gibson. Continue PT/OT. D/w CCM, patient is stable for transfer to Telemetry. 01/01: Patient seen and examined clinically improving speech is improved. Tolerating diet. Cardiology was consulted as is considered that this is likely cardioembolic stroke given the findings on MRI. A SOTO is planned as TTE did detect some intracardiac shunt. As a result patient will remain in-house continue aggressive PT OT. Discharge planning is also continued based on what finding one half. Will defer anticoagulation to cardiology. As for now continue aspirin and statin therapy. 01/02: Patient seen and examined overnight patient was intermittently confused trying to get out of bed could be secondary to sundowning. Was also noted to have an episode of low blood sugar which corrected rapidly. Will decrease insulin sliding scale. Will ensure patient is obtaining adequate on urinary nutrition. Patient is pending SOTO at this time. Assessment and Plan #Acute CVA s/p tPA #Acute metabolic encephalopathy #S/p Fall - Presented with AMS, right sided facial droop and right hemiplegia - CT head reveals chronic infarcts; CTA Neck/head reveals completed occlusion of the intracranial right ICA required collateral flow from the right posterior communicating artery. - TeleNeurology saw patient in the ED - Patient received tPA - Patient remains encephalopthic with periods of agitation, moves all extremities with mild right sided facial droop - Per patient's friend at the bedside, patient does not drink alcohol. UDS is negative - Repeat CT head with small acute evolving left MCA distribution infarction involving left frontal lobe and possible petechial hemorrhage - MRI brain pending - NeuroSurgery was also consulted due to occlusion in the NASIR - 2D Echo reviewed, suggestive of tiny extracardiac shunt, cardiology consulted - Orders placed for Lipid panel - Statin initiated - ASA and prophy AC to start tomorrow, 24hrs post TPA - Continue Neuro check per protocol - PT/OT/Speech ordered - Neurology also consulted - Aspiration and Fall precautions - PRN Haldol for agitation #H/o Asthma #Tobacco Dependence - Patient is stable on RA, wheezing appreciated - Per patient's close friend at the bedside, patient is a daily cigarettes smoker - Continue PRN nebx treatment for wheezing - O2 supplementation as needed - Continue SPO2 monitoring for SPO2 goal above 92% - Smoking Cessation education once patient is more coherent and appropriate - Nicotine patch Qday #Hypertension - BP stable - Allow permissive hypertension to promote perfusion - Hold all antihypertensive agents for now - Continue blood pressure monitor per protocol, - maintain SBP less than 180 adn DBP less than 110 #Type 2 Diabetes with Hyperglycemia - HgbA1c- 11.0 - BG check and SSI Q6hrs - Lantus qhs - Avoid hypoglycemia - While critically ill target blood glucose of 140-180 #GI/DVT Prophylaxis - PPI- Pepcid - SCDs to bilateral lower extremities while in bed History Interval history: Patient seen and examined showing remarkable improvement. Much improved clinically. Responsiveness is also improved. Hospitalist Physical - Physical exam Narrative exam: General appearance: Present: no acute distress, well-nourished - EENT Eyes: Present: PERRL, EOM intact ENT: hearing intact - Neck Neck: Present: normal ROM - Respiratory Respiratory effort: normal Respiratory: bilateral: CTA - Cardiovascular Rhythm: regular Heart Sounds: Present: S1 & S2 - Extremities Extremities: no ischemia, pulses intact, pulses symmetrical Peripheral Pulses: within normal limits - Abdominal General gastrointestinal: soft, non-distended, normal bowel sounds - Integumentary Integumentary: Present: clear, warm, dry - Psychiatric Psychiatric: appropriate mood/affect, cooperative - Neurologic Neurologic: CNII-XII intact, moves all extremities - Allied Health Allied health notes reviewed: nursing - Constitutional Vitals: Temp Pulse Resp BP Pulse Ox 98.3 F 84 20 160/78 95 01/01/22 23:49 01/01/22 23:49 01/01/22 23:49 01/01/22 23:49 01/02/22 04:13 General appearance: Present: no acute distress HEART Score - HEART Score Troponin: Troponin T < 0.010 ng/mL (0.00-0.029) 12/29/21 16:00 Results - Labs CBC & Chem 7: 01/01/22 04:45 01/01/22 04:45 Labs: Laboratory Last Values WBC 10.3 K/mm3 (4.5-11.0) 01/01/22 04:45 RBC 5.53 M/mm3 (3.65-5.03) H 01/01/22 04:45 Hgb 16.5 gm/dl (11.8-15.2) H 01/01/22 04:45 Hct 48.8 % (35.5-45.6) H 01/01/22 04:45 MCV 88 fl (84-94) 01/01/22 04:45 MCH 30 pg (28-32) 01/01/22 04:45 MCHC 34 % (32-34) 01/01/22 04:45 RDW 14.6 % (13.2-15.2) 01/01/22 04:45 Plt Count 156 K/mm3 (140-440) 01/01/22 04:45 Lymph % (Auto) 11.3 % (13.4-35.0) L 12/29/21 16:27 [place] % (Auto) 3.6 % (0.0-7.3) 12/29/21 16:27 Eos % (Auto) 0.0 % (0.0-4.3) 12/29/21 16:27 Baso % (Auto) 0.2 % (0.0-1.8) 12/29/21 16:27 Lymph # (Auto) 1.3 K/mm3 (1.2-5.4) 12/29/21 16:27 [place] # (Auto) 0.4 K/mm3 (0.0-0.8) 12/29/21 16:27 Eos # (Auto) 0.0 K/mm3 (0.0-0.4) 12/29/21 16:27 Baso # (Auto) 0.0 K/mm3 (0.0-0.1) 12/29/21 16:27 Seg Neutrophils % 84.9 % (40.0-70.0) H 12/29/21 16: Seg Neutrophils # 9.5 K/mm3 (1.8-7.7) H 12/29/21 16:27 PT 13.4 Sec. (12.2-14.9) 12/30/21 10:12 INR 0.92 (0.87-1.13) 12/30/21 10:12 APTT 30.3 Sec. (24.2-36.6) 12/30/21 10:12 ABG pH 7.437 pH Units (7.350-7.450) 01/01/22 18:40 ABG pCO2 33.8 mm Hg 01/01/22 18:40 ABG pO2 69.6 mm Hg (80.0-90.0) L 01/01/22 18:40 ABG HCO3 22.3 mmol/L (20.0-26.0) 01/01/22 18:40 ABG O2 Saturation 95.6 % (95.0-99.0) 01/01/22 18:40 ABG O2 Content 22.5 (0.0-44) 01/01/22 18:40 ABG Base Excess -1.0 mmol/L (-2.0-3.0) 01/01/22 18:40 ABG Hemoglobin 17.1 gm/dl (14.0-18.0) 01/01/22 18:40 ABG Carboxyhemoglobin 1.6 % (0.0-5.0) 01/01/22 18:40 ABG Methemoglobin 0.5 % (0.0-1.5) 01/01/22 18:40 Oxyhemoglobin 93.7 % (95.0-99.0) L 01/01/22 18:40 FiO2 21 % 01/01/22 18:40 Sodium 141 mmol/L (137-145) 01/01/22 04:45 Potassium 3.9 mmol/L (3.6-5.0) 01/01/22 04:45 Chloride 105.8 mmol/L (98-107) 01/01/22 04:45 Carbon Dioxide 22 mmol/L (22-30) 01/01/22 04:45 Anion Gap 17 mmol/L 01/01/22 04:45 BUN 25 mg/dL (9-20) H 01/01/22 04:45 Creatinine 0.6 mg/dL (0.8-1.3) L 01/01/22 04:45 Estimated GFR > 60 ml/min 01/01/22 04:45 BUN/Creatinine Ratio 42 % 01/01/22 04:45 Glucose 129 mg/dL (75-100) H 01/01/22 04:45 POC Glucose 113 mg/dL (70-105) H 01/01/22 07:40 Hemoglobin A1c 11.0 % (4-6) H 12/30/21 10:12 Calcium 8.9 mg/dL (8.4-10.2) 01/01/22 04:45 Total Bilirubin 0.60 mg/dL (0.1-1.2) 12/29/21 16:00 AST 12 units/L (5-40) 12/29/21 16:00 ALT 16 units/L (7-56) 12/29/21 16:00 Alkaline Phosphatase 120 units/L (35-129) 12/29/21 16:00 Troponin T < 0.010 ng/mL (0.00-0.029) 12/29/21 16:00 Total Protein 6.7 g/dL (6.3-8.2) 12/29/21 16:00 Albumin 4.8 g/dL (3.9-5) 12/29/21 16:00 Albumin/Globulin Ratio 2.5 % 12/29/21 16:00 Triglycerides 139 mg/dL (2-149) 12/30/21 10:12 Cholesterol 243 mg/dL (50-199) H 12/30/21 10:12 LDL Cholesterol Direct 156 mg/dL (50-130) H 12/30/21 10:12 HDL Cholesterol 61 mg/dL (40-59) H 12/30/21 10:12 Cholesterol/HDL Ratio 3.98 % 12/30/21 10:12 Urine Color Straw (Yellow) 12/29/21 17:50 Urine Turbidity Clear (Clear) 12/29/21 17:50 Specific [place] (Man) 1.005 (1.003-1.030) 12/29/21 17:50 Ur Protein (Man) 1+ mg/dL (Negative) 12/29/21 17:50 Ur Ketones (Man) 15 (Negative) 12/29/21 17:50 Urine Bilirubin (Man) Negative (Negative) 12/29/21 17:50 Urine WBC (Auto) < 1.0 /HPF (0.0-6.0) 12/29/21 17:50 Urine RBC (Auto) 1.0 /HPF (0.0-6.0) 12/29/21 17:50 Urine RBC (Manual) Negative (Negative) 12/29/21 17:50 Urine Mucus Few /HPF 12/29/21 17:50 Urine Opiates Screen Negative 12/29/21 18:11 Urine Methadone Screen Negative 12/29/21 18:11 Ur Barbiturates Screen Negative 12/29/21 18:11 Ur Phencyclidine Scrn Negative 12/29/21 18:11 Ur Amphetamines Screen Negative 12/29/21 18:11 U Benzodiazepines Scrn Negative 12/29/21 18:11 Urine Cocaine Screen Negative 12/29/21 18:11 U Marijuana (THC) Screen Negative 12/29/21 18:11 Drugs of Abuse Note Disclamer 12/29/21 18:11 Ibrahim/IV: Voiding Method Indwelling Catheter Active Medications - Current Medications Current Medications: Generic Name Dose Route Start Last Admin Trade Name Freq PRN Reason Stop Dose Admin Acetaminophen 650 mg 12/29/21 21:53 Acetaminophen 325 Mg Tab PO Q4H PRN Pain, Mild (1-3) Acetaminophen 650 mg 12/29/21 21:53 Acetaminophen 650 Mg Rect Supp [place] Q6H PRN Pain MILD(1-3)/Fever >100.5/WAGNER Albuterol 2.5 mg 01/01/22 17:02 Albuterol 2.5 Mg/3 Ml Nebu IH Q6HRT PRN Shortness Of Breath Aspirin 81 mg 01/01/22 09:00 01/01/22 18:49 Aspirin Ec 81 Mg Tab PO Not Given QDAY RUBI Atorvastatin Calcium 40 mg 12/29/21 22:00 01/01/22 21:31 Atorvastatin 40 Mg Tab PO 40 mg QHS RUBI Administration Bisacodyl 10 mg 12/29/21 21:53 Bisacodyl 10 Mg Rect Supp TX QDAY PRN Constipation Dextrose 50 ml 12/29/21 21:53 Dextrose 50% In Water (25gm) 50 Ml Syringe IV Q30MIN PRN Hypoglycemia Protocol Famotidine 20 mg 01/01/22 10:00 01/01/22 11:49 Famotidine 20 Mg Tab PO 20 mg QDAY RUBI Administration Haloperidol Lactate 5 mg 12/30/21 12:09 12/31/21 08:21 Haloperidol Lactate 5 Mg/1 Ml Inj IV 5 mg Q6H PRN Administration Agitation Hydralazine HCl 10 mg 12/30/21 09:31 Hydralazine 20 Mg/1 Ml Inj IV Q6H PRN SBP >/=170; DBP >/=100 Insulin Human Lispro 0 unit 01/02/22 11:30 Insulin Lispro 100 Unit/Ml SUB-Q ACHS RUBI Protocol Magnesium Hydroxide 30 ml 12/29/21 21:53 Magnesium Hydroxide (Mom) Oral Liqd Udc PO Q4H PRN Constipation Metoclopramide HCl 10 mg 12/29/21 21:53 Metoclopramide 10 Mg Tab PO Q6H PRN Nausea And Vomiting Nicotine 14 mg 12/31/21 10:00 01/01/22 11:50 Nicotine 14 Mg/24 Hr Patch TD 14 mg QDAY RUBI Administration Ondansetron HCl 4 mg 12/29/21 21:53 Ondansetron 4 Mg/2 Ml Inj IV Q8H PRN Nausea And Vomiting Sodium Chloride 10 ml 12/29/21 22:00 01/01/22 21:32 Sodium Chloride 0.9% 10 Ml Flush Syringe IV 10 ml BID RUBI Administration Sodium Chloride 10 ml 12/29/21 21:53 Sodium Chloride 0.9% 10 Ml Flush Syringe IV PRN PRN LINE FLUSH Nutrition/Malnutrition Assess - Dietary Evaluation Nutrition/Malnutrition Findings: Nutrition Notes Start: 12/30/21 16:25 Freq: Status: Active Protocol: Document 12/31/21 14:42 RICHIE (Rec: 12/31/21 15:10 RICHIE [id number]) Nutrition Notes 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 Current Diet Pureed Diet (since L 12/31). Labs/Tests 12/31: BUN 26. Pertinent Medications 12/31: Nutritionally unremarkable. 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 No body weight change reported in 1 day. Weight Status Appropriate Subjective/Other Information RD consult for difficulty chewing, skin risk and risk of malnutrition assessments. Diet advanced to PO as per INSTRUCTIONAL SUPERVISOR recommendation, No reports available on Pt's PO intake of meals at the time, will assess at F/U. I will prescribe dietary supplements to compensate for possible or insufficient PO intake of meals during LOS. INSTRUCTIONAL SUPERVISOR note on 12/31/21 10:46: Reassessment of the patient's swallowing function was addressed. Patient is safe for a pureed diet with thins. Will continue to follow to ensure continued safety. Informed the patient's nurse of diet recommendations. - END OF NOTE. Pt is on Room Air, O2 saturation @ 99%, according to Physical Assessment History notes. Pt has missing teeth, according to Physical Assessment History notes. Pt shows no signs of concern for skin risk at the time, according to Physical Assessment History notes. Pt shows no signs of concern for risk of malnutrition at the time, according to Physical Assessment History notes. Difficulty chewing has been addressed by INSTRUCTIONAL SUPERVISOR recommendation, I will disregard this concern at this time. Pt still in critical condition , not a candidate for Nutrition Education at the time, will assess feasibility on F/U. Percent of energy/protein needs met: Prescribed Pureed Diet provides for energy/protein needs (1,804 Kcal/77 g) during LOS; additionally, Dietary Supplements will compensate for possible poor or insufficient PO intake of meals with 440 Kcal and 20 g of protein. Burn Absent Trauma Absent GI Symptoms None Difficulty In Swallowing,Chewing Food Allergy No Skin Integrity/Comment Assessment WNL. Minimum of two criteria No Fluid Accumulation N/A Reduced Tank Charger Strength N/A (non-severe) Protein-Calorie Malnutrition N\A #2 Nutrition Diagnosis Predicted suboptimal energy intake Etiology Possibly secondary to CVA. As Evidenced by Signs and Symptoms No reports available on Pt's PO intake of meals at the time , will assess at F/U. #1 Nutrition Diagnosis Swallowing difficulty,Biting/ Chewing (masticatory) difficulty Etiology Possibly secondary to CVA. As Evidenced by Signs and Symptoms INSTRUCTIONAL SUPERVISOR note on 12/31/21 10:46: Reassessment of the patient's swallowing function was addressed. Patient is safe for a pureed diet with thins. Will continue to follow to ensure continued safety. Informed the patient's nurse of diet recommendations. - END OF NOTE. Is patient on ventilator? No Is Patient Ambulatory and/or Out of Bed Yes REE-([place]-St. Jeor-ambulatory/OOB) [ 1651.169 [id number]] Kcal/Kg value to use for calculation 24 Approximate Energy Requirements Using 1368 kcal/Kg Calculation Used for Recommendations Kcal/kg Additional Notes Protein: 0.8-1 g/Kg ABW; 46-57 g/day. Fluids: 1 ml/Kcal, or as per MD. Nutrition Intervention Change Diet Order: Continue Pureed Diet as tolerated. Add Supplement/Snack (indicate name/kcal Start 8 fl oz Glucerna; BID. /protein ) Provides kCal: 440 Provides Protein (gm) 20 Goal #1 Compensate, through dietary supplementation, for possible poor or insufficient PO intake of meals during LOS. Goal #2 Facilitate PO intake of meals with elemental, textural, or mechanical modification during LOS. Follow-Up By: 01/07/22 Additional Comments Continue monitoring food tolerance, %PO intake of meals , dietary supplements, and BM.
[2022-01-02] MEDS: FAMOTIDINE 20 MG TAB PO SCH (09:34)
[2022-01-02] MEDS: ASPIRIN EC 81 MG TAB PO SCH (09:34)
[2022-01-02] MEDS: NICOTINE 14 MG/24 HR PATCH TD SCH (09:34)
--- NOTE | 2022-01-02 10:59 | Progress Note ---
Assessment and Plan Acute CVA s/p tPA Acute Encephalopathy S/p Fall H/o Asthma Tobacco use disorder/Nicotine Dependence Hypertension Type 2 Diabetes with Hyperglycemia Repeat CT head showed small acute evolving left MCA distribution infarction involving left frontal lobe and possible petechial hemorrhage suggestive of tiny With the findings on MRI, this is possibly cardio-embolic CVA. A small intracardiac shunt was noted on surface echocardiogram. Patient is to get a SOTO - ASA and prophy AC to start tomorrow, 24hrs post TPA - Continue Neuro check per protocol -Secondary stroke prophylaxis- Aspirin, Statin - PT/OT/Speech consult- continue to increase activity as tolerated. - Aspiration precautions, - Fall precautions - PRN Haldol for agitation -Avoid delirium, maintain sleep-wake cycle - Continue PRN bronchodilators therapy - Smoking Cessation education once patient is more coherent and appropriate - Nicotine withdrawal precautions - Accucheck with glycemic control, keep blood glucose 140-190 mg/dL. Avoid hypoglycemia( insulin therapy adjusted by primary service) Subjective Date of service: 01/02/22 Principal diagnosis: Acute CVA s/p tpA; AMS; HTN; DM II; Leucocytosis; Hyperlipidemia; Asthma Interval history: Patient is seen today for: Acute CVA s/p tpA; Acute encephalopathy; HTN; DM II; Leucocytosis; Hyperlipidemia; H/O Asthma Seen and examined at bedside; 24hour events reviewed; nursing and respiratory care staff consulted; no adverse overnight events reported to me; resting in be d;confused with garbled speech; participating PT/OT, waiting for SOTO; no N/V/F/C; Objective Vital Signs - 12hr 01/01/22 01/02/22 01/02/22 23:49 04:13 04:36 Temperature 98.3 F 98.3 F Pulse Rate 84 83 Respiratory 20 20 Rate Blood Pressure 160/78 153/88 O2 Sat by Pulse 96 95 98 Oximetry 01/02/22 08:50 Temperature 97.5 F L Pulse Rate 90 Respiratory 18 Rate Blood Pressure 145/74 O2 Sat by Pulse 97 Oximetry Constitutional: no acute distress, alert, other (sitting up in bed with garbles speech) Eyes: non-icteric ENT: oropharynx moist Neck: supple, no lymphadenopathy, no JVD Effort: normal Ascultation: Bilateral: clear Percussion: Bilateral: not dull Cardiovascular: regular rate and rhythm Gastrointestinal: normoactive bowel sounds, soft, non-tender, non-distended Integumentary: normal Extremities: no cyanosis, no edema, pink and warm, pulses normal Neurologic: pupils equal and round, other (non focal, intermittent confusion) Psychiatric: affect normal CBC and BMP: 01/01/22 04:45 01/01/22 04:45 ABG, PT/INR, D-dimer: ABG ABG pH 7.437 pH Units (7.350-7.450) 01/01/22 18:40 ABG pCO2 33.8 mm Hg 01/01/22 18:40 ABG pO2 69.6 mm Hg (80.0-90.0) L 01/01/22 18:40 ABG O2 Saturation 95.6 % (95.0-99.0) 01/01/22 18:40 PT/INR, D-dimer PT 13.4 Sec. (12.2-14.9) 12/30/21 10:12 INR 0.92 (0.87-1.13) 12/30/21 10:12 Abnormal lab findings: Abnormal Labs 12/29/21 12/29/21 12/29/21 16:00 16:27 17:23 WBC 11.2 H RBC 5.68 H Hgb 16.5 H Hct 50.4 H Lymph % (Auto) 11.3 L Seg Neutrophils % 84.9 H Seg Neutrophils # 9.5 H PT 16.0 H INR 1.15 H APTT 40.0 H ABG pO2 Oxyhemoglobin Sodium 135 L Carbon Dioxide 21 L BUN 25 H Creatinine Glucose 349 H POC Glucose Hemoglobin A1c Cholesterol LDL Cholesterol Direct HDL Cholesterol 12/29/21 12/30/21 12/30/21 19:42 04:30 08:37 WBC RBC Hgb Hct Lymph % (Auto) Seg Neutrophils % Seg Neutrophils # PT INR APTT ABG pO2 Oxyhemoglobin Sodium Carbon Dioxide 19 L BUN Creatinine Glucose 209 H POC Glucose 221 H 259 H Hemoglobin A1c Cholesterol LDL Cholesterol Direct HDL Cholesterol 12/30/21 12/30/21 12/30/21 10:12 10:12 10:46 WBC RBC Hgb Hct Lymph % (Auto) Seg Neutrophils % Seg Neutrophils # PT INR APTT ABG pO2 Oxyhemoglobin Sodium Carbon Dioxide BUN Creatinine Glucose POC Glucose 220 H Hemoglobin A1c 11.0 H Cholesterol 243 H LDL Cholesterol Direct 156 H HDL Cholesterol 61 H 12/30/21 12/31/21 12/31/21 17:37 04:18 04:18 WBC 14.5 H RBC 5.48 H Hgb 16.2 H Hct 48.6 H Lymph % (Auto) Seg Neutrophils % Seg Neutrophils # PT INR APTT ABG pO2 Oxyhemoglobin Sodium Carbon Dioxide BUN 26 H Creatinine Glucose POC Glucose 198 H Hemoglobin A1c Cholesterol LDL Cholesterol Direct HDL Cholesterol 12/31/21 01/01/22 01/01/22 11:49 04:45 04:45 WBC RBC 5.53 H Hgb 16.5 H Hct 48.8 H Lymph % (Auto) Seg Neutrophils % Seg Neutrophils # PT INR APTT ABG pO2 Oxyhemoglobin Sodium Carbon Dioxide BUN 25 H Creatinine 0.6 L Glucose 129 H POC Glucose 184 H Hemoglobin A1c Cholesterol LDL Cholesterol Direct HDL Cholesterol 01/01/22 01/01/22 01/01/22 06:06 07:40 18:40 WBC RBC Hgb Hct Lymph % (Auto) Seg Neutrophils % Seg Neutrophils # PT INR APTT ABG pO2 69.6 L Oxyhemoglobin 93.7 L Sodium Carbon Dioxide BUN Creatinine Glucose POC Glucose 118 H 113 H Hemoglobin A1c Cholesterol LDL Cholesterol Direct HDL Cholesterol Allied health notes reviewed: nursing
--- NOTE | 2022-01-03 07:55 | Progress Note ---
Assessment and Plan Assessment and plan: This is a 61-year-old male with known past medical history of HTN, DM, previous stroke, asthma, and Tobacco Dependence admitted for acute CVA s/p tPA Hospital Course to Date: 12/30: Patient with acute encephalopathy, follows commands intermittently. Pupils are round and reactive, with + gag/cough. Mild right-sided facial droop appreciated, patient moves all his extremities. S/p IV Haldol this am due to increase agitation and is now on wrist restraints from safety. Imaguings reviewed, CTA head/neck revealed complete occlusion of the right ICA. NeuroSurgery consulted. Neurology is also following. Repeat CT head/brain and MRI pending. Will also check alcohol and ammonia level. Continue PRN Haldol for agitation. 2D echo pending. SSI initiated due to hyperglycemia. PT/OT/Speech also consulted. 12/31: Mentation improved. AAO, following commands. Repeat CT head with small acute evolving left MCA distribution infarction involving left frontal lobe and possible petechial hemorrhage. MRI brain and Neurology consult pending. Will hold ASA and AC until cleared by Neurology. 2D echo reviewed, suggestive of tiny extracardiac shunt, cardiology consulted. Speech cleared patient for pureed diet, IVF d/gibson. Continue PT/OT. D/w CCM, patient is stable for transfer to Telemetry. 01/01: Patient seen and examined clinically improving speech is improved. Tolerating diet. Cardiology was consulted as is considered that this is likely cardioembolic stroke given the findings on MRI. A SOTO is planned as TTE did detect some intracardiac shunt. As a result patient will remain in-house continue aggressive PT OT. Discharge planning is also continued based on what finding one half. Will defer anticoagulation to cardiology. As for now continue aspirin and statin therapy. 01/02: Patient seen and examined overnight patient was intermittently confused trying to get out of bed could be secondary to sundowning. Was also noted to have an episode of low blood sugar which corrected rapidly. Will decrease insulin sliding scale. Will ensure patient is obtaining adequate on urinary nutrition. Patient is pending SOTO at this time. 01/03: Patient remains in-house secondary to Repeat CT head showed small acute evolving left MCA distribution infarction involving left frontal lobe and possible petechial hemorrhage suggestive of tiny With the findings on MRI, this is possibly cardio-embolic CVA. A small intracardiac shunt was noted on surface echocardiogram. As a result a SOTO is recommended to be done on Tuesday. Speech therapy evaluation noted patient continues on pure and thin liquid. Mental status remains stable. We will continue current management of aspirin and statin we will not escalate to any anticoagulation secondary to concern for evolving stroke and petechial hemorrhage noted in previous imaging. Assessment and Plan #Acute CVA s/p tPA #Acute metabolic encephalopathy #S/p Fall - Presented with AMS, right sided facial droop and right hemiplegia - CT head reveals chronic infarcts; CTA Neck/head reveals completed occlusion of the intracranial right ICA required collateral flow from the right posterior communicating artery. - TeleNeurology saw patient in the ED - Patient received tPA - Patient remains encephalopthic with periods of agitation, moves all extremities with mild right sided facial droop - Per patient's friend at the bedside, patient does not drink alcohol. UDS is negative - Repeat CT head with small acute evolving left MCA distribution infarction involving left frontal lobe and possible petechial hemorrhage - MRI brain pending - NeuroSurgery was also consulted due to occlusion in the NASIR - 2D Echo reviewed, suggestive of tiny extracardiac shunt, cardiology consulted - Orders placed for Lipid panel - Statin initiated - ASA and prophy AC to start tomorrow, 24hrs post TPA - Continue Neuro check per protocol - PT/OT/Speech ordered - Neurology also consulted - Aspiration and Fall precautions - PRN Haldol for agitation #H/o Asthma #Tobacco Dependence - Patient is stable on RA, wheezing appreciated - Per patient's close friend at the bedside, patient is a daily cigarettes smoker - Continue PRN nebx treatment for wheezing - O2 supplementation as needed - Continue SPO2 monitoring for SPO2 goal above 92% - Smoking Cessation education once patient is more coherent and appropriate - Nicotine patch Qday #Hypertension - BP stable - Allow permissive hypertension to promote perfusion - Hold all antihypertensive agents for now - Continue blood pressure monitor per protocol, - maintain SBP less than 180 adn DBP less than 110 #Type 2 Diabetes with Hyperglycemia - HgbA1c- 11.0 - BG check and SSI Q6hrs - Lantus qhs - Avoid hypoglycemia - While critically ill target blood glucose of 140-180 #GI/DVT Prophylaxis - PPI- Pepcid - SCDs to bilateral lower extremities while in bed History Interval history: Patient seen and examined showing remarkable improvement. Much improved clinically. Responsiveness is also improved. No acute issues reported overnight Hospitalist Physical - Physical exam Narrative exam: General appearance: Present: no acute distress, well-nourished - EENT Eyes: Present: PERRL, EOM intact ENT: hearing intact - Neck Neck: Present: normal ROM - Respiratory Respiratory effort: normal Respiratory: bilateral: CTA - Cardiovascular Rhythm: regular Heart Sounds: Present: S1 & S2 - Extremities Extremities: no ischemia, pulses intact, pulses symmetrical Peripheral Pulses: within normal limits - Abdominal General gastrointestinal: soft, non-distended, normal bowel sounds - Integumentary Integumentary: Present: clear, warm, dry - Psychiatric Psychiatric: appropriate mood/affect, cooperative - Neurologic Neurologic: CNII-XII intact, moves all extremities - Allied Health Allied health notes reviewed: nursing - Constitutional Vitals: Temp Pulse Resp BP Pulse Ox 98.3 F 81 18 146/80 98 01/03/22 03:30 01/03/22 03:30 01/03/22 03:30 01/03/22 03:30 01/03/22 03:30 General appearance: Present: no acute distress HEART Score - HEART Score Troponin: Troponin T < 0.010 ng/mL (0.00-0.029) 12/29/21 16:00 Results - Labs CBC & Chem 7: 01/01/22 04:45 01/01/22 04:45 Labs: Laboratory Last Values WBC 10.3 K/mm3 (4.5-11.0) 01/01/22 04:45 RBC 5.53 M/mm3 (3.65-5.03) H 01/01/22 04:45 Hgb 16.5 gm/dl (11.8-15.2) H 01/01/22 04:45 Hct 48.8 % (35.5-45.6) H 01/01/22 04:45 MCV 88 fl (84-94) 01/01/22 04:45 MCH 30 pg (28-32) 01/01/22 04:45 MCHC 34 % (32-34) 01/01/22 04:45 RDW 14.6 % (13.2-15.2) 01/01/22 04:45 Plt Count 156 K/mm3 (140-440) 01/01/22 04:45 Lymph % (Auto) 11.3 % (13.4-35.0) L 12/29/21 16:27 [place] % (Auto) 3.6 % (0.0-7.3) 12/29/21 16: Eos % (Auto) 0.0 % (0.0-4.3) 12/29/21 16: Baso % (Auto) 0.2 % (0.0-1.8) 12/29/21 16: Lymph # (Auto) 1.3 K/mm3 (1.2-5.4) 12/29/21 16: [place] # (Auto) 0.4 K/mm3 (0.0-0.8) 12/29/21 16: Eos # (Auto) 0.0 K/mm3 (0.0-0.4) 12/29/21 16: Baso # (Auto) 0.0 K/mm3 (0.0-0.1) 12/29/21 16: Seg Neutrophils % 84.9 % (40.0-70.0) H 12/29/21 16: Seg Neutrophils # 9.5 K/mm3 (1.8-7.7) H 12/29/21 16: PT 13.4 Sec. (12.2-14.9) 12/30/21 10:12 INR 0.92 (0.87-1.13) 12/30/21 10:12 APTT 30.3 Sec. (24.2-36.6) 12/30/21 10:12 ABG pH 7.437 pH Units (7.350-7.450) 01/01/22 18:40 ABG pCO2 33.8 mm Hg 01/01/22 18:40 ABG pO2 69.6 mm Hg (80.0-90.0) L 01/01/22 18:40 ABG HCO3 22.3 mmol/L (20.0-26.0) 01/01/22 18:40 ABG O2 Saturation 95.6 % (95.0-99.0) 01/01/22 18:40 ABG O2 Content 22.5 (0.0-44) 01/01/22 18:40 ABG Base Excess -1.0 mmol/L (-2.0-3.0) 01/01/22 18:40 ABG Hemoglobin 17.1 gm/dl (14.0-18.0) 01/01/22 18:40 ABG Carboxyhemoglobin 1.6 % (0.0-5.0) 01/01/22 18:40 ABG Methemoglobin 0.5 % (0.0-1.5) 01/01/22 18:40 Oxyhemoglobin 93.7 % (95.0-99.0) L 01/01/22 18:40 FiO2 21 % 01/01/22 18:40 Sodium 141 mmol/L (137-145) 01/01/22 04:45 Potassium 3.9 mmol/L (3.6-5.0) 01/01/22 04:45 Chloride 105.8 mmol/L (98-107) 01/01/22 04:45 Carbon Dioxide 22 mmol/L (22-30) 01/01/22 04:45 Anion Gap 17 mmol/L 01/01/22 04:45 BUN 25 mg/dL (9-20) H 01/01/22 04:45 Creatinine 0.6 mg/dL (0.8-1.3) L 01/01/22 04:45 Estimated GFR > 60 ml/min 01/01/22 04:45 BUN/Creatinine Ratio 42 % 01/01/22 04:45 Glucose 129 mg/dL (75-100) H 01/01/22 04:45 POC Glucose 113 mg/dL (70-105) H 01/01/22 07:40 Hemoglobin A1c 11.0 % (4-6) H 12/30/21 10:12 Calcium 8.9 mg/dL (8.4-10.2) 01/01/22 04:45 Total Bilirubin 0.60 mg/dL (0.1-1.2) 12/29/21 16:00 AST 12 units/L (5-40) 12/29/21 16:00 ALT 16 units/L (7-56) 12/29/21 16:00 Alkaline Phosphatase 120 units/L (35-129) 12/29/21 16:00 Troponin T < 0.010 ng/mL (0.00-0.029) 12/29/21 16:00 Total Protein 6.7 g/dL (6.3-8.2) 12/29/21 16:00 Albumin 4.8 g/dL (3.9-5) 12/29/21 16:00 Albumin/Globulin Ratio 2.5 % 12/29/21 16:00 Triglycerides 139 mg/dL (2-149) 12/30/21 10:12 Cholesterol 243 mg/dL (50-199) H 12/30/21 10:12 LDL Cholesterol Direct 156 mg/dL (50-130) H 12/30/21 10:12 HDL Cholesterol 61 mg/dL (40-59) H 12/30/21 10:12 Cholesterol/HDL Ratio 3.98 % 12/30/21 10:12 Urine Color Straw (Yellow) 12/29/21 17:50 Urine Turbidity Clear (Clear) 12/29/21 17:50 Specific [place] (Man) 1.005 (1.003-1.030) 12/29/21 17:50 Ur Protein (Man) 1+ mg/dL (Negative) 12/29/21 17:50 Ur Ketones (Man) 15 (Negative) 12/29/21 17:50 Urine Bilirubin (Man) Negative (Negative) 12/29/21 17:50 Urine WBC (Auto) < 1.0 /HPF (0.0-6.0) 12/29/21 17:50 Urine RBC (Auto) 1.0 /HPF (0.0-6.0) 12/29/21 17:50 Urine RBC (Manual) Negative (Negative) 12/29/21 17:50 Urine Mucus Few /HPF 12/29/21 17:50 Urine Opiates Screen Negative 12/29/21 18:11 Urine Methadone Screen Negative 12/29/21 18:11 Ur Barbiturates Screen Negative 12/29/21 18:11 Ur Phencyclidine Scrn Negative 12/29/21 18:11 Ur Amphetamines Screen Negative 12/29/21 18:11 U Benzodiazepines Scrn Negative 12/29/21 18:11 Urine Cocaine Screen Negative 12/29/21 18:11 U Marijuana (THC) Screen Negative 12/29/21 18:11 Drugs of Abuse Note Disclamer 12/29/21 18:11 Ibrahim/IV: Voiding Method Indwelling Catheter Active Medications - Current Medications Current Medications: Generic Name Dose Route Start Last Admin Trade Name Freq PRN Reason Stop Dose Admin Acetaminophen 650 mg 12/29/21 21:53 Acetaminophen 325 Mg Tab PO Q4H PRN Pain, Mild (1-3) Acetaminophen 650 mg 12/29/21 21:53 Acetaminophen 650 Mg Rect Supp AK Q6H PRN Pain MILD(1-3)/Fever >100.5/WAGNER Albuterol 2.5 mg 01/01/22 17:02 Albuterol 2.5 Mg/3 Ml Nebu IH Q6HRT PRN Shortness Of Breath Aspirin 81 mg 01/01/22 09:00 01/02/22 09:34 Aspirin Ec 81 Mg Tab PO 81 mg QDAY RUBI Administration Atorvastatin Calcium 40 mg 12/29/21 22:00 01/02/22 21:56 Atorvastatin 40 Mg Tab PO 40 mg QHS RUBI Administration Bisacodyl 10 mg 12/29/21 21:53 Bisacodyl 10 Mg Rect Supp AK QDAY PRN Constipation Dextrose 50 ml 12/29/21 21:53 Dextrose 50% In Water (25gm) 50 Ml Syringe IV Q30MIN PRN Hypoglycemia Protocol Famotidine 20 mg 01/01/22 10:00 01/02/22 09:34 Famotidine 20 Mg Tab PO 20 mg QDAY RUBI Administration Haloperidol Lactate 5 mg 12/30/21 12:09 12/31/21 08:21 Haloperidol Lactate 5 Mg/1 Ml Inj IV 5 mg Q6H PRN Administration Agitation Hydralazine HCl 10 mg 12/30/21 09:31 Hydralazine 20 Mg/1 Ml Inj IV Q6H PRN SBP >/=170; DBP >/=100 Insulin Human Lispro 0 unit 01/02/22 11:30 01/02/22 21:59 Insulin Lispro 100 Unit/Ml SUB-Q 2 unit ACHS RUBI Administration Protocol Magnesium Hydroxide 30 ml 12/29/21 21:53 Magnesium Hydroxide (Mom) Oral Liqd Udc PO Q4H PRN Constipation Metoclopramide HCl 10 mg 12/29/21 21:53 Metoclopramide 10 Mg Tab PO Q6H PRN Nausea And Vomiting Nicotine 14 mg 12/31/21 10:00 01/02/22 09:34 Nicotine 14 Mg/24 Hr Patch TD 14 mg QDAY RUBI Administration Ondansetron HCl 4 mg 12/29/21 21:53 Ondansetron 4 Mg/2 Ml Inj IV Q8H PRN Nausea And Vomiting Sodium Chloride 10 ml 12/29/21 22:00 01/02/22 22:00 Sodium Chloride 0.9% 10 Ml Flush Syringe IV 10 ml BID RUBI Administration Sodium Chloride 10 ml 12/29/21 21:53 Sodium Chloride 0.9% 10 Ml Flush Syringe IV PRN PRN LINE FLUSH Nutrition/Malnutrition Assess - Dietary Evaluation Nutrition/Malnutrition Findings: Nutrition Notes Start: 12/30/21 16:25 Freq: Status: Active Protocol: Document 12/31/21 14:42 RICHIE (Rec: 12/31/21 15:10 RICHIE [id number]) Nutrition Notes 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 Current Diet Pureed Diet (since L 12/31). Labs/Tests 12/31: BUN 26. Pertinent Medications 12/31: Nutritionally unremarkable. 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 No body weight change reported in 1 day. Weight Status Appropriate Subjective/Other Information RD consult for difficulty chewing, skin risk and risk of malnutrition assessments. Diet advanced to PO as per AIR BRAKE MAN recommendation, No reports available on Pt's PO intake of meals at the time, will assess at F/U. I will prescribe dietary supplements to compensate for possible or insufficient PO intake of meals during LOS. AIR BRAKE MAN note on 12/31/21 10:46: Reassessment of the patient's swallowing function was addressed. Patient is safe for a pureed diet with thins. Will continue to follow to ensure continued safety. Informed the patient's nurse of diet recommendations. - END OF NOTE. Pt is on Room Air, O2 saturation @ 99%, according to Physical Assessment History notes. Pt has missing teeth, according to Physical Assessment History notes. Pt shows no signs of concern for skin risk at the time, according to Physical Assessment History notes. Pt shows no signs of concern for risk of malnutrition at the time, according to Physical Assessment History notes. Difficulty chewing has been addressed by AIR BRAKE MAN recommendation, I will disregard this concern at this time. Pt still in critical condition , not a candidate for Nutrition Education at the time, will assess feasibility on F/U. Percent of energy/protein needs met: Prescribed Pureed Diet provides for energy/protein needs (1,804 Kcal/77 g) during LOS; additionally, Dietary Supplements will compensate for possible poor or insufficient PO intake of meals with 440 Kcal and 20 g of protein. Burn Absent Trauma Absent GI Symptoms None Difficulty In Swallowing,Chewing Food Allergy No Skin Integrity/Comment Assessment WNL. 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 As Evidenced by Signs and Symptoms No reports available on Pt's PO intake of meals at the time , will assess at F/U. #1 Nutrition Diagnosis Swallowing difficulty,Biting/ Chewing (masticatory) difficulty Etiology Possibly secondary to CVA. As Evidenced by Signs and Symptoms AIR BRAKE MAN note on 12/31/21 10:46: Reassessment of the patient's swallowing function was addressed. Patient is safe for a pureed diet with thins. Will continue to follow to ensure continued safety. Informed the patient's nurse of diet recommendations. - END OF NOTE. Is patient on ventilator? No Is Patient Ambulatory and/or Out of Bed Yes REE-([place] [place]-ambulatory/OOB) [ [id number] [id number]] Kcal/Kg value to use for calculation 24 Approximate Energy Requirements Using 1368 kcal/Kg Calculation Used for Recommendations Kcal/kg Additional Notes Protein: 0.8-1 g/Kg ABW; 46-57 g/day. Fluids: 1 ml/Kcal, or as per MD. Nutrition Intervention Change Diet Order: Continue Pureed Diet as tolerated. Add Supplement/Snack (indicate name/kcal Start 8 fl oz Glucerna; BID. /protein ) Provides kCal: 440 Provides Protein (gm) 20 Goal #1 Compensate, through dietary supplementation, for possible poor or insufficient PO intake of meals during LOS. Goal #2 Facilitate PO intake of meals with elemental, textural, or mechanical modification during LOS. Follow-Up By: 01/07/22 Additional Comments Continue monitoring food tolerance, %PO intake of meals , dietary supplements, and BM.
[2022-01-03] MEDS: INSULIN LISPRO 100 UNIT/ML SUB-Q SCH ×4 (09:54→23:19)
[2022-01-03] MEDS: NICOTINE 14 MG/24 HR PATCH TD SCH (09:55)
[2022-01-03] MEDS: ASPIRIN EC 81 MG TAB PO SCH (09:55)
[2022-01-03] MEDS: FAMOTIDINE 20 MG TAB PO SCH (09:56)
--- NOTE | 2022-01-03 13:48 | Progress Note ---
Assessment and Plan Acute CVA s/p tPA Acute Encephalopathy S/p Fall H/o Asthma Tobacco use disorder/Nicotine Dependence Hypertension Type 2 Diabetes with Hyperglycemia Repeat CT head showed small acute evolving left MCA distribution infarction involving left frontal lobe and possible petechial hemorrhage suggestive of tiny With the findings on MRI, this is possibly cardio-embolic CVA. A small intracardiac shunt was noted on surface echocardiogram. Patient is to get a SOTO tomorrow - ASA and prophy AC - Continue Neuro check per protocol -Secondary stroke prophylaxis- Aspirin, Statin - PT/OT/Speech - continue to increase activity as tolerated. - Aspiration precautions, - Fall precautions - PRN Haldol for agitation -Avoid delirium, maintain sleep-wake cycle - Continue PRN bronchodilators therapy - Smoking Cessation education once patient is more coherent and appropriate - Nicotine withdrawal precautions - Accucheck with glycemic control, keep blood glucose 140-190 mg/dL. Avoid hypoglycemia( insulin therapy adjusted by primary service) Subjective Date of service: 01/03/22 Principal diagnosis: Acute CVA s/p tpA; AMS; HTN; DM II; Leucocytosis; Hyperlipidemia; Asthma Interval history: Patient is seen today for: Acute CVA s/p tpA; Acute encephalopathy; HTN; DM II; Leucocytosis; Hyperlipidemia; H/O Asthma Seen and examined at bedside; 24hour events reviewed; nursing and respiratory care staff consulted; no adverse overnight events reported to me; resting in bed;confused with garbled speech; participating PT/OT, waiting for SOTO; no N/V/F/C; Objective Vital Signs - 12hr 01/03/22 01/03/22 01/03/22 03:30 07:57 09:56 Temperature 98.3 F 98.0 F Pulse Rate 81 79 Respiratory 18 16 Rate Blood Pressure 146/80 141/92 O2 Sat by Pulse 98 98 98 Oximetry 01/03/22 01/03/22 10:00 11:58 Temperature 97.9 F Pulse Rate 88 76 Respiratory 18 16 Rate Blood Pressure 149/76 O2 Sat by Pulse 96 95 Oximetry Constitutional: no acute distress, alert, other (sitting up in bed with garbles speech) Eyes: non-icteric ENT: oropharynx moist Neck: supple, no lymphadenopathy, no JVD Effort: normal Ascultation: Bilateral: clear, diminished breath sounds Percussion: Bilateral: not dull Cardiovascular: regular rate and rhythm Gastrointestinal: normoactive bowel sounds, soft, non-tender, non-distended Integumentary: normal Extremities: no cyanosis, no edema, pink and warm, pulses normal Neurologic: pupils equal and round, other (non focal, intermittent confusion) Psychiatric: affect normal CBC and BMP: 01/01/22 04:45 01/01/22 04:45 ABG, PT/INR, D-dimer: ABG ABG pH 7.437 pH Units (7.350-7.450) 01/01/22 18:40 ABG pCO2 33.8 mm Hg 01/01/22 18:40 ABG pO2 69.6 mm Hg (80.0-90.0) L 01/01/22 18:40 ABG O2 Saturation 95.6 % (95.0-99.0) 01/01/22 18:40 PT/INR, D-dimer PT 13.4 Sec. (12.2-14.9) 12/30/21 10:12 INR 0.92 (0.87-1.13) 12/30/21 10:12 Abnormal lab findings: Abnormal Labs 12/29/21 12/29/21 12/29/21 16:00 16:27 17:23 WBC 11.2 H RBC 5.68 H Hgb 16.5 H Hct 50.4 H Lymph % (Auto) 11.3 L Seg Neutrophils % 84.9 H Seg Neutrophils # 9.5 H PT 16.0 H INR 1.15 H APTT 40.0 H ABG pO2 Oxyhemoglobin Sodium 135 L Carbon Dioxide 21 L BUN 25 H Creatinine Glucose 349 H POC Glucose Hemoglobin A1c Cholesterol LDL Cholesterol Direct HDL Cholesterol 12/29/21 12/30/21 12/30/21 19:42 04:30 08:37 WBC RBC Hgb Hct Lymph % (Auto) Seg Neutrophils % Seg Neutrophils # PT INR APTT ABG pO2 Oxyhemoglobin Sodium Carbon Dioxide 19 L BUN Creatinine Glucose 209 H POC Glucose 221 H 259 H Hemoglobin A1c Cholesterol LDL Cholesterol Direct HDL Cholesterol 12/30/21 12/30/21 12/30/21 10:12 10:12 10:46 WBC RBC Hgb Hct Lymph % (Auto) Seg Neutrophils % Seg Neutrophils # PT INR APTT ABG pO2 Oxyhemoglobin Sodium Carbon Dioxide BUN Creatinine Glucose POC Glucose 220 H Hemoglobin A1c 11.0 H Cholesterol 243 H LDL Cholesterol Direct 156 H HDL Cholesterol 61 H 12/30/21 12/31/21 12/31/21 17:37 04:18 04:18 WBC 14.5 H RBC 5.48 H Hgb 16.2 H Hct 48.6 H Lymph % (Auto) Seg Neutrophils % Seg Neutrophils # PT INR APTT ABG pO2 Oxyhemoglobin Sodium Carbon Dioxide BUN 26 H Creatinine Glucose POC Glucose 198 H Hemoglobin A1c Cholesterol LDL Cholesterol Direct HDL Cholesterol 12/31/21 01/01/22 01/01/22 11:49 04:45 04:45 WBC RBC 5.53 H Hgb 16.5 H Hct 48.8 H Lymph % (Auto) Seg Neutrophils % Seg Neutrophils # PT INR APTT ABG pO2 Oxyhemoglobin Sodium Carbon Dioxide BUN 25 H Creatinine 0.6 L Glucose 129 H POC Glucose 184 H Hemoglobin A1c Cholesterol LDL Cholesterol Direct HDL Cholesterol 01/01/22 01/01/22 01/01/22 06:06 07:40 18:40 WBC RBC Hgb Hct Lymph % (Auto) Seg Neutrophils % Seg Neutrophils # PT INR APTT ABG pO2 69.6 L Oxyhemoglobin 93.7 L Sodium Carbon Dioxide BUN Creatinine Glucose POC Glucose 118 H 113 H Hemoglobin A1c Cholesterol LDL Cholesterol Direct HDL Cholesterol Allied health notes reviewed: nursing
[2022-01-04] MEDS: INSULIN LISPRO 100 UNIT/ML SUB-Q SCH ×4 (06:50→21:37)
[2022-01-04] MEDS ORDERED: SODIUM CHLORIDE 0.9% 500 ML 500 ML ONE (08:28)
--- NOTE | 2022-01-04 10:23 | Anesthesia Consultation ---
Anesthesia Consult and Med Hx Date of service: 01/04/22 - Airway Anesthetic Teeth Evaluation: Dentures (upper and lower), Edentulous ROM Head & Neck: Adequate Mental/Hyoid Distance: Adequate Mallampati Class: Class II Intubation Access Assessment: Probably Good - Pre-Operative Health Status ASA Pre-Surgery Classification: ASA3 Proposed Anesthetic Plan: MAC - Pulmonary Hx Smoking: Yes (1 pack/day x 45 years) Hx Asthma: Yes COPD: Yes Hx Pneumonia: No - Cardiovascular System Hx Hypertension: Yes Hx Heart Attack/AMI: No - Central Nervous System CVA: Yes (right lide weakness, decreased right side vision) Hx Psychiatric Problems: No (was confused after tPA administration) - Endocrine Hx End Stage Renal Disease: No Hx Non-Insulin Dependent Diabetes: Yes - Hematic Hx Anemia: No Hx Sickle Cell Disease: No - Other Systems Hx Cancer: No - Additional Comments Anesthesia Medical History Comments: scheduled for SOTO. Patient is oriented x 3, although has hard time signing consent due to motor deficit and right eye vision deficit
--- NOTE | 2022-01-04 10:23 | Anesthesia Day of Surgery ---
Anesthesia Day of Surgery - Day of Surgery Patient Examined: Yes Patient H&P Reviewed: Yes Patient is NPO: Yes
[2022-01-04] MEDS ORDERED: propofoL 200 MG/20 ML VIAL IV ONE ×2 (10:24)
[2022-01-04] MEDS ORDERED: BENZOCAINE 20% TOP SPRAY 0.5 ML UNIT DOSE MM ONE (10:40)
--- NOTE | 2022-01-04 11:18 | Progress Note ---
Assessment and Plan Acute CVA s/p rpA Acute encephalopathy Altered mental Status HTN DM II Leucocytosis Hyperlipidemia H/O Asthma - follow SOTO report - no new issues otherwise, continue care as bnelow; - continue IMMIGRATION MANAGER evaluation and advance diet per recommendations - follow MRI - increase ambulation; PT/OT/ROM exercises - secondary prevention - continue BP control and statin therapy re: CVA - neurology evaluation ongoing (follow MRI) - continue accuchecks with glycemic control per SSI for target blood glucose < 180 mg/dL - prn supplemental oxygen for target O2 sat's > 90% acutely - aspiration precautions - prn bronchodilators with pulmonary hygiene per RT - avoid nephrotoxins, renally dose all medications - void benzodiazepine's, reduce the possibility of delirium - AB's per ID rec's - prn analgesia per pain score - Maintenance of sleep-wake cycle, avoid delirium - fall precautions - G.I. & VTE prophylaxis - mobility protocols for pressure ulcer prophylaxis - Monitor hemodynamics closely - continue other care per attending / other consultants - discharge planning ongoing concurrently .... 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 / friend in room Objective Vital Signs - 12hr 01/04/22 07:43 Temperature 97.9 F Pulse Rate 77 Respiratory 18 Rate Blood Pressure 138/75 O2 Sat by Pulse 96 Oximetry Constitutional: no acute distress, alert, other (sitting up in bed with garbled speech) Eyes: non-icteric ENT: oropharynx moist Neck: supple, no lymphadenopathy, no JVD Effort: normal Ascultation: Bilateral: clear, diminished breath sounds Percussion: Bilateral: not dull Cardiovascular: regular rate and rhythm Gastrointestinal: normoactive bowel sounds, soft, non-tender, non-distended Integumentary: normal Extremities: no cyanosis, no edema, pink and warm, pulses normal Neurologic: pupils equal and round, other (non focal, intermittent confusion) Psychiatric: mood appropriate, affect normal CBC and BMP: 01/01/22 04:45 01/01/22 04:45 ABG, PT/INR, D-dimer: ABG ABG pH 7.437 pH Units (7.350-7.450) 01/01/22 18:40 ABG pCO2 33.8 mm Hg 01/01/22 18:40 ABG pO2 69.6 mm Hg (80.0-90.0) L 01/01/22 18:40 ABG O2 Saturation 95.6 % (95.0-99.0) 01/01/22 18:40 PT/INR, D-dimer PT 13.4 Sec. (12.2-14.9) 12/30/21 10:12 INR 0.92 (0.87-1.13) 12/30/21 10:12 Abnormal lab findings: Abnormal Labs 12/29/21 12/29/21 12/29/21 16:00 16:27 17:23 WBC 11.2 H RBC 5.68 H Hgb 16.5 H Hct 50.4 H Lymph % (Auto) 11.3 L Seg Neutrophils % 84.9 H Seg Neutrophils # 9.5 H PT 16.0 H INR 1.15 H APTT 40.0 H ABG pO2 Oxyhemoglobin Sodium 135 L Carbon Dioxide 21 L BUN 25 H Creatinine Glucose 349 H POC Glucose Hemoglobin A1c Cholesterol LDL Cholesterol Direct HDL Cholesterol 12/29/21 12/30/21 12/30/21 19:42 04:30 08:37 WBC RBC Hgb Hct Lymph % (Auto) Seg Neutrophils % Seg Neutrophils # PT INR APTT ABG pO2 Oxyhemoglobin Sodium Carbon Dioxide 19 L BUN Creatinine Glucose 209 H POC Glucose 221 H 259 H Hemoglobin A1c Cholesterol LDL Cholesterol Direct HDL Cholesterol 12/30/21 12/30/21 12/30/21 10:12 10:12 10:46 WBC RBC Hgb Hct Lymph % (Auto) Seg Neutrophils % Seg Neutrophils # PT INR APTT ABG pO2 Oxyhemoglobin Sodium Carbon Dioxide BUN Creatinine Glucose POC Glucose 220 H Hemoglobin A1c 11.0 H Cholesterol 243 H LDL Cholesterol Direct 156 H HDL Cholesterol 61 H 12/30/21 12/31/21 12/31/21 17:37 04:18 04:18 WBC 14.5 H RBC 5.48 H Hgb 16.2 H Hct 48.6 H Lymph % (Auto) Seg Neutrophils % Seg Neutrophils # PT INR APTT ABG pO2 Oxyhemoglobin Sodium Carbon Dioxide BUN 26 H Creatinine Glucose POC Glucose 198 H Hemoglobin A1c Cholesterol LDL Cholesterol Direct HDL Cholesterol 12/31/21 01/01/22 01/01/22 11:49 04:45 04:45 WBC RBC 5.53 H Hgb 16.5 H Hct 48.8 H Lymph % (Auto) Seg Neutrophils % Seg Neutrophils # PT INR APTT ABG pO2 Oxyhemoglobin Sodium Carbon Dioxide BUN 25 H Creatinine 0.6 L Glucose 129 H POC Glucose 184 H Hemoglobin A1c Cholesterol LDL Cholesterol Direct HDL Cholesterol 01/01/22 01/01/22 01/01/22 06:06 07:40 18:40 WBC RBC Hgb Hct Lymph % (Auto) Seg Neutrophils % Seg Neutrophils # PT INR APTT ABG pO2 69.6 L Oxyhemoglobin 93.7 L Sodium Carbon Dioxide BUN Creatinine Glucose POC Glucose 118 H 113 H Hemoglobin A1c Cholesterol LDL Cholesterol Direct HDL Cholesterol Allied health notes reviewed: nursing
[2022-01-04] MEDS ORDERED: BENZOCAINE 20% TOP SPRAY 0.5 ML UNIT DOSE MM NR (11:30)
--- NOTE | 2022-01-04 12:37 | Progress Note ---
Assessment and Plan Patient echocardiogram shows 1 l bubble after 7th cardiac cycle suggestive of extra cardiac shunt. However TTE is less sensitive to detect intracardiac shunt. Given the patient MRI findings of possible multiple strokes we need to rule out cardiac etiology he had a SOTO done today which showed mobile, filamentous echodensity attached to the interatrial septum. This is probably attached to thrombus that is occluding the PFO. Agitated saline injection did not show a [id number] shunt. Please obtain a venous Doppler ultrasound ultrasound of lower extremities to rule rule out any DVTs. I would recommend anticoagulation with apixaban if there is no contraindication after clearance from neurology. He will need a follow-up echo in 1 to 2 months with a bubble study to see the patency of PFO, and if patent will need a SOTO and closure. - Patient Problems (1) Cardioembolic stroke Current Visit: Yes Status: Suspected (2) Stroke-like symptoms Current Visit: No Status: Acute Subjective Date of service: 01/04/22 Principal diagnosis: Acute CVA s/p tpA; AMS; HTN; DM II; Leucocytosis; Hyperlipidemia; Asthma Interval history: Patient doing well. No chest pain no shortness of breath no orthopnea or PND. He had his SOTO done today he tolerated the procedure well without any complications. Objective Vital Signs Temp Pulse Resp BP BP Pulse Ox 01/04/22 07:43 97.9 F 77 18 138/75 96 01/03/22 22:46 81 149/82 97 01/03/22 22:00 98 F 86 18 149/82 96 01/03/22 20:00 93 H 01/03/22 16:06 97.9 F 86 16 168/88 96 - Physical Examination HEENT: Positive: PERRL Neck: Positive: neck supple. Negative: JVD/HJR Cardiac: Positive: Reg Rate and Rhythm, S1/S2. Negative: Audible Murmur Lungs: Positive: clear to auscultation, No Wheeze, Rales, Rhonchi Neuro: Positive: Grossly Intact, Other (See neurology note) Abdomen: Positive: Soft Skin: Negative: Rash Extremities: Absent: edema - Imaging and Cardiology Echo: report reviewed (Normal EF possible possible extracardiac shunt) Chamber hypertrophy or enlargement: left atrial enlargement (Positive) Repolarization changes or abnormalities: early repolarization (normal variant) - Allied health notes Allied health notes reviewed: nursing
--- NOTE | 2022-01-04 14:03 | Post Anesthesia Evaluation ---
- Post Anesthesia Evaluation Patient Participated: Yes Airway Patent: Yes Stable Respiratory Function: Yes Nausea/Vomiting: No Temp > 96.8F: Yes Pain Manageable: Yes Adequeate Hydration: Yes Anesthesia Complications: No
--- NOTE | 2022-01-04 14:32 | Progress Note ---
Assessment and Plan Assessment and plan: This is a 61-year-old male with known past medical history of HTN, DM, previous stroke, asthma, and Tobacco Dependence admitted for acute CVA s/p tPA Hospital Course to Date: 12/30: Patient with acute encephalopathy, follows commands intermittently. Pupils are round and reactive, with + gag/cough. Mild right-sided facial droop appreciated, patient moves all his extremities. S/p IV Haldol this am due to increase agitation and is now on wrist restraints from safety. Imaguings reviewed, CTA head/neck revealed complete occlusion of the right ICA. NeuroSurgery consulted. Neurology is also following. Repeat CT head/brain and MRI pending. Will also check alcohol and ammonia level. Continue PRN Haldol for agitation. 2D echo pending. SSI initiated due to hyperglycemia. PT/OT/Speech also consulted. 12/31: Mentation improved. AAO, following commands. Repeat CT head with small acute evolving left MCA distribution infarction involving left frontal lobe and possible petechial hemorrhage. MRI brain and Neurology consult pending. Will hold ASA and AC until cleared by Neurology. 2D echo reviewed, suggestive of tiny extracardiac shunt, cardiology consulted. Speech cleared patient for pureed diet, IVF d/gibson. Continue PT/OT. D/w CCM, patient is stable for transfer to Telemetry. 01/01: Patient seen and examined clinically improving speech is improved. Tolerating diet. Cardiology was consulted as is considered that this is likely cardioembolic stroke given the findings on MRI. A SOTO is planned as TTE did detect some intracardiac shunt. As a result patient will remain in-house continue aggressive PT OT. Discharge planning is also continued based on what finding one half. Will defer anticoagulation to cardiology. As for now continue aspirin and statin therapy. 01/02: Patient seen and examined overnight patient was intermittently confused trying to get out of bed could be secondary to sundowning. Was also noted to have an episode of low blood sugar which corrected rapidly. Will decrease insulin sliding scale. Will ensure patient is obtaining adequate on urinary nutrition. Patient is pending SOTO at this time. 01/03: Patient remains in-house secondary to Repeat CT head showed small acute evolving left MCA distribution infarction involving left frontal lobe and possible petechial hemorrhage suggestive of tiny With the findings on MRI, this is possibly cardio-embolic CVA. A small intracardiac shunt was noted on surface echocardiogram. As a result a SOTO is recommended to be done on Tuesday. Speech therapy evaluation noted patient continues on pure and thin liquid. Mental status remains stable. We will continue current management of aspirin and statin we will not escalate to any anticoagulation secondary to concern for evolving stroke and petechial hemorrhage noted in previous imaging. 01/04: Patient seen and examined no new complaints, patient underwent echocardiogram SOTO today. Per cardiology documentation "this was done done today which showed mobile, filamentous echodensity attached to the interatrial septum. This is probably attached to thrombus that is occluding the PFO. Agitated saline injection did not show a [id number] shunt. Please obtain a venous Doppler ultrasound ultrasound of lower extremities to rule rule out any DVTs. I would recommend anticoagulation with apixaban if there is no contraindication after clearance from neurology. He will need a follow-up echo in 1 to 2 months with a bubble study to see the patency of PFO, and if patent will need a SOTO and closure." I have gone ahead and consulted neurology to reevaluate the patient and give us a clearance for initiation of apixaban. I also went ahead and ordered the Doppler of the lower extremity. Once clearance is obtained patient can be safely discharged and follow-up recommendation as outlined above. Patient doing well. No chest pain no shortness of breath no orthopnea or PND. He had his SOTO done today he tolerated the procedure well without any complications. Assessment and Plan #Acute CVA s/p tPA #Acute metabolic encephalopathy #S/p Fall - Presented with AMS, right sided facial droop and right hemiplegia - CT head reveals chronic infarcts; CTA Neck/head reveals completed occlusion of the intracranial right ICA required collateral flow from the right posterior communicating artery. - TeleNeurology saw patient in the ED - Patient received tPA - Patient remains encephalopthic with periods of agitation, moves all extremities with mild right sided facial droop - Per patient's friend at the bedside, patient does not drink alcohol. UDS is negative - Repeat CT head with small acute evolving left MCA distribution infarction involving left frontal lobe and possible petechial hemorrhage - MRI brain pending - NeuroSurgery was also consulted due to occlusion in the NASIR - 2D Echo reviewed, suggestive of tiny extracardiac shunt, cardiology consulted - Orders placed for Lipid panel - Statin initiated - ASA and prophy AC to start tomorrow, 24hrs post TPA - Continue Neuro check per protocol - PT/OT/Speech ordered - Neurology also consulted - Aspiration and Fall precautions - PRN Haldol for agitation #H/o Asthma #Tobacco Dependence - Patient is stable on RA, wheezing appreciated - Per patient's close friend at the bedside, patient is a daily cigarettes smoker - Continue PRN nebx treatment for wheezing - O2 supplementation as needed - Continue SPO2 monitoring for SPO2 goal above 92% - Smoking Cessation education once patient is more coherent and appropriate - Nicotine patch Qday #Hypertension - BP stable - Allow permissive hypertension to promote perfusion - Hold all antihypertensive agents for now - Continue blood pressure monitor per protocol, - maintain SBP less than 180 adn DBP less than 110 #Type 2 Diabetes with Hyperglycemia - HgbA1c- 11.0 - BG check and SSI Q6hrs - Lantus qhs - Avoid hypoglycemia - While critically ill target blood glucose of 140-180 #GI/DVT Prophylaxis - PPI- Pepcid - SCDs to bilateral lower extremities while in bed History Interval history: Patient seen and examined showing remarkable improvement. Much improved clinica lly. Responsiveness is also improved. No acute issues reported overnight Hospitalist Physical - Physical exam Narrative exam: General appearance: Present: no acute distress, well-nourished - EENT Eyes: Present: PERRL, EOM intact ENT: hearing intact - Neck Neck: Present: normal ROM - Respiratory Respiratory effort: normal Respiratory: bilateral: CTA - Cardiovascular Rhythm: regular Heart Sounds: Present: S1 & S2 - Extremities Extremities: no ischemia, pulses intact, pulses symmetrical Peripheral Pulses: within normal limits - Abdominal General gastrointestinal: soft, non-distended, normal bowel sounds - Integumentary Integumentary: Present: clear, warm, dry - Psychiatric Psychiatric: appropriate mood/affect, cooperative - Neurologic Neurologic: CNII-XII intact, moves all extremities - Allied Health Allied health notes reviewed: nursing - Constitutional Vitals: Temp Pulse Resp BP Pulse Ox 97.9 F 68 14 145/80 96 01/04/22 11:20 01/04/22 13:07 01/04/22 13:07 01/04/22 13:07 01/04/22 13:07 General appearance: Present: no acute distress HEART Score - HEART Score Troponin: Troponin T < 0.010 ng/mL (0.00-0.029) 12/29/21 16:00 Results - Labs CBC & Chem 7: 01/01/22 04:45 01/01/22 04:45 Labs: Laboratory Last Values WBC 10.3 K/mm3 (4.5-11.0) 01/01/22 04:45 RBC 5.53 M/mm3 (3.65-5.03) H 01/01/22 04:45 Hgb 16.5 gm/dl (11.8-15.2) H 01/01/22 04:45 Hct 48.8 % (35.5-45.6) H 01/01/22 04:45 MCV 88 fl (84-94) 01/01/22 04:45 MCH 30 pg (28-32) 01/01/22 04:45 MCHC 34 % (32-34) 01/01/22 04:45 RDW 14.6 % (13.2-15.2) 01/01/22 04:45 Plt Count 156 K/mm3 (140-440) 01/01/22 04:45 Lymph % (Auto) 11.3 % (13.4-35.0) L 12/29/21 16:27 [place] % (Auto) 3.6 % (0.0-7.3) 12/29/21 16:27 Eos % (Auto) 0.0 % (0.0-4.3) 12/29/21 16: Baso % (Auto) 0.2 % (0.0-1.8) 12/29/21 16:27 Lymph # (Auto) 1.3 K/mm3 (1.2-5.4) 12/29/21 16:27 [place] # (Auto) 0.4 K/mm3 (0.0-0.8) 12/29/21 16:27 Eos # (Auto) 0.0 K/mm3 (0.0-0.4) 12/29/21 16:27 Baso # (Auto) 0.0 K/mm3 (0.0-0.1) 12/29/21 16: Seg Neutrophils % 84.9 % (40.0-70.0) H 12/29/21 16:27 Seg Neutrophils # 9.5 K/mm3 (1.8-7.7) H 12/29/21 16:27 PT 13.4 Sec. (12.2-14.9) 12/30/21 10:12 INR 0.92 (0.87-1.13) 12/30/21 10:12 APTT 30.3 Sec. (24.2-36.6) 12/30/21 10:12 ABG pH 7.437 pH Units (7.350-7.450) 01/01/22 18:40 ABG pCO2 33.8 mm Hg 01/01/22 18:40 ABG pO2 69.6 mm Hg (80.0-90.0) L 01/01/22 18:40 ABG HCO3 22.3 mmol/L (20.0-26.0) 01/01/22 18:40 ABG O2 Saturation 95.6 % (95.0-99.0) 01/01/22 18:40 ABG O2 Content 22.5 (0.0-44) 01/01/22 18:40 ABG Base Excess -1.0 mmol/L (-2.0-3.0) 01/01/22 18:40 ABG Hemoglobin 17.1 gm/dl (14.0-18.0) 01/01/22 18:40 ABG Carboxyhemoglobin 1.6 % (0.0-5.0) 01/01/22 18:40 ABG Methemoglobin 0.5 % (0.0-1.5) 01/01/22 18:40 Oxyhemoglobin 93.7 % (95.0-99.0) L 01/01/22 18:40 FiO2 21 % 01/01/22 18:40 Sodium 141 mmol/L (137-145) 01/01/22 04:45 Potassium 3.9 mmol/L (3.6-5.0) 01/01/22 04:45 Chloride 105.8 mmol/L (98-107) 01/01/22 04:45 Carbon Dioxide 22 mmol/L (22-30) 01/01/22 04:45 Anion Gap 17 mmol/L 01/01/22 04:45 BUN 25 mg/dL (9-20) H 01/01/22 04:45 Creatinine 0.6 mg/dL (0.8-1.3) L 01/01/22 04:45 Estimated GFR > 60 ml/min 01/01/22 04:45 BUN/Creatinine Ratio 42 % 01/01/22 04:45 Glucose 129 mg/dL (75-100) H 01/01/22 04:45 POC Glucose 113 mg/dL (70-105) H 01/01/22 07:40 Hemoglobin A1c 11.0 % (4-6) H 12/30/21 10:12 Calcium 8.9 mg/dL (8.4-10.2) 01/01/22 04:45 Total Bilirubin 0.60 mg/dL (0.1-1.2) 12/29/21 16:00 AST 12 units/L (5-40) 12/29/21 16:00 ALT 16 units/L (7-56) 12/29/21 16:00 Alkaline Phosphatase 120 units/L (35-129) 12/29/21 16:00 Troponin T < 0.010 ng/mL (0.00-0.029) 12/29/21 16:00 Total Protein 6.7 g/dL (6.3-8.2) 12/29/21 16:00 Albumin 4.8 g/dL (3.9-5) 12/29/21 16:00 Albumin/Globulin Ratio 2.5 % 12/29/21 16:00 Triglycerides 139 mg/dL (2-149) 12/30/21 10:12 Cholesterol 243 mg/dL (50-199) H 12/30/21 10:12 LDL Cholesterol Direct 156 mg/dL (50-130) H 12/30/21 10:12 HDL Cholesterol 61 mg/dL (40-59) H 12/30/21 10:12 Cholesterol/HDL Ratio 3.98 % 12/30/21 10:12 Urine Color Straw (Yellow) 12/29/21 17:50 Urine Turbidity Clear (Clear) 12/29/21 17:50 Specific [place] (Man) 1.005 (1.003-1.030) 12/29/21 17:50 Ur Protein (Man) 1+ mg/dL (Negative) 12/29/21 17:50 Ur Ketones (Man) 15 (Negative) 12/29/21 17:50 Urine Bilirubin (Man) Negative (Negative) 12/29/21 17:50 Urine WBC (Auto) < 1.0 /HPF (0.0-6.0) 12/29/21 17:50 Urine RBC (Auto) 1.0 /HPF (0.0-6.0) 12/29/21 17:50 Urine RBC (Manual) Negative (Negative) 12/29/21 17:50 Urine Mucus Few /HPF 12/29/21 17:50 Urine Opiates Screen Negative 12/29/21 18:11 Urine Methadone Screen Negative 12/29/21 18:11 Ur Barbiturates Screen Negative 12/29/21 18:11 Ur Phencyclidine Scrn Negative 12/29/21 18:11 Ur Amphetamines Screen Negative 12/29/21 18:11 U Benzodiazepines Scrn Negative 12/29/21 18:11 Urine Cocaine Screen Negative 12/29/21 18:11 U Marijuana (THC) Screen Negative 12/29/21 18:11 Drugs of Abuse Note Disclamer 12/29/21 18:11 Ibrahim/IV: Voiding Method Indwelling Catheter Active Medications - Current Medications Current Medications: Generic Name Dose Route Start Last Admin Trade Name Freq PRN Reason Stop Dose Admin Acetaminophen 650 mg 12/29/21 21:53 Acetaminophen 325 Mg Tab PO Q4H PRN Pain, Mild (1-3) Acetaminophen 650 mg 12/29/21 21:53 Acetaminophen 650 Mg Rect Supp [place] Q6H PRN Pain MILD(1-3)/Fever >100.5/WAGNER Albuterol 2.5 mg 01/01/22 17:02 Albuterol 2.5 Mg/3 Ml Nebu IH Q6HRT PRN Shortness Of Breath Aspirin 81 mg 01/01/22 09:00 01/03/22 09:55 Aspirin Ec 81 Mg Tab PO 81 mg QDAY RUBI Administration Atorvastatin Calcium 40 mg 12/29/21 22:00 01/03/22 23:02 Atorvastatin 40 Mg Tab PO 40 mg QHS RUBI Administration Bisacodyl 10 mg 12/29/21 21:53 Bisacodyl 10 Mg Rect Supp NJ QDAY PRN Constipation Dextrose 50 ml 12/29/21 21:53 Dextrose 50% In Water (25gm) 50 Ml Syringe IV Q30MIN PRN Hypoglycemia Protocol Famotidine 20 mg 01/01/22 10:00 01/03/22 09:56 Famotidine 20 Mg Tab PO 20 mg QDAY RUBI Administration Haloperidol Lactate 5 mg 12/30/21 12:09 12/31/21 08:21 Haloperidol Lactate 5 Mg/1 Ml Inj IV 5 mg Q6H PRN Administration Agitation Hydralazine HCl 10 mg 12/30/21 09:31 Hydralazine 20 Mg/1 Ml Inj IV Q6H PRN SBP >/=170; DBP >/=100 Insulin Human Lispro 0 unit 01/02/22 11:30 01/04/22 06:50 Insulin Lispro 100 Unit/Ml SUB-Q 1 unit ACHS RUBI Administration Protocol Magnesium Hydroxide 30 ml 12/29/21 21:53 Magnesium Hydroxide (Mom) Oral Liqd Udc PO Q4H PRN Constipation Metoclopramide HCl 10 mg 12/29/21 21:53 Metoclopramide 10 Mg Tab PO Q6H PRN Nausea And Vomiting Nicotine 14 mg 12/31/21 10:00 01/03/22 09:55 Nicotine 14 Mg/24 Hr Patch TD 14 mg QDAY RUBI Administration Ondansetron HCl 4 mg 12/29/21 21:53 Ondansetron 4 Mg/2 Ml Inj IV Q8H PRN Nausea And Vomiting Sodium Chloride 10 ml 12/29/21 22:00 01/03/22 23:03 Sodium Chloride 0.9% 10 Ml Flush Syringe IV 10 ml BID RUBI Administration Sodium Chloride 10 ml 12/29/21 21:53 Sodium Chloride 0.9% 10 Ml Flush Syringe IV PRN PRN LINE FLUSH Nutrition/Malnutrition Assess - Dietary Evaluation Nutrition/Malnutrition Findings: Nutrition Notes Start: 12/30/21 16:25 Freq: Status: Active Protocol: Document 12/31/21 14:42 RICHIE (Rec: 12/31/21 15:10 RICHIE [id number]) Nutrition Notes Need for Assessment generated from: simonizer,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 Current Diet Pureed Diet (since L 12/31). Labs/Tests 12/31: BUN 26. Pertinent Medications 12/31: Nutritionally unremarkable. Height 5 ft 3 in Weight 57 kg [place] Body Weight (kg) 56.36 BMI 22.2 Intake Prior to Admission Good Weight change and time frame Pt states being unsure if loss body weight STITCHDOWN THREAD LASTER. No body weight change reported in 1 day. Weight Status Appropriate Subjective/Other Information RD consult for difficulty chewing, skin risk and risk of malnutrition assessments. Diet advanced to PO as per MATCHER recommendation, No reports available on Pt's PO intake of meals at the time, will assess at F/U. I will prescribe dietary supplements to compensate for possible or insufficient PO intake of meals during LOS. MATCHER note on 12/31/21 10:46: Reassessment of the patient's swallowing function was addressed. Patient is safe for a pureed diet with thins. Will continue to follow to ensure continued safety. Informed the patient's nurse of diet recommendations. - END OF NOTE. Pt is on Room Air, O2 saturation @ 99%, according to Physical Assessment History notes. Pt has missing teeth, according to Physical Assessment History notes. Pt shows no signs of concern for skin risk at the time, according to Physical Assessment History notes. Pt shows no signs of concern for risk of malnutrition at the time, according to Physical Assessment History notes. Difficulty chewing has been addressed by MATCHER recommendation, I will disregard this concern at this time. Pt still in critical condition , not a candidate for Nutrition Education at the time, will assess feasibility on F/U. Percent of energy/protein needs met: Prescribed Pureed Diet provides for energy/protein needs (1,804 Kcal/77 g) during LOS; additionally, Dietary Supplements will compensate for possible poor or insufficient PO intake of meals with 440 Kcal and 20 g of protein. Burn Absent Trauma Absent GI Symptoms None Difficulty In Swallowing,Chewing Food Allergy No Skin Integrity/Comment Assessment WNL. Minimum of two criteria No Fluid Accumulation N/A Reduced Pollution Control Chemist Strength N/A (non-severe) Protein-Calorie Malnutrition N\\A #2 Nutrition Diagnosis Predicted suboptimal energy intake Etiology Possibly secondary to CVA. As Evidenced by Signs and Symptoms No reports available on Pt's PO intake of meals at the time , will assess at F/U. #1 Nutrition Diagnosis Swallowing difficulty,Biting/ Chewing (masticatory) difficulty Etiology Possibly secondary to CVA. As Evidenced by Signs and Symptoms MATCHER note on 12/31/21 10:46: Reassessment of the patient's swallowing function was addressed. Patient is safe for a pureed diet with thins. Will continue to follow to ensure continued safety. Informed the patient's nurse of diet recommendations. - END OF NOTE. Is patient on ventilator? No Is Patient Ambulatory and/or Out of Bed Yes REE-([place]-St. Jeor-ambulatory/OOB) [ 1651.169 NUTR.[id number]] Kcal/Kg value to use for calculation 24 Approximate Energy Requirements Using 1368 kcal/Kg Calculation Used for Recommendations Kcal/kg Additional Notes Protein: 0.8-1 g/Kg ABW; 46-57 g/day. Fluids: 1 ml/Kcal, or as per MD. Nutrition Intervention Change Diet Order: Continue Pureed Diet as tolerated. Add Supplement/Snack (indicate name/kcal Start 8 fl oz Glucerna; BID. /protein ) Provides kCal: 440 Provides Protein (gm) 20 Goal #1 Compensate, through dietary supplementation, for possible poor or insufficient PO intake of meals during LOS. Goal #2 Facilitate PO intake of meals with elemental, textural, or mechanical modification during LOS. Follow-Up By: 01/07/22 Additional Comments Continue monitoring food tolerance, %PO intake of meals , dietary supplements, and BM.
--- NOTE | 2022-01-04 17:27 | Vascular Lab Report ---
DUPLEX DOPPLER LOWER EXTREMITY VEINS, BILATERAL INDICATION / CLINICAL INFORMATION: dvt. swelling TECHNIQUE: Duplex doppler imaging was performed through the veins of both lower extremities using venous brett wicho and other maneuvers. COMPARISON: None available. FINDINGS: RIGHT COMMON FEMORAL VEIN: Negative. RIGHT FEMORAL VEIN: Negative. RIGHT POPLITEAL VEIN: Negative. RIGHT CALF VEINS: Negative. LEFT COMMON FEMORAL VEIN: Negative. LEFT FEMORAL VEIN: Negative. LEFT POPLITEAL VEIN: Negative. LEFT CALF VEINS: Negative. ADDITIONAL FINDINGS: None. IMPRESSION: 1. No sonographic evidence for DVT in either lower extremity. Signer Name: Dale Fuentes MD Signed: 01/04/2022 5:23 PM Workstation Name: [id number]
[2022-01-04] MEDS: NICOTINE 14 MG/24 HR PATCH TD SCH (17:32)
[2022-01-04] MEDS: FAMOTIDINE 20 MG TAB PO SCH (17:32)
[2022-01-04] MEDS: ASPIRIN EC 81 MG TAB PO SCH (17:32)
--- NOTE | 2022-01-04 20:22 | Progress Note ---
Assessment and Plan 61 yo male with htn, dm, stroke (affected the left extremities w/ recovery), tobacco abuse, who presented with acute onset of right arm weakness and some difficulty with his speech. He received IV-tPA in the ED and a discussion was held in the ED regarding the need for any acute intervention (YOGI). Patient is noted with difficulty expressing the clinical history 1. Acute Ischemic Stroke (cardioembolic; post-tPA) w/ right facial droop w/ right arm weakness - repeat nchct ordered and if it reveals stable findings, then may initiate eliquis and d/c aspirin; continue statin therapy for a goal ldl of 70; pt/ot/st/swallow evaluation/monitoring; nihss q4 hours; telemetry; aim for normotension; stroke education upon discharge; f/u w/ stroke neurology 4 weeks post-discharge. 2. Hypercoaguable state - unclear etiology; recommend Hematology evaluaiton for primary/secondary causes. 3. Hypertension - sbp <140 mmHg / dbp <80 mmHg. 4. DM - aim for euglcemia. 5. Hx of completed stroke - see #1 above. 6. Cerebrovascular Disease - antiplatelet/statin therapy. 7. Tobacco abuse - outpatient smoking cessation via pcp. Florian Thomason MD Neurology [id number] Subjective Date of service: 01/04/22 Principal diagnosis: Acute CVA s/p tpA; AMS; HTN; DM II; Leucocytosis; Hyperlipidemia; Asthma Interval history: Noted on SOTO with possible thrombus and Cardiology has recommended Eliquis. Objective - Vital Sign Vital Signs - 12hr 01/04/22 01/04/22 01/04/22 10:00 11:20 12:00 Temperature Temperature [ 97.9 F Pre-Procedure] Pulse Rate Pulse Rate [ 84 Post-Procedure] Pulse Rate [Pre 90 -Procedure] Respiratory Rate Respiratory 16 Rate [Post- Procedure] Respiratory 19 Rate [Pre- Procedure] Blood Pressure Blood Pressure 96/33 [Post-Procedure ] Blood Pressure 140/76 [Pre-Procedure] O2 Sat by Pulse 97 Oximetry O2 Sat by Pulse 100 Oximetry [Post -Procedure] O2 Sat by Pulse 100 Oximetry [Pre- Procedure] 01/04/22 01/04/22 01/04/22 12:15 12:30 12:45 Temperature Temperature [ Pre-Procedure] Pulse Rate Pulse Rate [ 85 75 66 Post-Procedure] Pulse Rate [Pre -Procedure] Respiratory Rate Respiratory 12 17 17 Rate [Post- Procedure] Respiratory Rate [Pre- Procedure] Blood Pressure Blood Pressure 111/77 129/81 149/80 [Post-Procedure ] Blood Pressure [Pre-Procedure] O2 Sat by Pulse Oximetry O2 Sat by Pulse 94 94 94 Oximetry [Post -Procedure] O2 Sat by Pulse 96 96 96 Oximetry [Pre- Procedure] 01/04/22 01/04/22 01/04/22 13:07 15:35 19:00 Temperature 98.6 F 98 F Temperature [ Pre-Procedure] Pulse Rate 103 H 91 H Pulse Rate [ 68 Post-Procedure] Pulse Rate [Pre -Procedure] Respiratory 16 Rate Respiratory 14 Rate [Post- Procedure] Respiratory Rate [Pre- Procedure] Blood Pressure 150/89 Blood Pressure 145/80 [Post-Procedure ] Blood Pressure [Pre-Procedure] O2 Sat by Pulse 96 Oximetry O2 Sat by Pulse 99 Oximetry [Post -Procedure] O2 Sat by Pulse 96 Oximetry [Pre- Procedure] 01/04/22 19:23 Temperature Temperature [ Pre-Procedure] Pulse Rate 102 H Pulse Rate [ Post-Procedure] Pulse Rate [Pre -Procedure] Respiratory Rate Respiratory Rate [Post- Procedure] Respiratory Rate [Pre- Procedure] Blood Pressure 127/77 Blood Pressure [Post-Procedure ] Blood Pressure [Pre-Procedure] O2 Sat by Pulse 97 Oximetry O2 Sat by Pulse Oximetry [Post -Procedure] O2 Sat by Pulse Oximetry [Pre- Procedure] - Laboratory Findings CBC and BMP: 01/01/22 04:45 01/01/22 04:45 Abnormal Lab Findings: Abnormal Labs 12/29/21 12/29/21 12/29/21 16:00 16:27 17:23 WBC 11.2 H RBC 5.68 H Hgb 16.5 H Hct 50.4 H Lymph % (Auto) 11.3 L Seg Neutrophils % 84.9 H Seg Neutrophils # 9.5 H PT 16.0 H INR 1.15 H APTT 40.0 H ABG pO2 Oxyhemoglobin Sodium 135 L Carbon Dioxide 21 L BUN 25 H Creatinine Glucose 349 H POC Glucose Hemoglobin A1c Cholesterol LDL Cholesterol Direct HDL Cholesterol 12/29/21 12/30/21 12/30/21 19:42 04:30 08:37 WBC RBC Hgb Hct Lymph % (Auto) Seg Neutrophils % Seg Neutrophils # PT INR APTT ABG pO2 Oxyhemoglobin Sodium Carbon Dioxide 19 L BUN Creatinine Glucose 209 H POC Glucose 221 H 259 H Hemoglobin A1c Cholesterol LDL Cholesterol Direct HDL Cholesterol 12/30/21 12/30/21 12/30/21 10:12 10:12 10:46 WBC RBC Hgb Hct Lymph % (Auto) Seg Neutrophils % Seg Neutrophils # PT INR APTT ABG pO2 Oxyhemoglobin Sodium Carbon Dioxide BUN Creatinine Glucose POC Glucose 220 H Hemoglobin A1c 11.0 H Cholesterol 243 H LDL Cholesterol Direct 156 H HDL Cholesterol 61 H 12/30/21 12/31/21 12/31/21 17:37 04:18 04:18 WBC 14.5 H RBC 5.48 H Hgb 16.2 H Hct 48.6 H Lymph % (Auto) Seg Neutrophils % Seg Neutrophils # PT INR APTT ABG pO2 Oxyhemoglobin Sodium Carbon Dioxide BUN 26 H Creatinine Glucose POC Glucose 198 H Hemoglobin A1c Cholesterol LDL Cholesterol Direct HDL Cholesterol 12/31/21 01/01/22 01/01/22 11:49 04:45 04:45 WBC RBC 5.53 H Hgb 16.5 H Hct 48.8 H Lymph % (Auto) Seg Neutrophils % Seg Neutrophils # PT INR APTT ABG pO2 Oxyhemoglobin Sodium Carbon Dioxide BUN 25 H Creatinine 0.6 L Glucose 129 H POC Glucose 184 H Hemoglobin A1c Cholesterol LDL Cholesterol Direct HDL Cholesterol 01/01/22 01/01/22 01/01/22 06:06 07:40 18:40 WBC RBC Hgb Hct Lymph % (Auto) Seg Neutrophils % Seg Neutrophils # PT INR APTT ABG pO2 69.6 L Oxyhemoglobin 93.7 L Sodium Carbon Dioxide BUN Creatinine Glucose POC Glucose 118 H 113 H Hemoglobin A1c Cholesterol LDL Cholesterol Direct HDL Cholesterol
--- NOTE | 2022-01-04 23:15 | Cat Scan Report ---
CT HEAD WITHOUT CONTRAST INDICATION / CLINICAL INFORMATION: acute ischemic stroke; r/o hemorrhagic conversion. TECHNIQUE: CT head was performed without administration of intravenous contrast. All CT scans at this location are performed using CT dose reduction for ALARA by means of automated exposure control. COMPARISON: CT head 12/30/2021 FINDINGS: CEREBRAL HEMISPHERES: The region of infarction involving the left MCA distribution is reidentified. T he curvilinear focus of increased attenuation within the precentral sulcus is stable. Additional hypo attenuation within the left parieto-occipital white matter and right occipital cortex compatible with encephalomalacia is stable. Small lacunar infarction subinsular white matter on the right is stable. Additional small lacunar infarction within the right frontal white matter and semiovale is stable. HEMORRHAGE: None. CEREBELLUM / BRAINSTEM: No significant abnormality. ORBITS: No significant abnormality. SOFT TISSUES: No significant abnormality. SKULL: No significant abnormality. PARANASAL SINUSES / MASTOID AIR CELLS: Normal as visualized. ADDITIONAL FINDINGS: None. IMPRESSION: 1. Stable interval appearance of the brain. The curvilinear focus of increased attenuation in the reg ion of infarction left frontal lobe is unchanged. 2. Evolutionary changes of left frontal infarction. Signer Name: Paul Allen II, MD Signed: 01/04/2022 11:10 PM Workstation Name: [id number]
--- NOTE | 2022-01-05 07:54 | Discharge Summary ---
Providers - Providers Date of Admission: 12/29/21 21:02 Date of discharge: 01/05/22 Attending physician: VILMA ADAIR MD 12/29/21 21:53 Consult to Dietitian/Nutrition [CONS] Routine Physician Instructions: Reason For Exam: Reason for Consult: Diet education Consult to Physician [CONS] Routine Comment: Consulting Provider: MELODIE BEARDEN Physician Instructions: Reason For Exam: AMS, CVA Occupational Therapy Evaluate and Treat [CONS] Routine Comment: Reason For Exam: Neuro deficits Physical Therapy Evaluation and Treat [CONS] Routine Comment: Reason For Exam: Neuro deficits 12/29/21 22:04 Consult to Physician [CONS] Routine Comment: Consulting Provider: AJIT VALDIVIA Physician Instructions: Reason For Exam: CVA, S/P TPA 12/30/21 06:18 Speech Therapy Evaluation and Treat [CONS] Routine Reason For Exam: stroke; failed swallow screen 12/30/21 07:50 Consult to Physician [CONS] Urgent Comment: left mess. in the office/ martha Consulting Provider: GEMA ELKINS II Physician Instructions: Reason For Exam: complete occlusion of Rt. ICA 12/31/21 07:01 Speech Therapy Evaluation and Treat [CONS] Routine Reason For Exam: continued lethargy 12/31/21 14:17 Consult to Physician [CONS] Routine Comment: Consulting Provider: PAU CUI Physician Instructions: Reason For Exam: Tiny extracardiac Shunt from Echo 01/04/22 14:15 Consult to Physician [CONS] Routine Comment: Consulting Provider: MELODIE BEARDEN Physician Instructions: Reason For Exam: clearance for anticoagulation Primary care physician: ENVIRONMENTAL COMPLIANCE INSPECTOR Hospitalization Reason for admission: confusion Condition: Stable Hospital course: History of present illness: 61-year-old male with known history of hypertension, diabetes mellitus, previous CVA presenting to the emergency room today for evaluation of confusion. Most of the history was gotten from the ER staff as patient is while in the emergency room after the tPA administration. Confused after his tPA administration. And unable to give any history at this time. Symptoms were said to have started about 2 PM yesterday. He had difficulty holding objects with his right hand. He had also complained of weakness on his right lower extremity inability to see from his right eye. Work-up in the emergency room today CT scan of the head reveals chronic infarcts. 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 Patient was evaluated by the neurologist and subsequently had tPA. He was said to have become confused after the tPA administration. A repeat CT of the head was unremarkable. Assessment and plan: This is a 61-year-old male with known past medical history of HTN, DM, previous stroke, asthma, and Tobacco Dependence admitted for acute CVA s/p tPA Hospital Course to Date: 12/30: Patient with acute encephalopathy, follows commands intermittently. Pupils are round and reactive, with + gag/cough. Mild right-sided facial droop appreciated, patient moves all his extremities. S/p IV Haldol this am due to increase agitation and is now on wrist restraints from safety. Imaguings reviewed, CTA head/neck revealed complete occlusion of the right ICA. Branden roSurgery consulted. Neurology is also following. Repeat CT head/brain and MRI pending. Will also check alcohol and ammonia level. Continue PRN Haldol for agitation. 2D echo pending. SSI initiated due to hyperglycemia. PT/OT/Speech also consulted. 12/31: Mentation improved. AAO, following commands. Repeat CT head with small acute evolving left MCA distribution infarction involving left frontal lobe and possible petechial hemorrhage. MRI brain and Neurology consult pending. Will hold ASA and AC until cleared by Neurology. 2D echo reviewed, suggestive of tiny extracardiac shunt, cardiology consulted. Speech cleared patient for pureed diet, IVF d/gibson. Continue PT/OT. D/w CCM, patient is stable for transfer to Telemetry. 01/01: Patient seen and examined clinically improving speech is improved. Tolerating diet. Cardiology was consulted as is considered that this is likely cardioembolic stroke given the findings on MRI. A SOTO is planned as TTE did detect some intracardiac shunt. As a result patient will remain in-house continue aggressive PT OT. Discharge planning is also continued based on what finding one half. Will defer anticoagulation to cardiology. As for now continue aspirin and statin therapy. 01/02: Patient seen and examined overnight patient was intermittently confused trying to get out of bed could be secondary to sundowning. Was also noted to have an episode of low blood sugar which corrected rapidly. Will decrease insulin sliding scale. Will ensure patient is obtaining adequate on urinary nutrition. Patient is pending SOTO at this time. 01/03: Patient remains in-house secondary to Repeat CT head showed small acute evolving left MCA distribution infarction involving left frontal lobe and possible petechial hemorrhage suggestive of tiny With the findings on MRI, this is possibly cardio-embolic CVA. A small intracardiac shunt was noted on surface echocardiogram. As a result a SOTO is recommended to be done on Tuesday. Speech therapy evaluation noted patient continues on pure and thin liquid. Mental status remains stable. We will continue current management of aspirin and statin we will not escalate to any anticoagulation secondary to concern for evolving stroke and petechial hemorrhage noted in previous imaging. 01/04: Patient seen and examined no new complaints, patient underwent echocardiogram SOTO today. Per cardiology documentation "this was done done today which showed mobile, filamentous echodensity attached to the interatrial septum. This is probably attached to thrombus that is occluding the PFO. Agitated saline injection did not show a [id number] shunt. Please obtain a venous Doppler ultrasound ultrasound of lower extremities to rule rule out any DVTs. I would recommend anticoagulation with apixaban if there is no contraindication after clearance from neurology. He will need a follow-up echo in 1 to 2 months with a bubble study to see the patency of PFO, and if patent will need a SOTO and closure." I have gone ahead and consulted neurology to reevaluate the patient and give us a clearance for initiation of apixaban. I also went ahead and ordered the Doppler of the lower extremity. Once clearance is obtained patient can be safely discharged and follow-up recommendation as outlined above. Patient doing well. No chest pain no shortness of breath no orthopnea or PND. He had his SOTO done today he tolerated the procedure well without any complications. 01/05: CT brain negative for bleed, continued evolutionary changes of diagnosed cva. Neuro ok with anticoagulation, will d/c today with rx for eliquis. Assessment and Plan #Acute CVA s/p tPA #Acute metabolic encephalopathy #S/p Fall - Presented with AMS, right sided facial droop and right hemiplegia - CT head reveals chronic infarcts; CTA Neck/head reveals completed occlusion of the intracranial right ICA required collateral flow from the right posterior communicating artery. - TeleNeurology saw patient in the ED - Patient received tPA - Patient remains encephalopthic with periods of agitation, moves all extremities with mild right sided facial droop - Per patient's friend at the bedside, patient does not drink alcohol. UDS is negative - Repeat CT head with small acute evolving left MCA distribution infarction involving left frontal lobe and possible petechial hemorrhage - MRI brain pending - NeuroSurgery was also consulted due to occlusion in the NASIR - 2D Echo reviewed, suggestive of tiny extracardiac shunt, cardiology consulted - Orders placed for Lipid panel - Statin initiated - ASA and prophy AC to start tomorrow, 24hrs post TPA - Continue Neuro check per protocol - PT/OT/Speech ordered - Neurology also consulted - Aspiration and Fall precautions - PRN Haldol for agitation #Intra-atrial thrombus - SOTO demonstrates intraatrial thrombus abutting PFO in the left atrium per report - per neurology, ok with eliquis if no intracranial bleed on repeat CT. -CT brain negative for bleed - d/c home with Eliquis rx. #H/o Asthma #Tobacco Dependence - Patient is stable on RA, wheezing appreciated - Per patient's close friend at the bedside, patient is a daily cigarettes smoker - Continue PRN nebx treatment for wheezing - O2 supplementation as needed - Continue SPO2 monitoring for SPO2 goal above 92% - Smoking Cessation education once patient is more coherent and appropriate - Nicotine patch Qday #Hypertension - BP stable - Allow permissive hypertension to promote perfusion - Hold all antihypertensive agents for now - Continue blood pressure monitor per protocol, - maintain SBP less than 180 adn DBP less than 110 #Type 2 Diabetes with Hyperglycemia - HgbA1c- 11.0 - BG check and SSI Q6hrs - Lantus qhs - Avoid hypoglycemia - While critically ill target blood glucose of 140-180 #GI/DVT Prophylaxis - PPI- Pepcid - SCDs to bilateral lower extremities while in bed Disposition: 06 HOME HEALTH CARE SERVICE Final Discharge Diagnosis (Prints w/discharge instructions): Acute CVA s/p tpa, acute metabolic encephlopathy, s/p fall, tobacco dependence, intra-atrial thrombus, hypertension. Time spent for discharge: 35 Core Measure Documentation - Palliative Care Palliative Care/ Comfort Measures: Not Applicable - Core Measures Any of the following diagnoses?: stroke, none - Stroke Discharge Requirements Statin for LDL = or >70 mg/dl on DC: Yes Anticoag for atrial fib/atrial flutter: Yes Antithrombotic for ischemic stroke: Yes Exam - Physical Exam Narrative exam: - Physical exam Narrative exam: General appearance: Present: no acute distress, well-nourished - EENT Eyes: Present: PERRL, EOM intact ENT: hearing intact - Neck Neck: Present: normal ROM - Respiratory Respiratory effort: normal Respiratory: bilateral: CTA - Cardiovascular Rhythm: regular Heart Sounds: Present: S1 & S2 - Extremities Extremities: no ischemia, pulses intact, pulses symmetrical Peripheral Pulses: within normal limits - Abdominal General gastrointestinal: soft, non-distended, normal bowel sounds - Integumentary Integumentary: Present: clear, warm, dry - Psychiatric Psychiatric: appropriate mood/affect, cooperative - Neurologic Neurologic: CNII-XII intact, moves all extremities - Allied Health Allied health notes reviewed: nursing - Constitutional Vitals: Temp Pulse Resp BP Pulse Ox 98.4 F 92 H 18 130/76 97 01/05/22 04:49 01/05/22 06:09 01/05/22 04:49 01/05/22 04:49 01/05/22 04:49 Plan Follow up with: PRIMARY CARE, [Primary Care Provider] - 3-5 Days Prescriptions: AtorvaSTATin [Lipitor] 40 mg PO QHS 30 Days #30 tablet Apixaban [Eliquis] 10 mg PO DAILY 7 Days #14 tab Apixaban [Eliquis] 5 mg PO BID 30 Days #60 tab Aspirin EC [Halfprin EC] 81 mg PO QDAY 30 Days #30 tablet
[2022-01-05] MEDS: ASPIRIN EC 81 MG TAB PO SCH (09:16)
[2022-01-05] MEDS: NICOTINE 14 MG/24 HR PATCH TD SCH (09:16)
[2022-01-05] MEDS: FAMOTIDINE 20 MG TAB PO SCH (09:16)
[2022-01-05] MEDS: INSULIN LISPRO 100 UNIT/ML SUB-Q SCH ×4 (09:16→21:15)
--- NOTE | 2022-01-05 11:57 | Progress Note ---
Assessment and Plan - Patient Problems (1) Abnormal echocardiogram Current Visit: Yes Status: Acute Plan to address problem: Patient's SOTO showed evidence of a small PFO with possible associated thrombus. Eliquis treatment has been recommended, but the timing of initiation of anticoagulation in the setting of acute CVA will be deferred to the neurologist. Subjective Date of service: 01/05/22 Principal diagnosis: Acute CVA Interval history: Patient is comfortable in no acute distress, no new cardiac complaints reported. Objective Vital Signs Temp Pulse Pulse Resp Resp BP BP 01/05/22 08:29 01/05/22 07:59 97.1 F L 81 18 112/72 01/05/22 06:09 92 H 01/05/22 04:49 98.4 F 76 18 130/76 01/05/22 02:09 96 H 01/04/22 23:44 97.8 F 83 18 148/61 01/04/22 22:00 79 01/04/22 19:23 102 H 127/77 01/04/22 19:00 98 F 91 H 01/04/22 15:35 98.6 F 103 H 16 150/89 01/04/22 13:07 68 14 145/80 01/04/22 12:45 66 17 149/80 01/04/22 12:30 75 17 129/81 01/04/22 12:15 85 12 111/77 01/04/22 12:00 84 16 96/33 Pulse Ox Pulse Ox Pulse Ox 01/05/22 08:29 96 01/05/22 07:59 96 01/05/22 06:09 01/05/22 04:49 97 01/05/22 02:09 01/04/22 23:44 95 01/04/22 22:00 95 01/04/22 19:23 97 01/04/22 19:00 01/04/22 15:35 96 01/04/22 13:07 99 96 01/04/22 12:45 94 96 01/04/22 12:30 94 96 01/04/22 12:15 94 96 01/04/22 12:00 100 - Physical Examination General: No Apparent Distress HEENT: Positive: PERRL Neck: Positive: neck supple. Negative: JVD/HJR Cardiac: Positive: Reg Rate and Rhythm Lungs: Positive: Decreased Breath Sounds Neuro: Positive: Weakness Abdomen: Positive: Soft Skin: Negative: Rash Extremities: Absent: edema - Imaging and Cardiology Echo: report reviewed (Normal EF possible possible extracardiac shunt) Chamber hypertrophy or enlargement: left atrial enlargement (Positive) Repolarization changes or abnormalities: early repolarization (normal variant) - Allied health notes Allied health notes reviewed: nursing
--- NOTE | 2022-01-05 12:09 | Progress Note ---
Assessment and Plan Acute CVA s/p rpA Acute encephalopathy Altered mental Status HTN DM II Leucocytosis Hyperlipidemia H/O Asthma - follow SOTO report - no new issues otherwise, continue care as bnelow; - continue MEDICAL ADMINISTRATIVE TECHNICIAN evaluation and advance diet per recommendations - follow MRI - increase ambulation; PT/OT/ROM exercises - secondary prevention - continue BP control and statin therapy re: CVA - neurology evaluation ongoing (follow MRI) - continue accuchecks with glycemic control per SSI for target blood glucose < 180 mg/dL - prn supplemental oxygen for target O2 sat's > 90% acutely - aspiration precautions - prn bronchodilators with pulmonary hygiene per RT - avoid nephrotoxins, renally dose all medications - void benzodiazepine's, reduce the possibility of delirium - AB's per ID rec's - prn analgesia per pain score - Maintenance of sleep-wake cycle, avoid delirium - fall precautions - G.I. & VTE prophylaxis - mobility protocols for pressure ulcer prophylaxis - Monitor hemodynamics closely - continue other care per attending / other consultants - discharge planning ongoing concurrently .... Re-evaluate in am & prn Subjective Date of service: 01/05/22 Principal diagnosis: Acute CVA s/p tpA; AMS; HTN; DM II; Leucocytosis; Hyperlipidemia; Asthma Interval history: Patient is seen today for: Acute CVA s/p tpA; Acute encephalopathy; HTN; DM II; Leucocytosis; Hyperlipidemia; H/O Asthma Seen and examined at bedside; 24hour events reviewed; nursing and respiratory care staff consulted; no adverse overnight events reported to me; resting in bed; Objective Vital Signs - 12hr 01/05/22 01/05/22 01/05/22 02:09 04:49 06:09 Temperature 98.4 F Pulse Rate 96 H 76 92 H Respiratory 18 Rate Blood Pressure 130/76 O2 Sat by Pulse 97 Oximetry 01/05/22 01/05/22 07:59 08:29 Temperature 97.1 F L Pulse Rate 81 Respiratory 18 Rate Blood Pressure 112/72 O2 Sat by Pulse 96 96 Oximetry Constitutional: no acute distress, alert, other (sitting up in bed with garbled speech) Eyes: non-icteric ENT: oropharynx moist Neck: supple, no lymphadenopathy, no JVD Effort: normal Ascultation: Bilateral: clear, diminished breath sounds Percussion: Bilateral: not dull Cardiovascular: regular rate and rhythm Gastrointestinal: normoactive bowel sounds, soft, non-tender, non-distended Integumentary: normal Extremities: no cyanosis, no edema, pink and warm, pulses normal Neurologic: pupils equal and round, other (non focal, intermittent confusion) Psychiatric: mood appropriate, affect normal CBC and BMP: 01/01/22 04:45 01/01/22 04:45 ABG, PT/INR, D-dimer: ABG ABG pH 7.437 pH Units (7.350-7.450) 01/01/22 18:40 ABG pCO2 33.8 mm Hg 01/01/22 18:40 ABG pO2 69.6 mm Hg (80.0-90.0) L 01/01/22 18:40 ABG O2 Saturation 95.6 % (95.0-99.0) 01/01/22 18:40 PT/INR, D-dimer PT 13.4 Sec. (12.2-14.9) 12/30/21 10:12 INR 0.92 (0.87-1.13) 12/30/21 10:12 Abnormal lab findings: Abnormal Labs 12/29/21 12/29/21 12/29/21 16:00 16:27 17:23 WBC 11.2 H RBC 5.68 H Hgb 16.5 H Hct 50.4 H Lymph % (Auto) 11.3 L Seg Neutrophils % 84.9 H Seg Neutrophils # 9.5 H PT 16.0 H INR 1.15 H APTT 40.0 H ABG pO2 Oxyhemoglobin Sodium 135 L Carbon Dioxide 21 L BUN 25 H Creatinine Glucose 349 H POC Glucose Hemoglobin A1c Cholesterol LDL Cholesterol Direct HDL Cholesterol 12/29/21 12/30/21 12/30/21 19:42 04:30 08:37 WBC RBC Hgb Hct Lymph % (Auto) Seg Neutrophils % Seg Neutrophils # PT INR APTT ABG pO2 Oxyhemoglobin Sodium Carbon Dioxide 19 L BUN Creatinine Glucose 209 H POC Glucose 221 H 259 H Hemoglobin A1c Cholesterol LDL Cholesterol Direct HDL Cholesterol 12/30/21 12/30/21 12/30/21 10:12 10:12 10:46 WBC RBC Hgb Hct Lymph % (Auto) Seg Neutrophils % Seg Neutrophils # PT INR APTT ABG pO2 Oxyhemoglobin Sodium Carbon Dioxide BUN Creatinine Glucose POC Glucose 220 H Hemoglobin A1c 11.0 H Cholesterol 243 H LDL Cholesterol Direct 156 H HDL Cholesterol 61 H 12/30/21 12/31/21 12/31/21 17:37 04:18 04:18 WBC 14.5 H RBC 5.48 H Hgb 16.2 H Hct 48.6 H Lymph % (Auto) Seg Neutrophils % Seg Neutrophils # PT INR APTT ABG pO2 Oxyhemoglobin Sodium Carbon Dioxide BUN 26 H Creatinine Glucose POC Glucose 198 H Hemoglobin A1c Cholesterol LDL Cholesterol Direct HDL Cholesterol 12/31/21 01/01/22 01/01/22 11:49 04:45 04:45 WBC RBC 5.53 H Hgb 16.5 H Hct 48.8 H Lymph % (Auto) Seg Neutrophils % Seg Neutrophils # PT INR APTT ABG pO2 Oxyhemoglobin Sodium Carbon Dioxide BUN 25 H Creatinine 0.6 L Glucose 129 H POC Glucose 184 H Hemoglobin A1c Cholesterol LDL Cholesterol Direct HDL Cholesterol 01/01/22 01/01/22 01/01/22 06:06 07:40 18:40 WBC RBC Hgb Hct Lymph % (Auto) Seg Neutrophils % Seg Neutrophils # PT INR APTT ABG pO2 69.6 L Oxyhemoglobin 93.7 L Sodium Carbon Dioxide BUN Creatinine Glucose POC Glucose 118 H 113 H Hemoglobin A1c Cholesterol LDL Cholesterol Direct HDL Cholesterol Allied health notes reviewed: nursing
[2022-01-06] MEDS: INSULIN LISPRO 100 UNIT/ML SUB-Q SCH ×2 (08:49→12:13)
--- NOTE | 2022-01-06 10:06 | Progress Note ---
Assessment and Plan 61-year-old male with known history of hypertension, diabetes mellitus, previous CVA presenting to the emergency room today for evaluation of confusion. Most of the history was obtained from the ER staff as patient is while in the emergency room after the tPA administration. Confused after his tPA administration. Symptoms were said to have started about 2 PM yesterday. He had difficulty holding objects with his right hand. He had also complained of weakness on his right lower extremity and inability to see from his right eye. Work-up in the emergency room, CT scan of the head reveals chronic infarcts. 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 Patient was evaluated by the neurologist and subsequently had tPA. He was said to have become confused after the tPA administration. A repeat CT of the head was unremarkable. Patient has history of smoking 1 pack x 30 years. Counseled to stop smoking. Denies alcohol or drug abuse. 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 No children. No known drug allergies. atient sleeping. Patient is on room air. O2 saturation 94%. No acute respiratory distress. Patient afebrile, No leukocytosis, Blood pressure 166/83 , Pulse 83 , respirations 18. Chest xray 12/29/21 reported no acute findings. Venous doppler studies of Lower extremities 01/04/22 reported No sonographic evidence of DVT Patient presently on S/C Insulin and Famotidine. Patient is on Famotidine, Habitrol patch. Recommend DVT prophylaxis Recommend albuterol inhaler PRN for shortness of breath. C - Patient Problems (1) Altered mental status Status: Acute Plan to address problem: Management as per primary care and neurology. (2) Cardioembolic stroke Status: Suspected Plan to address problem: Management as per primary care and neurology. (3) COPD with acute exacerbation Status: Acute Plan to address problem: Albuterol/atrovent aerosol treatments. PFTs as out patient, If pable to do it. (4) Diabetes mellitus type 2 in nonobese Status: Acute Plan to address problem: Management as per primary care. (5) Hypertension Status: Chronic Plan to address problem: Management as per primary care. (6) Nicotine dependence Status: Acute Qualifiers: Nicotine product type: cigarettes Substance use status: in withdrawal Qualified Code(s): F17.213 - Nicotine dependence, cigarettes, with withdrawal Plan to address problem: Patient is on Habitrol patch. Counseled to stop smoking. Albuterol inhaler 2 puffs po q 6 hours prn for shortness of breath. PFTs as out patient. ABGs on room air. Subjective Date of service: 01/06/22 Principal diagnosis: Acute CVA s/p tpA; AMS; HTN; DM II; Leucocytosis; Hyperlipidemia; Asthma Interval history: 61-year-old male with known history of hypertension, diabetes mellitus, previous CVA presenting to the emergency room today for evaluation of confusion. Most of the history was obtained from the ER staff as patient is while in the emergency room after the tPA administration. Confused after his tPA administration. Symptoms were said to have started about 2 PM yesterday. He had difficulty holding objects with his right hand. He had also complained of weakness on his right lower extremity and inability to see from his right eye. Work-up in the emergency room, CT scan of the head reveals chronic infarcts. 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 Patient was evaluated by the neurologist and subsequently had tPA. He was said to have become confused after the tPA administration. A repeat CT of the head was unremarkable. Patient has history of smoking 1 pack x 30 years. Counseled to stop smoking. Denies alcohol or drug abuse. 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 No children. No known drug allergies. Patient sleeping. Patient is on room air. O2 saturation 94%. No acute respiratory distress. Patient afebrile, No leukocytosis, Blood pressure 166/83 , Pulse 83 , respirations 18. Chest xray 12/29/21 reported no acute findings. Venous doppler studies of Lower extremities 01/04/22 reported No sonographic evidence of DVT Patient presently on S/C Insulin and Famotidine. Patient is on Famotidine, Habitrol patch. Recommend DVT prophylaxis Recommend albuterol inhaler PRN for shortness of breath. Objective Vital Signs - 12hr 01/05/22 01/05/22 01/06/22 23:05 23:19 03:41 Temperature 97.9 F 97.8 F Pulse Rate 88 81 Respiratory 16 18 Rate Blood Pressure 132/62 139/69 O2 Sat by Pulse 94 96 95 Oximetry 01/06/22 07:54 Temperature 98.0 F Pulse Rate 73 Respiratory 18 Rate Blood Pressure 139/70 O2 Sat by Pulse 97 Oximetry Constitutional: no acute distress, asleep Eyes: non-icteric ENT: oropharynx moist Neck: supple, no lymphadenopathy, no JVD Effort: normal Ascultation: Bilateral: diminished breath sounds Percussion: Bilateral: not dull Cardiovascular: regular rate and rhythm Gastrointestinal: normoactive bowel sounds, soft, non-tender, non-distended Integumentary: normal Extremities: no cyanosis, no edema, pink and warm, pulses normal Neurologic: pupils equal and round, other (Sleeping at this time.) Psychiatric: mood appropriate (Sleeping at this time.), other CBC and BMP: 01/01/22 04:45 01/01/22 04:45 ABG, PT/INR, D-dimer: ABG ABG pH 7.437 pH Units (7.350-7.450) 01/01/22 18:40 ABG pCO2 33.8 mm Hg 01/01/22 18:40 ABG pO2 69.6 mm Hg (80.0-90.0) L 01/01/22 18:40 ABG O2 Saturation 95.6 % (95.0-99.0) 01/01/22 18:40 PT/INR, D-dimer PT 13.4 Sec. (12.2-14.9) 12/30/21 10:12 INR 0.92 (0.87-1.13) 12/30/21 10:12 Abnormal lab findings: Abnormal Labs 12/29/21 12/29/21 12/29/21 16:00 16:27 17:23 WBC 11.2 H RBC 5.68 H Hgb 16.5 H Hct 50.4 H Lymph % (Auto) 11.3 L Seg Neutrophils % 84.9 H Seg Neutrophils # 9.5 H PT 16.0 H INR 1.15 H APTT 40.0 H ABG pO2 Oxyhemoglobin Sodium 135 L Carbon Dioxide 21 L BUN 25 H Creatinine Glucose 349 H POC Glucose Hemoglobin A1c Cholesterol LDL Cholesterol Direct HDL Cholesterol 12/29/21 12/30/21 12/30/21 19:42 04:30 08:37 WBC RBC Hgb Hct Lymph % (Auto) Seg Neutrophils % Seg Neutrophils # PT INR APTT ABG pO2 Oxyhemoglobin Sodium Carbon Dioxide 19 L BUN Creatinine Glucose 209 H POC Glucose 221 H 259 H Hemoglobin A1c Cholesterol LDL Cholesterol Direct HDL Cholesterol 12/30/21 12/30/21 12/30/21 10:12 10:12 10:46 WBC RBC Hgb Hct Lymph % (Auto) Seg Neutrophils % Seg Neutrophils # PT INR APTT ABG pO2 Oxyhemoglobin Sodium Carbon Dioxide BUN Creatinine Glucose POC Glucose 220 H Hemoglobin A1c 11.0 H Cholesterol 243 H LDL Cholesterol Direct 156 H HDL Cholesterol 61 H 12/30/21 12/31/21 12/31/21 17:37 04:18 04:18 WBC 14.5 H RBC 5.48 H Hgb 16.2 H Hct 48.6 H Lymph % (Auto) Seg Neutrophils % Seg Neutrophils # PT INR APTT ABG pO2 Oxyhemoglobin Sodium Carbon Dioxide BUN 26 H Creatinine Glucose POC Glucose 198 H Hemoglobin A1c Cholesterol LDL Cholesterol Direct HDL Cholesterol 12/31/21 01/01/22 01/01/22 11:49 04:45 04:45 WBC RBC 5.53 H Hgb 16.5 H Hct 48.8 H Lymph % (Auto) Seg Neutrophils % Seg Neutrophils # PT INR APTT ABG pO2 Oxyhemoglobin Sodium Carbon Dioxide BUN 25 H Creatinine 0.6 L Glucose 129 H POC Glucose 184 H Hemoglobin A1c Cholesterol LDL Cholesterol Direct HDL Cholesterol 01/01/22 01/01/22 01/01/22 06:06 07:40 18:40 WBC RBC Hgb Hct Lymph % (Auto) Seg Neutrophils % Seg Neutrophils # PT INR APTT ABG pO2 69.6 L Oxyhemoglobin 93.7 L Sodium Carbon Dioxide BUN Creatinine Glucose POC Glucose 118 H 113 H Hemoglobin A1c Cholesterol LDL Cholesterol Direct HDL Cholesterol Prior PFT's, U/S of legs: report reviewed, image reviewed Additional Studies: DUPLEX DOPPLER LOWER EXTREMITY VEINS, BILATERAL 01/04/22 INDICATION / CLINICAL INFORMATION: dvt. swelling TECHNIQUE: Duplex doppler imaging was performed through the veins of both lower extremities using venous compression and other maneuvers. COMPARISON: None available. FINDINGS: RIGHT COMMON FEMORAL VEIN: Negative. RIGHT FEMORAL VEIN: Negative. RIGHT POPLITEAL VEIN: Negative. RIGHT CALF VEINS: Negative. LEFT COMMON FEMORAL VEIN: Negative. LEFT FEMORAL VEIN: Negative. LEFT POPLITEAL VEIN: Negative. LEFT CALF VEINS: Negative. ADDITIONAL FINDINGS: None. IMPRESSION: 1. No sonographic evidence for DVT in either lower extremity. Allied health notes reviewed: nursing
[2022-01-06] MEDS: ASPIRIN EC 81 MG TAB PO SCH (10:25)
[2022-01-06] MEDS: NICOTINE 14 MG/24 HR PATCH TD SCH (10:25)
[2022-01-06] MEDS: FAMOTIDINE 20 MG TAB PO SCH (10:26)
--- NOTE | 2022-01-06 13:51 | Progress Note ---
Assessment and Plan Assessment and plan: History of present illness: 61-year-old male with known history of hypertension, diabetes mellitus, previous CVA presenting to the emergency room today for evaluation of confusion. Most of the history was gotten from the ER staff as patient is while in the emergency room after the tPA administration. Confused after his tPA administration. And unable to give any history at this time. Symptoms were said to have started about 2 PM yesterday. He had difficulty holding objects with his right hand. He had also complained of weakness on his right lower extremity inability to see from his right eye. Work-up in the emergency room today CT scan of the head reveals chronic infarcts. 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 Patient was evaluated by the neurologist and subsequently had tPA. He was said to have become confused after the tPA administration. A repeat CT of the head was unremarkable. Assessment and plan: This is a 61-year-old male with known past medical history of HTN, DM, previous stroke, asthma, and Tobacco Dependence admitted for acute CVA s/p tPA Hospital Course to Date: 12/30: Patient with acute encephalopathy, follows commands intermittently. Pupils are round and reactive, with + gag/cough. Mild right-sided facial droop appreciated, patient moves all his extremities. S/p IV Haldol this am due to increase agitation and is now on wrist restraints from safety. Imaguings reviewed, CTA head/neck revealed complete occlusion of the right ICA. NeuroSurgery consulted. Neurology is also following. Repeat CT head/brain and MRI pending. Will also check alcohol and ammonia level. Continue PRN Haldol for agitation. 2D echo pending. SSI initiated due to hyperglycemia. PT/OT/Speech also consulted. 12/31: Mentation improved. AAO, following commands. Repeat CT head with small acute evolving left MCA distribution infarction involving left frontal lobe and possible petechial hemorrhage. MRI brain and Neurology consult pending. Will hold ASA and AC until cleared by Neurology. 2D echo reviewed, suggestive of tiny extracardiac shunt, cardiology consulted. Speech cleared patient for pureed diet, IVF d/gibson. Continue PT/OT. D/w CCM, patient is stable for transfer to Telemetry. 01/01: Patient seen and examined clinically improving speech is improved. Tolerating diet. Cardiology was consulted as is considered that this is likely cardioembolic stroke given the findings on MRI. A SOTO is planned as TTE did detect some intracardiac shunt. As a result patient will remain in-house terence nue aggressive PT OT. Discharge planning is also continued based on what finding one half. Will defer anticoagulation to cardiology. As for now continue aspirin and statin therapy. 01/02: Patient seen and examined overnight patient was intermittently confused trying to get out of bed could be secondary to . Was also noted to have an episode of low blood sugar which corrected rapidly. Will decrease insulin sliding scale. Will ensure patient is obtaining adequate on urinary nutrition. Patient is pending SOTO at this time. 01/03: Patient remains in-house secondary to Repeat CT head showed small acute evolving left MCA distribution infarction involving left frontal lobe and possi ble petechial hemorrhage suggestive of tiny With the findings on MRI, this is possibly cardio-embolic CVA. A small intracardiac shunt was noted on surface echocardiogram. As a result a SOTO is recommended to be done on Tuesday. Speech therapy evaluation noted patient continues on pure and thin liquid. Mental status remains stable. We will continue current management of aspirin and statin we will not escalate to any anticoagulation secondary to concern for evolving stroke and petechial hemorrhage noted in previous imaging. 01/04: Patient seen and examined no new complaints, patient underwent echocardiogram SOTO today. Per cardiology documentation "this was done done today which showed mobile, filamentous echodensity attached to the interatrial septum. This is probably attached to thrombus that is occluding the PFO. Agitated saline injection did not show a [id number] shunt. Please obtain a venous Doppler ultrasound ultrasound of lower extremities to rule rule out any DVTs. I would recommend anticoagulation with apixaban if there is no contraindication after clearance from neurology. He will need a follow-up echo in 1 to 2 months with a bubble study to see the patency of PFO, and if patent will need a SOTO and closure." I have gone ahead and consulted neurology to reevaluate the patient and give us a clearance for initiation of apixaban. I also went ahead and ordered the Doppler of the lower extremity. Once clearance is obtained patient can be safely discharged and follow-up recommendation as outlined above. Patient doing well. No chest pain no shortness of breath no orthopnea or PND. He had his SOTO done today he tolerated the procedure well without any complications. 01/05: CT brain negative for bleed, continued evolutionary changes of diagnosed cva. Neuro ok with anticoagulation, will d/c today with rx for eliquis. 01/06: discharge order placed. patient is homeless. CM working on options for safe discharge. Assessment and Plan #Acute CVA s/p tPA #Acute metabolic encephalopathy #S/p Fall - Presented with AMS, right sided facial droop and right hemiplegia - CT head reveals chronic infarcts; CTA Neck/head reveals completed occlusion of the intracranial right ICA required collateral flow from the right posterior communicating artery. - TeleNeurology saw patient in the ED - Patient received tPA - Patient remains encephalopthic with periods of agitation, moves all extremities with mild right sided facial droop - Per patient's friend at the bedside, patient does not drink alcohol. UDS is negative - Repeat CT head with small acute evolving left MCA distribution infarction involving left frontal lobe and possible petechial hemorrhage - MRI brain pending - NeuroSurgery was also consulted due to occlusion in the NASIR - 2D Echo reviewed, suggestive of tiny extracardiac shunt, cardiology consulted - Orders placed for Lipid panel - Statin initiated - ASA and prophy AC to start tomorrow, 24hrs post TPA - Continue Neuro check per protocol - PT/OT/Speech ordered - Neurology also consulted - Aspiration and Fall precautions - PRN Haldol for agitation #Intra-atrial thrombus - SOTO demonstrates intraatrial thrombus abutting PFO in the left atrium per report - per neurology, ok with eliquis if no intracranial bleed on repeat CT. -CT brain negative for bleed - d/c home with Eliquis rx. #H/o Asthma #Tobacco Dependence - Patient is stable on RA, wheezing appreciated - Per patient's close friend at the bedside, patient is a daily cigarettes smoker - Continue PRN nebx treatment for wheezing - O2 supplementation as needed - Continue SPO2 monitoring for SPO2 goal above 92% - Smoking Cessation education once patient is more coherent and appropriate - Nicotine patch Qday #Hypertension - BP stable - Allow permissive hypertension to promote perfusion - Hold all antihypertensive agents for now - Continue blood pressure monitor per protocol, - maintain SBP less than 180 adn DBP less than 110 #Type 2 Diabetes with Hyperglycemia - HgbA1c- 11.0 - BG check and SSI Q6hrs - Lantus qhs - Avoid hypoglycemia - While critically ill target blood glucose of 140-180 #GI/DVT Prophylaxis - PPI- Pepcid - SCDs to bilateral lower extremities while in bed History Interval history: no acute complaints Hospitalist Physical - Physical exam Narrative exam: - Physical exam Narrative exam: General appearance: Present: no acute distress, well-nourished - EENT Eyes: Present: PERRL, EOM intact ENT: hearing intact - Neck Neck: Present: normal ROM - Respiratory Respiratory effort: normal Respiratory: bilateral: CTA - Cardiovascular Rhythm: regular Heart Sounds: Present: S1 & S2 - Extremities Extremities: no ischemia, pulses intact, pulses symmetrical Peripheral Pulses: within normal limits - Abdominal General gastrointestinal: soft, non-distended, normal bowel sounds - Integumentary Integumentary: Present: clear, warm, dry - Psychiatric Psychiatric: appropriate mood/affect, cooperative - Neurologic Neurologic: CNII-XII intact, moves all extremities - Allied Health Allied health notes reviewed: nursing - Constitutional Vitals: Temp Pulse Resp BP Pulse Ox 97.4 F L 83 18 166/83 94 01/06/22 11:44 01/06/22 11:44 01/06/22 11:44 01/06/22 11:44 01/06/22 11:44 General appearance: Present: no acute distress HEART Score - HEART Score Troponin: Troponin T < 0.010 ng/mL (0.00-0.029) 12/29/21 16:00 Results - Labs CBC & Chem 7: 01/01/22 04:45 01/01/22 04:45 Labs: Laboratory Last Values WBC 10.3 K/mm3 (4.5-11.0) 01/01/22 04:45 RBC 5.53 M/mm3 (3.65-5.03) H 01/01/22 04:45 Hgb 16.5 gm/dl (11.8-15.2) H 01/01/22 04:45 Hct 48.8 % (35.5-45.6) H 01/01/22 04:45 MCV 88 fl (84-94) 01/01/22 04:45 MCH 30 pg (28-32) 01/01/22 04:45 MCHC 34 % (32-34) 01/01/22 04:45 RDW 14.6 % (13.2-15.2) 01/01/22 04:45 Plt Count 156 K/mm3 (140-440) 01/01/22 04:45 Lymph % (Auto) 11.3 % (13.4-35.0) L 12/29/21 16:27 [place] % (Auto) 3.6 % (0.0-7.3) 12/29/21 16:27 Eos % (Auto) 0.0 % (0.0-4.3) 12/29/21 16: Baso % (Auto) 0.2 % (0.0-1.8) 12/29/21 16: Lymph # (Auto) 1.3 K/mm3 (1.2-5.4) 12/29/21 16: [place] # (Auto) 0.4 K/mm3 (0.0-0.8) 12/29/21 16: Eos # (Auto) 0.0 K/mm3 (0.0-0.4) 12/29/21 16: Baso # (Auto) 0.0 K/mm3 (0.0-0.1) 12/29/21 16: Seg Neutrophils % 84.9 % (40.0-70.0) H 12/29/21 16: Seg Neutrophils # 9.5 K/mm3 (1.8-7.7) H 12/29/21 16: PT 13.4 Sec. (12.2-14.9) 12/30/21 10:12 INR 0.92 (0.87-1.13) 12/30/21 10:12 APTT 30.3 Sec. (24.2-36.6) 12/30/21 10:12 ABG pH 7.437 pH Units (7.350-7.450) 01/01/22 18:40 ABG pCO2 33.8 mm Hg 01/01/22 18:40 ABG pO2 69.6 mm Hg (80.0-90.0) L 01/01/22 18:40 ABG HCO3 22.3 mmol/L (20.0-26.0) 01/01/22 18:40 ABG O2 Saturation 95.6 % (95.0-99.0) 01/01/22 18:40 ABG O2 Content 22.5 (0.0-44) 01/01/22 18:40 ABG Base Excess -1.0 mmol/L (-2.0-3.0) 01/01/22 18:40 ABG Hemoglobin 17.1 gm/dl (14.0-18.0) 01/01/22 18:40 ABG Carboxyhemoglobin 1.6 % (0.0-5.0) 01/01/22 18:40 ABG Methemoglobin 0.5 % (0.0-1.5) 01/01/22 18:40 Oxyhemoglobin 93.7 % (95.0-99.0) L 01/01/22 18:40 FiO2 21 % 01/01/22 18:40 Sodium 141 mmol/L (137-145) 01/01/22 04:45 Potassium 3.9 mmol/L (3.6-5.0) 01/01/22 04:45 Chloride 105.8 mmol/L (98-107) 01/01/22 04:45 Carbon Dioxide 22 mmol/L (22-30) 01/01/22 04:45 Anion Gap 17 mmol/L 01/01/22 04:45 BUN 25 mg/dL (9-20) H 01/01/22 04:45 Creatinine 0.6 mg/dL (0.8-1.3) L 01/01/22 04:45 Estimated GFR > 60 ml/min 01/01/22 04:45 BUN/Creatinine Ratio 42 % 01/01/22 04:45 Glucose 129 mg/dL (75-100) H 01/01/22 04:45 POC Glucose 113 mg/dL (70-105) H 01/01/22 07:40 Hemoglobin A1c 11.0 % (4-6) H 12/30/21 10:12 Calcium 8.9 mg/dL (8.4-10.2) 01/01/22 04:45 Total Bilirubin 0.60 mg/dL (0.1-1.2) 12/29/21 16:00 AST 12 units/L (5-40) 12/29/21 16:00 ALT 16 units/L (7-56) 12/29/21 16:00 Alkaline Phosphatase 120 units/L (35-129) 12/29/21 16:00 Troponin T < 0.010 ng/mL (0.00-0.029) 12/29/21 16:00 Total Protein 6.7 g/dL (6.3-8.2) 12/29/21 16:00 Albumin 4.8 g/dL (3.9-5) 12/29/21 16:00 Albumin/Globulin Ratio 2.5 % 12/29/21 16:00 Triglycerides 139 mg/dL (2-149) 12/30/21 10:12 Cholesterol 243 mg/dL (50-199) H 12/30/21 10:12 LDL Cholesterol Direct 156 mg/dL (50-130) H 12/30/21 10:12 HDL Cholesterol 61 mg/dL (40-59) H 12/30/21 10:12 Cholesterol/HDL Ratio 3.98 % 12/30/21 10:12 Urine Color Straw (Yellow) 12/29/21 17:50 Urine Turbidity Clear (Clear) 12/29/21 17:50 Specific [place] (Man) 1.005 (1.003-1.030) 12/29/21 17:50 Ur Protein (Man) 1+ mg/dL (Negative) 12/29/21 17:50 Ur Ketones (Man) 15 (Negative) 12/29/21 17:50 Urine Bilirubin (Man) Negative (Negative) 12/29/21 17:50 Urine WBC (Auto) < 1.0 /HPF (0.0-6.0) 12/29/21 17:50 Urine RBC (Auto) 1.0 /HPF (0.0-6.0) 12/29/21 17:50 Urine RBC (Manual) Negative (Negative) 12/29/21 17:50 Urine Mucus Few /HPF 12/29/21 17:50 Urine Opiates Screen Negative 12/29/21 18:11 Urine Methadone Screen Negative 12/29/21 18:11 Ur Barbiturates Screen Negative 12/29/21 18:11 Ur Phencyclidine Scrn Negative 12/29/21 18:11 Ur Amphetamines Screen Negative 12/29/21 18:11 U Benzodiazepines Scrn Negative 12/29/21 18:11 Urine Cocaine Screen Negative 12/29/21 18:11 U Marijuana (THC) Screen Negative 12/29/21 18:11 Drugs of Abuse Note Disclamer 12/29/21 18:11 Ibrahim/IV: Voiding Method Indwelling Catheter Active Medications - Current Medications Current Medications: Generic Name Dose Route Start Last Admin Trade Name Freq PRN Reason Stop Dose Admin Acetaminophen 650 mg 12/29/21 21:53 Acetaminophen 325 Mg Tab PO Q4H PRN Pain, Mild (1-3) Acetaminophen 650 mg 12/29/21 21:53 Acetaminophen 650 Mg Rect Supp GA Q6H PRN Pain MILD(1-3)/Fever >100.5/WAGNER Albuterol 2.5 mg 01/01/22 17:02 Albuterol 2.5 Mg/3 Ml Nebu IH Q6HRT PRN Shortness Of Breath Aspirin 81 mg 01/01/22 09:00 01/06/22 10:25 Aspirin Ec 81 Mg Tab PO 81 mg QDAY RUBI Administration Atorvastatin Calcium 40 mg 01/04/22 22:00 01/05/22 21:15 Atorvastatin 20 Mg Tab PO 40 mg QHS RUBI Administration Bisacodyl 10 mg 12/29/21 21:53 Bisacodyl 10 Mg Rect Supp GA QDAY PRN Constipation Dextrose 50 ml 12/29/21 21:53 Dextrose 50% In Water (25gm) 50 Ml Syringe IV Q30MIN PRN Hypoglycemia Protocol Famotidine 20 mg 01/01/22 10:00 01/06/22 10:26 Famotidine 20 Mg Tab PO 20 mg QDAY RUBI Administration Haloperidol Lactate 5 mg 12/30/21 12:09 12/31/21 08:21 Haloperidol Lactate 5 Mg/1 Ml Inj IV 5 mg Q6H PRN Administration Agitation Hydralazine HCl 10 mg 12/30/21 09:31 Hydralazine 20 Mg/1 Ml Inj IV Q6H PRN SBP >/=170; DBP >/=100 Insulin Human Lispro 0 unit 01/02/22 11:30 01/06/22 12:13 Insulin Lispro 100 Unit/Ml SUB-Q 4 unit ACHS RUBI Administration Protocol Magnesium Hydroxide 30 ml 12/29/21 21:53 Magnesium Hydroxide (Mom) Oral Liqd Udc PO Q4H PRN Constipation Metoclopramide HCl 10 mg 12/29/21 21:53 Metoclopramide 10 Mg Tab PO Q6H PRN Nausea And Vomiting Nicotine 14 mg 12/31/21 10:00 01/06/22 10:25 Nicotine 14 Mg/24 Hr Patch TD 14 mg QDAY RUBI Administration Ondansetron HCl 4 mg 12/29/21 21:53 Ondansetron 4 Mg/2 Ml Inj IV Q8H PRN Nausea And Vomiting Sodium Chloride 10 ml 12/29/21 22:00 01/06/22 10:26 Sodium Chloride 0.9% 10 Ml Flush Syringe IV 10 ml BID RUBI Administration Sodium Chloride 10 ml 12/29/21 21:53 Sodium Chloride 0.9% 10 Ml Flush Syringe IV PRN PRN LINE FLUSH Nutrition/Malnutrition Assess - Dietary Evaluation Nutrition/Malnutrition Findings: Nutrition Notes Start: 12/30/21 16:25 Freq: Status: Active Protocol: Document 12/31/21 14:42 RICHIE (Rec: 12/31/21 15:10 RICHIE [id number]) Nutrition Notes Need for Assessment generated from: mother baby rn,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 Current Diet Pureed Diet (since L 12/31). Labs/Tests 12/31: BUN 26. Pertinent Medications 12/31: Nutritionally unremarkable. 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 No body weight change reported in 1 day. Weight Status Appropriate Subjective/Other Information RD consult for difficulty chewing, skin risk and risk of malnutrition assessments. Diet advanced to PO as per YAM CURER recommendation, No reports available on Pt's PO intake of meals at the time, will assess at F/U. I will prescribe dietary supplements to compensate for possible or insufficient PO intake of meals during LOS. YAM CURER note on 12/31/21 10:46: Reassessment of the patient's swallowing function was addressed. Patient is safe for a pureed diet with thins. Will continue to follow to ensure continued safety. Informed the patient's nurse of diet recommendations. - END OF NOTE. Pt is on Room Air, O2 saturation @ 99%, according to Physical Assessment History notes. Pt has missing teeth, according to Physical Assessment History notes. Pt shows no signs of concern for skin risk at the time, according to Physical Assessment History notes. Pt shows no signs of concern for risk of malnutrition at the time, according to Physical Assessment History notes. Difficulty chewing has been addressed by YAM CURER recommendation, I will disregard this concern at this time. Pt still in critical condition , not a candidate for Nutrition Education at the time, will assess feasibility on F/U. Percent of energy/protein needs met: Prescribed Pureed Diet provides for energy/protein needs (1,804 Kcal/77 g) during LOS; additionally, Dietary Supplements will compensate for possible poor or insufficient PO intake of meals with 440 Kcal and 20 g of protein. Burn Absent Trauma Absent GI Symptoms None Difficulty In Swallowing,Chewing Food Allergy No Skin Integrity/Comment Assessment WNL. 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 As Evidenced by Signs and Symptoms No reports available on Pt's PO intake of meals at the time , will assess at F/U. #1 Nutrition Diagnosis Swallowing difficulty,Biting/ Chewing (masticatory) difficulty Etiology Possibly secondary to CVA. As Evidenced by Signs and Symptoms YAM CURER note on 12/31/21 10:46: Reassessment of the patient's swallowing function was addressed. Patient is safe for a pureed diet with thins. Will continue to follow to ensure continued safety. Informed the patient's nurse of diet recommendations. - END OF NOTE. Is patient on ventilator? No Is Patient Ambulatory and/or Out of Bed Yes REE-([place]-St. Jeor-ambulatory/OOB) [ 1651.169 [id number]] Kcal/Kg value to use for calculation 24 Approximate Energy Requirements Using 1368 kcal/Kg Calculation Used for Recommendations Kcal/kg Additional Notes Protein: 0.8-1 g/Kg ABW; 46-57 g/day. Fluids: 1 ml/Kcal, or as per MD. Nutrition Intervention Change Diet Order: Continue Pureed Diet as tolerated. Add Supplement/Snack (indicate name/kcal Start 8 fl oz Glucerna; BID. /protein ) Provides kCal: 440 Provides Protein (gm) 20 Goal #1 Compensate, through dietary supplementation, for possible poor or insufficient PO intake of meals during LOS. Goal #2 Facilitate PO intake of meals with elemental, textural, or mechanical modification during LOS. Follow-Up By: 01/07/22 Additional Comments Continue monitoring food tolerance, %PO intake of meals , dietary supplements, and BM.
--- NOTE | 2022-01-06 14:12 | Progress Note ---
Assessment and Plan - Patient Problems (1) Abnormal echocardiogram Current Visit: Yes Status: Acute Plan to address problem: Patient's SOTO showed evidence of a small PFO with possible associated thrombus. Eliquis treatment has been recommended, but the timing of initiation of anticoagulation in the setting of acute CVA will be deferred to the neurologist. Subjective Date of service: 01/06/22 Principal diagnosis: Acute CVA s/p tpA; AMS; HTN; DM II; Leucocytosis; Hyperlipidemia; Asthma Interval history: Patient is comfortable, walking on the floor with the assistance of physical therapy. No new cardiac events reported. Objective Vital Signs Temp Pulse Resp BP Pulse Ox 01/06/22 11:44 97.4 F L 83 18 166/83 94 01/06/22 11:16 90 01/06/22 10:00 94 01/06/22 07:54 98.0 F 73 18 139/70 97 01/06/22 03:41 97.8 F 81 18 139/69 95 01/05/22 23:19 97.9 F 88 16 132/62 96 01/05/22 23:05 94 01/05/22 22:00 90 01/05/22 19:22 98.5 F 89 12 135/74 94 01/05/22 16:22 97.9 F 83 18 136/73 95 - Physical Examination General: No Apparent Distress HEENT: Positive: PERRL Neck: Positive: neck supple. Negative: JVD/HJR Cardiac: Positive: Reg Rate and Rhythm Lungs: Positive: Decreased Breath Sounds Neuro: Positive: Weakness Abdomen: Positive: Soft Skin: Negative: Rash Extremities: Absent: edema - Imaging and Cardiology Echo: report reviewed (Normal EF possible possible extracardiac shunt) Chamber hypertrophy or enlargement: left atrial enlargement (Positive) Repolarization changes or abnormalities: early repolarization (normal variant) - Allied health notes Allied health notes reviewed: nursing
[2022-01-06 16:52] VITALS: BP 128/72
== END 2022-01-06 18:55 | disposition home health service (06) | DRG 61 ==
LOC: ED 14:53 → MERGE 21:02 → CC1 21:02 → 4A 12-31 16:02
PROVIDERS: ADMIT Internal Medicine Geriatric Medicine; ATTEND Internal Medicine
PROC: 4A033R1 Measurement of Arterial Saturation, Peripheral, Percutaneous Approach (ICD-10-PCS; principal; 2021-12-29)
PROC: 3E03317 Introduction of Other Thrombolytic into Peripheral Vein, Percutaneous Approach (ICD-10-PCS; 2021-12-29)
DX: I63.9 Cerebral infarction, unspecified (principal); G93.41 Metabolic encephalopathy; G81.91 Hemiplegia, unspecified affecting right dominant side; J44.1 Chronic obstructive pulmonary disease with (acute) exacerbation; F17.213 Nicotine dependence, cigarettes, with withdrawal; E11.65 Type 2 diabetes mellitus with hyperglycemia; I51.3 Intracardiac thrombosis, not elsewhere classified; I10 Essential (primary) hypertension; E78.5 Hyperlipidemia, unspecified
CPT/HCPCS: 36415; 36600; 70450; 70496; 70498; 70551; 71045; 80048; 80053; 80061; 80307; 81001; 82803; 82962; 83036; 84484; 85025; 85027; 85610; 85730; 93005; 93306; 93312; 93320; 93325; 93880; 93970; 94644; 94770; 99406; G0378; J3490; J7070; Q9967; C8929; J1630; J1815; J2250; J2704; J2997; J7030; J7040